=== PATIENT | female | born 1980 | race Caucasian/White ===

== ENCOUNTER 2016-10-14 23:34 | Emergency (ER) | payer MEDICARE, OTHER ==
[2016-10-14 23:53] VITALS: BP 111/69; PULSE 86; RESP 18; TEMP 98.1
[2016-10-15] MEDS ORDERED: SODIUM CHLORIDE 0.9% 500 ML IV ONE (00:21)
[2016-10-15] MEDS ORDERED: diphenhydrAMINE 50 MG/ML 1 ML VIAL IVP STA (00:21)
[2016-10-15] MEDS ORDERED: METOCLOPRAMIDE 5 MG/ML 2 ML VIAL IVP STA (00:21)
[2016-10-15] MEDS ORDERED: KETOROLAC 30 MG/ML 1 ML VIAL IVP STA (00:21)
--- NOTE | 2016-10-15 00:33 | ED ---
Headache HPI - General Chief Complaint: Headache Stated Complaint: Head Pain Hx Brain Surgery Time Seen by Provider: 10/15/16 00:16 Source: patient, RN notes reviewed Mode of arrival: wheelchair Limitations: no limitations - History of Present Illness Initial Comments: 35-year-old female presents emergency Department chief complaint headache. Patient states headache started last night. Patient states that she's tried some Excedrin with no relief. Patient states she's had chronic headaches ever since she had an abscess to her brain from a tooth infection. She states this is 7-8 years ago. She states she's never had a recurrence of her infection. She states this feels like her typical migraine headache which is diffuse in nature and the posterior aspect. Patient denies any visual changes though she does say that she has some photophobia. Patient does admit to some nausea. Patient states she has some chronic weakness the right side from her abscess in which she hadn't to cranial pressure alleviated with bur holes. Patient denies any neck stiffness, fever, chills, chest pain or shortness breath. - Related Data Home Medications Medication Instructions Recorded Confirmed ALPRAZolam [Xanax] 1 mg PO Q12H PRN 10/14/16 10/14/16 FLUoxetine HCL [PROzac] 30 mg PO DAILY 10/14/16 10/14/16 lamoTRIgine [LaMICtal Xr] 100 mg PO BID 10/14/16 10/14/16 Allergies Allergy/AdvReac Type Severity Reaction Status Date / Time No Known Allergies Allergy Verified 10/14/16 23:53 Review of Systems ROS Statement: Those systems with pertinent positive or pertinent negative responses have been documented in the HPI. ROS Other: All systems not noted in ROS Statement are negative. Past Medical History Additional Past Medical History / Comment(s): right sided weakness, Brain cysts History of Any Multi-Drug Resistant Organisms: None Reported Additional Past Surgical History / Comment(s): 3 brain surgeries Past Psychological History: Anxiety, Bipolar, Depression Smoking Status: Current every day smoker Past Alcohol Use History: None Reported Past Drug Use History: Marijuana General Exam Limitations: no limitations General appearance: alert, in no apparent distress Head exam: Present: atraumatic, normocephalic, normal inspection Eye exam: Present: normal appearance, PERRL, EOMI. Absent: scleral icterus, conjunctival injection, periorbital swelling ENT exam: Present: normal exam, normal oropharynx, mucous membranes moist Neck exam: Present: normal inspection, full ROM. Absent: tenderness, meningismus, lymphadenopathy Respiratory exam: Present: normal lung sounds bilaterally. Absent: respiratory distress, wheezes, rales, rhonchi, stridor Cardiovascular Exam: Present: regular rate, normal rhythm, normal heart sounds. Absent: systolic murmur, diastolic murmur, rubs, gallop, clicks Extremities exam: Present: other (Some chronic weakness noted to the right upper extremity patient states this is her normal baseline) Neurological exam: Present: alert, oriented X3, CN II-XII intact, reflexes normal, other (Cerebellar testing within normal limits). Absent: motor sensory deficit Skin exam: Present: warm, dry, intact, normal color. Absent: rash Course Vital Signs 10/14/16 23:50 Temperature 98.1 F Pulse Rate 86 Respiratory 18 Rate Blood Pressure 111/69 O2 Sat by Pulse 98 Oximetry - Reevaluation(s) Reevaluation #1: 10/15/16 01:59 Patient was reevaluated updated on results. Patient is using her cell phone in her room with no difficulty. Patient's in no acute distress. Patient states the headache is getting better. Patient will be discharged Medical Decision Making - Medical Decision Making 35-year-old female presented for headache. Patient's CT shows no acute changes. Patient will be discharged. Patient has no neurological deficits. Disposition Clinical Impression: Migraine Disposition: HOME SELF-CARE Condition: Stable Instructions: Acute Headache (ED) Additional Instructions: Please return to the Emergency Department if symptoms worsen or any other concerns. Time of Disposition: 02:00
[2016-10-15] MEDS ORDERED: ALPRAZolam 0.25 MG TAB PO STA (01:13)
[2016-10-15] MEDS ORDERED: BUTALB/APAP/CAFF 50-325-40MG TAB PO STA (01:33)
--- NOTE | 2016-10-15 01:47 | CT ---
EXAMINATION TYPE: CT brain wo con DATE OF EXAM: 10/15/2016 1:26 AM COMPARISON: 09/14/2015 HISTORY: HARKINS, light and sound sensitive, history of brain surgery x3 CT DLP: 1017.90 mGycm Automated exposure control for dose reduction was used. FINDINGS: Ventricles and sulci appear normal. There is some mild hypodensity in the white matter left posterior frontal lobe. There is no mass effect nor midline shift. There is no sign of intracranial hemorrhage . The calvarium is intact. There is hypodensity also in the insula of the left temporal lobe. IMPRESSION: Hypodensity in the left cerebral hemisphere consistent with mild encephalomalacia that is stable comp ared to last exam. No acute intracranial abnormality.
== END 2016-10-15 02:18 | disposition home or self-care (01) ==
LOC: EC 23:34
DX: G43.909 Migraine, unspecified, not intractable, without status migrainosus (principal); F31.9 Bipolar disorder, unspecified; F41.9 Anxiety disorder, unspecified; F17.200 Nicotine dependence, unspecified, uncomplicated; Z79.899 Other long term (current) drug therapy
CPT/HCPCS: 70450; 99284; 96374; 96375 ×2; J1200; J2765; J1885

== ENCOUNTER 2017-01-12 16:03 | Emergency (ER) | payer MEDICARE, OTHER ==
[2017-01-12 16:07] VITALS: RESP 18
[2017-01-12] MEDS ORDERED: MORPHINE SULFATE 4 MG/ML SYRINGE IVP STA (16:38)
[2017-01-12] MEDS ORDERED: KETOROLAC 30 MG/ML 1 ML VIAL IVP STA (16:38)
[2017-01-12] MEDS ORDERED: diphenhydrAMINE 50 MG/ML 1 ML VIAL IVP STA (16:38)
[2017-01-12] MEDS ORDERED: LORazepam 2 MG/ML SYRINGE IV STA (16:38)
[2017-01-12] MEDS ORDERED: SODIUM CHLORIDE 0.9% 1,000 ML IV STA (16:38)
[2017-01-12] MEDS ORDERED: METOCLOPRAMIDE 5 MG/ML 2 ML VIAL IVP STA (16:38)
--- NOTE | 2017-01-12 16:45 | ED ---
General Adult HPI - General Chief complaint: Headache Stated complaint: Headache Time Seen by Provider: 01/12/17 16:23 Source: patient, RN notes reviewed, old records reviewed Mode of arrival: EMS Limitations: no limitations - History of Present Illness Initial comments: This is a 28-year-old female to the ER for evaluation of headache. Patient doesn't for migraine headaches. Patient denies being the worst headache of her life, headache started earlier this afternoon she did take Imitrex at home for migraine which had no help. Patient denies taking any other medications at home. No recent trauma no fevers. No recent hospital admission for similar issues. Patient denies neurological deficit. No nausea vomiting. Patient feels like she has sharp stabbing pain above her left eye which is similar to her headaches in the past. - Related Data Home Medications Medication Instructions Recorded Confirmed ALPRAZolam [Xanax] 1 mg PO BID 10/14/16 01/12/17 Albuterol Inhaler [Ventolin Hfa 2 puff INHALATION RT-Q4H PRN 01/12/17 01/12/17 Inhaler] Cyclobenzaprine [Flexeril] 10 mg PO HS PRN 01/12/17 01/12/17 FLUoxetine HCL [PROzac] 30 mg PO DAILY 01/12/17 01/12/17 Naproxen 500 mg PO BID PRN 01/12/17 01/12/17 Omeprazole [PriLOSEC] 40 mg PO DAILY 01/12/17 01/12/17 lamoTRIgine [LaMICtal] 100 mg PO BID 01/12/17 01/12/17 Allergies Allergy/AdvReac Type Severity Reaction Status Date / Time No Known Allergies Allergy Verified 01/12/17 16:18 Review of Systems ROS Statement: Those systems with pertinent positive or pertinent negative responses have been documented in the HPI. ROS Other: All systems not noted in ROS Statement are negative. Past Medical History Additional Past Medical History / Comment(s): right sided weakness, Brain cysts History of Any Multi-Drug Resistant Organisms: None Reported Additional Past Surgical History / Comment(s): 3 brain surgeries Past Psychological History: Anxiety, Bipolar, Depression Smoking Status: Current every day smoker Past Alcohol Use History: None Reported Past Drug Use History: Marijuana General Exam Limitations: no limitations General appearance: alert, in no apparent distress Head exam: Present: atraumatic, normocephalic, normal inspection Eye exam: Present: normal appearance, PERRL, EOMI. Absent: scleral icterus, conjunctival injection, periorbital swelling ENT exam: Present: normal exam, mucous membranes moist Neck exam: Present: normal inspection. Absent: tenderness, meningismus, lymphadenopathy Respiratory exam: Present: normal lung sounds bilaterally. Absent: respiratory distress, wheezes, rales, rhonchi, stridor Cardiovascular Exam: Present: regular rate, normal rhythm, normal heart sounds. Absent: systolic murmur, diastolic murmur, rubs, gallop, clicks GI/Abdominal exam: Present: soft, normal bowel sounds. Absent: distended, tenderness, guarding, rebound, rigid Extremities exam: Present: normal inspection, full ROM, normal capillary refill. Absent: tenderness, pedal edema, joint swelling, calf tenderness Back exam: Present: normal inspection Neurological exam: Present: alert, oriented X3, CN II-XII intact Psychiatric exam: Present: normal affect, normal mood Skin exam: Present: warm, dry, intact, normal color. Absent: rash Course Vital Signs 01/12/17 01/12/17 01/12/17 16:04 16:52 17:20 Temperature 99.0 F Pulse Rate 65 76 70 Respiratory 18 18 18 Rate Blood Pressure 119/68 96/59 117/73 O2 Sat by Pulse 99 97 98 Oximetry 01/12/17 17:48 Temperature Pulse Rate 78 Respiratory 18 Rate Blood Pressure 112/75 O2 Sat by Pulse 100 Oximetry - Reevaluation(s) Reevaluation #1: 01/12/17 18:20 Patient's headache continues to improve Reevaluation #2: 01/12/17 18:50 At this point patient's headache appears resolved Reevaluation #3: 01/12/17 18:20 Patient's medical record thoroughly reviewed and cleaned prior MRI and CAT scans of brain Medical Decision Making - Medical Decision Making 36 female here for evaluation of headache. History of chronic headache and migraine, patient given multiple migraine medications in the emergency, headache is improved CT is negative, past results of MRI also show negative, patient will be discharged home - Radiology Data Radiology results: report reviewed (CT brain is negative for acute disease), image reviewed Disposition Clinical Impression: Headache, Migraine Disposition: HOME SELF-CARE Condition: Good Instructions: Acute Headache (ED) Referrals: Jarrell Tello MD [Primary Care Provider] - 1-2 days
[2017-01-12] MEDS ORDERED: HYDROmorphone 2 MG/ML 1 ML SYRINGE IVP STA ×2 (17:43→19:51)
[2017-01-12] MEDS ORDERED: ORPHENADRINE 30 MG/ML 2 ML VIAL IVP STA (18:11)
[2017-01-12] MEDS ORDERED: PROCHLORPERAZINE 5 MG TAB PO STA (18:11)
--- NOTE | 2017-01-12 18:42 | CT ---
EXAMINATION TYPE: CT brain wo con DATE OF EXAM: 01/12/2017 6:37 PM COMPARISON: 10/15/2016 HISTORY: Headache for 5 days with history of migraine CT DLP: 1017.[address] of the brain was performed. The ventricles, basal cisterns and sulci overlying the cerebral convexities demonstrate a normal appe arance. Stable focal area of decreased attenuation within the left external capsule likely reflects an area o f remote encephalomalacia. There is no evidence for intracranial hemorrhage or sulcal effacement. No mass effects are seen. Osseous calvarium is intact. If symptoms persist consider MRI as clinically warranted. IMPRESSION: 1. No acute intracranial process is seen at this time.
[2017-01-12 20:07] VITALS: BP 113/69; PULSE 68; TEMP 98.5
== END 2017-01-12 20:09 | disposition home or self-care (01) ==
LOC: EC 16:03
DX: G43.909 Migraine, unspecified, not intractable, without status migrainosus (principal); H57.12 Ocular pain, left eye; F31.9 Bipolar disorder, unspecified; F41.9 Anxiety disorder, unspecified; F17.200 Nicotine dependence, unspecified, uncomplicated; Z79.899 Other long term (current) drug therapy
CPT/HCPCS: 96375 ×8; 96376 ×2; 96361 ×2; 96365 ×2; 99284 ×2; 70450; S0183; J2060; J2270; J1170; J1200; J2360; J2765; J2930; J1885

== ENCOUNTER 2017-01-14 18:24 | Emergency (ER) | payer MEDICARE, OTHER ==
[2017-01-14 18:35] VITALS: RESP 18
[2017-01-14] MEDS ORDERED: KETOROLAC 30 MG/ML 1 ML VIAL IVP STA (18:47)
[2017-01-14] MEDS ORDERED: diphenhydrAMINE 50 MG/ML 1 ML VIAL IVP STA (18:47)
[2017-01-14] MEDS ORDERED: METOCLOPRAMIDE 5 MG/ML 2 ML VIAL IVP STA (18:47)
[2017-01-14] MEDS ORDERED: DEXAMETHASONE SOD PHOSPHATE 10 MG/ML 1 ML VIAL IV STA (18:47)
[2017-01-14] MEDS ORDERED: SODIUM CHLORIDE 0.9% 1,000 ML IV STA (18:47)
--- NOTE | 2017-01-14 18:49 | ED ---
General Adult HPI - General Chief complaint: Headache Stated complaint: Headache w Tingling Time Seen by Provider: 01/14/17 18:38 Source: EMS, RN notes reviewed Mode of arrival: EMS Limitations: no limitations - History of Present Illness Initial comments: Patient 36-year-old female who presents emergency room today with a chief complaint of a headache. Does admit that headaches ongoing over the last 2 days. Was recently seen here in the emergency room just 2 days ago for this headache. Does admit to chronic migraines. Patient states it's a stabbing type headache located on the left side. She states is consistent with migraines is had in the past. Also does admit to some photosensitivity which she is also had in the past. Patient states that approximately an hour ago began having some numbness and stationed on the left arm. She states this is different. Her previous headaches. She denies any other complaints or associated symptoms. Patient denies any recent fever, chills, shortness of breath, chest pain, back pain, abdominal pain, nausea or vomiting, numbness or tingling, dysuria or hematuria, constipation or diarrhea, headaches or visual changes, or any other complaints. - Related Data Home Medications Medication Instructions Recorded Confirmed ALPRAZolam [Xanax] 1 mg PO BID 10/14/16 01/14/17 Albuterol Inhaler [Ventolin Hfa 2 puff INHALATION RT-Q4H PRN 01/12/17 01/14/17 Inhaler] Cyclobenzaprine [Flexeril] 10 mg PO HS PRN 01/12/17 01/14/17 FLUoxetine HCL [PROzac] 30 mg PO DAILY 01/12/17 01/14/17 Naproxen 500 mg PO BID PRN 01/12/17 01/14/17 Omeprazole [PriLOSEC] 40 mg PO DAILY 01/12/17 01/14/17 lamoTRIgine [LaMICtal] 100 mg PO BID 01/12/17 01/14/17 [id number] 2 tab PO TID PRN 01/14/17 01/14/17 [Excedrin] Allergies Allergy/AdvReac Type Severity Reaction Status Date / Time No Known Allergies Allergy Verified 01/14/17 19:35 Review of Systems ROS Statement: Those systems with pertinent positive or pertinent negative responses have been documented in the HPI. ROS Other: All systems not noted in ROS Statement are negative. Past Medical History Additional Past Medical History / Comment(s): right sided weakness, Brain cysts History of Any Multi-Drug Resistant Organisms: None Reported Additional Past Surgical History / Comment(s): 3 brain surgeries Past Psychological History: Anxiety, Bipolar, Depression Smoking Status: Current every day smoker Past Alcohol Use History: None Reported Past Drug Use History: Marijuana General Exam - General Exam Comments Initial Comments: General: The patient is awake and alert, in no distress, and does not appear acutely ill. Eye: Pupils are equal, round and reactive to light, extra-ocular movements are intact. No nystagmus. There is normal conjunctiva bilaterally. No signs of icterus. Ears, nose, mouth and throat: There are moist mucous membranes and no oral lesions. Neck: The neck is supple, there is no tenderness or JVD. Cardiovascular: There is a regular rate and rhythm. No murmur, rub or gallop is appreciated. Respiratory: Lungs are clear to auscultation, respirations are non-labored, breath sounds are equal. No wheezes, stridor, rales, or rhonchi. Gastrointestinal: Soft, non-distended, non-tender abdomen without masses or organomegaly noted. There is no rebound or guarding present. No CVA tenderness. Bowel sounds are unremarkable. Musculoskeletal: Normal ROM, no tenderness. Strength 5/5. Sensation intact. Pulses equal bilaterally 2+. Neurological: A&O x 3. CN II-XII intact, There are no obvious motor or sensory deficits. Coordination appears grossly intact. Speech is normal. Skin: Skin is warm and dry and no rashes or lesions are noted. Psychiatric: Cooperative, appropriate mood & affect, normal judgment. Limitations: no limitations Course Vital Signs 01/14/17 18:30 Temperature 97.9 F Pulse Rate 74 Respiratory 18 Rate Blood Pressure 104/58 O2 Sat by Pulse 100 Oximetry Medical Decision Making - Medical Decision Making Patient reexamined at this time shows no signs of distress. Resting comfortably in the stretcher. Medications given of Toradol, Benadryl, steroids , Reglan here in the emergency room for headache along with fluids. She states it has been little improvement. Patient does admit to a history of migraines states his symptoms are similar. She said multiple CAT scans most recently just 2 days ago which was negative for any acute abnormalities. Case was discussed with attending physician . Was discussed with patient about migraine headaches and narcotics. Long discussion with the patient about the risks and benefits. Patient in agreement at this time to not take any narcotic medication. Patient be given Ativan discharged home and advised follow-up with her family doctor long with neurologist. Patient advised return if any symptoms increase or worsen or for any other concerns - Lab Data Result diagrams: 01/14/17 19:05 01/14/17 19:05 Lab Results 01/14/17 01/14/17 Range/Units 19:05 19:05 WBC 5.8 (3.8-10.6) k/uL RBC 3.75 L (3.80-5.40) m/uL Hgb 12.1 (11.4-16.0) gm/dL Hct 34.9 (34.0-46.0) % MCV 93.0 (80.0-100.0) fL MCH 32.4 (25.0-35.0) pg MCHC 34.8 (31.0-37.0) g/dL RDW 12.5 (11.5-15.5) % Plt Count 286 (150-450) k/uL Neutrophils % 55 % Lymphocytes % 35 % Monocytes % 7 % Eosinophils % 0 % Basophils % 1 % Neutrophils # 3.2 (1.3-7.7) k/uL Lymphocytes # 2.0 (1.0-4.8) k/uL Monocytes # 0.4 (0-1.0) k/uL Eosinophils # 0.0 (0-0.7) k/uL Basophils # 0.1 (0-0.2) k/uL Sodium 145 (137-145) mmol/L Potassium 4.1 (3.5-5.1) mmol/L Chloride 110 H (98-107) mmol/L Carbon Dioxide 27 (22-30) mmol/L Anion Gap 8 mmol/L BUN 24 H (7-17) mg/dL Creatinine 0.90 (0.52-1.04) mg/dL Est GFR (MDRD) Af Amer >60 (>60 ml/min/1.73 sqM) Est GFR (MDRD) Non-Af >60 (>60 ml/min/1.73 sqM) Glucose 80 (74-99) mg/dL Calcium 9.8 (8.4-10.2) mg/dL Disposition Clinical Impression: Headache Disposition: HOME SELF-CARE Condition: Good Instructions: Acute Headache (ED) Additional Instructions: Please follow-up the family doctor and neurologist as discussed. Please return to emergency room if any symptoms increase worsen or for other concerns. Time of Disposition: 19:56
[2017-01-14 19:19] LABS: Basophils # (A) 0.1 k/uL (0-0.2); Basophils % (A) 1 %; CH 32.4; Eosinophils % (A) 0 %; HCT 34.9 % (34.0-46.0); HDW 2.47; HGB 12.1 gm/dL (11.4-16.0); Luc # (Auto) 0.16; Luc % (Auto) 3; Lymphocytes % (A) 35 %; MCH 32.4 pg (25.0-35.0); MCHC 34.8 g/dL (31.0-37.0); Mean Platelet Volume 7.4; Monocytes # (A) 0.4 k/uL (0-1.0); Monocytes % (A) 7 %; Neutrophils # (A) 3.2 k/uL (1.3-7.7); Neutrophils % (A) 55 %; RBC 3.75 m/uL (3.80-5.40); RDW 12.5 % (11.5-15.5); WBC 5.8 k/uL (3.8-10.6); WBC (Perox) 6.18
[2017-01-14 19:36] LABS: Anion Gap 8 mmol/L; Blood Urea Nitrogen 24 mg/dL (7-17); Calcium 9.8 mg/dL (8.4-10.2); Carbon Dioxide 27 mmol/L (22-30); Chloride 110 mmol/L (98-107); Glucose 80 mg/dL (74-99); Non-African American GFR(MDRD) >60 (>60 ml/min/1.73 sqM); Potassium 4.1 mmol/L (3.5-5.1); Sodium 145 mmol/L (137-145)
[2017-01-14] MEDS ORDERED: LORazepam 2 MG/ML SYRINGE IV STA ×2 (19:53→19:54)
[2017-01-14 20:03] VITALS: BP 103/69; PULSE 65; TEMP 98
== END 2017-01-14 20:28 | disposition home or self-care (01) ==
LOC: EC 18:24
DX: R51 Headache (principal); F32.9 Major depressive disorder, single episode, unspecified; F41.9 Anxiety disorder, unspecified; F31.9 Bipolar disorder, unspecified; F17.200 Nicotine dependence, unspecified, uncomplicated; Z79.899 Other long term (current) drug therapy
CPT/HCPCS: 36415; 80048; 85025; 96374; 96375; 96376; 96361; 99284; J2060; J1200; J1100; J2765; J1885

== ENCOUNTER 2017-01-15 15:42 | Inpatient (IN) | payer MEDICARE, OTHER ==
[2017-01-15] MEDS ORDERED: KETOROLAC 60 MG/2 ML VIAL IVP STA (16:03)
[2017-01-15] MEDS ORDERED: PROMETHAZINE INJ 25 MG in SODIUM CHLORIDE 0.9% 50 ML IVPB STA (16:04)
[2017-01-15] MEDS ORDERED: SODIUM CHLORIDE 0.9% 1,000 ML IV ONE ×2 (16:05→17:30)
[2017-01-15] MEDS ORDERED: diphenhydrAMINE 50 MG/ML 1 ML VIAL IVP STA (16:05)
--- NOTE | 2017-01-15 16:08 | ED ---
General Adult HPI - General Chief complaint: Headache Stated complaint: HEADACHE Time Seen by Provider: 01/15/17 15:45 Source: EMS, RN notes reviewed Mode of arrival: EMS Limitations: no limitations - History of Present Illness Initial comments: This is a 28-year-old female presents to the emergency department with chronic headaches. Patient states she has a history of having had a brain abscess and brain surgery many years ago. Patient states about 4 years ago she started having chronic headaches and she states the last time she is completely headache free was about a year ago. Patient states been emergency department twice before this last week because of headaches. Patient states we give her medication she feels better she is home and the headaches return. Patient has had 2 CAT scans already this year both been negative for any new changes. Patient has not followed up with her neurologist or her primary medical care doctor for these headaches recently. Patient denies any new neurologic deficit. Patient states she does have some residual weakness to the right arm and leg secondary to the surgery she had on her brain abscess. Patient denies any recent fever or chills. Patient denies any blurred vision. Patient denies any injury or trauma. Patient denies any recent cough or any difficulty breathing. Patient denies any nausea or vomiting. - Related Data Home Medications Medication Instructions Recorded Confirmed ALPRAZolam [Xanax] 1 mg PO BID 10/14/16 01/15/17 Albuterol Inhaler [Ventolin Hfa 2 puff INHALATION RT-Q4H PRN 01/12/17 01/15/17 Inhaler] Cyclobenzaprine [Flexeril] 10 mg PO HS PRN 01/12/17 01/15/17 FLUoxetine HCL [PROzac] 30 mg PO DAILY 01/12/17 01/15/17 Naproxen 500 mg PO BID PRN 01/12/17 01/15/17 Omeprazole [PriLOSEC] 40 mg PO DAILY 01/12/17 01/15/17 lamoTRIgine [LaMICtal] 100 mg PO BID 01/12/17 01/15/17 [id number] 2 tab PO TID PRN 01/14/17 01/15/17 [Excedrin] Allergies Allergy/AdvReac Type Severity Reaction Status Date / Time No Known Allergies Allergy Verified 01/15/17 16:18 Review of Systems ROS Statement: Those systems with pertinent positive or pertinent negative responses have been documented in the HPI. ROS Other: All systems not noted in ROS Statement are negative. Past Medical History Additional Past Medical History / Comment(s): right sided weakness, Brain cysts History of Any Multi-Drug Resistant Organisms: None Reported Additional Past Surgical History / Comment(s): 3 brain surgeries Past Psychological History: Anxiety, Bipolar, Depression Smoking Status: Current every day smoker Past Alcohol Use History: None Reported Past Drug Use History: Marijuana General Exam - General Exam Comments Initial Comments: GENERAL: Patient is well-developed and well-nourished. Patient is nontoxic and well- hydrated and is in mild distress. ENT: Neck is soft and supple. No significant lymphadenopathy is noted. Oropharynx is clear. Moist mucous membranes. Neck has full range of motion without eliciting any pain. EYES: The sclera were anicteric and conjunctiva were pink and moist. Extraocular movements were intact and pupils were equal round and reactive to light. Eyelids were unremarkable. PULMONARY: Unlabored respirations. Good breath sounds bilaterally. No audible rales rhonchi or wheezing was noted. CARDIOVASCULAR: There is a regular rate and rhythm without any murmurs gallops or rubs. ABDOMEN: Soft and nontender with normal bowel sounds. No palpable organomegaly was noted. There is no palpable pulsatile mass. SKIN: Skin is clear with no lesions or rashes and otherwise unremarkable. NEUROLOGIC: Patient is alert and oriented x3. Cranial nerves II through XII are grossly intact. 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 Normal speech, volume and content. Symmetrical smile. MUSCULOSKELETAL: Normal extremities with adequate strength and full range of motion. No lower extremity swelling or edema. No calf tenderness. LYMPHATICS: No significant lymphadenopathy is noted PSYCHIATRIC: Normal psychiatric evaluation. Normal interpersonal interactions appears functionally intact in deals appropriately with others. No signs of depression. No signs of anxiety. Limitations: no limitations Course Vital Signs 01/15/17 01/15/17 15:45 17:11 Temperature 97.0 F L 97.5 F L Pulse Rate 81 67 Respiratory 18 18 Rate Blood Pressure 118/67 112/81 O2 Sat by Pulse 97 99 Oximetry Medical Decision Making - Medical Decision Making This is the patient's third visit in a week she's had 2 CTs of her brain this year and the medicine we gave her only mildly improved her symptoms. she states she has an appointment with the [facility] in June patient states she cannot go home with the scheduled just be back tomorrow. I spoke with Dr. Dahl agreed to admit I wrote admitting orders and consult neurology Disposition Clinical Impression: Intractable headache Disposition: ADMITTED IP TO THIS [facility] Time of Disposition: 17:30
[2017-01-15] MEDS ORDERED: LORazepam 2 MG/ML SYRINGE IV STA (17:22)
[2017-01-15] MEDS ORDERED: ASPIRIN-ACET-CAFF 250-250-65MG 1 EACH TAB PO PRN (18:37)
[2017-01-15] MEDS ORDERED: NAPROXEN 250 MG TAB PO PRN (18:37)
[2017-01-15] MEDS ORDERED: ALBUTEROL NEBULIZED 2.5 MG/3 ML INHALATION PRN (18:37)
[2017-01-15] MEDS: lamoTRIgine 100 MG TAB PO SCH (21:08)
[2017-01-15] MEDS: Acetaminophen-Codeine 300-30mg TAB PO PRN (21:08)
[2017-01-15] MEDS: ALPRAZolam 0.5 MG TAB PO SCH (21:13)
[2017-01-16] MEDS: Acetaminophen-Codeine 300-30mg TAB PO PRN ×2 (03:31→08:11)
[2017-01-16] MEDS: lamoTRIgine 100 MG TAB PO SCH ×2 (08:10→20:13)
[2017-01-16] MEDS: PANTOPRAZOLE 40 MG TABLET PO SCH (08:11)
[2017-01-16] MEDS: ALPRAZolam 0.5 MG TAB PO SCH ×2 (08:11→21:31)
[2017-01-16] MEDS: FLUoxetine HCL 10 MG CAP PO SCH (08:11)
--- NOTE | 2017-01-16 11:28 | P.CNNES ---
History of Present Illness Consult date: 01/16/17 Requesting physician: Jaswant Ahumada Reason for Consult: Intractable headache History of Present Illness: Patient is a pleasant 28-year-old female who is being evaluated by the neurology service on 01/16/2017 per the request of Dr. Ahumada for intractable headache. Patient states that she has history of brain abscess and brain surgery approximately 6 years ago done at [facility]. Patient does report having residual right upper extremity weakness ever since the surgery. Patient states headaches began a little over a year ago. Patient reports having seen a neurologist in the past but states no medications have relieved the headaches and she has not followed up. Patient has had multiple emergency room visits in the past week. Patient states when she comes emergency room she was given IV medications to help relieve the headache and headaches returned when she gets in the home setting. CT of the brain from 01/12/2017 showed no acute intracranial process. Vital signs are stable on admission with a pulse 85 , respiratory rate 19, blood pressure 116/66, and O2 saturation of 97% on room air. Patient's home medications include Excedrin migraine which patient states does not help. Patient also takes Lamictal and Prozac for mood and does see [facility] as an outpatient. At the time of my evaluation, patient is sitting up in bed and is tearful complaining of left-sided headache pain. Review of Systems REVIEW OF SYSTEMS: Otherwise unremarkable and noncontributory. Past Medical History Additional Past Medical History / Comment(s): right sided weakness, Brain cysts History of Any Multi-Drug Resistant Organisms: None Reported Additional Past Surgical History / Comment(s): 3 brain surgeries Past Psychological History: Anxiety, Bipolar, Depression Smoking Status: Former smoker Past Alcohol Use History: None Reported Past Drug Use History: Marijuana Additional Drug Use History / Comment(s): Pt states she quit smoking 2 weeks ago Medications and Allergies Home Medications Medication Instructions Recorded Confirmed Type ALPRAZolam [Xanax] 1 mg PO BID 10/14/16 01/15/17 History Albuterol Inhaler [Ventolin Hfa 2 puff INHALATION RT-Q4H PRN 01/12/17 01/15/17 History Inhaler] FLUoxetine HCL [PROzac] 30 mg PO DAILY 01/12/17 01/15/17 History Naproxen 500 mg PO BID PRN 01/12/17 01/15/17 History Omeprazole [PriLOSEC] 40 mg PO DAILY 01/12/17 01/15/17 History lamoTRIgine [LaMICtal] 100 mg PO BID 01/12/17 01/15/17 History Modpwhn-Ssip-Zoov [id number] 2 tab PO TID PRN 01/14/17 01/15/17 History [Excedrin] Allergies Allergy/AdvReac Type Severity Reaction Status Date / Time No Known Allergies Allergy Verified 01/15/17 16:18 Physical Examination - Vital Signs Vital Signs: Vital Signs Temp Pulse Pulse Resp BP BP Pulse Ox 01/16/17 07:00 98.6 F 57 L 16 96/60 97 01/15/17 23:00 98.2 F 97 16 110/62 97 01/15/17 18:27 97.6 F 85 19 116/66 99 01/15/17 18:00 97.9 F 80 18 115/79 97 Intake and Output 01/15/17 01/16/17 01/16/17 22:59 06:59 14:59 Other: # Voids 1 0 PHYSICAL EXAM: GENERAL APPEARANCE: Patient is a well-developed, female who appears to be in no acute distress. HEENT: Normocephalic, atraumatic, no facial asymmetry is seen. Neck is supple with no masses felt. CARDIOVASCULAR: Regular rate and rhythm. ABDOMEN: Nontender, nondistended. EXTREMITIES: Show no edema or clubbing. NEUROLOGICAL EXAM: Patient is awake, alert, and oriented 3. Speech and language are normal. Strength is 5-/5 in right upper extremity and 5/5 in all other extremities. Sensory exam to light touch is normal in all 4 extremities. No facial asymmetry seen on cranial nerve testing. No tremors or seizure- like activity is seen. Assessment and Plan Plan: Impression: 1. Intractable headache/status migrainosus 2. History of migraines 3. 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 Depression/anxiety Recommendations: It does appear patient has status migrainosus. I will order an MRI/MRA of the brain to evaluate for possible contributing causes. As you recall, recent CT of the brain was without any acute process. Patient does have history of depression and anxiety for which she sees counseling at [facility]. Patient is on Prozac per their recommendation, however, Prozac can cause headaches. I suggest a psychiatric consult to evaluate medication regimen and possibly wean patient off of Prozac. I will order IV Solu-Medrol, Reglan, and magnesium to help alleviate the headache. I will order Fioricet with codeine as an abortive therapy. Once headache pain is under control and patient is discharged, we can follow as an outpatient and possibly perform a sphenopalatine block. I will continue to follow with you. Further recommendations to follow. Thank you for allowing me to participate in the care of your patient. Feel free to call with any questions or concerns. I performed an examination of the patient and discussed the management with the CLAM DREDGER. I have reviewed the CLAM DREDGER notes and agree with the findings and plan of care.
[2017-01-16] MEDS ORDERED: MAGNESIUM SULFATE-D5W PMX 1 GM in DEXTROSE/WATER 1 100ML.BAG IVPB ONE (11:29)
[2017-01-16] MEDS: BUTA/APAP/CAF/COD 50-325-40-30 CAP PO PRN ×2 (12:39→20:08)
[2017-01-16] MEDS: METOCLOPRAMIDE 5 MG/ML 2 ML VIAL IVP SCH (15:51)
[2017-01-16] MEDS: ENOXAPARIN 40 MG/0.4 ML SYRINGE SQ SCH (15:52)
[2017-01-16] MEDS ORDERED: NICOTINE 7MG/24HR PATCH TRANSDERM SCH (18:15)
[2017-01-16] MEDS: NICOTINE 7MG/24HR PATCH TRANSDERM SCH (20:13)
[2017-01-16 20:41] LABS: Glucose,Whole Blood 183 mg/dL (75-99)
--- NOTE | 2017-01-16 21:17 | HP ---
DATE OF ADMISSION: 01/15/2017 PRESENTING COMPLAINT: Severe headache. HISTORY OF PRESENTING COMPLAINT: This is a 36-year-old patient who follows with Dr. Tello with rather extensive headache history. Patient states about 6 years ago, she was at [facility] where a brain abscess was drained and it was felt to be communicated from an abscess of the ( ). Patient had headache on and off for quite some time, in fact, looking back in the records, patient had a visit back in September 2015 into the ER where she is complaining of headaches going on for 2 months, severe sharp headache on the top of the head going like a sharp knife going down the neck affecting sometimes a vision in her left eye, subsequently she has had a CT scan in October 2015 followed by an MRI that shows left frontal temporal encephalomalacia. She has had these headaches off and on and has had different mrda-vnn-gzhjoqd medications. Gone to her family doctor. Again she presents with the same symptoms that she is having severe headache like a sharp shooting pain on the left part of the top side of the head. There is no aura. There is no aura with pain. The pain shoots down the left side of the neck. Since the surgery, patient had chronic weakness on the right side of the right arm. Though, patient is right-handed, she uses her left hand to feed herself. Patient is also weak in the right leg she states and also sometimes uses a cane. The pain has been bothering her to the extent that she decided to come into the ER. CT scan again shown from a previous visit to the ER 2 days ago shows the same encephalomalacia. Patient is able to tolerate a diet. No change in vision. No nausea, vomiting. Because of intractable headache she is admitted to the hospital. REVIEW OF SYSTEMS: CONSTITUTIONAL: Tired. HEENT: As above. RESPIRATORY: None. CARDIOVASCULAR: None. GASTROINTESTINAL: None. GENITOURINARY: None. MUSCULOSKELETAL: None. Dermatological: None. HEMATOLOGICAL: None. LYMPHATIC: None. PSYCHIATRY: Some anxiety, depression. NEUROLOGICAL: As above. Past medical history of brain abscess draining from the ( ) with surgical intervention about 6 years ago at [facility] causing residual weakness on the right side, intractable headaches off and on and bipolar disorder. PAST SURGICAL HISTORY: Brain surgery. SOCIAL HISTORY: Patient has been smoking on and off about 4 cigarettes a day. , homemaker. Has had marijuana in the past. FAMILY HISTORY: Reviewed; noncontributory to presentation. HOME MEDICATIONS: 1. Lamictal 100 milligrams p.o. b.i.d. 2. Prilosec 40 mg p.o. daily. 3. Naproxen 500 grams p.o. b.i.d. p.r.n. 4. Prozac 30 mg a day. 5. Excedrin 2 tablets p.o. t.i.d. p.r.n. 6. Ventolin HFA 2 puffs q.4 p.r.n. 7. Xanax 1 mg p.o. b.i.d. ALLERGIES: None. On examination, temperature 97, pulse 80, respirations 18, blood pressure 108/67, pulse ox 97% on room air. GENERAL APPEARANCE: Average build, lying in bed, not in distress, though tired -appearing. EYES: Pupils equal. Conjunctivae normal. HEENT: External appearance of nose and ears normal. Oral cavity normal. NECK: JVD not raised. Mass not palpable. RESPIRATORY: Effort normal. Lungs are clear. CARDIOVASCULAR: First and second sounds normal. No edema. ABDOMEN: Soft, nontender. Liver and spleen not palpable. LYMPHATIC: No lymph nodes palpable in the neck or axillae. PSYCHIATRY: Alert and oriented x3. Mood and affect is anxious appearing. NEUROLOGICAL: Pupils equal. Cranial nerves grossly intact. Power in the right side is 4/5. Sensation grossly preserved. INVESTIGATIONS: CT scan of the brain showed encephalomalacia. ASSESSMENT: 1. This is a patient acute on chronic headache, the nature of which is rather localized to the top of the brain going down the left side of the neck with no other manifestations of really migrainous pain is persistent, appears to be more of a neuropathic pain from prior surgery of the brain. Seems to date back to the same with no relief from outside medications. 2. Bipolar disorder, chronic. 3. Chronic nicotine dependence. Patient is a smoker. PLAN: Neurology is consulted. Home medications are resumed. They put the patient on IV Solu-Medrol, Reglan, we will also had DVT prophylaxis. Patient advised against smoking, will give nicotine patch. Care was discussed with the patient. Due to the intractable nature of the pain, the patient will probably need at least 2 nights in the hospital ( ) the pain is controlled and does not interfere with her life.
[2017-01-16] MEDS ORDERED: INSULIN LISPRO (humaLOG) 300 UNIT/3 ML VIAL SQ ONE (22:26)
[2017-01-16] MEDS: KETOROLAC 30 MG/ML 1 ML VIAL IVP SCH (22:53)
[2017-01-17] MEDS: METOCLOPRAMIDE 5 MG/ML 2 ML VIAL IVP SCH ×4 (00:23→23:02)
[2017-01-17] MEDS: BUTA/APAP/CAF/COD 50-325-40-30 CAP PO PRN ×2 (06:18→14:41)
[2017-01-17 07:27] LABS: Glucose,Whole Blood 133 mg/dL (75-99)
[2017-01-17] MEDS: INSULIN LISPRO (humaLOG) 300 UNIT/3 ML VIAL SQ SCH ×4 (07:29→20:52)
[2017-01-17 08:13] LABS: Anion Gap 10 mmol/L; Blood Urea Nitrogen 24 mg/dL (7-17); Calcium 9.4 mg/dL (8.4-10.2); Carbon Dioxide 22 mmol/L (22-30); Chloride 109 mmol/L (98-107); Glucose 146 mg/dL (74-99); Magnesium 2.1 mg/dL (1.6-2.3); Non-African American GFR(MDRD) >60 (>60 ml/min/1.73 sqM); Potassium 4.1 mmol/L (3.5-5.1); Sodium 141 mmol/L (137-145)
--- NOTE | 2017-01-17 08:27 | MR ---
EXAMINATION TYPE: MR angio head wo con DATE OF EXAM: 01/17/2017 8:21 AM COMPARISON: NONE HISTORY: Status migrainosus Three-dimensional amnp-pe-fzuojp intracranial MRA was performed with multiple intensity projection im ages submitted and source data reviewed at the workstation. The vertebrobasilar system as well as intracranial portions of the internal carotid arteries and thei r major tributaries are patent. I do not see evidence for sizable aneurysm or vascular malformation. IMPRESSION: Normal study.
--- NOTE | 2017-01-17 08:38 | MR ---
PRE AND POSTCONTRAST ENHANCED MRI OF THE BRAIN: CLINICAL HISTORY: Status migrainosus COMPARISON: 03/30/2013 and 10/16/2015 CONTRAST: 15 ML Multihance Multiplanar and multispin-echo imaging of the brain was performed both before and after the administr ation of contrast. The ventricles, basal cisterns and sulci overlying the cerebral convexities are stable. Persistent ar ea of the remote insult involving the left external capsule extending into the left ariza radiata an d centrum semioval bilaterally with associated encephalomalacia. Mild ex vacuo dilatation of the left lateral ventricle. There is no evidence for midline shift or mass effect. Acute intracranial hemorrhage or extra-axial collection is not evident. There are no abnormal areas of increased or decreased signal intensity within the brain parenchyma. Following contrast administration, there is no evidence for pathologic enhancement or enhancing mass. The paranasal sinuses and mastoid air cells are well-aerated. IMPRESSION: Stable pre and postcontrast enhanced MRI of the brain. No acute intracranial process seen. Remote ins ult as discussed.
[2017-01-17] MEDS: KETOROLAC 30 MG/ML 1 ML VIAL IVP SCH ×2 (09:01→15:38)
[2017-01-17] MEDS: ALPRAZolam 0.5 MG TAB PO SCH ×2 (09:02→21:10)
[2017-01-17] MEDS: PANTOPRAZOLE 40 MG TABLET PO SCH (09:02)
[2017-01-17] MEDS: ENOXAPARIN 40 MG/0.4 ML SYRINGE SQ SCH (09:02)
[2017-01-17] MEDS: lamoTRIgine 100 MG TAB PO SCH ×2 (09:02→21:10)
[2017-01-17] MEDS: FLUoxetine HCL 10 MG CAP PO SCH (09:02)
[2017-01-17] MEDS: NICOTINE 7MG/24HR PATCH TRANSDERM SCH (09:09)
[2017-01-17 11:57] LABS: Glucose,Whole Blood 196 mg/dL (75-99)
[2017-01-17] MEDS ORDERED: MAGNESIUM SULFATE-D5W PMX 1 GM in DEXTROSE/WATER 1 100ML.BAG IVPB ONE (12:00)
[2017-01-17] MEDS ORDERED: FLUoxetine HCL 20 MG CAP PO ONE (15:45)
[2017-01-17] MEDS: OLANZapine 5 MG TAB PO SCH ×2 (16:04→21:10)
[2017-01-17 17:18] LABS: Glucose,Whole Blood 146 mg/dL (75-99)
--- NOTE | 2017-01-17 18:01 | P.PN ---
Subjective Principal diagnosis: patient is a pleasant 28-year-old female who is being followed by the neurology service for intractable headache. Patient does have history of brain abscess with brain surgery partially 6 years ago done at [facility]. Patient does have residual right upper extremity weakness and right upper extremity and facial paresthesia. Patient reports having had headaches on and off ever since. Patient is made frequent visits to the emergency rooms for complaints of intractable headache. CT of the brain from 01/12/2017 showed no acute intracranial process.patient had MRI of the brain done with and without contrast which showed no acute intracranial process. MRI does show stable findings from remote insult. MRA was done as well and is normal.patient continues to complain of headache despite initiation of IV Solu-Medrol, IV Reglan, and IV magnesium. Patient states Toradol helps only minimally. It was recommended that Prozac be looked at as possible cause for headache. Reportedly , patient was seen by psychiatry and medications were adjusted. at the time of my evaluation, patient is sitting up in bed and continues to complain of severe headache. Objective - Vital Signs Vital signs: Vital Signs Temp 97.8 F 01/17/17 14:00 Pulse 84 01/17/17 14:00 Resp 14 01/17/17 14:00 BP 106/78 01/17/17 14:00 Pulse Ox 97 01/17/17 14:00 Intake & Output 01/16/17 01/17/17 01/17/17 18:59 06:59 18:59 Intake Total 240 800 Balance 240 800 Intake: Oral 240 800 Other: # Voids 2 2 4 # Bowel Movements 0 - Exam PHYSICAL EXAM: GENERAL APPEARANCE: Patient is a well-developed, female who appears to be in no acute distress. HEENT: Normocephalic, atraumatic, no facial asymmetry is seen. Neck is supple with no masses felt. CARDIOVASCULAR: Regular rate and rhythm. ABDOMEN: Nontender, nondistended. EXTREMITIES: Show no edema or clubbing. NEUROLOGICAL EXAM:Patient is awake, alert, and oriented 3. Speech and language are normal. Right upper extremity strength is 4+/5 and 5/5 in all other extremities. No facial asymmetry is seen on cranial nerve testing. Sensory exam to light touch is normal in all extremities except for right face. Patient states right side of face has chronic paresthesia. No tremors or seizure-like activity is noted. - Labs CBC & Chem 7: 01/17/17 07:38 Labs: Abnormal Lab Results - Last 24 Hours (Table) 01/16/17 01/17/17 01/17/17 Range/Units 20:38 07:25 07:38 Chloride 109 H (98-107) mmol/L BUN 24 H (7-17) mg/dL Glucose 146 H (74-99) mg/dL POC Glucose (mg/dL) 183 H 133 H (75-99) mg/dL 01/17/17 01/17/17 Range/Units 11:51 17:15 Chloride (98-107) mmol/L BUN (7-17) mg/dL Glucose (74-99) mg/dL POC Glucose (mg/dL) 196 H 146 H (75-99) mg/dL Assessment and Plan Plan: Impression: 1. Intractable headache/status migrainosus 2. History of migraines 3. 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 Depression/anxiety Recommendations: It does appear patient has status migrainosus. Patient has not responded to headache regimen. I had a long discussion with patient regarding outpatient procedures that she may benefit from. I will give her a one time IV Dilaudid 2 mg. I will start her on Zonegran 200 mg by mouth daily at bedtime with titration instructions. I recommend Fioricet with codeine as an abortive therapy.I recommend she follow up in the office for a sphenopalatine block as we discussed. Patient is agreeable. MRI/MRA were without any acute process. As you recall, recent CT of the brain was without any acute process. Patient does have history of depression and anxiety for which she sees counseling at [facility]. Patient is on Prozac per their recommendation, however, Prozac can cause headaches. I suggest a psychiatric consult to evaluate medication regimen and possibly wean patient off of Prozac. Patient is stable for discharge from neurology standpoint. I will continue to follow with you on an as-needed basis. Please feel free to call with any questions or concerns. I performed an examination of the patient and discussed the management with the RESTORATION TECHNICIAN. I have reviewed the RESTORATION TECHNICIAN notes and agree with the findings and plan of care.
[2017-01-17] MEDS ORDERED: HYDROmorphone 2 MG/ML 1 ML SYRINGE IVP STA (18:03)
[2017-01-17] MEDS ORDERED: OLANZapine 5 MG TAB PO ONE (19:00)
[2017-01-17] MEDS: ZONISAMIDE 100 MG CAP PO SCH (19:50)
[2017-01-17 20:40] LABS: Glucose,Whole Blood 190 mg/dL (75-99)
--- NOTE | 2017-01-17 22:15 | CONS ---
DATE OF CONSULTATION: 01/17/2017 PURPOSE FOR CONSULTATION: Evaluate for psychotropic medications and mood disorder as it relates to her presenting concern about chronic headaches. HISTORY OF PRESENTING ILLNESS: The patient was admitted due to persistence of severe headaches. History of headaches is noted in the admission note of Dr. Ahumada. Patient reports that currently she has been struggling with headaches over the last 2 weeks, with a history of headaches over 6 years. In addition she has complaints of jaw clenching, which she has been struggling with for the last 2 years. She is followed through [facility] and sees Dr. Villatoro at the [facility]. Prior to that she had been seen through [facility] in [place] and also through [facility]. Currently patient is on Prozac 30 mg a day and Lamictal 100 mg twice a day along with Xanax 1 mg twice a day. She reports that she has been on Prozac for "many years." She had taken Prozac up to 60 mg a day. The dose had been reduced to 40 mg, and on admission it was reduced further to 30 mg. According to what the patient reports, there is some question as to whether or not Prozac could be affecting both headaches and jaw clenching. She notes that previously she had been on Zoloft 50 mg a day. She felt it was not effective for depression. The dose was never titrated up. She developed suicidal thoughts while on a low dose of Zoloft. She did not indicate that she had been on other psychotropic medications. It is noted in the neurologic consultation on 01/16/2017 that there was a question regarding her use of Prozac with a note that Prozac may cause headaches. There was a suggestion to have psychiatric consultation to consider weaning the patient off of Prozac, as per the consultation note of Darren/Dr. Green. Patient has been continued on Lamictal 100 mg twice a day and Xanax 1 mg twice a day. As of neurologic consultation, Fioricet was added as a p.r.n. as abortive therapy. In addition, she was placed on IV Solu-Medrol, Reglan and magnesium to address headaches. Further diagnostic studies have been ordered. Patient reports that she has been struggling with depression for quite some time. Current stress that she identifies is some family difficulties, particularly with her 18-year-old son, whom she describes as "abandoning me." He apparently recently moved out of the home with his girlfriend who had also been living in the family home. At home currently is her 16-year-old daughter, with whom she describes a close relationship. She is and feels her is supportive. He is not the father of the children. Patient was not able to identify clear precipitants to the startup of her headache over the last 2 weeks or what may be exacerbating her condition. Patient notes that she has a marijuana card and smokes marijuana on a regular basis. She was somewhat vague about the specifics of daily dosing. She uses marijuana primarily to help reduce some of the tension and improve function that she experiences in her right arm, which she describes as one of the sequelae of her brain abscess that she suffered 6 years ago. MENTAL STATUS: Patient was in bed lying down. She sat up on the edge of the bed. She gave fairly good eye contact. Psychomotor activity was slow. Speech was monotone. She answered questions with direct responses. Her thoughts were clear. She spoke in a soft monotone voice. She was spontaneous in her response. Her affect was blunted. There were a few times when she had a slight smile. Her mood was depressed. She was moderately distressed. Cognition was clear. ASSESSMENT: This 36-year-old female is diagnosed with major depression, chronic and recurrent. At this point it is less clear in regards to Prozac and headaches. She has not had full treatment for depression with a single antidepressant. As such at this point I will go back up on her Prozac from 30 mg a day to 40 mg a day. I will add Zyprexa 5 mg 3 times a day. The aim of Zyprexa is to help augment her antidepressant. There is a possibility that even in the matter of a few days she may show a positive response to the augmentation strategy. If she fails or if headaches intensify, it would then be reasonable to look at tapering her off of Prozac and considering an alternative antidepressant. While she had failed Zoloft in the past, it was noted that, based on the information she provided, it was an inadequate trial. There may be benefit to looking at switching SSRI medications, which can be done quite quickly with assertive doses of medications, given that she is already initiated with an SSRI. I would have greater concern in regards to her headaches that marijuana may be impacting her condition. She may have withdrawal issues. Obviously marijuana dosing is quite inconsistent. In addition, marijuana likely will contribute to exacerbation of mood disorder. I had an extensive discussion with the patient regarding non-pharmacologic means of stress response which might also help reduce some of her chronic headaches. We discussed a walking program with her taking something in the range of 10-minute walks outdoors every hour. We discussed her use of this and also employing some yoga exercises as part of her walking, which can help alleviate physiologic stress response. This may also help alleviate some of the problems she has in her right shoulder with limitations of movement. I will continue to follow.
[2017-01-17] MEDS ORDERED: HYDROmorphone 2 MG/ML 1 ML SYRINGE IVP PRN (22:27)
[2017-01-17] MEDS ORDERED: KETOROLAC 30 MG/ML 1 ML VIAL IVP SCH (23:00)
[2017-01-18 05:53] VITALS: RESP 16
--- NOTE | 2017-01-18 07:11 | PN ---
DATE OF SERVICE: 01/17/2017 PRESENTING COMPLAINT: Headaches. INTERVAL HISTORY: This patient presented with severe headache with a prior history of cranial surgery. Medications adjusted by Dr. Green. Patient is tolerating her diet. Headache is still present. Also seen by Dr. Lawrence from psychiatry who did adjust medications. Review of systems done for constitutional, cardiovascular, GI, pulmonary; relevant findings as above. Current medications are reviewed that include Fioricet, Xanax, Prozac 40 mg a day, Lamictal, Reglan, Zyprexa, Zonegran. On examination, temperature 97.2, pulse 77, respiratory rate 14, blood pressure 129/73, pulse ox 99% on room air. GENERAL APPEARANCE: Lying in bed, comfortable. EYES: Pupils equal. Conjunctivae normal. NECK: JVD not raised. Mass not palpable. RESPIRATORY: Effort normal. Lungs are clear. CARDIOVASCULAR: First and second sounds normal. No edema. ABDOMEN: Soft, nontender. PSYCHIATRY: Alert and oriented x3. Mood and affect anxious-appearing. INVESTIGATIONS: Potassium 4.1, BUN 24, creatinine 0.77. The patient's head MRA is normal and the brain MRI showing some remote insult. ASSESSMENT: 1. Acute on chronic cephalgia with prior history of brain surgery for ( ) abscess. 2. Bipolar disorder, chronic. 3. Chronic nicotine dependence in active smoker. 4. Major depression, chronic and recurrent. PLAN: Per Dr. Green patient can be discharged home, but patient did not have a ride. Patient's medications are reviewed. Will follow psychiatric recommendations.
[2017-01-18] MEDS: METOCLOPRAMIDE 5 MG/ML 2 ML VIAL IVP SCH (07:18)
[2017-01-18] MEDS: INSULIN LISPRO (humaLOG) 300 UNIT/3 ML VIAL SQ SCH ×2 (07:21→12:26)
[2017-01-18] MEDS: PANTOPRAZOLE 40 MG TABLET PO SCH (07:21)
[2017-01-18 07:45] LABS: Glucose,Whole Blood 150 mg/dL (75-99)
[2017-01-18] MEDS: ZONISAMIDE 100 MG CAP PO SCH (08:24)
[2017-01-18] MEDS: NICOTINE 7MG/24HR PATCH TRANSDERM SCH (08:24)
[2017-01-18] MEDS: ALPRAZolam 0.5 MG TAB PO SCH (08:24)
[2017-01-18] MEDS: ENOXAPARIN 40 MG/0.4 ML SYRINGE SQ SCH (08:24)
[2017-01-18] MEDS: lamoTRIgine 100 MG TAB PO SCH (08:24)
[2017-01-18] MEDS: OLANZapine 5 MG TAB PO SCH (08:24)
[2017-01-18] MEDS ORDERED: FLUoxetine HCL 20 MG CAP PO SCH (09:00)
[2017-01-18 09:55] LABS: Anion Gap 11 mmol/L; Blood Urea Nitrogen 21 mg/dL (7-17); Calcium 9.2 mg/dL (8.4-10.2); Carbon Dioxide 20 mmol/L (22-30); Chloride 111 mmol/L (98-107); Glucose 188 mg/dL (74-99); Non-African American GFR(MDRD) >60 (>60 ml/min/1.73 sqM); Potassium 4.2 mmol/L (3.5-5.1); Sodium 142 mmol/L (137-145)
[2017-01-18 10:46] VITALS: BP 105/57; PULSE 63; TEMP 97
[2017-01-18] MEDS: BUTA/APAP/CAF/COD 50-325-40-30 CAP PO PRN (11:11)
[2017-01-18 12:10] LABS: Glucose,Whole Blood 117 mg/dL (75-99)
--- NOTE | 2017-01-18 17:02 | CONS ---
DATE OF CONSULTATION: 01/18/2017 Purpose for consultation: Evaluate for psychotropic medications and mood disorder as it relates to her presenting concern about chronic headaches. INTERVAL HISTORY: Patient has been where she said she had some struggles with headaches last evening, though medications that Dr. Green prescribed seemed to help. She has not had problems with start of Zyprexa. She notes today that headache is less. She feels she is making some progress. Her mood is somewhat improved. She has a better outlook. She feels she has some plans for managing headaches. She has not had any problems with start of Zyprexa or the increase in Prozac. She so far has not noted sedation with Zyprexa, which sometimes can come into play. When I saw the patient early in the morning she was just waking up from sleep. Saw her just after lunch, and she was awake. She had good eye contact. Her thoughts were clear. She was interactive. She had a quiet manner, though she seemed to show a brighter disposition. She did not appear to be distressed. ASSESSMENT: I discussed longer-term treatment issues relating to the use of Zyprexa as an antidepressant augmentation to her Prozac. At this point, I recommend continuing Prozac 40 mg a day. She currently is on Zyprexa 5 mg 3 times a day. I discussed with the patient that she could gradually shift her medicine to take all at bedtime so that when she gets home. She could consider taking 5 mg in the day and 10 mg at bedtime and then perhaps shifting to 15 mg at bedtime over the next month or 2. If she is doing well, might be reasonable to look at dose reduction to 10 mg a day along with Prozac. It would be reasonable for her to continue Lamictal as well. My understanding is patient will be discharged today. It is noted that the patient is on Reglan, which is a phenothiazine and pay produce acute dystonic reaction as well as other extrapyramidal side effects. She should receive some warnings regarding that and possibly to look at keeping Reglan to a minimum. Zyprexa in fact may provide some similar benefits to Reglan without the risks for EPS.
--- NOTE | 2017-01-19 23:20 | DS ---
DATE OF ADMISSION: 01/18/2017 DATE OF DISCHARGE: 01/18/2017 FINAL DIAGNOSES: 1. Acute on chronic cephalgia with prior history of brain surgery for brain abscess. 2. Bipolar disorder, chronic. 3. Chronic nicotine dependence in an active smoker. 4. Major depression, chronic and recurrent. HOSPITAL COURSE: This patient presented with severe headache, present on and off for some time, following her brain surgery a few years ago. She was seen by Dr. Green from Neurology. Patient did have a brain MRI and MRA that showed some chronic changes. She was also seen by Dr. Lawrence, who increased the dose of Prozac, and Zyprexa was added. Patient is tolerating a diet, up and about, doing better at the time of discharge. Patient is due to see a specialist. On examination, lungs are clear. CARDIOVASCULAR: First and second sounds normal. DISCHARGE MEDICATIONS: 1. Xanax 1 mg p.o. b.i.d. 2. Ventolin HFA 2 puffs q.4. 3. Naproxen 500 mg p.o. b.i.d. p.r.n. 4. Prilosec 40 mg p.o. daily. 5. Lamictal 100 p.o. b.i.d. 6. Fioricet q.8 p.r.n. 7. Prozac 40 mg p.o. daily. 8. Nicotine patch. 9. Zyprexa 5 mg p.o. t.i.d. 10. Zonegran 100 mg p.o. daily. Follow up with [facility] in [place] in one week. Follow up with Dr. Tello in 2 or 3 days. Follow up with Dr. Green on 01/25/17. On exam, lungs are clear. CARDIOVASCULAR: First and second sounds normal.
== END 2017-01-18 14:24 | disposition home or self-care (01) | DRG 103 ==
LOC: EC 15:42 → 4MS4W 17:30 → OBSVTOIN 01-18 07:43
PROVIDERS: ADMIT Hospitalist; ATTEND Hospitalist
DX: R51 Headache (principal); F31.9 Bipolar disorder, unspecified; F17.200 Nicotine dependence, unspecified, uncomplicated; F12.90 Cannabis use, unspecified, uncomplicated; F41.9 Anxiety disorder, unspecified; Z79.899 Other long term (current) drug therapy; Z86.61 Personal history of infections of the central nervous system
CPT/HCPCS: 70544; 70553; 80048; 83735; 96361; 96366; 96367; 96372; 96374; 96375; 96376; 99285

== ENCOUNTER → 2017-02-10 | Outpatient (CLI) | payer MEDICARE, OTHER ==
--- NOTE | 2017-02-10 10:41 | XR ---
EXAM TYPE: LUMBAR SPINE X RAY SERIES COMPARISON: NONE HISTORY: Lower back pain TECHNIQUE: 5 views are submitted including flexion and extension lateral views. FINDINGS: Alignment is anatomic. The pedicles are intact. The transverse processes are intact. There is no spondylolisthesis. Surgical change in the right upper quadrant. Hypertrophic change of the spine not ed. IMPRESSION: 1. No acute process. Mild hypertrophic changes.
== END | disposition home or self-care (01) ==
LOC: RADXRMAIN 10:06
PROVIDERS: ATTEND Psychiatry & Neurology Neurology
DX: M47.816 Spondylosis without myelopathy or radiculopathy, lumbar region (principal)
CPT/HCPCS: 72114

== ENCOUNTER → 2017-02-16 | Outpatient (CLI) | payer MEDICARE, OTHER ==
--- NOTE | 2017-02-16 14:28 | MR ---
EXAMINATION TYPE: MR edin/lspine wo con DATE OF EXAM: 02/16/2017 12:37 PM COMPARISON: Lumbar spine x-ray February 10, 2017. HISTORY: Cervicalgia and lumbago per order. Headache with stabbing neck pain for 6 months causing jacob n or weakness in both arms and fingers per patient. Low back pain into left lower extremity for one y ear per patient. TECHNIQUE: Multiplanar, multisequence imaging of the cervical and lumbar spine are performed without IV contrast. FINDINGS: C-SPINE: FINDINGS: Sagittal images of the cervical spine show the craniocervical junction to appear within nor mal limits. The cervical and upper thoracic spinal cord is normal in course, caliber, and signal. V ertebral alignment is straightened. The vertebral body and intravertebral disk heights are normal. S mall posterior disc herniations are seen on sagittal images from C3-C4 through C6-C7 levels. The bone marrow signal intensity is within normal limits. There is mild to moderate anterior spurring in the mid and more prominent in the lower cervical spine 7 level. Axial images show the C2-C3 level to appear within normal limits. Axial images at C3-C4 level show broad-based posterior disc protrusion effacing anterior thecal sac a nd causing [id number] left greater than right neural foraminal narrowing. Axial images at C4-C5 level show broad-based posterior disc protrusion effacing anterior thecal sac a nd causing mild to moderate right and mild left-sided neural foraminal narrowing. Axial images at C5-C6 level show broad-based posterior disc protrusion effacing anterior thecal sac a nd causing mild left greater than right neural foraminal narrowing. Axial images at C6-C7 level show broad-based posterior disc protrusion with left foraminal component effacing anterior thecal sac and causing asymmetric moderate to severe left-sided neural foraminal na rrowing seen best on axial image 13, there is some marginal spurring seen on sagittal image 4, both c ontribute to this left-sided neural foraminal narrowing. The right-sided neural foramen is patent. Axial images at C7-T1 level are felt within normal limits. Vague T2 hyperintense lesions scattered throughout the visualized thyroid are suggestive of thyroid n odules, consider thyroid ultrasound follow-up or correlation. IMPRESSION: Straightening of cervical spine with multilevel degenerative changes, findings are most p rominent at C6-C7 level where there is moderate to advanced left-sided neural foraminal narrowing not ed. Further details are noted as discussed above. Advise thyroid ultrasound follow-up for possible sm all bilateral thyroid nodules. L-SPINE: Sagittal images of the lumbar spine show vertebral body heights and alignment to appear satisfactory. There is disc desiccation L5-S1 level. There is less prominent disc desiccation with mild disc space narrowing anteriorly L1-L2 level otherwise the intervertebral discs demonstrate normal heights and h ydration. No large posterior disc herniations are seen on sagittal images. The conus medullaris is no rmal in position and signal ending at mid L1 vertebral body level. The bone marrow signal intensity is within normal limits. No significant spurring is seen. Axial images show the T12-L1 level to appear within normal limits. Axial images at L1-L2 level show mild broad disc bulge but spinal canal is preserved and bilateral ne ural foramina are patent. Axial images at L2-L3 and L3-L4 levels are felt within normal limits. Axial images at L4-L5 level show mild to moderate facet degenerative changes bilaterally. No signific ant disc herniation or spinal canal effacement is seen. Bilateral neural foramina are patent. Axial images at L5-S1 level show mild facet degenerative changes bilaterally. There is small central disc protrusion but spinal canal is preserved and bilateral neural foramina are patent. Spinal muscle bulk is maintained. No suspicious retroperitoneal pathology is seen. IMPRESSION: Some multilevel mild degenerative changes in the lumbar spine as detailed above. No signi ficant finding is seen to account for patient's left-sided radiculopathy type symptoms.
== END | disposition home or self-care (01) ==
LOC: RADMRIMAIN 11:44
PROVIDERS: ATTEND Psychiatry & Neurology Pain Medicine
DX: M99.71 Connective tissue and disc stenosis of intervertebral foramina of cervical region (principal); M47.812 Spondylosis without myelopathy or radiculopathy, cervical region; M47.817 Spondylosis without myelopathy or radiculopathy, lumbosacral region
CPT/HCPCS: 72141; 72148

== ENCOUNTER 2017-05-16 23:03 | Emergency (ER) | payer MEDICARE, OTHER ==
[2017-05-17] MEDS ORDERED: diphenhydrAMINE 50 MG/ML 1 ML VIAL IVP STA (00:16)
[2017-05-17] MEDS ORDERED: METOCLOPRAMIDE 5 MG/ML 2 ML VIAL IVP STA (00:16)
[2017-05-17] MEDS ORDERED: SODIUM CHLORIDE 0.9% 1,000 ML IV STA (00:16)
[2017-05-17] MEDS ORDERED: KETOROLAC 30 MG/ML 1 ML VIAL IVP STA (00:16)
[2017-05-17] MEDS ORDERED: ORPHENADRINE 30 MG/ML 2 ML VIAL IVP STA (00:17)
--- NOTE | 2017-05-17 01:09 | ED ---
Headache HPI - General Chief Complaint: Headache Stated Complaint: Headache/Nausea Time Seen by Provider: 05/17/17 00:08 Source: RN notes reviewed, old records reviewed Mode of arrival: EMS Limitations: no limitations - History of Present Illness Initial Comments: This is a 36 year old female with CC of migraine headache for 2 days. She reports she has a history of migraines, and brain surgery. She states that she is chornic weak on her right side. She reports that she has had severe nausea, but no vomiting. She reports her headache starts on the back of her head, and radiates forward. She reports that she has no fever, chills, or new weakness. She denies peripheral paresthesias. She reports that her headache is worse with bright light. Denies neck pain, abdominal pain, chest pain, vision changes, and shortness of breath. - Related Data Home Medications Medication Instructions Recorded Confirmed ALPRAZolam [Xanax] 1 mg PO BID 10/14/16 05/16/17 Albuterol Inhaler [Ventolin Hfa 2 puff INHALATION RT-Q4H PRN 01/12/17 05/16/17 Inhaler] Naproxen 500 mg PO BID PRN 01/12/17 05/16/17 lamoTRIgine [LaMICtal] 100 mg PO BID 01/12/17 05/16/17 ALPRAZolam [Xanax] 1 mg PO HS 05/16/17 05/16/17 FLUoxetine HCL [PROzac] 10 mg PO DAILY 05/16/17 05/16/17 FLUoxetine HCL [PROzac] 20 mg PO DAILY 05/16/17 05/16/17 Fluticasone Nasal [place] [Flonase 2 spr EA NOSTRIL DAILY 05/16/17 05/16/17 Nasal [place]] Nortriptyline [Pamelor] 25 mg PO HS 05/16/17 05/16/17 diphenhydrAMINE [Benadryl] 25 - 50 mg PO HS PRN 05/16/17 05/16/17 Previous Rx's Medication Instructions Recorded Ondansetron Odt [Zofran Odt] 4 mg PO Q8HR PRN #12 tab 05/17/17 Allergies Allergy/AdvReac Type Severity Reaction Status Date / Time No Known Allergies Allergy Verified 05/16/17 23:20 Review of Systems ROS Statement: Those systems with pertinent positive or pertinent negative responses have been documented in the HPI. ROS Other: All systems not noted in ROS Statement are negative. Past Medical History Additional Past Medical History / Comment(s): right sided weakness, Brain cysts History of Any Multi-Drug Resistant Organisms: None Reported Additional Past Surgical History / Comment(s): 3 brain surgeries Past Psychological History: Anxiety, Bipolar, Depression Smoking Status: Former smoker Past Alcohol Use History: None Reported Past Drug Use History: Marijuana General Exam - General Exam Comments Initial Comments: This is a 36 year old woman, patient does not appear in any acute distress. Limitations: no limitations General appearance: alert, in no apparent distress Head exam: Present: atraumatic, normocephalic, normal inspection Eye exam: Present: normal appearance, PERRL, EOMI. Absent: scleral icterus, conjunctival injection, periorbital swelling ENT exam: Present: normal exam, mucous membranes moist Neck exam: Present: normal inspection. Absent: tenderness, meningismus, lymphadenopathy Respiratory exam: Present: normal lung sounds bilaterally. Absent: respiratory distress, wheezes, rales, rhonchi, stridor Cardiovascular Exam: Present: regular rate, normal rhythm, normal heart sounds. Absent: systolic murmur, diastolic murmur, rubs, gallop, clicks GI/Abdominal exam: Present: soft, normal bowel sounds. Absent: distended, tenderness, guarding, rebound, rigid Extremities exam: Present: normal inspection, full ROM, normal capillary refill. Absent: tenderness, pedal edema, joint swelling, calf tenderness Back exam: Present: normal inspection Neurological exam: Present: alert, oriented X3, CN II-XII intact, other ( patient does have diminhsed strength in right upper extremity, but does have full range of motion. She reports there is no change in this. ) Psychiatric exam: Present: normal affect, normal mood Skin exam: Present: warm, dry, intact, normal color. Absent: rash Course Vital Signs 05/16/17 05/17/17 05/17/17 23:06 00:38 01:19 Temperature 98.8 F 97.4 F L Pulse Rate 85 75 70 Respiratory 22 18 16 Rate Blood Pressure 118/72 117/75 122/78 O2 Sat by Pulse 97 97 Oximetry - Reevaluation(s) Reevaluation #1: 05/17/17 01:08 Patient is reevaluated this time. Patient received Toradol Reglan and Benadryl. Patient reports her headache is now 6 out of 10 and she is feeling much better. Patient also be discharged home. Medical Decision Making - Medical Decision Making This is a 36 year old female with CC of migraine headache for 2 days. She reports she has a history of migraines, and brain surgery. She states that she is chornic weak on her right side. She reports that she has had severe nausea, but no vomiting. Patient does exhibit some right arm weakness compared to left , but she states that it is the same as always. She was given IV fluids, benadryl, toradol, norflex, and reglan. Patient reports that she is feeling better and wants to go home to sleep to cure the migraine. She states that her headache is a 6/10. Patient agrees to treatment plan and will comply. Disposition Clinical Impression: Migraine Disposition: HOME SELF-CARE Condition: Good Instructions: Acute Headache (ED) Additional Instructions: is to increase fluids. Take nausea medication as prescribed. Follow-up with her primary care physician and neurologist. Return to the emergency department if any alarming signs or symptoms occur. Prescriptions: Ondansetron Odt [Zofran Odt] 4 mg PO Q8HR PRN #12 tab PRN Reason: Nausea Referrals: Jarrell Tello MD [Primary Care Provider] - 1-2 days Time of Disposition: 01:09
[2017-05-17 01:19] VITALS: BP 122/78; PULSE 70; RESP 16; TEMP 97.4
== END 2017-05-17 01:18 | disposition home or self-care (01) ==
LOC: EC 23:03
DX: G43.909 Migraine, unspecified, not intractable, without status migrainosus (principal); F41.9 Anxiety disorder, unspecified; F31.9 Bipolar disorder, unspecified; R53.1 Weakness; Z87.891 Personal history of nicotine dependence; Z79.51 Long term (current) use of inhaled steroids; Z79.899 Other long term (current) drug therapy; Z98.890 Other specified postprocedural states
CPT/HCPCS: 99284; 96374; 96375 ×3; 96361; J1200; J2360; J2765; J1885

== ENCOUNTER 2018-02-20 18:03 | Emergency (ER) | payer MEDICARE, OTHER ==
[2018-02-20 19:42] VITALS: BP 127/75; PULSE 89; RESP 16; TEMP 98.3
--- NOTE | 2018-02-20 20:13 | XR ---
EXAMINATION TYPE: XR hand complete LT DATE OF EXAM: 02/20/2018 COMPARISON: NONE HISTORY: Left hand pain TECHNIQUE: 3 views FINDINGS: There is a nondisplaced 3 mm chip fracture of the posterior base of the distal phalanx of t he middle finger. There is no dislocation. Joint spaces are normal. IMPRESSION: Nondisplaced fracture of the middle finger as above.
--- NOTE | 2018-02-20 21:34 | ED ---
General Adult HPI - General Chief complaint: Extremity Injury, Upper Stated complaint: LEFT HAND INJURY Time Seen by Provider: 02/20/18 21:21 Source: patient, RN notes reviewed, old records reviewed Mode of arrival: ambulatory Limitations: no limitations - History of Present Illness Initial comments: This is a 37-year-old female to the ER for evaluation of an injury, left middle finger injury. Patient states she shut her left hand in the door of her car tonight. Patient states she does have severe pain in that finger, does have full range of motion - Related Data Home Medications Medication Instructions Recorded Confirmed Naproxen 500 mg PO BID PRN 01/12/17 02/20/18 lamoTRIgine [LaMICtal] 100 mg PO BID 01/12/17 02/20/18 ALPRAZolam [Xanax] 1 mg PO HS 05/16/17 02/20/18 Cyclobenzaprine [Flexeril] 10 mg PO HS 02/20/18 02/20/18 Escitalopram [Lexapro] 30 mg PO DAILY 02/20/18 02/20/18 Previous Rx's Medication Instructions Recorded Naproxen [Naprosyn] 500 mg PO Q12HR PRN #30 tab 02/20/18 Allergies Allergy/AdvReac Type Severity Reaction Status Date / Time No Known Allergies Allergy Verified 02/20/18 21:35 Review of Systems ROS Statement: Those systems with pertinent positive or pertinent negative responses have been documented in the HPI. ROS Other: All systems not noted in ROS Statement are negative. Past Medical History Additional Past Medical History / Comment(s): right sided weakness, Brain cysts History of Any Multi-Drug Resistant Organisms: None Reported Additional Past Surgical History / Comment(s): 3 brain surgeries Past Psychological History: Anxiety, Bipolar, Depression Smoking Status: Former smoker Past Alcohol Use History: None Reported Past Drug Use History: Marijuana General Exam - General Exam Comments Initial Comments: Left Middle index middle finger is significantly swollen with severe pain. 4 range of motion with good capillary refill Limitations: no limitations General appearance: alert, in no apparent distress Head exam: Present: atraumatic, normocephalic, normal inspection Eye exam: Present: normal appearance, PERRL, EOMI. Absent: scleral icterus, conjunctival injection, periorbital swelling ENT exam: Present: normal exam, mucous membranes moist Neck exam: Present: normal inspection. Absent: tenderness, meningismus, lymphadenopathy Respiratory exam: Present: normal lung sounds bilaterally. Absent: respiratory distress, wheezes, rales, rhonchi, stridor Cardiovascular Exam: Present: regular rate, normal rhythm, normal heart sounds. Absent: systolic murmur, diastolic murmur, rubs, gallop, clicks GI/Abdominal exam: Present: soft, normal bowel sounds. Absent: distended, tenderness, guarding, rebound, rigid Extremities exam: Present: normal inspection, full ROM, normal capillary refill. Absent: tenderness, pedal edema, joint swelling, calf tenderness Back exam: Present: normal inspection Neurological exam: Present: alert, oriented X3, CN II-XII intact Psychiatric exam: Present: normal affect, normal mood Skin exam: Present: warm, dry, intact, normal color. Absent: rash Course Vital Signs 02/20/18 19:39 Temperature 98.3 F Pulse Rate 89 Respiratory 16 Rate Blood Pressure 127/75 O2 Sat by Pulse 99 Oximetry Procedures - Orthopedic Splinting/Casting Injury #1 Side: left Upper Extremity Injury Location: finger Upper Extremity Immobilizer: finger (other) (Frog) Medical Decision Making - Medical Decision Making Plan I female the ER for evaluation of showing left-handed car door. Patient was amateur finger distal tuft left middle finger. Patient is splinted and discharged home - Radiology Data Radiology results: report reviewed (X-ray left hand shows left chip fracture of distal tuft), image reviewed Disposition Clinical Impression: Fracture of phalanx of left middle finger Disposition: HOME SELF-CARE Condition: Good Instructions: Finger Fracture (ED) Prescriptions: Naproxen [Naprosyn] 500 mg PO Q12HR PRN #30 tab PRN Reason: Pain Is patient prescribed a controlled substance at d/c from ED?: No Referrals: Jarrell Tello MD [Primary Care Provider] - 1-2 days Brain Moore DO [Doctor of Osteopathic Medicine] - 1-2 days
== END 2018-02-20 21:54 | disposition home or self-care (01) ==
LOC: EC 18:03
DX: S62.633A Displaced fracture of distal phalanx of left middle finger, initial encounter for closed fracture (principal); F41.9 Anxiety disorder, unspecified; F32.9 Major depressive disorder, single episode, unspecified; Z87.891 Personal history of nicotine dependence; Z79.899 Other long term (current) drug therapy; W23.0XXA Caught, crushed, jammed, or pinched between moving objects, initial encounter
CPT/HCPCS: 99284

== ENCOUNTER 2018-05-01 13:33 | Inpatient (IN) | payer MEDICARE, OTHER ==
[2018-05-01] MEDS ORDERED: SODIUM CHLORIDE 0.9% 500 ML IV STA (16:36)
[2018-05-01] MEDS ORDERED: METOCLOPRAMIDE 5 MG/ML 2 ML VIAL IVP STA (16:37)
[2018-05-01] MEDS ORDERED: MORPHINE SULFATE 2 MG/ML SYRINGE IVP STA (16:37)
[2018-05-01] MEDS ORDERED: diphenhydrAMINE 50 MG/ML 1 ML VIAL IVP STA (16:37)
--- NOTE | 2018-05-01 16:41 | ED ---
Headache HPI - General Chief Complaint: Headache Stated Complaint: migraine Time Seen by Provider: 05/01/18 16:30 Mode of arrival: ambulatory Limitations: no limitations - History of Present Illness Initial Comments: 37-year-old female patient presents to emergency department today for evaluation of severe left-sided headache. Patient states that she does have a history of migraine headaches but she has not had one in a long time. Patient states that this particular headache has been present for the last 5 days. Patient states that she has taken Excedrin Migraine without relief of symptoms. Patient states she is she is having some blurred vision, light sensitivity, and sound sensitivity. Patient states that this headache is consistent with her usual migraine pattern except she is expressing a stabbing sensation to the left side of her head which is new. 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 Patient states that when she woke this morning around 10:00 the right arm and leg felt "weird" and she had increased weakness. Patient states that she was tripping when she was walking into the hospital which is unusual for her. She denies any fever, chills, nasal drainage, cough, congestion, chest pain, dizziness, chest pain, shortness of breath, nausea, or vomiting. - Related Data Home Medications Medication Instructions Recorded Confirmed lamoTRIgine [LaMICtal] 100 mg PO BID 01/12/17 05/01/18 ALPRAZolam [Xanax] 1 mg PO HS 05/16/17 05/01/18 Escitalopram [Lexapro] 30 mg PO DAILY 02/20/18 05/01/18 Aspirin/Acetaminophen/Caffeine 1 tab PO DAILY PRN 05/01/18 05/01/18 [Excedrin Migraine Caplet] Allergies Allergy/AdvReac Type Severity Reaction Status Date / Time No Known Allergies Allergy Verified 05/01/18 16:22 Review of Systems ROS Statement: Those systems with pertinent positive or pertinent negative responses have been documented in the HPI. ROS Other: All systems not noted in ROS Statement are negative. Past Medical History Past Medical History: No Reported History Additional Past Medical History / Comment(s): right sided weakness, Brain cysts History of Any Multi-Drug Resistant Organisms: None Reported Additional Past Surgical History / Comment(s): 3 brain surgeries Past Psychological History: Anxiety, Bipolar, Depression Smoking Status: Current every day smoker Past Alcohol Use History: None Reported Past Drug Use History: Marijuana General Exam Limitations: no limitations General appearance: alert, in no apparent distress, other (This is a well- developed, well-nourished adult female patient in no acute distress. Vital signs upon presentation are temperature 98.2F, pulse 56, respirations 18, blood pressure 123/78, pulse ox 100% on room air.) Eye exam: Present: normal appearance, PERRL, EOMI. Absent: scleral icterus, conjunctival injection, nystagmus, periorbital swelling ENT exam: Present: normal exam, normal oropharynx, mucous membranes moist, TM's normal bilaterally, other (Patient does have poor dentition with broken filling in the right upper. ) Neck exam: Present: normal inspection. Absent: tenderness, meningismus, lymphadenopathy Respiratory exam: Present: normal lung sounds bilaterally. Absent: respiratory distress, wheezes, rales, rhonchi, stridor Cardiovascular Exam: Present: regular rate, normal rhythm, normal heart sounds. Absent: systolic murmur, diastolic murmur, rubs, gallop, clicks Neurological exam: Present: alert, oriented X3, CN II-XII intact Expanded Speech: Present: fluid speech Cranial nerves: EOM's Intact: Normal, Tongue Deviation: Normal, Nystagmus: Normal Motor strength exam: RUE: 3 (Does have chronic paralysis), LUE: 5, RLE: 3 (Does have chronic paralysis), LLE: 5 Psychiatric exam: Present: normal affect, normal mood Skin exam: Present: warm, dry, intact, normal color. Absent: rash Course Vital Signs 05/01/18 05/01/18 14:46 17:33 Temperature 98.2 F Pulse Rate 56 L 60 Respiratory 18 17 Rate Blood Pressure 123/78 110/67 O2 Sat by Pulse 100 98 Oximetry Medical Decision Making - Medical Decision Making 37-year-old female patient presented to the emergency department today with complaints of left-sided headache and increased right-sided weakness. As patient 's headache started 5 days ago, and increased weakness was present when she woke this morning around 10:00am she is out of the window for TPA or other acute neurologic intervention. Physical examination did reveal weakness of the right arm and leg. Otherwise patient was neurologically intact. Labs and CT of the brain were obtained and showed no acute abnormalities. Patient's headache is somewhat improved after receiving pain medications here in the emergency department. Given increased weakness with headache patient will be admitted for possible CVA and neurologic evaluation. My attending Dr. Lopez did speak to Dr. Ahumada who accepts patient. - Lab Data Result diagrams: 05/01/18 17:00 05/01/18 17:00 Lab Results 05/01/18 05/01/18 05/01/18 Range/Units 17:00 17:00 17:00 WBC 5.8 (3.8-10.6) k/uL RBC 4.45 (3.80-5.40) m/uL Hgb 13.5 (11.4-16.0) gm/dL Hct 41.1 (34.0-46.0) % MCV 92.4 (80.0-100.0) fL MCH 30.4 (25.0-35.0) pg MCHC 32.9 (31.0-37.0) g/dL RDW 12.6 (11.5-15.5) % Plt Count 331 (150-450) k/uL Neutrophils % 60 % Lymphocytes % 30 % Monocytes % 7 % Eosinophils % 1 % Basophils % 1 % Neutrophils # 3.5 (1.3-7.7) k/uL Lymphocytes # 1.7 (1.0-4.8) k/uL Monocytes # 0.4 (0-1.0) k/uL Eosinophils # 0.1 (0-0.7) k/uL Basophils # 0.0 (0-0.2) k/uL PT (9.0-12.0) sec INR (<1.2) APTT (22.0-30.0) sec Sodium 142 (137-145) mmol/L Potassium 4.1 (3.5-5.1) mmol/L Chloride 108 H (98-107) mmol/L Carbon Dioxide 25 (22-30) mmol/L Anion Gap 9 mmol/L BUN 16 (7-17) mg/dL Creatinine 0.90 (0.52-1.04) mg/dL Est GFR (CKD-EPI)AfAm >90 (>60 ml/min/1.73 sqM) Est GFR (CKD-EPI)NonAf 81 (>60 ml/min/1.73 sqM) Glucose 87 (74-99) mg/dL Calcium 10.6 H (8.4-10.2) mg/dL Total Bilirubin 0.8 (0.2-1.3) mg/dL AST 23 (14-36) U/L ALT 25 (9-52) U/L Alkaline Phosphatase 63 (38-126) U/L Total Creatine Kinase 100 (30-135) U/L CK-MB (CK-2) 0.7 (0.0-2.4) ng/mL CK-MB (CK-2) Rel Index 0.7 Troponin I <0.012 (0.000-0.034) ng/mL Total Protein 8.1 (6.3-8.2) g/dL Albumin 5.1 H (3.5-5.0) g/dL 05/01/18 Range/Units 17:00 WBC (3.8-10.6) k/uL RBC (3.80-5.40) m/uL Hgb (11.4-16.0) gm/dL Hct (34.0-46.0) % MCV (80.0-100.0) fL MCH (25.0-35.0) pg MCHC (31.0-37.0) g/dL RDW (11.5-15.5) % Plt Count (150-450) k/uL Neutrophils % % Lymphocytes % % Monocytes % % Eosinophils % % Basophils % % Neutrophils # (1.3-7.7) k/uL Lymphocytes # (1.0-4.8) k/uL Monocytes # (0-1.0) k/uL Eosinophils # (0-0.7) k/uL Basophils # (0-0.2) k/uL PT 9.8 (9.0-12.0) sec INR 1.0 (<1.2) APTT 27.7 (22.0-30.0) sec Sodium (137-145) mmol/L Potassium (3.5-5.1) mmol/L Chloride (98-107) mmol/L Carbon Dioxide (22-30) mmol/L Anion Gap mmol/L BUN (7-17) mg/dL Creatinine (0.52-1.04) mg/dL Est GFR (CKD-EPI)AfAm (>60 ml/min/1.73 sqM) Est GFR (CKD-EPI)NonAf (>60 ml/min/1.73 sqM) Glucose (74-99) mg/dL Calcium (8.4-10.2) mg/dL Total Bilirubin (0.2-1.3) mg/dL AST (14-36) U/L ALT (9-52) U/L Alkaline Phosphatase (38-126) U/L Total Creatine Kinase (30-135) U/L CK-MB (CK-2) (0.0-2.4) ng/mL CK-MB (CK-2) Rel Index Troponin I (0.000-0.034) ng/mL Total Protein (6.3-8.2) g/dL Albumin (3.5-5.0) g/dL - EKG Data -: EKG Interpreted by Me EKG Comments: EKG obtained at 1716 shows sinus bradycardia with a ventricular rate of 50, MA interval 138, QR catholic 80, QT 456, QTC 4:15. No evidence of ST elevation or depression. - Radiology Data Radiology results: report reviewed, image reviewed Two-view x-ray of the chest is obtained. Lungs are clear. The pleural spaces are negative. The cardiac silhouette is not enlarged. The mediastinal pleural Blandon are unremarkable. The skeletal structures are intact without focal findings. The soft tissues are unremarkable. Impression by Dr. Jair Rangel shows no acute process. CT of the brain without contrast was obtained. The calvarium is intact. There is no intracranial hemorrhage. There is no mass effect or midline shift. There is no definite new attenuation defect. Remainder of the intra-axial and extra-axial compartment examination is negative for acute process. His redemonstration of the remote insult involving the left external capsule extending into the left ariza radiata and centrum semiovale, with associated encephalomalacia and mild eczema vacuo dilation of the left lateral ventricle. The paranasal sinuses, middle ear cavities, and mastoid sinus air cells are clear. The orbits are intact. Impression by Dr. Jair Rangel shows no acute process. Disposition Clinical Impression: CVA (cerebral vascular accident), Headache, Right sided weakness Disposition: ADMITTED IP TO THIS [facility] Condition: Serious Referrals: Jarrell Tello MD [Primary Care Provider] - 1-2 days Decision to Admit Reason: Admit from EC Decision Date: 05/01/18 Decision Time: 18:53
[2018-05-01 17:28] LABS: Basophils % (A) 1 %; Eosinophils # (A) 0.1 k/uL (0-0.7); Eosinophils % (A) 1 %; HCT 41.1 % (34.0-46.0); HGB 13.5 gm/dL (11.4-16.0); Lymphocytes # (A) 1.7 k/uL (1.0-4.8); Lymphocytes % (A) 30 %; MCH 30.4 pg (25.0-35.0); MCHC 32.9 g/dL (31.0-37.0); MCV 92.4 fL (80.0-100.0); Mean Platelet Volume 8.1; Monocytes # (A) 0.4 k/uL (0-1.0); Monocytes % (A) 7 %; Neutrophils # (A) 3.5 k/uL (1.3-7.7); Neutrophils % (A) 60 %; Platelet Count 331 k/uL (150-450); RBC 4.45 m/uL (3.80-5.40); RDW 12.6 % (11.5-15.5); WBC 5.8 k/uL (3.8-10.6)
[2018-05-01 17:39] LABS: Partial Thromboplastin Time 27.7 sec (22.0-30.0); Prothrombin Time 9.8 sec (9.0-12.0)
--- NOTE | 2018-05-01 17:39 | XR ---
EXAMINATION: XR chest 2V DATE AND TIME: 05/01/2018 5:31 PM ORDERING PROVIDER: Angela Hook CLINICAL INDICATION: altered mental status TECHNIQUE: PA and lateral COMPARISON: 01/24/2013 DESCRIPTION: The lungs are clear. The pleural spaces are negative. The cardiac silhouette is not enlarged. The mediastinal and pleural silhouettes are unremarkable. The skeletal structures are intact without focal findings. The soft tissues are unremarkable. IMPRESSION: NO ACUTE PROCESS.
[2018-05-01 17:47] LABS: Albumin 5.1 g/dL (3.5-5.0); Chloride 108 mmol/L (98-107); Glucose 87 mg/dL (74-99); Total Protein 8.1 g/dL (6.3-8.2)
[2018-05-01 17:48] LABS: ALT 25 U/L (9-52); AST 23 U/L (14-36); Alkaline Phosphatase 63 U/L (38-126); Anion Gap 9 mmol/L; Blood Urea Nitrogen 16 mg/dL (7-17); Calcium 10.6 mg/dL (8.4-10.2); Carbon Dioxide 25 mmol/L (22-30); Potassium 4.1 mmol/L (3.5-5.1); Sodium 142 mmol/L (137-145); Total Bilirubin 0.8 mg/dL (0.2-1.3)
[2018-05-01 17:50] LABS: Creatine Kinase 100 U/L (30-135)
[2018-05-01 18:03] LABS: Creatine Kinase MB 0.7 ng/mL (0.0-2.4); Troponin I <0.012 ng/mL (0.000-0.034)
--- NOTE | 2018-05-01 18:12 | CT ---
EXAMINATION: CT brain wo con DATE AND TIME: 05/01/2018 5:50 PM ORDERING PROVIDER: Angela Hook CLINICAL INDICATION: Neuro Deficits; pain for 7 days. TECHNIQUE: Standard departmental protocol. COMPARISON: 01/12/2017, and 01/17/2017 DESCRIPTION: The calvarium is intact. There is no intracranial hemorrhage. There is no mass or mass effect. There is no definite new attenuation defect. Remainder of the intra- axial and extra-axial compartment examination is negative for acute process. Is redemonstration of th e remote insult involving the left external capsule extending into the left ariza radiata and centru m semiovale, with associated encephalomalacia and mild ex vacuo dilation of the left lateral ventricl e. The paranasal sinuses, middle ear cavities, and mastoid sinus air cells are clear. The orbits are int act. IMPRESSION: NO ACUTE PROCESS.
[2018-05-01] MEDS ORDERED: ASPIRIN 81 MG PO STA (18:39)
[2018-05-01] MEDS ORDERED: ACETAMINOPHEN TAB 325 MG TAB PO PRN (18:42)
[2018-05-01] MEDS ORDERED: ONDANSETRON 4 MG/2 ML VIAL IVP PRN (18:42)
[2018-05-01] MEDS ORDERED: NALOXONE 0.4 MG/ML 1 ML VIAL IV PRN (18:42)
[2018-05-01] MEDS ORDERED: SODIUM CHLORIDE 0.9% 1,000 ML IV SCH (18:45)
[2018-05-01] MEDS ORDERED: lamoTRIgine 100 MG TAB PO STA (21:27)
[2018-05-01] MEDS ORDERED: ALPRAZolam 1 MG TAB PO STA (21:28)
[2018-05-01] MEDS: KETOROLAC 30 MG/ML 1 ML VIAL IVP PRN (23:06)
[2018-05-02] MEDS: KETOROLAC 30 MG/ML 1 ML VIAL IVP PRN (08:49)
[2018-05-02] MEDS ORDERED: ASPIRIN 81 MG PO SCH (09:00)
[2018-05-02] MEDS ORDERED: NICOTINE 14MG/24HR PATCH TRANSDERM SCH (11:15)
[2018-05-02] MEDS ORDERED: lamoTRIgine 100 MG TAB PO SCH (12:00)
[2018-05-02] MEDS ORDERED: ESCITALOPRAM 10 MG TAB PO SCH (12:00)
[2018-05-02 13:22] VITALS: BMI 26.4
--- NOTE | 2018-05-02 16:20 | HP ---
HISTORY AND PHYSICAL DATE OF ADMISSION: 05/02/2018 PRESENTING COMPLAINT: Severe headache. HISTORY OF PRESENTING COMPLAINT: This is a very pleasant 37-year-old patient who follows with Dr. Tello. About 7 years ago, the patient was at [facility], where she was diagnosed with brain abscess that was drained and it was felt to be communicating probably from the tooth. Since then, the patient has had headache on and off for quite some time. The patient did follow up at [facility], last appointment being 4 months ago. The patient's headaches are actually better. The patient's headaches come on and off and this time she had the headache for about 5 days, mainly predominantly on the left side, pretty sharp. The patient often gets tingling in the right arm. It is more pronounced this time. Normally patient takes Excedrin migraine that brings relief. There is some associated nausea. There was no neck stiffness. No fever. No chills. No aura. The patient previously has noted to have encephalomalacia. This morning actually feeling better since she has come in. Neurology was consulted. REVIEW OF SYSTEMS: CONSTITUTIONAL: Tired. HEENT: As above. RESPIRATORY: None. CARDIOVASCULAR: None. GASTROINTESTINAL: None. GENITOURINARY: None. MUSCULOSKELETAL: None. DERMATOLOGICAL: None. HEMATOLOGIC: None. LYMPHATIC: None. PSYCHIATRY: Anxiety, depression, controlled. NEUROLOGICAL: As above. No more tingling in the right hand. PAST MEDICAL HISTORY: Brain abscess with surgical intervention at [facility] causing some residual weakness on the right side, chronic headache on and off and bipolar disorder. PAST SURGICAL HISTORY: Brain surgery. SOCIAL HISTORY: The patient is , smokes about 4-5 cigarettes a day, does not work outside the house. FAMILY HISTORY: Reviewed, noncontributory to presentation. HOME MEDICATIONS: 1. Excedrin migraine 1 tablet p.o. daily p.r.n. 2. Xanax 1 mg p.o. q.h.s. 3. Lamictal 100 mg b.i.d. 4. Lexapro 30 mg p.o. daily. ALLERGIES: None. EXAMINATION: VITAL SIGNS: On presentation, temperature 98.2, pulse 56, respirations 18, blood pressure 123/78, pulse ox 100% on room air. GENERAL APPEARANCE: Sitting on bed, not in distress. EYES: Pupils equal. Conjunctivae normal. HEENT: External appearance of nose and ears normal. Oral cavity normal. NECK: JVD not raised. Mass not palpable. RESPIRATORY: Effort normal. Lungs are clear. CARDIOVASCULAR: First and second heart sounds normal. No edema. ABDOMEN: Soft, nontender. Liver and spleen not palpable. LYMPHATIC: No lymph node palpable in neck or axillae. PSYCHIATRY: Alert and oriented x3. Mood and affect slightly anxious. NEUROLOGICAL: Pupils equal. Cranial nerve grossly intact. Power on the right side is 4/5. Sensation grossly preserved. INVESTIGATIONS: CT scan of the brain: No acute process. There is some chronic encephalomalacia as from before. ASSESSMENT: 1. Acute on chronic cephalgia, could be migrainous attack and neuropathic pain from prior surgery of the brain with an acute episode. The patient is actually feeling better. 2. Bipolar disorder, chronic. 3. Chronic nicotine dependence. Patient is a cigarette smoker. PLAN: The patient is already feeling better. The patient did receive Toradol. Home medications were continued. Given a nicotine patch. The patient is very keen to go home. Given that these are acute on chronic, I might let the patient go home later today if she continues to do well. Care was discussed with the patient. Questions were answered. MMODL / IJN: [id number] /
[2018-05-02 17:03] VITALS: BP 115/69; PULSE 65; RESP 16; TEMP 98.2
[2018-05-02] MEDS ORDERED: ALPRAZolam 1 MG TAB PO SCH (21:00)
== END 2018-05-02 16:04 | disposition home or self-care (01) | DRG 103 ==
LOC: EC 13:33 → 6SEL 18:57
PROVIDERS: ADMIT Hospitalist; ATTEND Hospitalist
DX: R51 Headache (principal); F17.210 Nicotine dependence, cigarettes, uncomplicated; F41.9 Anxiety disorder, unspecified; G89.29 Other chronic pain; G93.89 Other specified disorders of brain; F31.9 Bipolar disorder, unspecified; Z79.899 Other long term (current) drug therapy; Z79.82 Long term (current) use of aspirin; Z86.61 Personal history of infections of the central nervous system
CPT/HCPCS: 36415; 70450; 71046; 80053; 80175; 82550; 82553; 84484; 85025; 85610; 85730; 96361; 96374; 96375; 99285

== ENCOUNTER 2018-10-12 09:05 | Emergency (ER) | payer MEDICARE, OTHER ==
[2018-10-12 09:09] VITALS: TEMP 97.9
[2018-10-12] MEDS ORDERED: PANTOPRAZOLE 40 MG/10 ML VIAL IVP STA (09:13)
[2018-10-12] MEDS ORDERED: SODIUM CHLORIDE 0.9% 1,000 ML IV STA (09:13)
[2018-10-12] MEDS ORDERED: MORPHINE SULFATE 4 MG/ML SYRINGE IVP STA (09:18)
[2018-10-12] MEDS ORDERED: ONDANSETRON 4 MG/2 ML VIAL IVP STA (09:18)
--- NOTE | 2018-10-12 09:23 | ED ---
Abdominal Pain HPI - General Chief Complaint: Abdominal Pain Stated Complaint: abdominal pain; spitting up blood Time Seen by Provider: 10/12/18 09:12 Source: patient, RN notes reviewed Mode of arrival: ambulatory Limitations: no limitations - History of Present Illness Initial Comments: 37-year-old female presents emergency Department chief complaint of abdominal pain, cough no blood. Patient states that she was diagnosed with a hiatal hernia and Tuesday by Dr. Lambert. Patient states she woke up today and had upper abdominal pain though she states that she has had some pain like this in his sister reason she had an EGD. She states pain is worse today. Denies any chest pain or shortness of breath. She denies any bleeding of her mouth, nose. Patient states that it's in the more dry blood. Patient does not take any blood thinners. Patient denies fever, chills. - Related Data Home Medications Medication Instructions Recorded Confirmed lamoTRIgine [LaMICtal] 100 mg PO BID 01/12/17 10/12/18 ALPRAZolam [Xanax] 1 mg PO HS 05/16/17 10/12/18 Escitalopram [Lexapro] 30 mg PO DAILY 02/20/18 10/12/18 Aspirin/Acetaminophen/Caffeine 1 tab PO DAILY PRN 05/01/18 10/12/18 [Excedrin Migraine Caplet] Previous Rx's Medication Instructions Recorded Dicyclomine [Bentyl] 20 mg PO TID #30 tablet 10/12/18 Allergies Allergy/AdvReac Type Severity Reaction Status Date / Time No Known Allergies Allergy Verified 10/12/18 09:55 Review of Systems ROS Statement: Those systems with pertinent positive or pertinent negative responses have been documented in the HPI. ROS Other: All systems not noted in ROS Statement are negative. Past Medical History Past Medical History: No Reported History Additional Past Medical History / Comment(s): right sided weakness. Patient states "tooth abscess that led to three brain surgeries". History of Any Multi-Drug Resistant Organisms: None Reported Additional Past Surgical History / Comment(s): 3 brain surgeries Past Anesthesia/Blood Transfusion Reactions: No Reported Reaction Past Psychological History: Anxiety, Bipolar, Depression Smoking Status: Current some day smoker Past Alcohol Use History: None Reported Past Drug Use History: Marijuana - Past Family History Mother Family Medical History: Cancer Additional Family Medical History / Comment(s): Breast/Cervical Cancer General Exam Limitations: no limitations General appearance: alert, in no apparent distress Head exam: Present: atraumatic, normocephalic, normal inspection Eye exam: Present: normal appearance, PERRL, EOMI. Absent: scleral icterus, conjunctival injection, periorbital swelling ENT exam: Present: normal exam, normal oropharynx (No bleeding noted), mucous membranes moist Neck exam: Present: normal inspection, full ROM. Absent: tenderness, meningismus, lymphadenopathy Respiratory exam: Present: normal lung sounds bilaterally. Absent: respiratory distress, wheezes, rales, rhonchi, stridor Cardiovascular Exam: Present: regular rate, normal rhythm, normal heart sounds. Absent: systolic murmur, diastolic murmur, rubs, gallop, clicks GI/Abdominal exam: Present: soft, tenderness (Mild upper), normal bowel sounds. Absent: distended, guarding, rebound, rigid Back exam: Absent: CVA tenderness (R), CVA tenderness (L) Skin exam: Present: warm, dry, intact, normal color. Absent: rash Course Vital Signs 10/12/18 10/12/18 09:07 10:53 Temperature 97.9 F Pulse Rate 57 L 61 Respiratory 20 18 Rate Blood Pressure 109/72 107/71 O2 Sat by Pulse 98 97 Oximetry Medical Decision Making - Medical Decision Making 37-year-old female presented for epigastric pain. Patient no lower abdominal pain. Lab work, CT, chest x-ray obtained. Patient had no acute findings. They did notice an air bubble in her bladder that she has no pain no signs of infection. Patient will follow-up for recheck. Patient does see GI for her diagnosed hiatal hernia on EGD. Patient did have some improvement after GI cocktail. Patient we discharged with pain medication and bentyl - Lab Data Result diagrams: 10/12/18 09:37 10/12/18 09:37 Lab Results 10/12/18 10/12/18 10/12/18 Range/Units 09:28 09:37 09:37 WBC 7.7 (3.8-10.6) k/uL RBC 4.39 (3.80-5.40) m/uL Hgb 14.1 (11.4-16.0) gm/dL Hct 40.7 (34.0-46.0) % MCV 92.7 (80.0-100.0) fL MCH 32.1 (25.0-35.0) pg MCHC 34.7 (31.0-37.0) g/dL RDW 12.3 (11.5-15.5) % Plt Count 306 (150-450) k/uL Neutrophils % 66 % Lymphocytes % 19 % Monocytes % 9 % Eosinophils % 3 % Basophils % 1 % Neutrophils # 5.1 (1.3-7.7) k/uL Lymphocytes # 1.5 (1.0-4.8) k/uL Monocytes # 0.7 (0-1.0) k/uL Eosinophils # 0.2 (0-0.7) k/uL Basophils # 0.1 (0-0.2) k/uL Sodium 142 (137-145) mmol/L Potassium 4.4 (3.5-5.1) mmol/L Chloride 111 H (98-107) mmol/L Carbon Dioxide 26 (22-30) mmol/L Anion Gap 5 mmol/L BUN 23 H (7-17) mg/dL Creatinine 1.07 H (0.52-1.04) mg/dL Est GFR (CKD-EPI)AfAm 76 (>60 ml/min/1.73 sqM) Est GFR (CKD-EPI)NonAf 66 (>60 ml/min/1.73 sqM) Glucose 95 (74-99) mg/dL Calcium 10.1 (8.4-10.2) mg/dL Total Bilirubin 1.5 H (0.2-1.3) mg/dL AST 21 (14-36) U/L ALT 27 (9-52) U/L Alkaline Phosphatase 45 (38-126) U/L Total Protein 7.0 (6.3-8.2) g/dL Albumin 4.4 (3.5-5.0) g/dL Amylase 41 (30-110) U/L Lipase 83 (23-300) U/L Urine Color Light Yellow Urine Appearance Cloudy H (Clear) Urine pH 6.0 (5.0-8.0) Ur Specific Greer 1.008 (1.001-1.035) Urine Protein Negative (Negative) Urine Glucose (UA) Negative (Negative) Urine Ketones Negative (Negative) Urine Blood Negative (Negative) Urine Nitrite Negative (Negative) Urine Bilirubin Negative (Negative) Urine Urobilinogen <2.0 (<2.0) mg/dL Ur Leukocyte Esterase Negative (Negative) Urine RBC 2 (0-5) /hpf Urine WBC 1 (0-5) /hpf Ur Squamous Epith Cells 8 H (0-4) /hpf Urine Bacteria Rare H (None) /hpf Urine Mucus Rare H (None) /hpf Disposition Clinical Impression: Epigastric pain Disposition: HOME SELF-CARE Condition: Stable Instructions: Abdominal Pain (ED) Additional Instructions: Please return to the Emergency Department if symptoms worsen or any other concerns. Prescriptions: Dicyclomine [Bentyl] 20 mg PO TID #30 tablet Is patient prescribed a controlled substance at d/c from ED?: No Referrals: Pako Garcia DO [Primary Care Provider] - 1-2 days Abiodun Rivera MD [STAFF PHYSICIAN] - 1-2 days Time of Disposition: 12:00
[2018-10-12 10:08] LABS: Basophils # (A) 0.1 k/uL (0-0.2); Basophils % (A) 1 %; Eosinophils # (A) 0.2 k/uL (0-0.7); Eosinophils % (A) 3 %; HCT 40.7 % (34.0-46.0); HGB 14.1 gm/dL (11.4-16.0); Lymphocytes # (A) 1.5 k/uL (1.0-4.8); Lymphocytes % (A) 19 %; MCH 32.1 pg (25.0-35.0); MCHC 34.7 g/dL (31.0-37.0); MCV 92.7 fL (80.0-100.0); Mean Platelet Volume 7.5; Monocytes # (A) 0.7 k/uL (0-1.0); Monocytes % (A) 9 %; Neutrophils # (A) 5.1 k/uL (1.3-7.7); Neutrophils % (A) 66 %; Platelet Count 306 k/uL (150-450); RBC 4.39 m/uL (3.80-5.40); RDW 12.3 % (11.5-15.5); WBC 7.7 k/uL (3.8-10.6)
[2018-10-12 10:12] LABS: Appearance,Urine Cloudy (Clear); Bacteria,Urine Rare /hpf; Bilirubin,Urine Negative (Negative); Blood,Urine Negative (Negative); Color,Urine Light Yellow; Glucose,Urine (UA) Negative (Negative); Ketones,Urine Negative (Negative); Leukocyte Esterase,Urine Negative (Negative); Mucus,Urine Rare /hpf; Nitrite,Urine Negative (Negative); Protein,Urine Negative (Negative); RBC,Urine 2 /hpf (0-5); Specific Gravity,Urine 1.008 (1.001-1.035); Squamous Epithelial Cell,Urine 8 /hpf (0-4); Urobilinogen,Urine <2.0 mg/dL (<2.0); WBC,Urine 1 /hpf (0-5)
[2018-10-12 10:23] LABS: Albumin 4.4 g/dL (3.5-5.0); Calcium 10.1 mg/dL (8.4-10.2); Potassium 4.4 mmol/L (3.5-5.1); Total Bilirubin 1.5 mg/dL (0.2-1.3)
[2018-10-12] MEDS ORDERED: MAG HYDROX/AL HYDROX/SIMETH 30 ML, HYOSCYAMINE ELIXIR 10 ML, CIMETIDINE HCL 300 MG, LID... PO STA ×4 (10:45)
[2018-10-12 10:55] VITALS: RESP 18
--- NOTE | 2018-10-12 10:55 | XR ---
EXAMINATION TYPE: XR chest 1V DATE OF EXAM: 10/12/2018 COMPARISON: Prior chest x-ray 05/01/2018 HISTORY: Abdominal pain, cough TECHNIQUE: Single frontal view of the chest is obtained. FINDINGS: There is no focal air space opacity, pleural effusion, or pneumothorax seen. The cardiac silhouette size is within normal limits. The osseous structures are intact. Lung apices not entirel y included in the exam. There is a spinal curvature. IMPRESSION: No acute process.
--- NOTE | 2018-10-12 11:36 | CT ---
EXAMINATION TYPE: CT abdomen pelvis w con DATE OF EXAM: 10/12/2018 HISTORY: Epigastric pain. CT DLP: 679.7mGycm Automated Exposure Control for Dose Reduction was Utilized. CONTRAST: CT scan of the abdomen and pelvis is performed without oral but with IV Contrast, patient injected wi th 100 mL of Isovue 300. COMPARISON: CT abdomen January 26, 2013 FINDINGS: LUNG BASES: No significant abnormality is appreciated. LIVER/GB: Cholecystectomy clips are redemonstrated. PANCREAS: Pancreas is within normal limits in size and significantly changed from prior. No suspiciou s new surrounding inflammatory change or areas of nonenhancement are identified. SPLEEN: No significant abnormality is seen. ADRENALS: No significant abnormality is seen. KIDNEYS: There is single 1 to 2 mm calculus upper pole level left kidney axial image 20. There is sym metric cortical medullary uptake and excretion from both kidneys without hydronephrosis bilaterally. Focus of nondependent air in bladder is noted axial image 68. Correlate clinically for recent cathete rization otherwise other etiologies need to be considered. BOWEL: Normal-appearing appendix is seen from cecum axial image 63. There is no suspicious small or l arge bowel dilatation. Evaluation bowel is slightly suboptimal secondary to lack of enteric contrast. UTERUS/ADNEXA: Anteverted uterus is seen. No suspicious adnexal masses are noted. Occasional left-silvano ed pelvic phlebolith is seen. No free fluid in pelvis is noted LYMPH NODES: No greater than 1cm abdominal or pelvic lymph nodes are appreciated. OSSEOUS STRUCTURES: Mild disc space narrowing L5-S1 level is present. OTHER: Surgical clip anterior pelvis right of midline axial image 62 likely reflects displaced cholec ystectomy clips. IMPRESSION: Attention to bladder as noted above otherwise no suspicious new or acute finding is seen to account for patient's symptoms
[2018-10-12] MEDS ORDERED: ACET/COD 300 MG/30 MG STARTER PACK 6 TAB BTL PO STA (12:00)
[2018-10-12 12:28] VITALS: BP 99/73; PULSE 54
== END 2018-10-12 12:26 | disposition home or self-care (01) ==
LOC: EC 09:05
DX: R10.13 Epigastric pain (principal); K44.9 Diaphragmatic hernia without obstruction or gangrene; R05 Cough; G81.91 Hemiplegia, unspecified affecting right dominant side; F31.9 Bipolar disorder, unspecified; F41.9 Anxiety disorder, unspecified; F17.200 Nicotine dependence, unspecified, uncomplicated; Z79.899 Other long term (current) drug therapy; Z98.890 Other specified postprocedural states
CPT/HCPCS: 36415; 80053; 82150; 83690; 85025; 81001; 71045; 74177; 99284; 96374; 96375 ×2; 96361; J2270; J2405; C9113; Q9967

== ENCOUNTER 2018-10-22 12:02 | Emergency (ER) | payer MEDICARE, OTHER ==
[2018-10-22 12:07] VITALS: RESP 16; TEMP 98.5
[2018-10-22] MEDS ORDERED: DIAZEPAM 5 MG/ML 2 ML INJ IVP STA (12:24)
[2018-10-22] MEDS ORDERED: SODIUM CHLORIDE 0.9% 1,000 ML IV STA ×2 (12:24)
[2018-10-22] MEDS ORDERED: ONDANSETRON 4 MG/2 ML VIAL IVP STA (12:24)
[2018-10-22] MEDS: MORPHINE SULFATE 4 MG/ML SYRINGE IV STA ×2 (12:41→14:09)
--- NOTE | 2018-10-22 12:42 | ED ---
Abdominal Pain HPI - General Chief Complaint: Abdominal Pain Stated Complaint: Abd Pain,Headache Time Seen by Provider: 10/22/18 12:12 Source: patient, RN notes reviewed, old records reviewed Mode of arrival: ambulatory Limitations: no limitations - History of Present Illness Initial Comments: This is a 37-year-old female the ER for evaluation. Patient resents today for evaluation regards to multiple complaints. Patient claims of headache left flank pain flank pain radiating to groin. And left suprapubic pain. Denies fevers. Patient does have complex medical history including history of kidney stones low she states this pain in her flank is different pain in her groin is different. No dysuria no bowel movement problems. 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 Patient denies fever. No trauma. Patient does take Lamictal at home for episodes of depression MD Complaint: abdominal pain, flank pain (() -: days(s) (2) Location: LLQ, L flank Radiation: suprapubic Migration to: suprapubic Severity: mild Severity scale (1-10): 3 Quality: sharp Consistency: constant Improves With: nothing Worsens With: nothing Context: other (Not) Associated Symptoms: nausea, vomiting - Related Data Home Medications Medication Instructions Recorded Confirmed lamoTRIgine [LaMICtal] 100 mg PO BID 01/12/17 10/22/18 ALPRAZolam [Xanax] 1 mg PO HS 05/16/17 10/22/18 Escitalopram [Lexapro] 30 mg PO DAILY 02/20/18 10/22/18 Aspirin/Acetaminophen/Caffeine 1 tab PO DAILY PRN 05/01/18 10/22/18 [Excedrin Migraine Caplet] Allergies Allergy/AdvReac Type Severity Reaction Status Date / Time No Known Allergies Allergy Verified 10/22/18 12:33 Review of Systems ROS Statement: Those systems with pertinent positive or pertinent negative responses have been documented in the HPI. ROS Other: All systems not noted in ROS Statement are negative. Past Medical History Past Medical History: No Reported History Additional Past Medical History / Comment(s): right sided weakness. Patient states "tooth abscess that led to three brain surgeries". History of Any Multi-Drug Resistant Organisms: None Reported Additional Past Surgical History / Comment(s): 3 brain surgeries Past Anesthesia/Blood Transfusion Reactions: No Reported Reaction Past Psychological History: Anxiety, Bipolar, Depression Smoking Status: Current some day smoker Past Alcohol Use History: None Reported Past Drug Use History: Marijuana - Past Family History Mother Family Medical History: Cancer Additional Family Medical History / Comment(s): Breast/Cervical Cancer General Exam - General Exam Comments Initial Comments: NIH of 0, no focal neurological complaints Limitations: no limitations General appearance: alert, in no apparent distress Head exam: Present: atraumatic, normocephalic, normal inspection Eye exam: Present: normal appearance, PERRL, EOMI. Absent: scleral icterus, conjunctival injection, periorbital swelling ENT exam: Present: normal exam, mucous membranes moist Neck exam: Present: normal inspection. Absent: tenderness, meningismus, lymphadenopathy Respiratory exam: Present: normal lung sounds bilaterally. Absent: respiratory distress, wheezes, rales, rhonchi, stridor Cardiovascular Exam: Present: regular rate, normal rhythm, normal heart sounds. Absent: systolic murmur, diastolic murmur, rubs, gallop, clicks GI/Abdominal exam: Present: soft, tenderness (Left Suprapubic tenderness), normal bowel sounds. Absent: distended, guarding, rebound, rigid Extremities exam: Present: normal inspection, full ROM, normal capillary refill. Absent: tenderness, pedal edema, joint swelling, calf tenderness Back exam: Present: normal inspection Neurological exam: Present: alert, oriented X3, CN II-XII intact Psychiatric exam: Present: normal affect, normal mood Skin exam: Present: warm, dry, intact, normal color. Absent: rash Course Vital Signs 10/22/18 10/22/18 10/22/18 12:05 12:54 13:26 Temperature 98.5 F Pulse Rate 73 58 L Respiratory 16 16 16 Rate Blood Pressure 108/76 98/68 93/61 O2 Sat by Pulse 98 97 Oximetry - Reevaluation(s) Reevaluation #1: 10/22/18 14:40 Medical records reviewed Reevaluation #2: 10/22/18 14:40 Headache and abdominal pain or improved Medical Decision Making - Medical Decision Making 37 female the patient presents today for evaluation of bowel pain headache. Headache or bowel pain or improved currently. Labwork CT brain as well as CT abdomen pelvis is negative. Urine is negative patient can be discharged home - Lab Data Result diagrams: 10/22/18 12:45 10/22/18 12:45 Lab Results 10/22/18 10/22/18 10/22/18 Range/Units 12:45 12:45 12:45 WBC 5.7 (3.8-10.6) k/uL RBC 4.32 (3.80-5.40) m/uL Hgb 13.2 (11.4-16.0) gm/dL Hct 39.6 (34.0-46.0) % MCV 91.6 (80.0-100.0) fL MCH 30.5 (25.0-35.0) pg MCHC 33.3 (31.0-37.0) g/dL RDW 12.2 (11.5-15.5) % Plt Count 282 (150-450) k/uL Neutrophils % 60 % Lymphocytes % 28 % Monocytes % 7 % Eosinophils % 2 % Basophils % 1 % Neutrophils # 3.4 (1.3-7.7) k/uL Lymphocytes # 1.6 (1.0-4.8) k/uL Monocytes # 0.4 (0-1.0) k/uL Eosinophils # 0.1 (0-0.7) k/uL Basophils # 0.1 (0-0.2) k/uL Sodium 139 (137-145) mmol/L Potassium 4.2 (3.5-5.1) mmol/L Chloride 107 (98-107) mmol/L Carbon Dioxide 26 (22-30) mmol/L Anion Gap 6 mmol/L BUN 16 (7-17) mg/dL Creatinine 0.91 (0.52-1.04) mg/dL Est GFR (CKD-EPI)AfAm >90 (>60 ml/min/1.73 sqM) Est GFR (CKD-EPI)NonAf 80 (>60 ml/min/1.73 sqM) Glucose 104 H (74-99) mg/dL Plasma Lactic Acid Triston 0.7 (0.7-2.0) mmol/L Calcium 9.9 (8.4-10.2) mg/dL Total Bilirubin 1.2 (0.2-1.3) mg/dL AST 20 (14-36) U/L ALT 21 (9-52) U/L Alkaline Phosphatase 46 (38-126) U/L Total Protein 6.7 (6.3-8.2) g/dL Albumin 4.1 (3.5-5.0) g/dL Amylase 41 (30-110) U/L Lipase 71 (23-300) U/L Urine Color Urine Appearance (Clear) Urine pH (5.0-8.0) Ur Specific Cache (1.001-1.035) Urine Protein (Negative) Urine Glucose (UA) (Negative) Urine Ketones (Negative) Urine Blood (Negative) Urine Nitrite (Negative) Urine Bilirubin (Negative) Urine Urobilinogen (<2.0) mg/dL Ur Leukocyte Esterase (Negative) 10/22/18 Range/Units 12:45 WBC (3.8-10.6) k/uL RBC (3.80-5.40) m/uL Hgb (11.4-16.0) gm/dL Hct (34.0-46.0) % MCV (80.0-100.0) fL MCH (25.0-35.0) pg MCHC (31.0-37.0) g/dL RDW (11.5-15.5) % Plt Count (150-450) k/uL Neutrophils % % Lymphocytes % % Monocytes % % Eosinophils % % Basophils % % Neutrophils # (1.3-7.7) k/uL Lymphocytes # (1.0-4.8) k/uL Monocytes # (0-1.0) k/uL Eosinophils # (0-0.7) k/uL Basophils # (0-0.2) k/uL Sodium (137-145) mmol/L Potassium (3.5-5.1) mmol/L Chloride (98-107) mmol/L Carbon Dioxide (22-30) mmol/L Anion Gap mmol/L BUN (7-17) mg/dL Creatinine (0.52-1.04) mg/dL Est GFR (CKD-EPI)AfAm (>60 ml/min/1.73 sqM) Est GFR (CKD-EPI)NonAf (>60 ml/min/1.73 sqM) Glucose (74-99) mg/dL Plasma Lactic Acid Triston (0.7-2.0) mmol/L Calcium (8.4-10.2) mg/dL Total Bilirubin (0.2-1.3) mg/dL AST (14-36) U/L ALT (9-52) U/L Alkaline Phosphatase (38-126) U/L Total Protein (6.3-8.2) g/dL Albumin (3.5-5.0) g/dL Amylase (30-110) U/L Lipase (23-300) U/L Urine Color Light Yellow Urine Appearance Clear (Clear) Urine pH 6.0 (5.0-8.0) Ur Specific Cache 1.004 (1.001-1.035) Urine Protein Negative (Negative) Urine Glucose (UA) Negative (Negative) Urine Ketones Negative (Negative) Urine Blood Negative (Negative) Urine Nitrite Negative (Negative) Urine Bilirubin Negative (Negative) Urine Urobilinogen <2.0 (<2.0) mg/dL Ur Leukocyte Esterase Negative (Negative) - Radiology Data Radiology results: report reviewed (CT brain CT abdomen pelvis negative for acute disease), image reviewed Disposition Clinical Impression: Headache, Abdominal pain Disposition: HOME SELF-CARE Condition: Good Instructions: Abdominal Pain (ED) Is patient prescribed a controlled substance at d/c from ED?: No Referrals: Pako Garcia DO [Primary Care Provider] - 1-2 days
[2018-10-22 12:59] VITALS: PULSE 58
[2018-10-22 13:05] LABS: Appearance,Urine Clear (Clear); Bilirubin,Urine Negative (Negative); Blood,Urine Negative (Negative); Color,Urine Light Yellow; Glucose,Urine (UA) Negative (Negative); Ketones,Urine Negative (Negative); Leukocyte Esterase,Urine Negative (Negative); Nitrite,Urine Negative (Negative); Protein,Urine Negative (Negative); Specific Gravity,Urine 1.004 (1.001-1.035); Urobilinogen,Urine <2.0 mg/dL (<2.0)
[2018-10-22 13:10] LABS: ALT 21 U/L (9-52); AST 20 U/L (14-36); Albumin 4.1 g/dL (3.5-5.0); Alkaline Phosphatase 46 U/L (38-126); Amylase 41 U/L (30-110); Anion Gap 6 mmol/L; Blood Urea Nitrogen 16 mg/dL (7-17); Calcium 9.9 mg/dL (8.4-10.2); Carbon Dioxide 26 mmol/L (22-30); Chloride 107 mmol/L (98-107); Glucose 104 mg/dL (74-99); Lipase 71 U/L (23-300); Potassium 4.2 mmol/L (3.5-5.1); Sodium 139 mmol/L (137-145); Total Bilirubin 1.2 mg/dL (0.2-1.3); Total Protein 6.7 g/dL (6.3-8.2)
[2018-10-22 13:16] LABS: Basophils # (A) 0.1 k/uL (0-0.2); Basophils % (A) 1 %; Eosinophils # (A) 0.1 k/uL (0-0.7); Eosinophils % (A) 2 %; HCT 39.6 % (34.0-46.0); HGB 13.2 gm/dL (11.4-16.0); Lymphocytes # (A) 1.6 k/uL (1.0-4.8); Lymphocytes % (A) 28 %; MCH 30.5 pg (25.0-35.0); MCHC 33.3 g/dL (31.0-37.0); MCV 91.6 fL (80.0-100.0); Mean Platelet Volume 7.3; Monocytes # (A) 0.4 k/uL (0-1.0); Monocytes % (A) 7 %; Neutrophils # (A) 3.4 k/uL (1.3-7.7); Neutrophils % (A) 60 %; Platelet Count 282 k/uL (150-450); RBC 4.32 m/uL (3.80-5.40); RDW 12.2 % (11.5-15.5); WBC 5.7 k/uL (3.8-10.6)
--- NOTE | 2018-10-22 13:18 | CT ---
EXAMINATION TYPE: CT brain wo con DATE OF EXAM: 10/22/2018 COMPARISON: Previous study dated 05/01/2018. HISTORY: Abdominal pain , headache CT DLP: 1054.4 mGycm Automated exposure control for dose reduction was used. FINDINGS: Central structures are midline. There is no evidence of hydrocephalus. No acute focal lesion, mass ef fect or midline shift is seen. I do not see evidence of intracranial blood. Visualized portions of the paranasal sinuses and mastoids are clear. The bony calvarium is intact. IMPRESSION: NORMAL CT SCAN OF THE BRAIN.
[2018-10-22 13:29] VITALS: BP 93/61
--- NOTE | 2018-10-22 14:06 | CT ---
EXAMINATION TYPE: CT abdomen pelvis wo con DATE OF EXAM: 10/22/2018 COMPARISON: Previous study dated 10/12/2018. HISTORY: Lt flank pain, renal stone history CT DLP: 415.1 mGycm Automated exposure control for dose reduction was used. FINDINGS: There is mild dependent atelectasis within the dependent portions of the lungs. There is no pleural or pericardial fluid. The heart is not enlarged. Within the abdomen, the gallbladder is been removed. Liver and spleen are normal. Both adrenal glands are normal. There is a 2 to 3 mm nonobstructing calculus in the posterior upper pole calyx of the left kidney. Ri ght kidney appears normal. The pancreas is unremarkable. There is no significant retroperitoneal, iliac or inguinal adenopathy. The bladder is unremarkable. The uterus and ovaries are normal. There is no significant diverticular change and there is no radiographic evidence of diverticulitis. The appendix is normal. Small bowel loops are of normal caliber. There is no free fluid and no free air identified. There is degenerative disc disease and facet arthropathy at L5-S1. There is minimal hypertrophic spon dylosis in the lower dorsal spine. IMPRESSION: 1. STABLE NONOBSTRUCTING UPPER POLE LEFT RENAL CALCULUS. 2. MINIMAL DEGENERATIVE CHANGE WITHIN THE SPINE.
[2018-10-22] MEDS ORDERED: ACET/COD 300 MG/30 MG STARTER PACK 6 TAB BTL PO STA (15:00)
== END 2018-10-22 15:15 | disposition home or self-care (01) ==
LOC: EC 12:02
DX: R10.32 Left lower quadrant pain (principal); R51 Headache; R11.2 Nausea with vomiting, unspecified; H53.8 Other visual disturbances; F31.9 Bipolar disorder, unspecified; F41.9 Anxiety disorder, unspecified; F17.200 Nicotine dependence, unspecified, uncomplicated; Z79.899 Other long term (current) drug therapy; Z87.442 Personal history of urinary calculi; Z86.61 Personal history of infections of the central nervous system; Z87.898 Personal history of other specified conditions; Z98.890 Other specified postprocedural states
CPT/HCPCS: 36415; 80053; 82150; 83605; 83690; 85025; 81003; 87086; 70450; 74176; 99284; 96374; 96375 ×2; 96361 ×2; J2270; J3360; J2405

== ENCOUNTER 2018-11-14 07:01 | Day surgery (SDC) | payer MEDICARE, OTHER ==
[~2018-11-14 07:01] MED LIST: LACTATED RINGERS 1,000 ML IV SCH; LIDOCAINE 1% 20 ML VIAL (10MG/ML) FOR IV START INTRADERMA PRN; MIDAZOLAM (PF) 2 MG/2 ML VIAL IV PRN
[2018-11-14 07:54] VITALS: RESP 16; TEMP 97.9
[2018-11-14] MEDS ORDERED: PROPOFOL 10 MG/ML 20 ML VIAL IV ONE (08:44)
[2018-11-14] MEDS ORDERED: MIDAZOLAM 2 MG/2 ML VIAL ONE (08:44)
[2018-11-14] MEDS ORDERED: fentaNYL (PF) 50 MCG/ML 2 ML AMP ONE (08:44)
--- NOTE | 2018-11-14 09:21 | P.PCN ---
Date of Procedure: 11/14/18 Procedure(s) Performed: Procedure: Colonoscopy and biopsy. Preoperative diagnosis: Abdominal pain and change in bowel habits. Postoperative diagnosis: 1. Exam of the colon and terminal ileum within normal limits. 2. Biopsies obtained from the terminal ileum and right colon. Preparation: HalfLytely prep. Sedation: Was provided by anesthesia. Brief clinical history: The patient is a 37-year-old female who I have evaluated in the office last month regarding abdominal pain and change in bowel habits of several months duration. The patient had intermittent diarrhea which is not usual for her. CT of the abdomen did not reveal kidney stones or other causes of her pain. She had prior evaluation for reflux symptoms and an upper endoscopy in the past showed mild gastritis. This evaluation is to assess for inflammatory bowel disease or other pathology. Procedure: With the patient on her left lateral decubitus position and after informed consent and adequate sedation, the perianal area was inspected and it did not show any fissures or fistulas. There were no masses felt on digital rectal examination. The Olympus CFH 190L video colonoscope was then inserted in the rectum in the usual fashion and advanced to the cecum. I intubated the ileocecal valve and examined the terminal ileum. Terminal ileum and colon appeared healthy with no edema, erythema, friability, ulceration, exudation or spontaneous bleeding. No polyps or tumors were seen or any obvious diverticular disease. I retroflexed the endoscope in the rectum before the endoscope was withdrawn. I obtained biopsies from the terminal ileum and right colon. The patient tolerated the procedure well. Plan: The patient was reassured. Will await biopsy results. She will follow- up with you as planned. I will see her in follow-up in the office and make additional recommendations based on her course and biopsy results. I will keep you updated on her progress.
[2018-11-14 09:30] VITALS: BP 94/67; PULSE 57
== END 2018-11-14 09:57 | disposition home or self-care (01) ==
LOC: ORWHC2ENDO 07:01
DX: R10.9 Unspecified abdominal pain (principal); R19.4 Change in bowel habit; F17.210 Nicotine dependence, cigarettes, uncomplicated; F31.9 Bipolar disorder, unspecified; F41.9 Anxiety disorder, unspecified; Z87.442 Personal history of urinary calculi; Z79.899 Other long term (current) drug therapy
CPT/HCPCS: 81025; 88305; 45380; J2250; J3010; J2704

== ENCOUNTER → 2018-12-20 | Outpatient (CLI) | payer MEDICARE, OTHER ==
--- NOTE | 2018-12-20 12:12 | CT ---
EXAMINATION TYPE: CT brain wo con DATE OF EXAM: 12/20/2018 COMPARISON: 10/22/2018 HISTORY: Headache and paresthesia Unenhanced CT of the brain was performed. The ventricles, basal cisterns and sulci overlying the cerebral convexities demonstrate a normal appe arance. There is vague area of decreased attenuation within the left anterior centrum semioval bilaterally un changed from prior study which may reflect a remote insult or area of demyelination. There is no evidence for intracranial hemorrhage or sulcal effacement. No mass effects are seen. Osseous calvarium is intact. If symptoms persist consider MRI as clinically warranted. IMPRESSION: 1. No acute intracranial process is seen at this time.
== END | disposition home or self-care (01) ==
LOC: RADCTMAIN 11:46
PROVIDERS: ATTEND Family Medicine
DX: R51 Headache (principal); R20.2 Paresthesia of skin; R53.1 Weakness
CPT/HCPCS: 70450

== ENCOUNTER → 2019-01-02 | Outpatient (CLI) | payer MEDICARE, OTHER ==
[2019-01-02 17:25] LABS: Basophils # (A) 0.1 k/uL (0-0.2); Basophils % (A) 1 %; Eosinophils % (A) 0 %; HCT 38.9 % (34.0-46.0); HGB 12.5 gm/dL (11.4-16.0); Lymphocytes # (A) 1.5 k/uL (1.0-4.8); Lymphocytes % (A) 16 %; MCHC 32.1 g/dL (31.0-37.0); MCV 93.6 fL (80.0-100.0); Mean Platelet Volume 7.4; Monocytes # (A) 0.6 k/uL (0-1.0); Monocytes % (A) 6 %; Neutrophils # (A) 7.5 k/uL (1.3-7.7); Neutrophils % (A) 76 %; Platelet Count 285 k/uL (150-450); RBC 4.15 m/uL (3.80-5.40); RDW 12.3 % (11.5-15.5)
== END ==
LOC: LABWHC1 16:17
PROVIDERS: ATTEND Surgery
DX: Z01.812 Encounter for preprocedural laboratory examination (principal); K21.0 Gastro-esophageal reflux disease with esophagitis; F64.9 Gender identity disorder, unspecified; F17.200 Nicotine dependence, unspecified, uncomplicated
CPT/HCPCS: 36415; 85025

== ENCOUNTER 2019-01-04 08:17 | Day surgery (SDC) | payer MEDICARE, OTHER ==
[2019-01-03 11:20] VITALS: BMI 26.4
[~2019-01-04 08:17] MED LIST changes: -MIDAZOLAM (PF) 2 MG/2 ML VIAL IV PRN
[2019-01-04 08:43] VITALS: TEMP 98.2
[2019-01-04] MEDS ORDERED: LIDOCAINE 1% 20 ML VIAL (10MG/ML) FOR IV START INTRADERMA ONE (08:52)
[2019-01-04] MEDS ORDERED: PROPOFOL 10 MG/ML 20 ML VIAL IV ONE (09:14)
[2019-01-04] MEDS ORDERED: LIDOCAINE 1% INJ 10MG/ML (20 ML MDV) ONE (09:14)
--- NOTE | 2019-01-04 09:15 | P.GSHP ---
History of Present Illness H&P Date: 01/04/19 Chief Complaint: GERD, hiatal hernia This is a 38-year-old female who presents today for EGD. She's had issues with GERD. She's been refractory to medical management. 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 HX KIDNEY STONES. HIATAL HERNIA. RT SIDE FACE/ARM/CHEST PAIN ON/OFF WITH ONSET UPPER MID ABD PAIN; CV W/U NL. History of Any Multi-Drug Resistant Organisms: None Reported Past Surgical History: Cholecystectomy, Hernia Repair, Tubal Ligation, Uterine Ablation Additional Past Surgical History / Comment(s): 3 brain surgeries. 2 umb hernia. uterine ablation with novasure. EGD, COLONOSCOPY. Past Anesthesia/Blood Transfusion Reactions: No Reported Reaction Smoking Status: Current every day smoker - Past Family History Mother Family Medical History: Cancer Additional Family Medical History / Comment(s): Breast/Cervical Cancer Medications and Allergies Home Medications Medication Instructions Recorded Confirmed Type lamoTRIgine [LaMICtal] 100 mg PO BID 01/12/17 01/04/19 History Escitalopram [Lexapro] 20 mg PO HS 02/20/18 01/03/19 History Albuterol Inhaler [Ventolin Hfa 1 - 2 puff INHALATION RT-Q6H PRN 01/03/19 01/04/19 History Inhaler] Aspirin/Acetaminophen/Caffeine 1 - 2 each PO DIRECTED PRN 01/03/19 01/03/19 History [Excedrin Migraine Caplet] Meloxicam [Mobic] 15 mg PO DAILY 01/03/19 01/03/19 History Multivitamins, Thera [Multivitamin 1 tab PO DAILY 01/03/19 01/03/19 History (formulary)] traZODone HCL 50 mg PO HS 01/03/19 01/03/19 History Allergies Allergy/AdvReac Type Severity Reaction Status Date / Time No Known Allergies Allergy Verified 01/03/19 10:34 Surgical - Exam Vital Signs Temp Pulse Resp BP Pulse Ox 98.2 F 57 L 18 95/57 98 01/04/19 08:42 01/04/19 08:42 01/04/19 08:42 01/04/19 08:42 01/04/19 08:42 - General well developed, well nourished, no distress - Eyes PERRL - ENT normal pinna - Neck no masses - Respiratory normal expansion - Cardiovascular Rhythm: regular - Abdomen Abdomen: soft, non tender Assessment and Plan Assessment: GERD, hiatal hernia. We'll perform EGD.
--- NOTE | 2019-01-04 09:24 | P.OP ---
Date of Procedure: 01/04/19 Preoperative Diagnosis: GERD Postoperative Diagnosis: GERD Sliding hiatal hernia Mild antral gastritis Mild esophagitis Procedure(s) Performed: EGD Anesthesia: MAC Surgeon: Michael Lorenz Pathology: other (Antrum, esophagus) Condition: stable Disposition: PACU Description of Procedure: The patient's placed on the endoscopy table in the lateral position. She received IV sedation. The gastroscope placed oropharynx passed in the esophagus and into the stomach. Scope was placed through the pylorus. The first and second portion of the duodenum appeared normal. Scope was then brought back the antrum and this appeared mildly inflamed. A biopsy was performed. The scope was then retroflexed the remainder of the stomach appeared all. There was a sliding hiatal hernia. The GE junction was at 39 cm. The distal esophagus was minimal inflamed a biopsies performed. The proximal esophagus appeared normal. Scope was withdrawn for patient.
[2019-01-04 09:36] VITALS: RESP 16
[2019-01-04 09:51] VITALS: BP 98/62; PULSE 60
== END 2019-01-04 10:10 | disposition home or self-care (01) ==
LOC: ORWHC2ENDO 08:17
PROVIDERS: ATTEND Surgery
DX: K21.0 Gastro-esophageal reflux disease with esophagitis (principal); K29.50 Unspecified chronic gastritis without bleeding; K44.9 Diaphragmatic hernia without obstruction or gangrene; Z86.73 Personal history of transient ischemic attack (TIA), and cerebral infarction without residual deficits; Z87.442 Personal history of urinary calculi; J45.909 Unspecified asthma, uncomplicated; F17.200 Nicotine dependence, unspecified, uncomplicated; Z90.49 Acquired absence of other specified parts of digestive tract; Z79.899 Other long term (current) drug therapy; Z88.6 Allergy status to analgesic agent; Z79.1 Long term (current) use of non-steroidal anti-inflammatories (NSAID); Z79.82 Long term (current) use of aspirin
CPT/HCPCS: 88305; 43239; J2001; J2704

== ENCOUNTER 2019-01-08 07:47 | Day surgery (SDC) | payer MEDICARE, OTHER ==
[~2019-01-08 07:47] MED LIST changes: +DEXAMETHASONE SOD PHOSPHATE 10 MG/ML 1 ML VIAL IV ONE; +HEPARIN SODIUM,PORCINE 5,000 UNIT/ML 1 ML VIAL SQ ONE; -LIDOCAINE 1% 20 ML VIAL (10MG/ML) FOR IV START INTRADERMA PRN; +MIDAZOLAM 2 MG/2 ML VIAL IV PRN; +ONDANSETRON 4 MG/2 ML VIAL IVP ONE; +SCOPOLAMINE 1.5MG/72HR PATCH TRANSDERM ONE; +ceFAZolin IN SWFI 2 GM/20 ML SYRINGE IVP ONE
--- NOTE | 2019-01-08 08:39 | P.GSHP ---
History of Present Illness H&P Date: 01/08/19 Chief Complaint: GERD This is a 38-year-old female referred from Dr. Snyder. The patient has had long-standing problems with reflux esophagitis. The patient underwent recent EGD is found have evidence of esophagitis. Patient has been well informed on th e procedure of laparoscopic Stephan fundoplication. The patient is aware the risk of the conversion to the open procedure, risk of injury to the stomach, liver and spleen. The patient is also a risk of recurrent GERD and dysphagia symptoms. The patient understands there is a postoperative diet of full liquids for 2 weeks after surgery. 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 HX KIDNEY STONES. HIATAL HERNIA. RT SIDE FACE/ARM/CHEST PAIN ON/OFF WITH ONSET UPPER MID ABD PAIN; CV W/U NL. History of Any Multi-Drug Resistant Organisms: None Reported Past Surgical History: Cholecystectomy, Hernia Repair, Tubal Ligation, Uterine Ablation Additional Past Surgical History / Comment(s): 3 brain surgeries. 2 umb hernia. uterine ablation with novasure. EGD, COLONOSCOPY. Past Anesthesia/Blood Transfusion Reactions: No Reported Reaction Smoking Status: Current every day smoker - Past Family History Mother Family Medical History: Cancer Additional Family Medical History / Comment(s): Breast/Cervical Cancer Medications and Allergies Home Medications Medication Instructions Recorded Confirmed Type lamoTRIgine [LaMICtal] 100 mg PO BID 01/12/17 01/04/19 History Escitalopram [Lexapro] 20 mg PO HS 02/20/18 01/03/19 History Albuterol Inhaler [Ventolin Hfa 1 - 2 puff INHALATION RT-Q6H PRN 01/03/19 01/04/19 History Inhaler] Aspirin/Acetaminophen/Caffeine 1 - 2 each PO DIRECTED PRN 01/03/19 01/03/19 History [Excedrin Migraine Caplet] Meloxicam [Mobic] 15 mg PO DAILY 01/03/19 01/03/19 History Multivitamins, Thera [Multivitamin 1 tab PO DAILY 01/03/19 01/03/19 History (formulary)] traZODone HCL 50 mg PO HS 01/03/19 01/03/19 History Allergies Allergy/AdvReac Type Severity Reaction Status Date / Time No Known Allergies Allergy Verified 01/08/19 08:10 Surgical - Exam Vital Signs Temp Pulse Resp BP Pulse Ox 97.9 F 59 L 16 116/75 99 01/08/19 08:15 01/08/19 08:15 01/08/19 08:15 01/08/19 08:15 01/08/19 08:15 - General well developed, well nourished, no distress - Eyes PERRL - ENT normal pinna - Neck no masses - Respiratory normal expansion - Cardiovascular Rhythm: regular - Abdomen Abdomen: soft, non tender Assessment and Plan Assessment: GERD. We'll perform laparoscopic Stephan fundal plication.
[2019-01-08] MEDS ORDERED: fentaNYL (PF) 50 MCG/ML 2 ML AMP ONE (09:08)
[2019-01-08] MEDS ORDERED: SUCCINYLCHOLINE CHLORIDE 100 MG/5 ML SYR IV ONE (09:08)
[2019-01-08] MEDS ORDERED: GLYCOPYRROLATE 0.2 MG/ML 2 ML VIAL ONE (09:08)
[2019-01-08] MEDS ORDERED: PROPOFOL 10 MG/ML 20 ML VIAL IV ONE (09:08)
[2019-01-08] MEDS ORDERED: LIDOCAINE 1% INJ 10MG/ML (20 ML MDV) ONE (09:08)
[2019-01-08] MEDS ORDERED: MIDAZOLAM 2 MG/2 ML VIAL ONE (09:08)
[2019-01-08] MEDS ORDERED: NEOSTIGMINE 1 MG/ML 10 ML VIAL ONE (09:08)
[2019-01-08] MEDS ORDERED: ROCURONIUM BROMIDE 10 MG/ML 10 ML VIAL IV ONE (09:08)
[2019-01-08] MEDS ORDERED: BUPIVACAIN-EPI 0.5%-1:200,000 30 ML VIAL SQ ONE (09:26)
[2019-01-08] MEDS ORDERED: MEPERIDINE 50 MG/ML SYRINGE IVP ONE ×2 (10:08→10:24)
[2019-01-08] MEDS ORDERED: LACTATED RINGERS 1,000 ML IV ONE (10:17)
[2019-01-08] MEDS: HYDROmorphone 0.5 MG/0.5 ML SYRINGE IVP PRN ×3 (10:45→11:34)
--- NOTE | 2019-01-08 11:36 | P.OP ---
Date of Procedure: 01/08/19 Preoperative Diagnosis: GERD Postoperative Diagnosis: GERD Procedure(s) Performed: Laparoscopic Stephan fundoplication Anesthesia: REBECA Surgeon: Michael Lorenz Estimated Blood Loss (ml): 5 Pathology: none sent Condition: stable Disposition: PACU Description of Procedure: HThe patient was placed on the operating table in the supine position. The patient received general anesthesia. And was placed in dorsal lithotomy position. The patient was prepped and draped in the usual sterile fashion. The skin incision sites were anesthetized with 1% local Xylocaine. The skin was incised in the left periumbilical area and then using a blade less 5 mm trocar under direct visualization panel cavity was entered. After adequate insufflation the laparoscope was then placed into the peritoneal cavity. Next a 5 mm trochars placed in the right epigastric position. Another 5 millimeter trocar the right lateral position. Another 5 millimeter trocar in the left lateral position a 5 mm trocar is placed in the left epigastric position. And then the initial 5 mm trocar was exchanged for a 10 mm trocar. The left lateral lobe liver was retracted. The hernia was seen. The crural defect was then dissected using the Harmonic scissors device. A 360 crural dissection was performed the esophagus stomach was reduced back into the peritoneal Cavity. The crural defect was then closed using 2-0 Ethibond suture. Next the fundus of the stomach was mobilized using the [place] scissors device. and then a 58- [place] bougie dilator was placed oropharynx passed into the esophagus and stomach the fundal plication wrap was then performed by grasping the fundus posteriorly and bringing it around the esophagus and stomach fundoplication was then performed using 2-0 Ethibond suture. Care was taken that the fundal location rested over top of the intra-abdominal esophagus. There was no injury seen to the stomach or esophagus. The dilator was then withdrawn. The abdomen was irrigated there is no bleeding seen. The trochars were then withdrawn and then skin incision sites were closed using 3-0 Monocryl suture Steri-Strips are applied. Patient thought procedure well and sent to recovery room in stable condition.
[2019-01-08] MEDS ORDERED: ALBUTEROL NEBULIZED 2.5 MG/3 ML INHALATION PRN (12:51)
[2019-01-08] MEDS ORDERED: NICOTINE 14MG/24HR PATCH TRANSDERM SCH (13:00)
[2019-01-08] MEDS: HYDROmorphone 1 MG/ML 1 ML SYRINGE IVP PRN ×3 (13:19→21:54)
[2019-01-08 14:12] VITALS: BMI 26.4
[2019-01-08] MEDS: D5-0.45% NACL WITH KCL 20MEQ/L 1,000 ML IV SCH ×2 (14:16→22:00)
[2019-01-08] MEDS: PANTOPRAZOLE 40 MG/10 ML VIAL IVP SCH ×2 (14:18→23:07)
[2019-01-08] MEDS: METOCLOPRAMIDE 5 MG/ML 2 ML VIAL IVP SCH ×2 (14:34→20:07)
--- NOTE | 2019-01-08 14:37 | CONS ---
CONSULTATION There is concern regarding the asthma and multiple other medical problems requested by Dr. Lorenz. HISTORY OF PRESENT ILLNESS: This is a 38-year-old woman with past history of asthma, CVA, TIA, history of GERD, history of right-sided weakness, history of anxiety, bipolar depression, being followed by Dr. Garcia in the outpatient setting, underwent laparoscopic Stephan fundoplication for GERD by Dr. Lorenz. The postoperative blood pressure is well maintained. Patient is complaining of some postoperative pain and some chest discomfort, possibly gas pain also at this time. There is no history of fever, chills or rigors. No history of headache, loss of consciousness, or seizures at this time. PAST MEDICAL HISTORY: History of asthma, CVA, TIA, history of GERD, history of cholecystectomy, history of anxiety, bipolar depression, history of nicotine dependence. MEDICATIONS: Prior to admission include home medications: 1. Albuterol 1-2 puffs q.6 p.r.n. 2. Trazodone 50 mg q.h.s. 4. Multivitamin 1 p.o. daily. 5. Mobic 15 mg p.o. daily. 6. Lexapro 20 mg q.h.s. 7. Excedrin 1-2 p.r.n. ALLERGIES: None. FAMILY HISTORY: History of breast cancer, cervical cancer in the family. SOCIAL HISTORY: History of smoking, history of THC. REVIEW OF SYSTEMS: ENT: No diminished vision or hearing. CARDIOVASCULAR SYSTEM: No angina or palpitations. RESPIRATORY: As mentioned earlier. GI: As mentioned earlier. : No dysuria. NERVOUS SYSTEM: No numbness or weakness. ALLERGY/IMMUNOLOGY: No asthma or hayfever. MUSCULOSKELETAL: As mentioned earlier. HEMATOLOGY: No history of anemia. ENDOCRINE: No history of diabetes or hypothyroidism. CONSTITUTIONAL: As mentioned earlier. DERMATOLOGY: Negative. RHEUMATOLOGY: Negative. PSYCHIATRY: As mentioned earlier. PHYSICAL EXAM: Patient is alert, oriented x3, pulse 54, blood pressure is 140/70, respiration 16, temperature 97.4, pulse ox 100% on room air. HEENT: Conjunctivae normal. Oral mucosa moist. Neck is no jugular venous distention, no carotid bruit, no lymph node enlargement. CARDIOVASCULAR SYSTEM: S1, S2, muffled. RESPIRATORY: Breath sounds diminished at the bases as well as a few scattered rhonchi. No crackles. ABDOMEN: Soft, status post surgery. LEGS: No edema. No swelling. NERVOUS SYSTEM: Higher functions as mentioned earlier. No focal motor deficits. LYMPHATICS: No lymph node enlargement in the neck or axillae. SKIN: No ulcer, rash, or bleeding. JOINT: No active arthropathy. LABS: Which are done preop, hematology is normal. Coags are normal. Glucose is 104, otherwise UA is normal. Lamictal level was 6. ASSESSMENT: 1. Status post laparoscopic Stephan fundoplication for gastroesophageal reflux disease. 2. History of asthma. 3. Postoperative pain. 4. Cerebrovascular accident, transient ischemic attack. 5. Gastroesophageal reflux disease. 6. History of nephrolithiasis. 7. History of cholecystectomy. 8. History of hernia repair. 9. Tubal ligation. 10.Anxiety, bipolar depression. 11.Continued ongoing nicotine dependence, history of THC. RECOMMENDATION AND DISCUSSION: In this 38-year-old woman who presented with multiple complex medical issues, will monitor the patient closely, continue the current medications, symptomatic treatment. Otherwise at this time I recommend resume the home medications and I would recommend smoking cessation, DVT prophylaxis and I would also recommend continue the pain medication and the rest of the medications. Will closely follow with Surgery and further recommendations will follow. The patient will be asked to follow with Dr. Garcia closely after discharge. ESPERANZAL / CLAIREN: [id number] / DIANN
[2019-01-08] MEDS: ALPRAZolam 0.25 MG TAB PO PRN (20:16)
[2019-01-08] MEDS ORDERED: ESCITALOPRAM 20 MG TAB PO SCH (21:00)
[2019-01-08] MEDS ORDERED: traZODone HCL 50 MG TAB PO SCH (21:00)
[2019-01-08] MEDS: lamoTRIgine 100 MG TAB PO SCH (21:55)
[2019-01-09] MEDS: HYDROmorphone 1 MG/ML 1 ML SYRINGE IVP PRN ×3 (01:18→08:39)
[2019-01-09] MEDS: METOCLOPRAMIDE 5 MG/ML 2 ML VIAL IVP SCH ×2 (01:20→05:27)
[2019-01-09] MEDS: D5-0.45% NACL WITH KCL 20MEQ/L 1,000 ML IV SCH (05:26)
[2019-01-09] MEDS: ALPRAZolam 0.25 MG TAB PO PRN (05:33)
[2019-01-09 08:00] VITALS: BP 111/62; RESP 20; TEMP 97.5
[2019-01-09 08:06] VITALS: PULSE 98
--- NOTE | 2019-01-09 08:32 | FL ---
EXAMINATION TYPE: FL esophagus cervic/pharynx DATE OF EXAM: 01/09/2019 HISTORY: Status post Stephan fundoplication yesterday. Postoperative evaluation. COMPARISON: NONE TECHNIQUE: Limited esophagram is performed utilizing oral Isovue. A total of 30 seconds of fluorosco pic time was utilized during procedure. 13 fluoroscopic images were saved. FINDINGS: The patient swallowed contrast without difficulty or delay. Esophageal peristalsis and mo tility are within normal limits. There is good flow of contrast along the diaphragmatic hiatus into t he stomach, there is no evidence of contrast extravasation to suggest leak. No persistent hiatal estrella ia is seen. Patient remains asymptomatic. IMPRESSION: No evidence of leak or significant obstruction status post Nagi fundoplication.
[2019-01-09] MEDS: PANTOPRAZOLE 40 MG/10 ML VIAL IVP SCH (08:37)
[2019-01-09] MEDS ORDERED: ENOXAPARIN 40 MG/0.4 ML SYRINGE SQ SCH (09:00)
[2019-01-09] MEDS: lamoTRIgine 100 MG TAB PO SCH (09:57)
--- NOTE | 2019-01-09 13:47 | P.DS ---
Providers Expected date of discharge: 01/09/19 Attending physician: Michael Lorenz Consults: 01/08/19 11:20 Consult Physician Routine Consulting Provider: Cristian Thorne Consult Reason/Comments: Medical management Do you want consulting provider notified?: Yes Primary care physician: Pako Garcia Hospital Course: 38-year-old female who underwent elective Stephan fundoplication by Dr. Lorenz. Patient is doing well postoperatively without any immediate complications. Vital signs are stable. She is tolerating clear liquid diet. She is stable for discharge home today. Please see EMR for further hospital course details. DISCHARGE DIAGNOSIS: 1. GERD status post Stephan fundoplication Nurse practitioner note has been reviewed by physician. Signing provider agrees with the documented findings, assessment, and plan of care. Patient Condition at Discharge: Good Plan - Discharge Summary Discharge Rx Participant: Yes New Discharge Prescriptions: New HYDROcodone/APAP 5-325MG [[place] 5-325] 1 tab PO Q4HR PRN 3 Days #18 tab PRN Reason: Pain Pantoprazole Sodium [Protonix] 40 mg PO DAILY #30 tablet. No Action lamoTRIgine [LaMICtal] 100 mg PO BID Escitalopram [Lexapro] 20 mg PO HS Aspirin/Acetaminophen/Caffeine [Excedrin Migraine Caplet] 1 - 2 each PO DIRECTED PRN PRN Reason: Migraine Headache Multivitamins, Thera [Multivitamin (formulary)] 1 tab PO DAILY Meloxicam [Mobic] 15 mg PO DAILY traZODone HCL 50 mg PO HS Albuterol Inhaler [Ventolin Hfa Inhaler] 1 - 2 puff INHALATION RT-Q6H PRN PRN Reason: Shortness Of Breath Discharge Medication List lamoTRIgine [LaMICtal] 100 mg PO BID 01/12/17 [History] Escitalopram [Lexapro] 20 mg PO HS 02/20/18 [History] Albuterol Inhaler [Ventolin Hfa Inhaler] 1 - 2 puff INHALATION RT-Q6H PRN 01/03 [History] Aspirin/Acetaminophen/Caffeine [Excedrin Migraine Caplet] 1 - 2 each PO DIRECTED PRN 01/03/19 [History] Meloxicam [Mobic] 15 mg PO DAILY 01/03/19 [History] Multivitamins, Thera [Multivitamin (formulary)] 1 tab PO DAILY 01/03/19 [History] traZODone HCL 50 mg PO HS 01/03/19 [History] HYDROcodone/APAP 5-325MG [[place] 5-325] 1 tab PO Q4HR PRN 3 Days #18 tab 01/09/19 [Rx] Pantoprazole Sodium [Protonix] 40 mg PO DAILY #30 tablet. 01/09/19 [Rx] Follow up Appointment(s)/Referral(s): Michael Lorenz MD [STAFF PHYSICIAN] - 1 Week Activity/Diet/Wound Care/Special Instructions: No driving while taking [place] No lifting over 10 pounds You may shower. No soaking or tub baths Very light activity until you are reevaluated at your follow up appointment with your surgeon Full liquid diet for 2 weeks Discharge Disposition: HOME SELF-CARE
--- NOTE | 2019-01-10 01:07 | PN ---
PROGRESS NOTE DATE OF SERVICE: 01/09/2019 This 38-year-old woman who was admitted after laparoscopic Stephan fundoplication, improved significantly. No chest pain. No palpitations. No fever. EXAM: Vital signs are stable. Cardiovascular: S1, S2 muffled. Respiration: A few scattered rhonchi. Abdomen is soft, nontender. No mass. Legs are no edema. No swelling. LABS: Noted. ASSESSMENT: 1. Status post laparoscopic Stephan fundoplication for gastroesophageal reflux disease. 2. History of asthma. 3. History of postoperative pain improved. 4. Cerebrovascular accident, transient ischemic attack. 5. Gastroesophageal reflux disease. 6. History of nephrolithiasis. 7. History of cholecystectomy. 8. History of neck pain. 9. Tubal ligation. 10.Anxiety bipolar depression. 11.Continued ongoing nicotine dependence. 12.History of THC. RECOMMENDATIONS AND DISCUSSION: Recommend to continue medications, monitoring and symptomatic treatment, current management and smoking cessation. Otherwise, continue the home medications. Incentive spirometry. Closely follow with primary physician in the outpatient setting. The rest of the medications per Surgery. Further recommendations to follow. MMODL / IJN: [id number] /
== END 2019-01-09 12:23 | disposition home or self-care (01) ==
LOC: OR 07:47 → 4FBP 11:26 → OR 01-09 12:23
PROVIDERS: ATTEND Surgery
DX: K21.0 Gastro-esophageal reflux disease with esophagitis (principal); F17.200 Nicotine dependence, unspecified, uncomplicated; F31.30 Bipolar disorder, current episode depressed, mild or moderate severity, unspecified; F41.9 Anxiety disorder, unspecified; Z86.73 Personal history of transient ischemic attack (TIA), and cerebral infarction without residual deficits; J45.909 Unspecified asthma, uncomplicated; K44.9 Diaphragmatic hernia without obstruction or gangrene; R07.89 Other chest pain; Z79.899 Other long term (current) drug therapy; Z87.442 Personal history of urinary calculi; Z90.49 Acquired absence of other specified parts of digestive tract; Z79.1 Long term (current) use of non-steroidal anti-inflammatories (NSAID); Z79.82 Long term (current) use of aspirin; Z80.3 Family history of malignant neoplasm of breast; Z80.49 Family history of malignant neoplasm of other genital organs; Z71.6 Tobacco abuse counseling; G89.18 Other acute postprocedural pain
CPT/HCPCS: 43280; 81025; 74210; S4990; J2250; J1644; J1100; J2710; J2765 ×2; J2175; J2405; J2001; J1650; J3010; J1170 ×3; J0330; J2704; C9113 ×2; J0690; Q9967; 86850; 86900; 86901

== ENCOUNTER 2019-01-10 10:28 | Observation (INO) | payer MEDICARE, OTHER ==
[2019-01-10] MEDS ORDERED: ASPIRIN 81 MG PO STA (10:42)
[2019-01-10] MEDS ORDERED: ONDANSETRON 4 MG/2 ML VIAL IVP STA (10:52)
[2019-01-10] MEDS ORDERED: MORPHINE SULFATE 4 MG/ML SYRINGE IVP STA ×2 (10:52→14:20)
--- NOTE | 2019-01-10 10:55 | ED ---
Chest Pain HPI - General Source: patient, RN notes reviewed Mode of arrival: wheelchair Limitations: no limitations <Pako Feldman - Last Filed: 01/10/19 14:21> <Waqas Hernandez - Last Filed: 01/10/19 15:06> - General Chief Complaint: Chest Pain Stated Complaint: chest/abd pain, 3 days post op Time Seen by Provider: 01/10/19 10:41 - History of Present Illness Initial Comments: This a 38-year-old female presents emergency Department chief complaint abdominal pain and chest pain. Patient states that she had a hiatal hernia repair by Dr. Lorenz on Tuesday. Patient states that she started vomiting last night. She is now developed upper abdominal pain, chest discomfort which is diffuse in nature. Patient denies any prior cardiac disease including high blood pressure, diabetes, hyperlipidemia. Patient states that she contacted office and advised to come emergency department. Patient states she still feels nauseated, she states that she is shaking and trembling she does admit to chills no known fever. (Pako Feldman) - Related Data Home Medications Medication Instructions Recorded Confirmed lamoTRIgine [LaMICtal] 100 mg PO BID 01/12/17 01/10/19 Escitalopram [Lexapro] 20 mg PO HS 02/20/18 01/10/19 Albuterol Inhaler [Ventolin Hfa 1 - 2 puff INHALATION RT-Q6H PRN 01/03/19 01/10/19 Inhaler] Aspirin/Acetaminophen/Caffeine 1 - 2 tab PO DAILY PRN 01/03/19 01/10/19 [Excedrin Migraine Caplet] Meloxicam [Mobic] 15 mg PO DAILY 01/03/19 01/10/19 Multivitamins, Thera [Multivitamin 1 tab PO DAILY 01/03/19 01/10/19 (formulary)] traZODone HCL 50 mg PO HS 01/03/19 01/10/19 Previous Rx's Medication Instructions Recorded HYDROcodone/APAP 5-325MG [Ione 1 tab PO Q4HR PRN 3 Days #18 tab 01/09/19 5-325] Pantoprazole Sodium [Protonix] 40 mg PO DAILY #30 tablet. 01/09/19 Allergies Allergy/AdvReac Type Severity Reaction Status Date / Time No Known Allergies Allergy Verified 01/10/19 11:56 Review of Systems ROS Other: All systems not noted in ROS Statement are negative. <Pako Feldman - Last Filed: 01/10/19 14:21> ROS Other: All systems not noted in ROS Statement are negative. <Waqas Hernandez - Last Filed: 01/10/19 15:06> ROS Statement: Those systems with pertinent positive or pertinent negative responses have been documented in the HPI. 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 HX KIDNEY STONES. HIATAL HERNIA. RT SIDE FACE/ARM/CHEST PAIN ON/OFF WITH ONSET UPPER MID ABD PAIN; CV W/U NL. History of Any Multi-Drug Resistant Organisms: None Reported Past Surgical History: Cholecystectomy, Hernia Repair, Tubal Ligation, Uterine Ablation Additional Past Surgical History / Comment(s): 3 brain surgeries. 2 umb hernia. uterine ablation with novasure. EGD, COLONOSCOPY. Past Anesthesia/Blood Transfusion Reactions: No Reported Reaction Past Psychological History: Anxiety, Bipolar, Depression Smoking Status: Current every day smoker Past Alcohol Use History: None Reported Past Drug Use History: Marijuana - Past Family History Mother Family Medical History: Cancer Additional Family Medical History / Comment(s): Breast/Cervical Cancer <Pako Feldman - Last Filed: 01/10/19 14:21> General Exam Limitations: no limitations General appearance: alert, in no apparent distress, anxious, other (Patient is shaking) Head exam: Present: atraumatic, normocephalic, normal inspection Eye exam: Present: normal appearance, PERRL, EOMI. Absent: scleral icterus, conjunctival injection, periorbital swelling ENT exam: Present: normal exam, normal oropharynx, mucous membranes moist Neck exam: Present: normal inspection, full ROM. Absent: tenderness, meningismus, lymphadenopathy Respiratory exam: Present: normal lung sounds bilaterally. Absent: respiratory distress, wheezes, rales, rhonchi, stridor Cardiovascular Exam: Present: regular rate, normal rhythm, normal heart sounds. Absent: systolic murmur, diastolic murmur, rubs, gallop, clicks GI/Abdominal exam: Present: soft, tenderness (Moderate epigastric tenderness), normal bowel sounds, other (Incisions noted, no erythema no drainage). Absent: distended, guarding, rebound, rigid Neurological exam: Present: alert, oriented X3, CN II-XII intact Skin exam: Present: warm, dry, intact, normal color. Absent: rash <Pako Feldman - Last Filed: 01/10/19 14:21> Course <Waqas Hernandez - Last Filed: 01/10/19 15:06> Vital Signs 01/10/19 01/10/19 01/10/19 10:37 11:30 12:30 Temperature 97.4 F L Pulse Rate 69 60 54 L Respiratory 16 20 20 Rate Blood Pressure 149/83 135/86 129/84 O2 Sat by Pulse 100 100 Oximetry 01/10/19 01/10/19 13:00 13:30 Temperature Pulse Rate 53 L Respiratory 20 Rate Blood Pressure 116/77 O2 Sat by Pulse 99 Oximetry - Reevaluation(s) Reevaluation #1: 01/10/19 15:05 Patient reevaluated by myself, Dr. Hernandez. Patient resting comfortably in bed. Patient does complain of having continued dry heaves and discomfort in the upper epigastric region. Patient updated on results and plan. Dr. Lorenz was notified who is currently in the OR who will admit for observation. (Waqas Hernandez) Chest Pain MDM <Pako Feldman - Last Filed: 01/10/19 14:21> - MDM 38-year-old female presented for abdominal pain, chest pain. Patient is status post Nagi fundoplication 3 days ago. Patient had lab work, EKG, chest x-ray, CT of the chest to rule out PE, CT of abdomen and pelvis was ordered there was canceled as radiologist could see dye in the upper abdomen. Patient will be admitted for observation per Dr. Flores secondary to increase in pain and nausea vomiting. vomiting throughout the night. Patient had increase in pain. Patient had lab work, EKG, chest x-ray, CT the chest (Pako Feldman) Disposition <Pako Feldman - Last Filed: 01/10/19 14:21> <Waqas Hernandez - Last Filed: 01/10/19 15:06> Clinical Impression: Post-operative nausea and vomiting, History of Stephan fundoplication, Chest pain Disposition: ADMITTED IP TO THIS HOSP Condition: Fair Referrals: Pako Garcia DO [Primary Care Provider] - 1-2 days
[2019-01-10 12:10] LABS: ALT 22 U/L (9-52); AST 24 U/L (14-36); Albumin 4.6 g/dL (3.5-5.0); Alkaline Phosphatase 62 U/L (38-126); Anion Gap 11 mmol/L; Blood Urea Nitrogen 13 mg/dL (7-17); Calcium 10.3 mg/dL (8.4-10.2); Carbon Dioxide 25 mmol/L (22-30); Chloride 107 mmol/L (98-107); Glucose 93 mg/dL (74-99); Lipase 156 U/L (23-300); Magnesium 2.1 mg/dL (1.6-2.3); Potassium 3.9 mmol/L (3.5-5.1); Sodium 143 mmol/L (137-145); Total Bilirubin 1.6 mg/dL (0.2-1.3); Total Protein 7.6 g/dL (6.3-8.2)
--- NOTE | 2019-01-10 12:22 | XR ---
EXAMINATION TYPE: XR chest 2V DATE OF EXAM: 01/10/2019 COMPARISON: Chest x-ray October 12, 2018. HISTORY: Chest pain and weakness. TECHNIQUE: Frontal and lateral views of the chest are obtained. FINDINGS: Overlying EKG leads are seen. There is no focal air space opacity, pleural effusion, or pne umothorax seen. The cardiac silhouette size is within normal limits. The osseous structures are in tact. Surgical clips epigastric region are noted. Cholecystectomy clips are present. Contrast from re cent esophagram has passed into colon in the upper abdomen. IMPRESSION: No acute cardiopulmonary process.
[2019-01-10 12:32] LABS: Basophils % (A) 1 %; Eosinophils # (A) 0.1 k/uL (0-0.7); Eosinophils % (A) 1 %; HCT 42.2 % (34.0-46.0); HGB 14.6 gm/dL (11.4-16.0); Lymphocytes # (A) 1.2 k/uL (1.0-4.8); Lymphocytes % (A) 21 %; MCH 31.6 pg (25.0-35.0); MCHC 34.7 g/dL (31.0-37.0); Mean Platelet Volume 8.4; Monocytes # (A) 0.4 k/uL (0-1.0); Monocytes % (A) 7 %; Neutrophils % (A) 69 %; Platelet Count 256 k/uL (150-450); RBC 4.64 m/uL (3.80-5.40); RDW 13.2 % (11.5-15.5); WBC 5.8 k/uL (3.8-10.6)
--- NOTE | 2019-01-10 13:43 | CT ---
EXAMINATION TYPE: CT chest angio for PE DATE OF EXAM: 01/10/2019 COMPARISON: NONE HISTORY: Chest/Abd pain CT DLP: 227.4 mGycm. Automated Exposure Control for Dose Reduction was Utilized. CONTRAST: CTA scan of the thorax is performed with IV Contrast, patient injected with 84 mL of Isovue 300, pulm onary embolism protocol. MIP Images are created on CT scanner and reviewed. FINDINGS: LUNGS: Linear bibasilar subsegmental atelectasis is present. The lungs are grossly clear, there is no concerning parenchymal mass or nodule identified. There is no pleural effusion or pneumothorax see n. The tracheobronchial tree is patent. MEDIASTINUM: Strand-like probable residual thymic tissue seen within the anterior superior mediastinu m without well-defined mass. There is satisfactory enhancement of the pulmonary artery and its branch es, there is no CT evidence for pulmonary embolism. Pulmonary artery and thoracic aorta are within no rmal limits size. In the visualized portions of the thoracic aorta and great vessels there is no evid ence of dissection. There are no greater than 1 cm hilar or mediastinal lymph nodes. No cardiomegal y or pericardial effusion is seen. OTHER: Pneumoperitoneum is seen anteriorly along the upper abdominal wall, surrounding the Stephan fun doplication, tracking into the tete hepatis, and extending into the posterior superior mediastinum. This is also seen along the right hemidiaphragm. Subcutaneous emphysema from the prior laparoscopy po rt site is seen along the right paracentral ventral abdominal soft tissues. Postsurgical change of a recent Stephan fundoplication is noted with oral contrast retained within the colon. Gallbladder surgi mathieu absent. IMPRESSION: 1. No evidence of pulmonary embolism. 2. Pneumoperitoneum status post recent Stephan fundoplication. Air extends along the right lateral eso phagus into the posterior mediastinum. 3. Bibasilar subsegmental atelectasis.
[2019-01-10] MEDS ORDERED: ONDANSETRON 4 MG/2 ML VIAL IVP PRN (14:24)
[2019-01-10] MEDS ORDERED: NALOXONE 0.4 MG/ML 1 ML VIAL IV PRN (14:24)
[2019-01-10] MEDS ORDERED: SODIUM CHLORIDE 0.9% 1,000 ML IV SCH (14:30)
[2019-01-10 14:32] LABS: INR 0.9 (<1.2); Partial Thromboplastin Time 27.4 sec (22.0-30.0); Prothrombin Time 10.2 sec (9.0-12.0)
[2019-01-10] MEDS ORDERED: HYDROcodone/APAP 7.5-325MG 1 EACH TAB PO PRN (17:36)
[2019-01-10] MEDS ORDERED: LACTATED RINGERS 1,000 ML IV ONE ×2 (17:45→17:46)
[2019-01-10] MEDS ORDERED: LACTATED RINGERS 1,000 ML IV SCH (17:45)
[2019-01-10] MEDS: DEXTROSE 5%-0.9% NACL 1,000 ML IV SCH ×2 (17:52→20:01)
[2019-01-10] MEDS: METOCLOPRAMIDE 5 MG/ML 2 ML VIAL IVP SCH ×2 (17:56→23:43)
[2019-01-10] MEDS ORDERED: ALBUTEROL NEBULIZED 2.5 MG/3 ML INHALATION PRN (18:31)
[2019-01-10] MEDS: MORPHINE SULFATE 4 MG/ML SYRINGE IV PRN (18:40)
[2019-01-10] MEDS: traZODone HCL 50 MG TAB PO SCH (20:05)
[2019-01-10] MEDS: ESCITALOPRAM 20 MG TAB PO SCH (20:05)
[2019-01-10] MEDS: lamoTRIgine 100 MG TAB PO SCH (20:05)
[2019-01-10] MEDS: LORazepam 2 MG/ML INJ IV PRN (21:15)
[2019-01-10] MEDS: ONDANSETRON 4 MG/2 ML VIAL IVP PRN (21:28)
[2019-01-11] MEDS ORDERED: ACETAMINOPHEN TAB 500 MG TAB PO PRN (00:35)
[2019-01-11] MEDS: ONDANSETRON 4 MG/2 ML VIAL IVP PRN ×4 (00:54→17:11)
[2019-01-11 01:57] VITALS: RESP 16
[2019-01-11] MEDS: DEXTROSE 5%-0.9% NACL 1,000 ML IV SCH ×3 (02:37→18:54)
[2019-01-11] MEDS: METOCLOPRAMIDE 5 MG/ML 2 ML VIAL IVP SCH ×5 (05:15→23:15)
[2019-01-11] MEDS: MORPHINE SULFATE 4 MG/ML SYRINGE IV PRN ×4 (05:15→20:12)
[2019-01-11 08:19] LABS: Basophils % (A) 1 %; Eosinophils # (A) 0.1 k/uL (0-0.7); Eosinophils % (A) 2 %; HGB 11.7 gm/dL (11.4-16.0); Lymphocytes # (A) 1.3 k/uL (1.0-4.8); Lymphocytes % (A) 21 %; MCHC 32.4 g/dL (31.0-37.0); MCV 95.8 fL (80.0-100.0); Mean Platelet Volume 7.4; Monocytes # (A) 0.4 k/uL (0-1.0); Monocytes % (A) 7 %; Neutrophils # (A) 4.1 k/uL (1.3-7.7); Neutrophils % (A) 66 %; Platelet Count 254 k/uL (150-450); RBC 3.76 m/uL (3.80-5.40); RDW 12.4 % (11.5-15.5); WBC 6.2 k/uL (3.8-10.6)
[2019-01-11 08:38] LABS: Anion Gap 4 mmol/L; Blood Urea Nitrogen 14 mg/dL (7-17); Calcium 8.5 mg/dL (8.4-10.2); Carbon Dioxide 26 mmol/L (22-30); Chloride 111 mmol/L (98-107); Glucose 100 mg/dL (74-99); Potassium 3.7 mmol/L (3.5-5.1); Sodium 141 mmol/L (137-145)
[2019-01-11] MEDS: PANTOPRAZOLE 40 MG TABLET PO SCH (10:27)
[2019-01-11] MEDS: lamoTRIgine 100 MG TAB PO SCH ×2 (10:27→20:11)
--- NOTE | 2019-01-11 10:43 | FL ---
EXAMINATION TYPE: FL UGI w esophagus DATE OF EXAM: 01/11/2019 COMPARISON: 01/09/2019, CTA chest 01/10/2019 HISTORY: Status post Nagi fundoplication, chest pain TECHNIQUE: A single contrast UGI study is performed. Omnipaque 370 was utilized. FINDINGS: On fluoroscopy contrast is evident within the colon from prior examinations. Reevaluation of the dorys roesophageal junction was performed. The esophagus dilates to normal caliber has normal contour to the gastroesophageal junction. The post surgical changes at the Nagi fundoplication are evident. Contrast passes through this region withou t hesitancy. During swallowing patient did experience mid sternal chest pain associated with the swallowing. No ob vious radiographic etiology is identified during this event. Additional upper GI single contrast imaging is performed. Fundus body and antrum of the stomach appea rs unremarkable. Postsurgical changes are noted at the fundus from the Nagi fundoplication. No intr aluminal or extramural defects are evident. Contrast readily empties into the duodenal cap and sweep which appears to be in a normal position. Duodenal fold pattern appears normal. There is some limitat ion with overlying contrast within the colon. Overhead radiographs were obtained. No extravasation is evident. No significant free air is evident. A very tiny residual volume of free air may be present near the posterior right diaphragm on the upri ght abdomen film. IMPRESSIONS: 1. No significant hesitancy passing through the Nagi fundoplication. 2. No evidence of extravasation.
[2019-01-11 13:55] VITALS: BMI 26.7
--- NOTE | 2019-01-11 15:01 | P.GSHP ---
History of Present Illness H&P Date: 01/11/19 Chief Complaint: Nausea, vomiting CHIEF COMPLAINT: Nausea vomiting HISTORY OF PRESENT ILLNESS: 38-year-old female who underwent elective Ozzy fundoplication on 01/08/2019 and discharged home in stable condition on 01/09/2019. Patient presented to the emergency room with a chief complaint of nausea and vomiting. Patient states she was doing well on Tuesday following discharge from the hospital. She states Tuesday night she began having nausea and vomiting that has not stopped. Patient states she is unable to keep any liquids down. She feels like liquids are sitting in her throat and not passing through. PAST MEDICAL HISTORY: See list. PAST SURGICAL HISTORY: See list. SOCIAL HISTORY: No illicit drug use. REVIEW OF SYSTEMS: CONSTITUTIONAL: Denies fever or chills. HEENT: Denies blurred vision, vision changes, or eye pain. Denies hemoptysis CARDIOVASCULAR: Denies chest pain or pressure. RESPIRATORY: No shortness of breath. GASTROINTESTINAL: Refer to HPI for pertinent findings HEMATOLOGIC: Denies bleeding disorders. GENITOURINARY: Denies any blood in urine. SKIN: Denies pruitis. Denies rash. PHYSICAL EXAM: VITAL SIGNS: Reviewed. GENERAL: Well-developed in no acute distress. HEENT: No sclera icterus. Extraocular movements grossly intact. Moist buccal mucosa. Head is atraumatic, normocephalic. ABDOMEN: Soft. Nondistended. Nontender. NEUROLOGIC: Alert and oriented. Cranial nerves II through XII grossly intact. ASSESSMENT: 1. Nausea, vomiting 2 days 2. Dehydration, secondary to above and decreased oral intake 3. Status post Ozzy fundoplication 01/08/2018 PLAN: Repeat esophagram performed this morning is negative for obstruction. Patient will be placed on clear liquid diet. Continue IV fluids. Anticipate patient will be discharged home tomorrow. Nurse practitioner note has been reviewed by physician. Signing provider agrees with the documented findings, assessment, and plan of care. 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 HX KIDNEY STONES. HIATAL HERNIA. RT SIDE FACE/ARM/CHEST PAIN ON/OFF WITH ONSET UPPER MID ABD PAIN; CV W/U NL. History of Any Multi-Drug Resistant Organisms: None Reported Past Surgical History: Cholecystectomy, Hernia Repair, Tubal Ligation, Uterine Ablation Additional Past Surgical History / Comment(s): 3 brain surgeries. 2 umb hernia. uterine ablation with novasure. EGD, COLONOSCOPY. 01/08/19 ozzy Past Anesthesia/Blood Transfusion Reactions: No Reported Reaction Past Psychological History: Anxiety, Bipolar, Depression Smoking Status: Current every day smoker Past Alcohol Use History: None Reported Additional Past Alcohol Use History / Comment(s): SMOKED FOR 5 YEARS, QUIT & RESUMED SINCE 2013, 4 CIG PER DAY EST. Past Drug Use History: Marijuana Additional Drug Use History / Comment(s): DAILY USE - Past Family History Mother Family Medical History: Cancer Additional Family Medical History / Comment(s): Breast/Cervical Cancer Medications and Allergies Home Medications Medication Instructions Recorded Confirmed Type lamoTRIgine [LaMICtal] 100 mg PO BID 01/12/17 01/10/19 History Escitalopram [Lexapro] 20 mg PO HS 02/20/18 01/10/19 History Albuterol Inhaler [Ventolin Hfa 1 - 2 puff INHALATION RT-Q6H PRN 01/03/19 01/10/19 History Inhaler] Aspirin/Acetaminophen/Caffeine 1 - 2 tab PO DAILY PRN 01/03/19 01/10/19 History [Excedrin Migraine Caplet] Meloxicam [Mobic] 15 mg PO DAILY 01/03/19 01/10/19 History Multivitamins, Thera [Multivitamin 1 tab PO DAILY 01/03/19 01/10/19 History (formulary)] traZODone HCL 50 mg PO HS 01/03/19 01/10/19 History HYDROcodone/APAP 5-325MG [[place] 1 tab PO Q4HR PRN 3 Days #18 tab 01/09/19 01/10/19 Rx 5-325] Pantoprazole Sodium [Protonix] 40 mg PO DAILY #30 tablet.dr 01/09/19 01/10/19 Rx ALPRAZolam [Xanax] 1 mg PO BID 01/10/19 01/10/19 History Allergies Allergy/AdvReac Type Severity Reaction Status Date / Time cat dander Allergy Mild Itching Verified 01/10/19 16:09 seasonal Allergy Mild Itching Uncoded 01/10/19 16:08 Surgical - Exam Vital Signs Temp Pulse Resp BP Pulse Ox 97.4 F L 69 16 149/83 100 01/10/19 10:37 01/10/19 10:37 01/10/19 10:37 01/10/19 10:37 01/10/19 10:37 Results - Labs 01/11/19 07:48 01/11/19 07:48 Abnormal Lab Results - Last 24 Hours (Table) 01/11/19 01/11/19 Range/Units 07:48 07:48 RBC 3.76 L (3.80-5.40) m/uL Chloride 111 H (98-107) mmol/L Glucose 100 H (74-99) mg/dL Microbiology - Last 24 Hours (Table) 01/10/19 11:41 Blood Culture - Preliminary Blood No Growth after 24 hours Diabetes panel 01/11/19 Range/Units 07:48 Sodium 141 (137-145) mmol/L Potassium 3.7 (3.5-5.1) mmol/L Chloride 111 H (98-107) mmol/L Carbon Dioxide 26 (22-30) mmol/L BUN 14 (7-17) mg/dL Creatinine 0.77 (0.52-1.04) mg/dL Glucose 100 H (74-99) mg/dL Calcium 8.5 (8.4-10.2) mg/dL Calcium panel 01/11/19 Range/Units 07:48 Calcium 8.5 (8.4-10.2) mg/dL Pituitary panel 01/11/19 Range/Units 07:48 Sodium 141 (137-145) mmol/L Potassium 3.7 (3.5-5.1) mmol/L Chloride 111 H (98-107) mmol/L Carbon Dioxide 26 (22-30) mmol/L BUN 14 (7-17) mg/dL Creatinine 0.77 (0.52-1.04) mg/dL Glucose 100 H (74-99) mg/dL Calcium 8.5 (8.4-10.2) mg/dL Adrenal panel 01/11/19 Range/Units 07:48 Sodium 141 (137-145) mmol/L Potassium 3.7 (3.5-5.1) mmol/L Chloride 111 H (98-107) mmol/L Carbon Dioxide 26 (22-30) mmol/L BUN 14 (7-17) mg/dL Creatinine 0.77 (0.52-1.04) mg/dL Glucose 100 H (74-99) mg/dL Calcium 8.5 (8.4-10.2) mg/dL
[2019-01-11] MEDS: ALBUTEROL NEBULIZED 2.5 MG/3 ML INHALATION SCH (19:31)
[2019-01-11] MEDS: ALPRAZolam 1 MG TAB PO SCH (19:55)
[2019-01-11] MEDS: traZODone HCL 50 MG TAB PO SCH (20:11)
[2019-01-11] MEDS: LORazepam 2 MG/ML INJ IV PRN (20:11)
[2019-01-11] MEDS: ESCITALOPRAM 20 MG TAB PO SCH (20:11)
--- NOTE | 2019-01-11 21:25 | CONS ---
CONSULTATION DATE OF SERVICE: 01/11/2019 REASON FOR CONSULTATION: Advice regarding asthma and other multiple medical issues requested by Dr. Lorenz. HISTORY OF PRESENT ILLNESS: This 38-year-old woman with a past medical history of multiple medical problems such as asthma, history of GERD, nephrolithiasis, cholecystectomy, history of nicotine dependence being followed by Dr. Garcia in the outpatient setting recently had Stephan fundoplication for GERD. The patient improved significantly. Patient went home. Currently patient complains of dysphagia. Patient came to [facility] and was admitted for further evaluation and treatment. There is no history of any fever, rigors. No headache, loss of consciousness or seizures. PAST MEDICAL HISTORY: History of asthma, CVA, TIA, GERD, right sided weakness, history of cholecystectomy, anxiety, bipolar depression. MEDICATIONS: Home medications are: 1. Xanax 1 mg p.o. b.i.d. 2. Trazodone 50 mg q.h.s. 4. Protonix 40 mg daily. 5. Multivitamins 1 p.o. daily. 6. Mobic 50 mg p.o. daily. 7. Simla 5 mg q.4 p.r.n. 8. Lexapro 20 mg q.h.s. Excedrin 1-2 daily p.r.n. 9. Ventolin 1-2 puffs q.6h. ALLERGIES: CAT DANDER AND SEASONAL. FAMILY HISTORY: History of breast and cervical cancer in the family. SOCIAL HISTORY: History of smoking on a daily basis. No history of alcohol intake. REVIEW OF SYSTEMS: ENT: No diminished vision. No diminished hearing. Cardiovascular: No angina or palpitations. Respiratory: As mentioned earlier. GI: No nausea or vomiting. no dysuria. Central nervous system: No numbness or weakness. Allergy/Immunology: No asthma or hayfever. MUSCULOSKELETAL as mentioned earlier. HEMATOLOGY/ONCOLOGY: No history of anemia. ENDOCRINE: No history of diabetes or hypothyroidism. CONSTITUTIONAL: As mentioned earlier. Dermatology: Negative. Rheumatology: Negative. Psychiatry: As mentioned earlier. PHYSICAL EXAMINATION: GENERAL: The patient is alert and oriented times three. VITAL SIGNS: Pulse 59, blood pressure 117/70, respirations 16, temperature 98.2, pulse ox 98% on room air. HEENT: Conjunctivae normal. Oral mucosa moist. NECK is no jugular venous distention. No carotid bruit. No lymph node enlargement. CARDIOVASCULAR: S1, S2 muffled. RESPIRATORY: Breath sounds diminished in the bases. Scattered rhonchi. ABDOMEN: Soft, nontender. Legs are no edema. No swelling. Higher functions as mentioned earlier. Moves all four extremities. No focal deficits. Lymphatics: No lymph nodes palpable in the neck, axillae or groin. SKIN: No ulcer rash or bleeding. JOINTS: No active arthropathy. LABS: At this time shows WBC 3.2, hemoglobin 7.8, sodium 140, potassium 3.7. ASSESSMENT: 1. Status post recent laparoscopic Stephan fundoplication for gastroesophageal reflux disease. 2. History of asthma. 3. History of cerebrovascular accident, transient ischemic attack. 4. Gastroesophageal reflux disease. 5. History of nephrolithiasis. 6. History of cholecystectomy. 7. Neck pain. 8. History of tubal ligation. 9. History of anxiety, bipolar depression. 10.History of nicotine dependence. 11.History of THC. RECOMMENDATIONS AND DISCUSSION: Recommend to continue current medications, management and symptomatic treatment. Otherwise, at this time, I recommend continue with current medications. Continue with symptomatic treatment. Resume the home medications and incentive spirometry, Habitrol. Further recommendations to follow. MMODL / IJN: [id number] / DIANN
[2019-01-12] MEDS: ALBUTEROL NEBULIZED 2.5 MG/3 ML INHALATION SCH ×2 (01:01→09:34)
[2019-01-12] MEDS: MORPHINE SULFATE 4 MG/ML SYRINGE IV PRN ×3 (02:06→10:01)
[2019-01-12] MEDS: ONDANSETRON 4 MG/2 ML VIAL IVP PRN ×2 (02:06→10:03)
[2019-01-12] MEDS: DEXTROSE 5%-0.9% NACL 1,000 ML IV SCH ×2 (03:11→11:11)
[2019-01-12] MEDS: METOCLOPRAMIDE 5 MG/ML 2 ML VIAL IVP SCH ×2 (06:00→12:04)
[2019-01-12] MEDS: PANTOPRAZOLE 40 MG TABLET PO SCH (07:15)
[2019-01-12] MEDS: lamoTRIgine 100 MG TAB PO SCH (07:15)
[2019-01-12] MEDS: ALPRAZolam 1 MG TAB PO SCH (07:16)
[2019-01-12 07:25] VITALS: BP 93/56; PULSE 57; TEMP 98.2
--- NOTE | 2019-01-12 14:34 | P.DS ---
Providers Date of admission: 01/10/19 15:05 Expected date of discharge: 01/12/19 Attending physician: Michael Lorenz Consults: 01/11/19 13:46 Consult Physician Routine Consulting Provider: Cristian Thorne Consult Reason/Comments: medical management Do you want consulting provider notified?: Yes Primary care physician: Pako Proctor Hospital Course: 38-year-old female who underwent elective Stephan fundoplication on 01/08/2019 and discharged home in stable condition on 01/09/2019. Patient presented to the emergency room with a chief complaint of nausea and vomiting. Patient states she was doing well on Tuesday following discharge from the hospital. She states Tuesday night she began having nausea and vomiting that has not stopped. Patient states she is unable to keep any liquids down. She feels like liquids are sitting in her throat and not passing through. patient underwent repeat esophagram which was negative for obstruction. Patient was hydrated with IV fluids. She is feeling well at this time. She is tolerating clear liquid diet. Denies any further episodes of nausea or vomiting. She is stable for discharge home today. Please see EMR for further hospital course details. discharge diagnosis: 1. Nausea, vomiting 2 days 2. Dehydration, secondary to above and decreased oral intake 3. Status post Stephan fundoplication 01/08/2018 Nurse practitioner note has been reviewed by physician. Signing provider agrees with the documented findings, assessment, and plan of care. Patient Condition at Discharge: Stable Plan - Discharge Summary Discharge Rx Participant: Yes New Discharge Prescriptions: New Ondansetron Odt [Zofran Odt] 4 mg PO Q8HR PRN #30 tab PRN Reason: Nausea No Action lamoTRIgine [LaMICtal] 100 mg PO BID Escitalopram [Lexapro] 20 mg PO HS Aspirin/Acetaminophen/Caffeine [Excedrin Migraine Caplet] 1 - 2 tab PO DAILY PRN PRN Reason: Migraine Headache Multivitamins, Thera [Multivitamin (formulary)] 1 tab PO DAILY Meloxicam [Mobic] 15 mg PO DAILY traZODone HCL 50 mg PO HS Albuterol Inhaler [Ventolin Hfa Inhaler] 1 - 2 puff INHALATION RT-Q6H PRN PRN Reason: Shortness Of Breath HYDROcodone/APAP 5-325MG [[place] 5-325] 1 tab PO Q4HR PRN 3 Days #18 tab PRN Reason: Pain Pantoprazole Sodium [Protonix] 40 mg PO DAILY #30 tablet. ALPRAZolam [Xanax] 1 mg PO BID Discharge Medication List lamoTRIgine [LaMICtal] 100 mg PO BID 01/12/17 [History] Escitalopram [Lexapro] 20 mg PO HS 02/20/18 [History] Albuterol Inhaler [Ventolin Hfa Inhaler] 1 - 2 puff INHALATION RT-Q6H PRN 01/03/19 [History] Aspirin/Acetaminophen/Caffeine [Excedrin Migraine Caplet] 1 - 2 tab PO DAILY PRN 01/03/19 [History] Meloxicam [Mobic] 15 mg PO DAILY 01/03/19 [History] Multivitamins, Thera [Multivitamin (formulary)] 1 tab PO DAILY 01/03/19 [History] traZODone HCL 50 mg PO HS 01/03/19 [History] HYDROcodone/APAP 5-325MG [[place] 5-325] 1 tab PO Q4HR PRN 3 Days #18 tab 01/09/19 [Rx] Pantoprazole Sodium [Protonix] 40 mg PO DAILY #30 tablet. 01/09/19 [Rx] ALPRAZolam [Xanax] 1 mg PO BID 01/10/19 [History] Ondansetron Odt [Zofran Odt] 4 mg PO Q8HR PRN #30 tab 01/12/19 [Rx] Follow up Appointment(s)/Referral(s): Pako Garcia DO [Primary Care Provider] - 01/18/19 1:20 pm Michael Lorenz MD [Family Provider] - 01/19/19 2:30 pm Patient Instructions/Handouts: Acute Nausea and Vomiting (DC) Discharge Disposition: HOME SELF-CARE
--- NOTE | 2019-01-12 21:56 | PN ---
PROGRESS NOTE DATE OF SERVICE: 01/12/2019 This 38-year-old woman who was admitted with difficulty in swallowing after laparoscopic Stephan fundoplication is improving significantly. No chest pain. No palpitations. No fever. The patient has a history of asthma, which is rather stable at this time. On exam, alert and oriented x3. Pulse 57, blood pressure 93/50, respiration 16, temperature 98.2, pulse ox 98% on room air HEENT: Conjunctivae normal. NECK: No jugular venous distention. CARDIOVASCULAR SYSTEM: S1, S2 muffled. RESPIRATORY SYSTEM: Breath sounds diminished at the bases. A few scattered rhonchi. No guarding. No rigidity. ABDOMEN: Soft. Minimal tenderness after surgery. NERVOUS SYSTEM: No focal deficit. LABS: CBC, BMP within normal limits. ASSESSMENT: 1. Status post recent laparoscopic Stephan fundoplication for gastroesophageal reflux disease. 2. History of asthma. 3. History of cerebrovascular accident, transient ischemic attack. 4. History of gastroesophageal reflux disease. 5. History of nephrolithiasis. 6. History of cholecystectomy. 7. Neck pain. 8. History of tubal ligation. 9. Anxiety, bipolar depression. 10.History of nicotine dependence. 11.History of tetrahydrocannabinol. RECOMMENDATIONS AND DISCUSSION: I recommend to continue current medications, continue with the monitoring, symptomatic treatment. We will monitor the patient closely. Otherwise, resume the home medications. Incentive spirometry. Closely follow with the primary physician. The rest of the recommendations per Surgery. Further recommendations to follow. MMODL / IJN: [id number] /
== END 2019-01-12 13:28 | disposition home or self-care (01) ==
LOC: EC 10:28 → 6PED 15:05 → 4SSUR 01-11 00:29
PROVIDERS: ADMIT Surgery; ATTEND Surgery
DX: R11.2 Nausea with vomiting, unspecified (principal); R07.89 Other chest pain; R68.83 Chills (without fever); R10.10 Upper abdominal pain, unspecified; R10.13 Epigastric pain; E86.0 Dehydration; R13.10 Dysphagia, unspecified; M54.2 Cervicalgia; Z98.890 Other specified postprocedural states; J45.909 Unspecified asthma, uncomplicated; K21.9 Gastro-esophageal reflux disease without esophagitis; F31.9 Bipolar disorder, unspecified; F41.9 Anxiety disorder, unspecified; F17.210 Nicotine dependence, cigarettes, uncomplicated; Z90.49 Acquired absence of other specified parts of digestive tract; Z87.442 Personal history of urinary calculi; Z86.73 Personal history of transient ischemic attack (TIA), and cerebral infarction without residual deficits; Z91.048 Other nonmedicinal substance allergy status; Z79.899 Other long term (current) drug therapy; Z79.1 Long term (current) use of non-steroidal anti-inflammatories (NSAID); Z80.3 Family history of malignant neoplasm of breast; Z80.49 Family history of malignant neoplasm of other genital organs
CPT/HCPCS: 96376 ×4; 96361 ×2; 96375 ×2; 96374; 99285; 36415; 94640; 94760; 93005; 80053; 80048; 83605; 83690; 83735; 84484; 85025 ×2; 85610; 85730; 87040; 74240; 71046; 71275; G0378 ×3; J2060 ×2; J2270 ×3; J2765 ×3; J2405 ×3; Q9967 ×2

== ENCOUNTER 2019-04-10 14:06 | Observation (INO) | payer MEDICARE, OTHER ==
[2019-04-10] MEDS ORDERED: MORPHINE SULFATE 4 MG/ML SYRINGE IVP STA (14:30)
[2019-04-10] MEDS ORDERED: ONDANSETRON 4 MG/2 ML VIAL IVP STA (14:30)
[2019-04-10] MEDS ORDERED: SODIUM CHLORIDE 0.9% 1,000 ML IV STA (14:30)
[2019-04-10 14:52] LABS: Appearance,Urine Clear (Clear); Bilirubin,Urine Negative (Negative); Blood,Urine Negative (Negative); Color,Urine Yellow; Glucose,Urine (UA) Negative (Negative); Ketones,Urine Negative (Negative); Leukocyte Esterase,Urine Negative (Negative); Nitrite,Urine Negative (Negative); PH, Urine 7.5 (5.0-8.0); Protein,Urine Negative (Negative); Urobilinogen,Urine <2.0 mg/dL (<2.0)
[2019-04-10 14:53] LABS: Basophils # (A) 0.1 k/uL (0-0.2); Basophils % (A) 1 %; Eosinophils # (A) 0.1 k/uL (0-0.7); Eosinophils % (A) 1 %; HCT 40.1 % (34.0-46.0); HGB 13.7 gm/dL (11.4-16.0); Lymphocytes % (A) 21 %; MCH 30.9 pg (25.0-35.0); MCHC 34.1 g/dL (31.0-37.0); MCV 90.6 fL (80.0-100.0); Monocytes # (A) 0.5 k/uL (0-1.0); Monocytes % (A) 5 %; Neutrophils # (A) 6.7 k/uL (1.3-7.7); Neutrophils % (A) 70 %; Platelet Count 379 k/uL (150-450); RBC 4.42 m/uL (3.80-5.40); RDW 12.4 % (11.5-15.5); WBC 9.6 k/uL (3.8-10.6)
--- NOTE | 2019-04-10 14:58 | XR ---
EXAMINATION TYPE: XR KUB DATE OF EXAM: 04/10/2019 2:45 PM CLINICAL HISTORY: Abdominal pain. Hernia surgery in January. TECHNIQUE: Single upright image of the abdomen is obtained. COMPARISON: 01/11/2019. FINDINGS: Scattered gas is seen in nondilated small bowel loops. Gas and fecal material is seen in no ndilated colon. There is no visceromegaly, pneumoperitoneum, or abnormal calcification appreciated. C holecystectomy clips are seen as well as right lower quadrant and midline upper abdominal surgical cl ips. The lung bases are clear and the osseous structures are intact. The liver appears enlarged exten ding past the iliac crests, possible Fidencio's lobe or hepatomegaly IMPRESSION: Nonobstructive bowel gas pattern. Hepatomegaly versus normal variant Fidencio's lobe.
[2019-04-10 15:03] LABS: ALT 18 U/L (9-52); AST 21 U/L (14-36); African American GFR (CKD) >90 (>60 ml/min/1.73 sqM); Albumin 4.7 g/dL (3.5-5.0); Alkaline Phosphatase 69 U/L (38-126); Amylase 50 U/L (30-110); Anion Gap 12 mmol/L; Blood Urea Nitrogen 21 mg/dL (7-17); Calcium 10.6 mg/dL (8.4-10.2); Carbon Dioxide 22 mmol/L (22-30); Chloride 105 mmol/L (98-107); Glucose 95 mg/dL (74-99); Lipase 70 U/L (23-300); Potassium 3.8 mmol/L (3.5-5.1); Sodium 139 mmol/L (137-145); Total Bilirubin 1.4 mg/dL (0.2-1.3); Total Protein 7.5 g/dL (6.3-8.2)
--- NOTE | 2019-04-10 15:21 | ED ---
Abdominal Pain HPI - General Chief Complaint: Abdominal Pain Stated Complaint: Abd pain-post op Time Seen by Provider: 04/10/19 14:13 Source: patient Mode of arrival: wheelchair Limitations: no limitations - History of Present Illness Initial Comments: Patient is a 38-year-old female presents emergency Department with abdominal pain. Patient states states that she had a hiatal hernia surgery in early January without complications. But yesterday she suddenly developed an epigastric pain that she relates to the haital hernia. Patient states that she went to the emergency department if symptoms yesterday where they did a computed tomography scan of pelvis and abdomen which was unremarkable so to discharge her. Patient reports waking up this morning and states the pain has increased in severity. Patient also states that she developed nausea with multiple episodes vomiting. Patient has fever, chest pain, chest tightness, shortness of breath of chest palpitations. Patient denies any back pain, flank pain, urinary or bowel movement symptoms. Patient reports that she contacted her surgeon's office who referred him to the emergency department and asked the emergency room physician to contact a surgeon (Dr. Borges). - Related Data Home Medications Medication Instructions Recorded Confirmed lamoTRIgine [LaMICtal] 100 mg PO BID 01/12/17 04/10/19 Escitalopram [Lexapro] 20 mg PO HS 02/20/18 04/10/19 Albuterol Inhaler [Ventolin Hfa 1 - 2 puff INHALATION RT-Q6H PRN 01/03/19 04/10/19 Inhaler] Meloxicam [Mobic] 15 mg PO DAILY 01/03/19 04/10/19 traZODone HCL 50 mg PO HS 01/03/19 04/10/19 Omeprazole [PriLOSEC] 20 mg PO DAILY 04/10/19 04/10/19 Previous Rx's Medication Instructions Recorded Pantoprazole Sodium [Protonix] 40 mg PO DAILY #30 tablet. 01/09/19 Allergies Allergy/AdvReac Type Severity Reaction Status Date / Time cat dander Allergy Mild Itching Verified 04/10/19 15:14 seasonal Allergy Mild Itching Uncoded 04/10/19 14:11 Review of Systems ROS Statement: Those systems with pertinent positive or pertinent negative responses have been documented in the HPI. ROS Other: All systems not noted in ROS Statement are negative. 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 HX KIDNEY STONES. HIATAL HERNIA. RT SIDE FACE/ARM/CHEST PAIN ON/OFF WITH ONSET UPPER MID ABD PAIN; CV W/U NL. History of Any Multi-Drug Resistant Organisms: None Reported Past Surgical History: Cholecystectomy, Hernia Repair, Tubal Ligation, Uterine Ablation Additional Past Surgical History / Comment(s): 3 brain surgeries. 2 umb hernia. uterine ablation with novasure. EGD, COLONOSCOPY. 01/08/19 ozzy Past Anesthesia/Blood Transfusion Reactions: No Reported Reaction Past Psychological History: Anxiety, Bipolar, Depression Smoking Status: Current every day smoker Past Alcohol Use History: None Reported Past Drug Use History: Marijuana - Past Family History Mother Family Medical History: Cancer Additional Family Medical History / Comment(s): Breast/Cervical Cancer General Exam Limitations: no limitations General appearance: alert, in no apparent distress Head exam: Present: atraumatic, normocephalic, normal inspection Eye exam: Present: normal appearance, PERRL, EOMI Pupils: Present: normal accommodation ENT exam: Present: normal exam, normal oropharynx, mucous membranes moist, TM's normal bilaterally, normal external ear exam Neck exam: Present: normal inspection, full ROM Respiratory exam: Present: normal lung sounds bilaterally Cardiovascular Exam: Present: regular rate, normal rhythm, normal heart sounds GI/Abdominal exam: Present: soft, tenderness (Midepigastric), normal bowel sounds, other (Negative Devlin, and negative McBurney point tenderness, negative Rovsing, negative psoas). Absent: rigid Extremities exam: Present: normal inspection, full ROM Back exam: Present: normal inspection, full ROM. Absent: tenderness, CVA tenderness (R), CVA tenderness (L) Neurological exam: Present: alert, oriented X3 Psychiatric exam: Present: normal affect, normal mood Skin exam: Present: warm, intact, normal color Course Vital Signs 04/10/19 04/10/19 04/10/19 14:08 15:30 17:30 Temperature 97.8 F Pulse Rate 69 67 67 Respiratory 18 20 18 Rate Blood Pressure 103/79 113/81 118/86 O2 Sat by Pulse 100 100 100 Oximetry Medical Decision Making - Medical Decision Making Patient is a 38-year-old male presents emergency Department with abdominal pain. Dr. Lorenz was was consulted who suggested we obtain labs and imaging first CBC, CMP and UA were unremarkable. KUB is unremarkable. CT of abdomen and pelvis showing bilateral adnexal varices noted otherwise unremarkable. was consulted again who suggested the patient to be admitted for further management. He also wanted 150 miles per hour maintenance fluids and Dilaudid every [address] Espana also examined the patient and is in agreement with the treatment plan. - Lab Data Result diagrams: 04/10/19 14:36 04/10/19 14:36 Lab Results 04/10/19 04/10/19 04/10/19 Range/Units 14:36 14:36 14:36 WBC 9.6 (3.8-10.6) k/uL RBC 4.42 (3.80-5.40) m/uL Hgb 13.7 (11.4-16.0) gm/dL Hct 40.1 (34.0-46.0) % MCV 90.6 (80.0-100.0) fL MCH 30.9 (25.0-35.0) pg MCHC 34.1 (31.0-37.0) g/dL RDW 12.4 (11.5-15.5) % Plt Count 379 (150-450) k/uL Neutrophils % 70 % Lymphocytes % 21 % Monocytes % 5 % Eosinophils % 1 % Basophils % 1 % Neutrophils # 6.7 (1.3-7.7) k/uL Lymphocytes # 2.0 (1.0-4.8) k/uL Monocytes # 0.5 (0-1.0) k/uL Eosinophils # 0.1 (0-0.7) k/uL Basophils # 0.1 (0-0.2) k/uL Sodium 139 (137-145) mmol/L Potassium 3.8 (3.5-5.1) mmol/L Chloride 105 (98-107) mmol/L Carbon Dioxide 22 (22-30) mmol/L Anion Gap 12 mmol/L BUN 21 H (7-17) mg/dL Creatinine 0.91 (0.52-1.04) mg/dL Est GFR (CKD-EPI)AfAm >90 (>60 ml/min/1.73 sqM) Est GFR (CKD-EPI)NonAf 79 (>60 ml/min/1.73 sqM) Glucose 95 (74-99) mg/dL Calcium 10.6 H (8.4-10.2) mg/dL Total Bilirubin 1.4 H (0.2-1.3) mg/dL AST 21 (14-36) U/L ALT 18 (9-52) U/L Alkaline Phosphatase 69 (38-126) U/L Total Protein 7.5 (6.3-8.2) g/dL Albumin 4.7 (3.5-5.0) g/dL Amylase 50 (30-110) U/L Lipase 70 (23-300) U/L Urine Color Yellow Urine Appearance Clear (Clear) Urine pH 7.5 (5.0-8.0) Ur Specific [place] 1.010 (1.001-1.035) Urine Protein Negative (Negative) Urine Glucose (UA) Negative (Negative) Urine Ketones Negative (Negative) Urine Blood Negative (Negative) Urine Nitrite Negative (Negative) Urine Bilirubin Negative (Negative) Urine Urobilinogen <2.0 (<2.0) mg/dL Ur Leukocyte Esterase Negative (Negative) Disposition Clinical Impression: Abdominal pain Disposition: ADMITTED IP TO THIS [facility] Condition: Stable Instructions (If sedation given, give patient instructions): Abdominal Pain (ED) Additional Instructions: Patient will be admitted Is patient prescribed a controlled substance at d/c from ED?: No Referrals: Pako Garcia DO [Primary Care Provider] - 1-2 days Time of Disposition: 18:44
[2019-04-10] MEDS ORDERED: HYDROmorphone 0.5 MG/0.5 ML SYRINGE IVP STA ×2 (15:40→17:23)
[2019-04-10] MEDS ORDERED: NALOXONE 0.4 MG/ML 1 ML VIAL IV PRN (17:01)
[2019-04-10] MEDS: HYDROmorphone 0.5 MG/0.5 ML SYRINGE IVP PRN ×2 (17:27→21:16)
--- NOTE | 2019-04-10 18:01 | CT ---
EXAMINATION TYPE: CT abdomen pelvis w IV con and wo oral contrast. DATE OF EXAM: 04/10/2019 COMPARISON: CT without contrast 10/22/2018 HISTORY: Pain, nausea and vomiting since 4--19 when she had hiatal hernia repair. CT DLP: 617.3 mGycm Automated exposure control for dose reduction was used. TECHNIQUE: Helical acquisition of images was performed from the lung bases through the pelvis. CONTRAST: Performed without Oral Contrast and with IV Contrast, patient injected with 100 mL of Isovu e 300. FINDINGS: LUNG BASES: No significant abnormality is appreciated. LIVER/GB: No significant abnormality is appreciated. PANCREAS: No significant abnormality is seen. SPLEEN: No significant abnormality is seen. ADRENALS: No significant abnormality is seen. KIDNEYS: No significant abnormality is seen. FREE AIR: No free air is visualized. RETROPERITONEAL ADENOPATHY: Prominent bilateral adnexal varices are noted, readily visualized on thi s IV contrast CT. REPRODUCTIVE ORGANS: No significant abnormality is seen URINARY BLADDER: No significant abnormality is seen. PELVIC ADENOPATHY: None visualized. OSSEOUS STRUCTURES: No significant abnormality is seen. BOWEL: No significant abnormality is seen. OTHER: No acute vascular abnormalities. IMPRESSION: BILATERAL ADNEXAL VARICES NOTED; NO OTHER FINDINGS.
[2019-04-10] MEDS ORDERED: HYDROmorphone 1 MG/ML 1 ML SYRINGE IVP STA (18:39)
[2019-04-10] MEDS: SODIUM CHLORIDE 0.9% 1,000 ML IV SCH ×2 (18:43→23:10)
[2019-04-10] MEDS ORDERED: ALBUTEROL NEBULIZED 2.5 MG/3 ML INHALATION PRN (21:02)
[2019-04-10] MEDS ORDERED: ONDANSETRON 4 MG/2 ML VIAL IVP PRN (22:09)
[2019-04-10] MEDS ORDERED: METOCLOPRAMIDE 5 MG/ML 2 ML VIAL IVP PRN (22:09)
[2019-04-10] MEDS: PANTOPRAZOLE 40 MG/10 ML VIAL IVP SCH (22:56)
[2019-04-11] MEDS: HYDROmorphone 0.5 MG/0.5 ML SYRINGE IVP PRN ×2 (00:39→04:34)
[2019-04-11] MEDS: SODIUM CHLORIDE 0.9% 1,000 ML IV SCH ×2 (01:34→12:47)
[2019-04-11 02:05] LABS: Glucose,Whole Blood 85 mg/dL (75-99)
[2019-04-11 07:53] LABS: Basophils # (A) 0.1 k/uL (0-0.2); Basophils % (A) 1 %; Eosinophils # (A) 0.2 k/uL (0-0.7); Eosinophils % (A) 4 %; HCT 38.3 % (34.0-46.0); HGB 12.5 gm/dL (11.4-16.0); Lymphocytes # (A) 1.6 k/uL (1.0-4.8); Lymphocytes % (A) 30 %; MCH 30.4 pg (25.0-35.0); MCHC 32.7 g/dL (31.0-37.0); MCV 93.1 fL (80.0-100.0); Mean Platelet Volume 7.4; Monocytes # (A) 0.3 k/uL (0-1.0); Monocytes % (A) 6 %; Neutrophils % (A) 56 %; Platelet Count 327 k/uL (150-450); RBC 4.11 m/uL (3.80-5.40); RDW 12.7 % (11.5-15.5); WBC 5.3 k/uL (3.8-10.6)
[2019-04-11 08:08] LABS: African American GFR (CKD) >90 (>60 ml/min/1.73 sqM); Anion Gap 9 mmol/L; Blood Urea Nitrogen 17 mg/dL (7-17); Carbon Dioxide 24 mmol/L (22-30); Chloride 108 mmol/L (98-107); Glucose 92 mg/dL (74-99); Potassium 3.9 mmol/L (3.5-5.1); Sodium 141 mmol/L (137-145)
[2019-04-11] MEDS ORDERED: lamoTRIgine 100 MG TAB PO SCH (09:00)
--- NOTE | 2019-04-11 09:09 | P.GSHP ---
<Jen Aggarwal A - Last Filed: 04/11/19 09:04> History of Present Illness H&P Date: 04/11/19 Chief Complaint: abdominal pain CHIEF COMPLAINT: Abdominal pain HISTORY OF PRESENT ILLNESS: 38-year-old female with history of Ozzy fundoplication performed on 01/08/2019 who presented to the emergency room with a chief complaint of abdominal pain that began yesterday morning. She reports her pain is mostly in the epigastric region and radiates to the rest of her abdomen. Patient reports nausea. Denies diarrhea or constipation. Vital signs are stable. Patient has been afebrile. Patient denies use of NSAIDs. Denies hematemesis, hematochezia, or melena. PAST MEDICAL HISTORY: See list. PAST SURGICAL HISTORY: See list. SOCIAL HISTORY: No illicit drug use. REVIEW OF SYSTEMS: CONSTITUTIONAL: Denies fever or chills. HEENT: Denies blurred vision, vision changes, or eye pain. Denies hemoptysis CARDIOVASCULAR: Denies chest pain or pressure. RESPIRATORY: No shortness of breath. GASTROINTESTINAL: Refer to [facility] for pertinent findings HEMATOLOGIC: Denies bleeding disorders. GENITOURINARY: Denies any blood in urine. SKIN: Denies pruitis. Denies rash. PHYSICAL EXAM: VITAL SIGNS: Reviewed. GENERAL: Well-developed in no acute distress. HEENT: No sclera icterus. Extraocular movements grossly intact. Moist buccal mucosa. Head is atraumatic, normocephalic. ABDOMEN: Soft. Nondistended. Tenderness upon palpation of epigastric region. NEUROLOGIC: Alert and oriented. Cranial nerves II through XII grossly intact. LABORATORY DATA: Laboratory data on admission reveals white count 9.6. Hemoglobin 13.7. Sodium 139. Potassium 3.9. BUN 21. Creatinine 0.91. Bilirubin 1.4. AST 21. ALT 1 8. IMAGIN. KUB x-ray: Nonobstructive bowel gas pattern. 2. CT abdomen and pelvis bilateral adnexal varices noted. No other findings. ASSESSMENT: 1. Epigastric pain 2. History of Ozzy fundoplication, January 2019 3. History of cholecystectomy PLAN: 1. NPO 2. Continue IV fluids 3. Pain control 4. Patient to undergo EGD today with Dr. Lorenz Nurse practitioner note has been reviewed by physician. Signing provider agrees with the documented findings, assessment, and plan of care. 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 HX KIDNEY STONES. HIATAL HERNIA. RT SIDE FACE/ARM/CHEST PAIN ON/OFF WITH ONSET UPPER MID ABD PAIN; CV W/U NL. History of Any Multi-Drug Resistant Organisms: None Reported Past Surgical History: Cholecystectomy, Hernia Repair, Tubal Ligation, Uterine Ablation Additional Past Surgical History / Comment(s): 3 brain surgeries. 2 umb hernia. uterine ablation with novasure. EGD, COLONOSCOPY. 01/08/19 ozzy Past Anesthesia/Blood Transfusion Reactions: No Reported Reaction Past Psychological History: Anxiety, Bipolar, Depression Smoking Status: Current every day smoker Past Alcohol Use History: None Reported Additional Past Alcohol Use History / Comment(s): SMOKED FOR 5 YEARS, QUIT & RESUMED SINCE 2013, 4 CIG PER DAY EST. Past Drug Use History: Marijuana Additional Drug Use History / Comment(s): DAILY USE - Past Family History Mother Family Medical History: Cancer Additional Family Medical History / Comment(s): Breast/Cervical Cancer Medications and Allergies Home Medications Medication Instructions Recorded Confirmed Type lamoTRIgine [LaMICtal] 100 mg PO BID 01/12/17 04/10/19 History Escitalopram [Lexapro] 20 mg PO HS 02/20/18 04/10/19 History Albuterol Inhaler [Ventolin Hfa 1 - 2 puff INHALATION RT-Q6H PRN 01/03/19 04/10/19 History Inhaler] Meloxicam [Mobic] 15 mg PO DAILY 01/03/19 04/10/19 History traZODone HCL 50 mg PO HS 01/03/19 04/10/19 History Pantoprazole Sodium [Protonix] 40 mg PO DAILY #30 tablet. 01/09/19 04/10/19 Rx Omeprazole [PriLOSEC] 20 mg PO DAILY 04/10/19 04/10/19 History Allergies Allergy/AdvReac Type Severity Reaction Status Date / Time cat dander Allergy Mild Itching Verified 04/10/19 15:14 seasonal Allergy Mild Itching Uncoded 04/10/19 14:11 Surgical - Exam Vital Signs Temp Pulse Resp BP Pulse Ox 97.8 F 69 18 103/79 100 04/10/19 14:08 04/10/19 14:08 04/10/19 14:08 04/10/19 14:08 04/10/19 14:08 Results - Labs 04/11/19 07:36 04/11/19 07:36 Abnormal Lab Results - Last 24 Hours (Table) 04/10/19 04/11/19 Range/Units 14:36 07:36 Chloride 108 H (98-107) mmol/L BUN 21 H (7-17) mg/dL Calcium 10.6 H (8.4-10.2) mg/dL Total Bilirubin 1.4 H (0.2-1.3) mg/dL Diabetes panel 04/10/19 04/11/19 Range/Units 14:36 07:36 Sodium 139 141 (137-145) mmol/L Potassium 3.8 3.9 (3.5-5.1) mmol/L Chloride 105 108 H (98-107) mmol/L Carbon Dioxide 22 24 (22-30) mmol/L BUN 21 H 17 (7-17) mg/dL Creatinine 0.91 0.74 (0.52-1.04) mg/dL Glucose 95 92 (74-99) mg/dL Calcium 10.6 H 9.0 (8.4-10.2) mg/dL AST 21 (14-36) U/L ALT 18 (9-52) U/L Alkaline Phosphatase 69 (38-126) U/L Total Protein 7.5 (6.3-8.2) g/dL Albumin 4.7 (3.5-5.0) g/dL Calcium panel 04/10/19 04/11/19 Range/Units 14:36 07:36 Calcium 10.6 H 9.0 (8.4-10.2) mg/dL Albumin 4.7 (3.5-5.0) g/dL Pituitary panel 04/10/19 04/11/19 Range/Units 14:36 07:36 Sodium 139 141 (137-145) mmol/L Potassium 3.8 3.9 (3.5-5.1) mmol/L Chloride 105 108 H (98-107) mmol/L Carbon Dioxide 22 24 (22-30) mmol/L BUN 21 H 17 (7-17) mg/dL Creatinine 0.91 0.74 (0.52-1.04) mg/dL Glucose 95 92 (74-99) mg/dL Calcium 10.6 H 9.0 (8.4-10.2) mg/dL Adrenal panel 04/10/19 04/11/19 Range/Units 14:36 07:36 Sodium 139 141 (137-145) mmol/L Potassium 3.8 3.9 (3.5-5.1) mmol/L Chloride 105 108 H (98-107) mmol/L Carbon Dioxide 22 24 (22-30) mmol/L BUN 21 H 17 (7-17) mg/dL Creatinine 0.91 0.74 (0.52-1.04) mg/dL Glucose 95 92 (74-99) mg/dL Calcium 10.6 H 9.0 (8.4-10.2) mg/dL Total Bilirubin 1.4 H (0.2-1.3) mg/dL AST 21 (14-36) U/L ALT 18 (9-52) U/L Alkaline Phosphatase 69 (38-126) U/L Total Protein 7.5 (6.3-8.2) g/dL Albumin 4.7 (3.5-5.0) g/dL <Michael Lorenz - Last Filed: 04/11/19 10:16> Surgical - Exam Vital Signs Temp Pulse Resp BP Pulse Ox 97.8 F 69 18 103/79 100 04/10/19 14:08 04/10/19 14:08 04/10/19 14:08 04/10/19 14:08 04/10/19 14:08 Results - Labs 04/11/19 07:36 04/11/19 07:36 Abnormal Lab Results - Last 24 Hours (Table) 04/10/19 04/11/19 Range/Units 14:36 07:36 Chloride 108 H (98-107) mmol/L BUN 21 H (7-17) mg/dL Calcium 10.6 H (8.4-10.2) mg/dL Total Bilirubin 1.4 H (0.2-1.3) mg/dL Diabetes panel 04/10/19 04/11/19 Range/Units 14:36 07:36 Sodium 139 141 (137-145) mmol/L Potassium 3.8 3.9 (3.5-5.1) mmol/L Chloride 105 108 H (98-107) mmol/L Carbon Dioxide 22 24 (22-30) mmol/L BUN 21 H 17 (7-17) mg/dL Creatinine 0.91 0.74 (0.52-1.04) mg/dL Glucose 95 92 (74-99) mg/dL Calcium 10.6 H 9.0 (8.4-10.2) mg/dL AST 21 (14-36) U/L ALT 18 (9-52) U/L Alkaline Phosphatase 69 (38-126) U/L Total Protein 7.5 (6.3-8.2) g/dL Albumin 4.7 (3.5-5.0) g/dL Calcium panel 04/10/19 04/11/19 Range/Units 14:36 07:36 Calcium 10.6 H 9.0 (8.4-10.2) mg/dL Albumin 4.7 (3.5-5.0) g/dL Pituitary panel 04/10/19 04/11/19 Range/Units 14:36 07:36 Sodium 139 141 (137-145) mmol/L Potassium 3.8 3.9 (3.5-5.1) mmol/L Chloride 105 108 H (98-107) mmol/L Carbon Dioxide 22 24 (22-30) mmol/L BUN 21 H 17 (7-17) mg/dL Creatinine 0.91 0.74 (0.52-1.04) mg/dL Glucose 95 92 (74-99) mg/dL Calcium 10.6 H 9.0 (8.4-10.2) mg/dL Adrenal panel 04/10/19 04/11/19 Range/Units 14:36 07:36 Sodium 139 141 (137-145) mmol/L Potassium 3.8 3.9 (3.5-5.1) mmol/L Chloride 105 108 H (98-107) mmol/L Carbon Dioxide 22 24 (22-30) mmol/L BUN 21 H 17 (7-17) mg/dL Creatinine 0.91 0.74 (0.52-1.04) mg/dL Glucose 95 92 (74-99) mg/dL Calcium 10.6 H 9.0 (8.4-10.2) mg/dL Total Bilirubin 1.4 H (0.2-1.3) mg/dL AST 21 (14-36) U/L ALT 18 (9-52) U/L Alkaline Phosphatase 69 (38-126) U/L Total Protein 7.5 (6.3-8.2) g/dL Albumin 4.7 (3.5-5.0) g/dL Assessment and Plan Assessment: Epigastric abdominal pain. Patient's CAT scan is normal. Her blood work is normal. Patient will undergo EGD to evaluate for possible gastritis.
[2019-04-11] MEDS: PANTOPRAZOLE 40 MG/10 ML VIAL IVP SCH (09:13)
[2019-04-11] MEDS ORDERED: PROPOFOL 10 MG/ML 20 ML VIAL IV ONE (09:59)
[2019-04-11] MEDS ORDERED: LACTATED RINGERS 900 ML IV ONE (10:10)
--- NOTE | 2019-04-11 10:15 | P.OP ---
Date of Procedure: 04/11/19 Preoperative Diagnosis: Epigastric dull pain, nausea Postoperative Diagnosis: Mild antral gastritis Procedure(s) Performed: EGD Anesthesia: MAC Surgeon: Michael Lorenz Pathology: other (Antrum) Condition: stable Disposition: PACU Description of Procedure: The patient's placed on the endoscopy table in the lateral position. She received IV sedation. The gastroscope placed oropharynx passed in the esophagus and into the stomach. Scope was then placed through the pylorus. The first and second portion of the duodenum appeared normal. Scope was then brought back and the antrum this was mildly inflamed. A biopsies performed. The scope was then retroflexed the remainder of the stomach appeared normal. There was no significant hiatal hernia. The GE junction was at 40 cm. There is no evidence of any GE junction obstruction. The distal esophagus appeared normal. The proximal esophagus appeared normal. Scope was withdrawn for patient.
[2019-04-11] MEDS ORDERED: HYDROcodone/APAP 5-325MG 1 EACH TAB PO PRN (10:16)
--- NOTE | 2019-04-11 11:52 | P.DS ---
Providers Date of admission: 04/10/19 17:51 Expected date of discharge: 04/11/19 Attending physician: Michael Lorenz Consults: 04/10/19 21:09 Consult Physician Routine Consulting Provider: Crisitan Thorne Consult Reason/Comments: medical managment Do you want consulting provider notified?: Already Contacted [facility] Course: 38-year-old female with history of Stephan fundoplication performed on 01/08/2019 who presented to the emergency room with a chief complaint of abdominal pain that began yesterday morning. She reports her pain is mostly in the epigastric region and radiates to the rest of her abdomen. Patient reports nausea. Denies diarrhea or constipation. Vital signs are stable. Patient has been afebrile. Patient denies use of NSAIDs. Denies hematemesis, hematochezia, or melena. Imaging and lab work were unremarkable. patient underwent EGD revealing mild antral gastritis. She was deemed stable for discharge home today per Dr. Lorenz. Please see EMR for further hospital course details. ASSESSMENT: 1. Epigastric pain 2. History of Stephan fundoplication, January 2019 3. History of cholecystectomy Nurse practitioner note has been reviewed by physician. Signing provider agrees with the documented findings, assessment, and plan of care. Patient Condition at Discharge: Stable Plan - Discharge Summary Discharge Rx Participant: Yes New Discharge Prescriptions: New Hydrocodone/Acetaminophen [[place] 5-325] 1 tab PO Q6HR PRN 3 Days #12 tab PRN Reason: Pain Omeprazole [PriLOSEC] 40 mg PO AC-BRKFST #30 capsule. Discontinued Meloxicam [Mobic] 15 mg PO DAILY Pantoprazole Sodium [Protonix] 40 mg PO DAILY #30 tablet. Omeprazole [PriLOSEC] 20 mg PO DAILY No Action lamoTRIgine [LaMICtal] 100 mg PO BID Escitalopram [Lexapro] 20 mg PO HS traZODone HCL 50 mg PO HS Albuterol Inhaler [Ventolin Hfa Inhaler] 1 - 2 puff INHALATION RT-Q6H PRN PRN Reason: Shortness Of Breath Discharge Medication List lamoTRIgine [LaMICtal] 100 mg PO BID 01/12/17 [History] Escitalopram [Lexapro] 20 mg PO HS 05/21/18 [History] Albuterol Inhaler [Ventolin Hfa Inhaler] 1 - 2 puff INHALATION RT-Q6H PRN 01/03/19 [History] traZODone HCL 50 mg PO HS 01/03/19 [History] Hydrocodone/Acetaminophen [[place] 5-325] 1 tab PO Q6HR PRN 3 Days #12 tab 04/11/19 [Rx] Omeprazole [PriLOSEC] 40 mg PO AC-BRKFST #30 capsule. 04/11/19 [Rx] Follow up Appointment(s)/Referral(s): Pako Garcia DO [Primary Care Provider] - 04/16/19 10:40 am (In [place] with Doreen) Michael Lorenz MD [STAFF PHYSICIAN] - 04/17/19 2:30 pm Patient Instructions/Handouts: Abdominal Pain (ED) Discharge Disposition: HOME SELF-CARE
[2019-04-11 13:05] VITALS: BMI 25.1
--- NOTE | 2019-04-11 13:38 | P.CONS ---
History of Present Illness - Reason for Consult Nausea vomiting epigastric abdominal pain. - History of Present Illness 38-year-old female with history of Ozzy fundoplication in the past came in with complaints of epigastric abdominal pain with the associate nausea vomiting. Patient on upper GI endoscopy showed mild gastritis. Patient will be discharged on Prilosec patient uses nonsteroidal anti-inflammatory is at home the form of Mobic which will be discontinued. Patient's abdomen is soft and exam although she still complaining of abdominal pain lipase is essentially within normal limits. Patient will be started on diet if she is able to tolerate liquid diet patient will be discharged. Review of Systems REVIEW OF SYSTEMS: CONSTITUTIONAL: No fever, no malaise, no fatigue. HEENT: No recent visual problems or hearing problems. Denied any sore throat. CARDIOVASCULAR: No chest pain, orthopnea, PND, no palpitations, no syncope. PULMONARY: No shortness of breath, no cough, no hemoptysis. GASTROINTESTINAL: No diarrhea NEUROLOGICAL: No headaches, no weakness, no numbness. HEMATOLOGICAL: Denies any bleeding or petechiae. GENITOURINARY: Denies any burning micturition, frequency, or urgency. MUSCULOSKELETAL/RHEUMATOLOGICAL: Denies any joint pain, swelling, or any muscle pain. ENDOCRINE: Denies any polyuria or polydipsia. The rest of the 14-point review of systems is negative. 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 HX KIDNEY STONES. HIATAL HERNIA. RT SIDE FACE/ARM/CHEST PAIN ON/OFF WITH ONSET UPPER MID ABD PAIN; CV W/U NL. History of Any Multi-Drug Resistant Organisms: None Reported Past Surgical History: Cholecystectomy, Hernia Repair, Tubal Ligation, Uterine Ablation Additional Past Surgical History / Comment(s): 3 brain surgeries. 2 umb hernia. uterine ablation with novasure. EGD, COLONOSCOPY. 01/08/19 ozzy Past Anesthesia/Blood Transfusion Reactions: No Reported Reaction Past Psychological History: Anxiety, Bipolar, Depression Smoking Status: Current every day smoker Past Alcohol Use History: None Reported Additional Past Alcohol Use History / Comment(s): SMOKED FOR 5 YEARS, QUIT & RESUMED SINCE 2013, 4 CIG PER DAY EST. Past Drug Use History: Marijuana Additional Drug Use History / Comment(s): DAILY USE - Past Family History Mother Family Medical History: Cancer Additional Family Medical History / Comment(s): Breast/Cervical Cancer Medications and Allergies Home Medications Medication Instructions Recorded Confirmed Type lamoTRIgine [LaMICtal] 100 mg PO BID 01/12/17 04/10/19 History Escitalopram [Lexapro] 20 mg PO HS 02/20/18 04/10/19 History Albuterol Inhaler [Ventolin Hfa 1 - 2 puff INHALATION RT-Q6H PRN 01/03/19 04/10/19 History Inhaler] traZODone HCL 50 mg PO HS 01/03/19 04/10/19 History Hydrocodone/Acetaminophen [[place] 1 tab PO Q6HR PRN 3 Days #12 tab 04/11/19 Rx 5-325] Omeprazole [PriLOSEC] 40 mg PO AC-BRKFST #30 capsule. 04/11/19 Rx Allergies Allergy/AdvReac Type Severity Reaction Status Date / Time cat dander Allergy Mild Itching Verified 04/10/19 15:14 seasonal Allergy Mild Itching Uncoded 04/10/19 14:11 Physical Exam Vitals: Vital Signs Temp Pulse Pulse Resp BP BP Pulse Ox 04/11/19 11:00 65 111/70 04/11/19 10:45 59 L 108/72 04/11/19 10:30 98.1 F 71 15 113/69 100 04/11/19 07:00 98.1 F 62 15 110/74 98 04/11/19 03:28 15 04/11/19 01:35 50 L 100/59 04/11/19 01:03 97.6 F 56 L 14 93/58 96 04/10/19 23:05 16 04/10/19 19:32 98.8 F 79 16 127/86 97 04/10/19 19:19 98.0 F 58 L 18 121/82 99 04/10/19 18:46 98.0 F 59 L 18 118/76 100 04/10/19 17:30 67 18 118/86 100 04/10/19 15:30 67 20 113/81 100 04/10/19 14:08 97.8 F 69 18 103/79 100 Intake and Output 04/10/19 04/11/19 04/11/19 22:59 06:59 14:59 Intake Total 1500 400 Balance 1500 400 Intake: IV 400 Intake, IV Titration 1500 Amount Sodium Chloride 0.9% 1, 1500 000 ml @ 150 mls/hr IV . Q6H40M [facility] Rx#:[id number] Other: Voiding Method Toilet Toilet # Voids 1 Weight 64.41 kg PHYSICAL EXAMINATION: GENERAL: The patient is alert and oriented x3, not in any acute distress. Well developed, well nourished. HEENT: Pupils are round and equally reacting to light. EOMI. No scleral icterus. No conjunctival pallor. Normocephalic, atraumatic. No pharyngeal erythema. No thyromegaly. CARDIOVASCULAR: S1 and S2 present. No murmurs, rubs, or gallops. PULMONARY: Chest is clear to auscultation, no wheezing or crackles. ABDOMEN: Soft, nontender, nondistended, normoactive bowel sounds. No palpable organomegaly. MUSCULOSKELETAL: No joint swelling or deformity. EXTREMITIES: No cyanosis, clubbing, or pedal edema. NEUROLOGICAL: Gross neurological examination did not reveal any focal deficits. SKIN: No rashes. Results CBC & Chem 7: 04/11/19 07:36 04/11/19 07:36 Labs: Abnormal Lab Results - Last 24 Hours (Table) 04/10/19 04/11/19 Range/Units 14:36 07:36 Chloride 108 H (98-107) mmol/L BUN 21 H (7-17) mg/dL Calcium 10.6 H (8.4-10.2) mg/dL Total Bilirubin 1.4 H (0.2-1.3) mg/dL Assessment and Plan Plan: -Epigastric abdominal pain possibly secondary to gastritis and patient will be discharged on Prilosec nonsteroidal anti-inflammatory was witnessed patient had history of Ozzy fundoplication in the past --Gastroesophageal reflux disease -Asthma without any acute exacerbation can use to smoke nicotine cessation counseling was provided -Depression -Marijuana use Patient can be discharged from medical perspective
[2019-04-11 14:31] VITALS: BP 125/73; PULSE 67; RESP 17; TEMP 98.4
[2019-04-11] MEDS ORDERED: traZODone HCL 50 MG TAB PO SCH (21:00)
[2019-04-11] MEDS ORDERED: ESCITALOPRAM 20 MG TAB PO SCH (21:00)
== END 2019-04-11 14:37 | disposition home or self-care (01) ==
LOC: EC 14:06 → 4SSUR 17:51
PROVIDERS: ADMIT Surgery; ATTEND Surgery
DX: K29.50 Unspecified chronic gastritis without bleeding (principal); F17.210 Nicotine dependence, cigarettes, uncomplicated; J45.909 Unspecified asthma, uncomplicated; K21.9 Gastro-esophageal reflux disease without esophagitis; F41.9 Anxiety disorder, unspecified; F31.9 Bipolar disorder, unspecified; Z98.890 Other specified postprocedural states; Z98.51 Tubal ligation status; Z87.442 Personal history of urinary calculi; Z79.1 Long term (current) use of non-steroidal anti-inflammatories (NSAID); Z79.899 Other long term (current) drug therapy; Z90.49 Acquired absence of other specified parts of digestive tract; Z91.09 Other allergy status, other than to drugs and biological substances; Z80.3 Family history of malignant neoplasm of breast; Z80.49 Family history of malignant neoplasm of other genital organs
CPT/HCPCS: 96376; 96361; 96374; 96375; 99285; 36415; 88305; 80053; 80048; 82150; 83690; 85025 ×2; 81003; 74018; 74177; 43239; G0378 ×2; J2270; J2765; J2405; J1170 ×3; J2704; C9113 ×2; Q9967

== ENCOUNTER 2019-04-26 13:13 | Emergency (ER) | payer MEDICARE, OTHER ==
[2019-04-26 13:21] VITALS: TEMP 98.9
[2019-04-26] MEDS ORDERED: ONDANSETRON 4 MG/2 ML VIAL IVP STA (13:43)
[2019-04-26] MEDS ORDERED: MORPHINE SULFATE 4 MG/ML SYRINGE IV STA ×2 (13:43→16:37)
[2019-04-26] MEDS ORDERED: SODIUM CHLORIDE 0.9% 1,000 ML IV STA (13:43)
[2019-04-26 14:20] LABS: Basophils % (A) 0 %; Eosinophils # (A) 0.1 k/uL (0-0.7); Eosinophils % (A) 1 %; HCT 38.9 % (34.0-46.0); HGB 13.2 gm/dL (11.4-16.0); Lymphocytes # (A) 0.3 k/uL (1.0-4.8); Lymphocytes % (A) 4 %; MCH 30.9 pg (25.0-35.0); MCHC 33.9 g/dL (31.0-37.0); MCV 91.1 fL (80.0-100.0); Mean Platelet Volume 7.7; Monocytes # (A) 0.3 k/uL (0-1.0); Monocytes % (A) 3 %; Neutrophils # (A) 8.3 k/uL (1.3-7.7); Neutrophils % (A) 91 %; Platelet Count 294 k/uL (150-450); RBC 4.27 m/uL (3.80-5.40); RDW 14.2 % (11.5-15.5); WBC 9.1 k/uL (3.8-10.6)
[2019-04-26 14:30] LABS: ALT 121 U/L (9-52); AST 96 U/L (14-36); African American GFR (CKD) >90 (>60 ml/min/1.73 sqM); Albumin 4.1 g/dL (3.5-5.0); Alkaline Phosphatase 237 U/L (38-126); Anion Gap 11 mmol/L; Blood Urea Nitrogen 21 mg/dL (7-17); Carbon Dioxide 23 mmol/L (22-30); Chloride 108 mmol/L (98-107); Glucose 103 mg/dL (74-99); Potassium 4.2 mmol/L (3.5-5.1); Sodium 142 mmol/L (137-145); Total Bilirubin 2.3 mg/dL (0.2-1.3); Total Protein 7.1 g/dL (6.3-8.2)
--- NOTE | 2019-04-26 14:36 | ED ---
General Adult HPI - General Chief complaint: Abdominal Pain Stated complaint: Kidney infection Time Seen by Provider: 04/26/19 13:28 Source: patient, RN notes reviewed, old records reviewed Mode of arrival: wheelchair Limitations: no limitations - History of Present Illness Initial comments: 38-year-old female patient presents to ED chief complaint of left flank pain. Patient worsens has been ongoing for approximately 2 weeks. Patient reports that she feels as if she has a kidney infection. Patient force that she has had some dysuria. Patient also reports nausea vomiting. Patient states that she has been seen 2 previous times this and was placed on Macrobid. Patient is a she is still expressing pain, also complains of dysuria. Denies any other complaints. Systemic: Pt denies fatigue, fever/chills, rash. Pt denies weakness, night sweats, weight loss. Neuro: Pt denies headache, visual disturbances, syncope or pre-syncope. HEENT: Pt denies ocular discharge or irritation, otalgia, rhinorrhea, pharyngitis or notable lymphadenopathy. Cardiopulmonary: Pt denies chest pain, SOB, heart palpitations, dyspnea on exertion. Abdominal/GI: Pt denies abdominal pain. : Pt denies dysuria, burning w/ urination, frequency/urgency. Denies new onset urinary or bowel incontinence. MSK: Pt denies myalgia, loss of strength or function in extremities. Neuro: Pt denies new onset weakness, paresthesias. - Related Data Home Medications Medication Instructions Recorded Confirmed lamoTRIgine [LaMICtal] 100 mg PO BID 01/12/17 04/10/19 Escitalopram [Lexapro] 20 mg PO HS 02/20/18 04/10/19 Albuterol Inhaler [Ventolin Hfa 1 - 2 puff INHALATION RT-Q6H PRN 01/03/19 04/10/19 Inhaler] traZODone HCL 50 mg PO HS 01/03/19 04/10/19 Previous Rx's Medication Instructions Recorded Hydrocodone/Acetaminophen [[place] 1 tab PO Q6HR PRN 3 Days #12 tab 04/11/19 5-325] Omeprazole [PriLOSEC] 40 mg PO AC-BRKFST #30 capsule. 04/11/19 Allergies Allergy/AdvReac Type Severity Reaction Status Date / Time cat dander Allergy Mild Itching Verified 04/26/19 13:21 seasonal Allergy Mild Itching Uncoded 04/26/19 13:21 Review of Systems ROS Statement: Those systems with pertinent positive or pertinent negative responses have been documented in the HPI. ROS Other: All systems not noted in ROS Statement are negative. 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 HX KIDNEY STONES. HIATAL HERNIA. RT SIDE FACE/ARM/CHEST PAIN ON/OFF WITH ONSET UPPER MID ABD PAIN; CV W/U NL. History of Any Multi-Drug Resistant Organisms: None Reported Past Surgical History: Cholecystectomy, Hernia Repair, Tubal Ligation, Uterine Ablation Additional Past Surgical History / Comment(s): 3 brain surgeries. 2 umb hernia. uterine ablation with novasure. EGD, COLONOSCOPY. 01/08/19 ozzy Past Anesthesia/Blood Transfusion Reactions: No Reported Reaction Past Psychological History: Anxiety, Bipolar, Depression Smoking Status: Current every day smoker Past Alcohol Use History: None Reported Past Drug Use History: Marijuana - Past Family History Mother Family Medical History: Cancer Additional Family Medical History / Comment(s): Breast/Cervical Cancer General Exam - General Exam Comments Initial Comments: Constitutional: NAD, AOX3, Pt has pleasant affect. HEENT: NC/AT, trachea midline, neck supple, no lymphadenopathy. Posterior pharynx non erythematous, without exudates. External ears appear normal, without discharge. Mucous membranes moist. Eyes PERRLA, EOM intact. There is no scleral icterus. No pallor noted. Cardiopulmonary: RRR, no murmurs, rubs or gallops, no JVD noted. Lungs CTAB in anterior and posterior ash. No peripheral edema. Abdominal exam: Abdomen soft and non-distended. Abdomen non-tender to palpation in all 4 quadrants. Left CVA tenderness positive, right CVA tenderness negative. Bowel sounds active in LLQ. No hepatosplenomegaly. No ecchymosis Neuro: CN II-XII grossly intact. No nuchal rigidity. No raccon eyes, no alexandra sign, no hemotympanum. No cervical spinal tenderness. MSK: No posterior calf tenderness bilaterally, homans sign negative bilaterally. Posterior tibialis and radial pulse +2 bilaterally. Sensation intact in upper and lower extremities. Full active ROM in upper and lower extremities, 5/5 stregnth. Limitations: no limitations Course Vital Signs 04/26/19 04/26/19 13:20 15:46 Temperature 98.9 F Pulse Rate 70 63 Respiratory 20 18 Rate Blood Pressure 123/96 111/82 O2 Sat by Pulse 99 100 Oximetry Medical Decision Making - Medical Decision Making 38-year-old female patient presents to ED chief complaint of left flank pain. Patient worsens has been ongoing for approximately 2 weeks. Patient reports that she feels as if she has a kidney infection. Patient force that she has had some dysuria. Patient also reports nausea vomiting. Patient states that she has been seen 2 previous times this and was placed on Macrobid. Patient is a she is still expressing pain, also complains of dysuria. Denies any other complaints. Patient will signs stable, afebrile. Physical exam displayed a mild amount of left CVA tenderness. Investigations revealed mild increase in transaminases. Lipase within normal limits. Lactic acid 1.4. CBC non- impressive. UA nonpresent, hCG negative. Patient is status post cholecystectomy, tubal ligation. CT abdomen and pelvis without contrast displayed a 2 mm noncirculating lists. A small amount of free fluid in the pelvis. Patient will be discharged, will follow up with urologist on outpatient basis in 1-2 days. Case discussed with Dr. Ouwsu. - Lab Data Result diagrams: 04/26/19 14:07 04/26/19 14:07 Lab Results 04/26/19 04/26/19 04/26/19 Range/Units 14:07 14:07 14:07 WBC 9.1 (3.8-10.6) k/uL RBC 4.27 (3.80-5.40) m/uL Hgb 13.2 (11.4-16.0) gm/dL Hct 38.9 (34.0-46.0) % MCV 91.1 (80.0-100.0) fL MCH 30.9 (25.0-35.0) pg MCHC 33.9 (31.0-37.0) g/dL RDW 14.2 (11.5-15.5) % Plt Count 294 (150-450) k/uL Neutrophils % 91 % Lymphocytes % 4 % Monocytes % 3 % Eosinophils % 1 % Basophils % 0 % Neutrophils # 8.3 H (1.3-7.7) k/uL Lymphocytes # 0.3 L (1.0-4.8) k/uL Monocytes # 0.3 (0-1.0) k/uL Eosinophils # 0.1 (0-0.7) k/uL Basophils # 0.0 (0-0.2) k/uL Sodium 142 (137-145) mmol/L Potassium 4.2 (3.5-5.1) mmol/L Chloride 108 H (98-107) mmol/L Carbon Dioxide 23 (22-30) mmol/L Anion Gap 11 mmol/L BUN 21 H (7-17) mg/dL Creatinine 0.67 (0.52-1.04) mg/dL Est GFR (CKD-EPI)AfAm >90 (>60 ml/min/1.73 sqM) Est GFR (CKD-EPI)NonAf >90 (>60 ml/min/1.73 sqM) Glucose 103 H (74-99) mg/dL Plasma Lactic Acid Triston (0.7-2.0) mmol/L Calcium 10.0 (8.4-10.2) mg/dL Total Bilirubin 2.3 H (0.2-1.3) mg/dL AST 96 H (14-36) U/L ALT 121 H (9-52) U/L Alkaline Phosphatase 237 H (38-126) U/L Total Protein 7.1 (6.3-8.2) g/dL Albumin 4.1 (3.5-5.0) g/dL Lipase 88 (23-300) U/L Urine Color Urine Appearance (Clear) Urine pH (5.0-8.0) Ur Specific Eure (1.001-1.035) Urine Protein (Negative) Urine Glucose (UA) (Negative) Urine Ketones (Negative) Urine Blood (Negative) Urine Nitrite (Negative) Urine Bilirubin (Negative) Urine Urobilinogen (<2.0) mg/dL Ur Leukocyte Esterase (Negative) Urine RBC (0-5) /hpf Urine WBC (0-5) /hpf Ur Squamous Epith Cells (0-4) /hpf Urine Mucus (None) /hpf Urine HCG, Qual Not Detected (Not Detectd) 04/26/19 04/26/19 Range/Units 14:07 14:07 WBC (3.8-10.6) k/uL RBC (3.80-5.40) m/uL Hgb (11.4-16.0) gm/dL Hct (34.0-46.0) % MCV (80.0-100.0) fL MCH (25.0-35.0) pg MCHC (31.0-37.0) g/dL RDW (11.5-15.5) % Plt Count (150-450) k/uL Neutrophils % % Lymphocytes % % Monocytes % % Eosinophils % % Basophils % % Neutrophils # (1.3-7.7) k/uL Lymphocytes # (1.0-4.8) k/uL Monocytes # (0-1.0) k/uL Eosinophils # (0-0.7) k/uL Basophils # (0-0.2) k/uL Sodium (137-145) mmol/L Potassium (3.5-5.1) mmol/L Chloride (98-107) mmol/L Carbon Dioxide (22-30) mmol/L Anion Gap mmol/L BUN (7-17) mg/dL Creatinine (0.52-1.04) mg/dL Est GFR (CKD-EPI)AfAm (>60 ml/min/1.73 sqM) Est GFR (CKD-EPI)NonAf (>60 ml/min/1.73 sqM) Glucose (74-99) mg/dL Plasma Lactic Acid Triston 1.4 (0.7-2.0) mmol/L Calcium (8.4-10.2) mg/dL Total Bilirubin (0.2-1.3) mg/dL AST (14-36) U/L ALT (9-52) U/L Alkaline Phosphatase (38-126) U/L Total Protein (6.3-8.2) g/dL Albumin (3.5-5.0) g/dL Lipase (23-300) U/L Urine Color Red Urine Appearance Cloudy H (Clear) Urine pH 7.5 (5.0-8.0) Ur Specific Eure 1.022 (1.001-1.035) Urine Protein Trace H (Negative) Urine Glucose (UA) Negative (Negative) Urine Ketones Negative (Negative) Urine Blood Negative (Negative) Urine Nitrite Negative (Negative) Urine Bilirubin 1+ H (Negative) Urine Urobilinogen 3.0 (<2.0) mg/dL Ur Leukocyte Esterase Negative (Negative) Urine RBC 1 (0-5) /hpf Urine WBC 4 (0-5) /hpf Ur Squamous Epith Cells 4 (0-4) /hpf Urine Mucus Few H (None) /hpf Urine HCG, Qual (Not Detectd) Disposition Clinical Impression: Flank pain Disposition: HOME SELF-CARE Condition: Stable Instructions (If sedation given, give patient instructions): Flank Pain (ED) Additional Instructions: Patient to adhere to previously discussed treatment plan and will take medication(s) as directed. Patient to follow up with PCP in 1-2 days. Patient to return to ED if symptoms do not improve. Follow-up with primary care provider and urologist in 1-2 days. Have labs rechecked by PCP. Return to ER if condition worsens. Is patient prescribed a controlled substance at d/c from ED?: No Referrals: Pako Garcia DO [Primary Care Provider] - 1-2 days Tk Alvarado MD [STAFF PHYSICIAN] - 1-2 days
[2019-04-26 15:37] LABS: Appearance,Urine Cloudy (Clear); Bilirubin,Urine 1+ (Negative); Blood,Urine Negative (Negative); Color,Urine Red; Glucose,Urine (UA) Negative (Negative); Ketones,Urine Negative (Negative); Leukocyte Esterase,Urine Negative (Negative); Mucus,Urine Few /hpf; Nitrite,Urine Negative (Negative); PH, Urine 7.5 (5.0-8.0); Protein,Urine Trace (Negative); RBC,Urine 1 /hpf (0-5); Specific Gravity,Urine 1.022 (1.001-1.035); Squamous Epithelial Cell,Urine 4 /hpf (0-4); WBC,Urine 4 /hpf (0-5)
--- NOTE | 2019-04-26 15:45 | CT ---
EXAMINATION TYPE: CT abdomen pelvis wo con DATE OF EXAM: 04/26/2019 HISTORY: kidney infection, pain CT DLP: 427.9 mGycm. Automated Exposure Control for Dose Reduction was Utilized. TECHNIQUE: CT scan of the abdomen and pelvis is performed without oral or IV contrast. COMPARISON: CT abdomen and pelvis 16 days ago FINDINGS: Within the limitations of a non-contrast study, the following observations are made. LUNG BASES: No significant abnormality is appreciated. LIVER/GB: Cholecystectomy clips are redemonstrated. PANCREAS: No significant abnormality is seen. SPLEEN: No significant abnormality is seen. ADRENALS: No significant abnormality is seen. KIDNEYS: There is 2 mm calculus left kidney axial image 41 operative midpole level. No definitive rig ht-sided renal calculi. No hydronephrosis is evident bilaterally. BOWEL: No significant abnormality is seen. GENITAL ORGANS: Anteverted uterus projects to right of midline. Surgical clip right pelvis is seen ax ial image 115 not clearly seen on prior suspect displaced gallbladder clip. Occasional pelvic phlebol iths. Tiny amount of free fluid right pelvis axial image 112 new from prior. LYMPH NODES: No greater than 1cm abdominal or pelvic lymph nodes are appreciated. OSSEOUS STRUCTURES: Mild multilevel spurring in the spine is redemonstrated OTHER: No significant additional abnormality is seen. IMPRESSION: There is better visualization of 2 mm nonobstructing left renal calculus on this noncontr ast study. New tiny amount of free fluid in pelvis is nonspecific finding.
[2019-04-26 15:47] VITALS: BP 111/82; PULSE 63; RESP 18
== END 2019-04-26 16:53 | disposition home or self-care (01) ==
LOC: EC 13:13
DX: R10.9 Unspecified abdominal pain (principal); R11.2 Nausea with vomiting, unspecified; R30.0 Dysuria; J45.909 Unspecified asthma, uncomplicated; F41.9 Anxiety disorder, unspecified; F31.9 Bipolar disorder, unspecified; F17.200 Nicotine dependence, unspecified, uncomplicated; Z86.73 Personal history of transient ischemic attack (TIA), and cerebral infarction without residual deficits; Z87.442 Personal history of urinary calculi; Z87.19 Personal history of other diseases of the digestive system; Z90.49 Acquired absence of other specified parts of digestive tract; Z98.51 Tubal ligation status; Z98.890 Other specified postprocedural states; Z79.899 Other long term (current) drug therapy; Z91.048 Other nonmedicinal substance allergy status
CPT/HCPCS: 36415; 80053; 83605; 83690; 85025; 81001; 81025; 74176; 99285; 96374; 96375; 96376; 96361 ×2; J2270; J2405

== ENCOUNTER → 2020-02-20 | Outpatient (CLI) | payer MEDICARE, OTHER ==
[2020-02-20 11:55] LABS: Basophils # (A) 0.1 k/uL (0-0.2); Basophils % (A) 1 %; Eosinophils # (A) 0.1 k/uL (0-0.7); Eosinophils % (A) 1 %; HCT 40.7 % (34.0-46.0); HGB 13.4 gm/dL (11.4-16.0); Lymphocytes # (A) 1.7 k/uL (1.0-4.8); Lymphocytes % (A) 23 %; MCH 31.4 pg (25.0-35.0); MCHC 32.8 g/dL (31.0-37.0); MCV 95.7 fL (80.0-100.0); Mean Platelet Volume 8.3; Monocytes # (A) 0.4 k/uL (0-1.0); Monocytes % (A) 5 %; Neutrophils # (A) 4.8 k/uL (1.3-7.7); Neutrophils % (A) 67 %; Platelet Count 245 k/uL (150-450); RBC 4.25 m/uL (3.80-5.40); RDW 12.4 % (11.5-15.5); WBC 7.2 k/uL (3.8-10.6)
== END | disposition home or self-care (01) ==
LOC: LABWHC1 10:33
PROVIDERS: ATTEND Internal Medicine Gastroenterology
DX: K21.0 Gastro-esophageal reflux disease with esophagitis (principal)
CPT/HCPCS: 36415; 85025

== ENCOUNTER → 2020-02-21 | Outpatient (CLI) | payer MEDICARE, OTHER ==
--- NOTE | 2020-02-26 08:04 | MM ---
Reason for exam: additional evaluation requested from prior study. Last mammogram was performed 7 years and 2 months ago. History: Family history of breast cancer in maternal aunt, breast cancer in paternal aunt, breast cancer in mother at age 30, breast cancer in maternal grandmother, and breast cancer in paternal grandmother. Benign left mammotome panel of the left breast, January 22, 2009. Physical Findings: Nurse Summary: 1cm nodule in the left breast at 11-12 o'clock (nurse roma). MG 3D Diag Mammo W/Cad JANETH Bilateral CC and MLO view(s) were taken. Prior study comparison: December 20, 2012, CAD bilateral diagnostic mammogram. The breast tissue is extremely dense which could obscure a lesion on mammography. Left breast biopsy. These results were verbally communicated with the patient and result sheet given to the patient on 02/21/20. ASSESSMENT: Incomplete: need additional imaging evaluation, BI-RAD 0 RECOMMENDATION: Ultrasound of the left breast.
--- NOTE | 2020-02-26 08:05 | USB ---
Reason for exam: additional evaluation requested from abnormal screening. History: Family history of breast cancer in maternal aunt, breast cancer in paternal aunt, breast cancer in mother at age 30, breast cancer in maternal grandmother, and breast cancer in paternal grandmother. Benign left mammotome panel of the left breast, January 22, 2009. US Breast Limited LT Technologist: Destiny Graham Left limited breast ultrasound including focal area of concern, retroareolar and axilla demonstrates no cystic or solid lesion seen. Ducts present. These results were verbally communicated with the patient and result sheet given to the patient on 02/21/20. ASSESSMENT: Negative, BI-RAD 1 RECOMMENDATION: Routine screening mammogram of both breasts in 1 year. Manage patient on a clinical basis.
== END | disposition home or self-care (01) ==
LOC: RADMAMWWP 13:47
PROVIDERS: ATTEND Family Medicine
DX: R92.8 Other abnormal and inconclusive findings on diagnostic imaging of breast (principal); D24.2 Benign neoplasm of left breast; Z80.3 Family history of malignant neoplasm of breast
CPT/HCPCS: 77066; 76642; G0279; 77062

== ENCOUNTER → 2020-06-19 | Outpatient (CLI) | payer MEDICARE, OTHER ==
--- NOTE | 2020-06-19 13:59 | CT ---
EXAMINATION TYPE: CT pelvis w con DATE OF EXAM: 06/19/2020 COMPARISON: 04/26/2019 INDICATION: Lt inguinal hernia and & Lt femoral hernia DLP: 437.5 mGycm, Automated exposure control for dose reduction was used. CONTRAST: 100 mL of Isovue 300. Study performed with Oral Contrast TECHNIQUE: Axial images were obtained from above the diaphragm to the pubic rami in the axial plane a t 5 mm thick sections. Reconstructed images are reviewed on the computer in the coronal plane. FINDINGS: Limited CT sections are obtained through the lower portion of the abdomen. No suspicious abnormalitie s within the [id number]. CT PELVIS: Loops of bowel within the abdomen and pelvis are normal. There are loops of bowel which are incom pletely distended or lack oral contrast limiting their evaluation. No suspicious dilated loops of bow el are evident. Appendix: Normal and contrast filled as visualized. Urinary bladder: Normal. Genitourinary structures: Uterus is normal. Adnexal regions are normal. Osseous structures: No suspicious lytic or sclerotic lesions. No left inguinal and no left femoral hernia is identified. No significant change from the comparison is evident. IMPRESSIONS: 1. No suspicious left inguinal or femoral hernia evident
== END | disposition home or self-care (01) ==
LOC: RADCTMAIN 06:38
PROVIDERS: ATTEND Surgery
DX: K40.30 Unilateral inguinal hernia, with obstruction, without gangrene, not specified as recurrent (principal); K41.90 Unilateral femoral hernia, without obstruction or gangrene, not specified as recurrent
CPT/HCPCS: 72193; Q9967 ×2

== ENCOUNTER → 2020-07-17 | Outpatient (CLI) | payer MEDICARE, OTHER ==
--- NOTE | 2020-07-17 17:08 | XR ---
EXAMINATION TYPE: XR cervical spine comp DATE OF EXAM: 07/17/2020 TECHNIQUE: Frontal, lateral, oblique, and open mouth view of the cervical spine are obtained. HISTORY: [id number] CERVICALGIA, HARKINS COMPARISON: None FINDINGS: The cervical spine is visualized in its entirety from C1 thru the top of T1 level. Normal alignment without evidence of acute fracture or dislocation. Vertebral body heights are normal. The p re-vertebral soft tissue appears within normal limits. There is significant multilevel osteophytic sp urring and disc space narrowing, most severe at C5-C6 and C6-C7. Uncovertebral hypertrophy seen at mu ltiple levels. There is bony encroachment of C3-C4 and C4-C5 on the right. There is suboptimal evalua tion of the left neural foramina, with bony encroachment seen at C3-C4 on the left. Atlantoaxial rela tionship and the base of the dens is within normal limits on the open mouth view. IMPRESSION: 1. No acute fracture or dislocation is seen in the cervical spine. 2. Degenerative changes as above.
== END | disposition home or self-care (01) ==
LOC: RADXRYALE 13:41
PROVIDERS: ATTEND Physician Assistant
DX: M47.892 Other spondylosis, cervical region (principal); M54.2 Cervicalgia; R51.9 Headache, unspecified
CPT/HCPCS: 72050

== ENCOUNTER → 2020-09-05 | Outpatient (CLI) | payer MEDICARE, OTHER ==
--- NOTE | 2020-09-05 11:13 | MR ---
EXAMINATION TYPE: MR cervical spine wo con DATE OF EXAM: 09/05/2020 COMPARISON: Prior cervical MRI 02/16/2017 HISTORY: cervicalgia TECHNIQUE: Multiplanar, multisequence images of the cervical spine were acquired. C2-C3: No evidence for degenerative disc disease. No disc bulge/herniation or protrusion. No Canal stenosis. Foramina are patent bilaterally. C3-C4: Posterior extension endplate disc complex causes anterior mass effect on the thecal sac as on prior, no significant spinal stenosis. There is bilateral foraminal encroachment due to uncovertebral joint hypertrophy and facet arthropathy similar to prior exam. C4-C5: Posterior extension endplate disc complex causes anterior mass effect on the thecal sac, mild to moderate spinal stenosis, there is foraminal encroachment right greater than left similar to prior exam. C5-C6: Left-sided foraminal encroachment is present greater than right. Posterior extension endplate disc complex causes mild anterior mass effect on the thecal sac. No significant spinal stenosis. C6-C7: Posterior extension endplate disc complex causes mild anterior mass effect on the thecal sac, mild spinal stenosis. Foraminal encroachment is present due to uncovertebral joint hypertrophy on the left. No significant spinal stenosis. C7-T1: No evidence for degenerative disc disease. No disc bulge/herniation or protrusion. No Canal stenosis. Foramina are patent bilaterally. Cervical segments are intact. There is normal alignment. Thoracic scoliosis may be present as on lilian or exam. There is multilevel spondylosis. Loss of disc height signal is present at intervertebral lev els, there are endplate discogenic marrow signal changes. Cervical spinal cord is of normal signal. Craniovertebral junction relationships are within normal limits. Multiple T2 bright foci scattered w ithin the thyroid gland. Largest on the right measures approximately 8 mm. IMPRESSION: Essentially stable degenerative disc disease, multilevel foraminal encroachment. Spinal curvature is again seen.
== END | disposition home or self-care (01) ==
LOC: RADMRIMAIN 09:42
PROVIDERS: ATTEND Orthopaedic Surgery Orthopaedic Surgery of the Spine
DX: M50.10 Cervical disc disorder with radiculopathy, unspecified cervical region (principal); M43.8X2 Other specified deforming dorsopathies, cervical region
CPT/HCPCS: 72141

== ENCOUNTER → 2020-11-24 | Outpatient (CLI) | payer MEDICARE, OTHER ==
[2020-11-24 13:58] VITALS: BP 129/80; PULSE 74; RESP 18; TEMP 98.7
--- NOTE | 2020-11-24 14:08 | P.CONS ---
History of Present Illness - Reason for Consult Consult date: 11/24/20 - Chief Complaint Left-sided headache - History of Present Illness This is a 39-year-old lady with history of left sided headach for the last 6 months. 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 She describes her headache now as sharp and throbbing only on the left side of her head. It starts in the occipital area and goes all the way to the front to behind her left eye and causes and blackout of vision in the left eye as she states. This vision problem continues for a few seconds only however the headache is constant day long and it does wake the patient up at night. It fluctuates in intensity and weight is at 5 or below out of 10 in intensity the patient is able to tolerated. She only takes [id number] medications for this headache. The patient was referred to our clinic by her neurologist for a trial of left occipital nerve block. 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 History of Any Multi-Drug Resistant Organisms: None Reported Past Surgical History: Cholecystectomy, Hernia Repair, Tubal Ligation, Uterine Ablation Additional Past Surgical History / Comment(s): 3 brain surgeries at [facility], 2 umb hernia. uterine ablation with novasure. EGD, COLONOSCOPY. 01/08/19 ozzy Past Anesthesia/Blood Transfusion Reactions: No Reported Reaction Past Psychological History: Anxiety, Bipolar, Depression Smoking Status: Current every day smoker Past Alcohol Use History: None Reported Additional Past Alcohol Use History / Comment(s): smokes 3 cigarettes daily, on and off from age 23 Past Drug Use History: Marijuana Additional Drug Use History / Comment(s): DAILY USE - Past Family History Mother Family Medical History: Cancer Additional Family Medical History / Comment(s): Breast/Cervical Cancer Medications and Allergies Home Medications Medication Instructions Recorded Confirmed Type lamoTRIgine [LaMICtal] 100 mg PO BID 01/12/17 11/21/20 History Albuterol Inhaler (Mhu) [Ventolin 1 - 2 puff INHALATION RT-Q6H PRN 01/03/19 11/21/20 History Hfa Inhaler] traZODone HCL 50 mg PO HS 01/03/19 11/21/20 History FLUoxetine HCL [PROzac] 20 mg PO DAILY 11/21/20 11/21/20 History Allergies Allergy/AdvReac Type Severity Reaction Status Date / Time cat dander Allergy Mild Itching Verified 11/21/20 15:28 eyes, runny nose seasonal Allergy Mild Itching Uncoded 11/21/20 15:28 eyes, runny nose Physical Exam Vitals: Vital Signs Temp Pulse Resp BP Pulse Ox 11/24/20 13:54 98.7 F 74 18 129/80 100 - Constitutional General appearance: average body habitus - EENT Eyes: PERRLA - Neurologic Decreased muscle strength to 4 out of 5 in the right arm and right leg in the major muscle groups compared to the left side. Mild tenderness in the cervical paravertebral musculature and also in the left occipital area. Neurologic: CNII-XII intact - Psychiatric Psychiatric: A&O x's 3, appropriate affect, intact judgment & insight Results Results: The cervical spine MRI showed degenerative changes and multilevel neural foraminal stenosis. Assessment and Plan Plan: This is a 39-year-old lady with left-sided headache possibly due to left occipital neuralgia. The patient has history of brain abscess and drainage of the left side which resulted in right hemiparesis. The patient may benefit from getting a left occipital nerve block with IV sedation due to her history of anxiety. The procedure was explained to the patient and her questions were answered. I thank you for the referral
== END | disposition home or self-care (01) ==
LOC: PNWHC3 13:44
PROVIDERS: ATTEND Anesthesiology
DX: M54.81 Occipital neuralgia (principal); K21.9 Gastro-esophageal reflux disease without esophagitis; J45.909 Unspecified asthma, uncomplicated; F31.9 Bipolar disorder, unspecified; F41.9 Anxiety disorder, unspecified; F17.200 Nicotine dependence, unspecified, uncomplicated; Z86.73 Personal history of transient ischemic attack (TIA), and cerebral infarction without residual deficits
CPT/HCPCS: 99211

== ENCOUNTER 2020-12-09 12:05 | Day surgery (SDC) | payer MEDICARE, OTHER ==
[2020-11-28 15:01] VITALS: BMI 26.2
[2020-12-09 12:28] VITALS: TEMP 97.8
[2020-12-09] MEDS ORDERED: LACTATED RINGERS 1,000 ML IV ONE (12:29)
[2020-12-09] MEDS ORDERED: LIDOCAINE 1% (10MG/ML) FOR IV START INTRADERMA ONE (12:29)
[2020-12-09] MEDS ORDERED: fentaNYL (PF) 50 MCG/ML 2 ML AMP ONE (12:55)
[2020-12-09] MEDS ORDERED: ROPIVACAINE 5MG/ML 20ML VIAL ONE (12:55)
[2020-12-09] MEDS ORDERED: MIDAZOLAM 2 MG/2 ML VIAL ONE (12:55)
[2020-12-09] MEDS ORDERED: methylPREDNISolone ACETATE 40 MG/ML 1 ML VIAL ONE (12:55)
--- NOTE | 2020-12-09 13:06 | P.PCN ---
Date of Procedure: 12/09/20 Procedure(s) Performed: Preoperative diagnoses= 1-left Greater occipital neuralgia Postoperative diagnoses= same as preoperative diagnosis. Procedure= left Greater occipital nerve block Anesthesia= moderate sedation with Versed 1 mg and fentanyl 50 micrograms . Estimated blood loss=minimal. Procedure indication= the patient had a history of severe chronic neck pain ,and headache, diagnosed with occipital neuralgia exam was positive for severe tenderness over the occipital nerve bilaterally, she will be a good candidate occipital nerve block, patient failed conservative management Procedure description= the patient was seen and identified in the preoperative holding area, risks and benefits and alternative of the procedure and possible complications discussed with the patient, and he agreed with the preceding, patient signed the consent, an IV was started, and vital signs were monitored a nd were stable throughout the procedure, patient was placed in the sitting position or table and the neck area was prepped and draped with a sterile fashion, vital signs were closely monitored during the procedure, 25-gauge needle advanced 1 inch lateral to the occipital protuberance on the left side, at the location of the left occipital nerve , then after negative aspiration for heme and CSF and there was no paresthesia during the injection, 6 ml of Robivacaine 0.5% and 40 mg of Depo-Medrol injected after negative aspiration, the needle removed. Patient tolerated the procedure well without any complication, The patient returned to supine position after the back was cleaned and a Band- Aid applied, the patient transported to recovery room in stable condition and he was monitored for 30 minutes before he was discharged home and then patient was reexamined before going home and patient was discharged in stable condition and patient will follow up with the pain clinic in a few weeks.
[2020-12-09] MEDS ORDERED: LACTATED RINGERS 1,000 ML IV SCH (13:07)
[2020-12-09] MEDS ORDERED: IV FLUID CONTINUATION 800 ML IV ONE (13:07)
[2020-12-09 13:09] VITALS: RESP 16
[2020-12-09 13:29] VITALS: BP 98/65; PULSE 57
== END 2020-12-09 13:42 | disposition home or self-care (01) ==
LOC: ORPAIN 12:05
PROVIDERS: ATTEND Specialist
DX: M54.81 Occipital neuralgia (principal); Z91.048 Other nonmedicinal substance allergy status
CPT/HCPCS: 81025; 64405; J2250; J1030; J3010; J2795

== ENCOUNTER → 2020-12-26 | Outpatient (CLI) | payer MEDICARE, OTHER ==
--- NOTE | 2020-12-26 11:21 | FL ---
EXAMINATION TYPE: FL barium swallow w video DATE OF EXAM: 12/26/2020 MODIFIED SWALLOW / DEGLUTITION STUDY CLINICAL HISTORY: Dysphagia. TECHNIQUE: Deglutition study is performed utilizing thin liquid barium, honey and nectar thick liqui d barium, barium thick applesauce, and barium coated cracker. COMPARISON: None. FINDINGS: The oral and pharyngeal phases show satisfactory initiation and propagation with all modali ties tested. Normal mastication is seen with solid modalities tested. There is no evidence of penet ration or aspiration with any modality tested. No significant pharyngeal residue was appreciated. IMPRESSION: Normal deglutition study. Please refer to speech therapist notes for further details if necessary.
== END | disposition home or self-care (01) ==
LOC: RADFLMAIN 10:08
PROVIDERS: ATTEND Psychiatry & Neurology Neurology
DX: R13.19 Other dysphagia (principal)
CPT/HCPCS: 74230

== ENCOUNTER 2020-12-30 09:50 | Day surgery (SDC) | payer MEDICARE, OTHER ==
[2020-12-26 14:56] VITALS: BMI 26.2
[~2020-12-30 09:50] MED LIST changes: -DEXAMETHASONE SOD PHOSPHATE 10 MG/ML 1 ML VIAL IV ONE; -HEPARIN SODIUM,PORCINE 5,000 UNIT/ML 1 ML VIAL SQ ONE; -MIDAZOLAM 2 MG/2 ML VIAL IV PRN; -ONDANSETRON 4 MG/2 ML VIAL IVP ONE; -SCOPOLAMINE 1.5MG/72HR PATCH TRANSDERM ONE; -ceFAZolin IN SWFI 2 GM/20 ML SYRINGE IVP ONE
[2020-12-30 10:25] VITALS: RESP 16; TEMP 98
[2020-12-30] MEDS ORDERED: LIDOCAINE 1% (10MG/ML) FOR IV START INTRADERMA ONE (10:27)
[2020-12-30] MEDS ORDERED: ROPIVACAINE 5MG/ML 20ML VIAL ONE (10:32)
[2020-12-30] MEDS ORDERED: MIDAZOLAM 2 MG/2 ML VIAL ONE (10:32)
[2020-12-30] MEDS ORDERED: DEXAMETHASONE SOD PHOSPHATE 10 MG/ML 1 ML VIAL ONE (10:32)
[2020-12-30] MEDS ORDERED: fentaNYL (PF) 50 MCG/ML 2 ML AMP ONE (10:32)
--- NOTE | 2020-12-30 10:40 | P.PCN ---
Date of Procedure: 12/30/20 Surgeon: Tonya Jageer Pathology: none sent Condition: stable Disposition: PACU Description of Procedure: Preoperative diagnoses= 1-left Greater occipital neuralgia Postoperative diagnoses= same as preoperative diagnosis. Procedure= left Greater occipital nerve block Anesthesia= moderate sedation with Versed 1 mg and fentanyl 50 micrograms . Estimated blood loss=minimal. Procedure indication= the patient had a history of severe chronic neck pain ,and headache, diagnosed with occipital neuralgia exam was positive for severe tenderness over the occipital nerve bilaterally, she will be a good candidate occipital nerve block, patient failed conservative management Procedure description= the patient was seen and identified in the preoperative holding area, risks and benefits and alternative of the procedure and possible complications discussed with the patient, and he agreed with the preceding, patient signed the consent, an IV was started, and vital signs were monitored and were stable throughout the procedure, patient was placed in the sitting position or table and the neck area was prepped and draped with a sterile fashion, vital signs were closely monitored during the procedure, 25-gauge needle advanced 1 inch lateral to the occipital protuberance on the left side, at the location of the left occipital nerve , then after negative aspiration for heme and CSF and there was no paresthesia during the injection, 2 ml of Robivacaine 0.5% and 10 mg of dexamethasone injected after negative aspiration, the needle removed. Patient tolerated the procedure well without any complication, The patient returned to supine position after the back was cleaned and a Band- Aid applied, the patient transported to recovery room in stable condition and he was monitored for 30 minutes before he was discharged home and then patient was reexamined before going home and patient was discharged in stable condition and patient will follow up with the pain clinic in a few weeks.
[2020-12-30] MEDS ORDERED: IV FLUID CONTINUATION 1,000 ML IV ONE (10:45)
[2020-12-30 11:05] VITALS: BP 114/74; PULSE 75
== END 2020-12-30 11:10 | disposition home or self-care (01) ==
LOC: ORPAIN 09:50
PROVIDERS: ATTEND Anesthesiology
DX: G89.29 Other chronic pain (principal); M54.81 Occipital neuralgia
CPT/HCPCS: 81025; 64405; J2250; J1100; J3010; J2795

== ENCOUNTER 2021-02-11 16:50 | Emergency (ER) | payer MEDICARE, OTHER ==
[2021-02-11 17:02] VITALS: BP 122/81; PULSE 70; RESP 20; TEMP 98
[2021-02-11] MEDS ORDERED: MORPHINE SULFATE 4 MG/ML SYRINGE IV STA (17:09)
[2021-02-11] MEDS ORDERED: diphenhydrAMINE 50 MG/ML 1 ML VIAL IVP STA (17:09)
[2021-02-11] MEDS ORDERED: SODIUM CHLORIDE 0.9% 1,000 ML IV STA (17:09)
[2021-02-11] MEDS ORDERED: METOCLOPRAMIDE 5 MG/ML 2 ML VIAL IVP STA (17:09)
--- NOTE | 2021-02-11 17:11 | ED ---
Headache HPI - General Chief Complaint: Headache Stated Complaint: migraine Time Seen by Provider: 02/11/21 17:05 Source: patient, family, RN notes reviewed Mode of arrival: ambulatory Limitations: no limitations - History of Present Illness Initial Comments: Patient is a 40-year-old female that presents to emergency department complaining of migraine. She does have a history of migraines which she does follow-up with her neurologist for. She notes that she does have some photophobia as the light and the hallway does hurt her eyes. She noted she is in 10 out of 10 pain. She notes that it started last night she tried taking Motrin and Excedrin Migraine. She noted that nothing is helping the pain better and light and sound make the pain worse. She notes that about a month since she had a migraine. She denied any chest pain shortness of breath nausea vomiting diarrhea constipation fever fatigue chills. - Related Data Home Medications Medication Instructions Recorded Confirmed lamoTRIgine [LaMICtal] 100 mg PO BID 01/12/17 02/11/21 traZODone HCL 50 mg PO HS 01/03/19 02/11/21 FLUoxetine HCL [PROzac] 20 mg PO DAILY 11/21/20 02/11/21 Varenicline Tartrate [Chantix 1 mg PO BID 11/28/20 02/11/21 Continuing Pack] busPIRone HCl [Buspar] 10 mg PO BID 02/11/21 02/11/21 Allergies Allergy/AdvReac Type Severity Reaction Status Date / Time cat dander AdvReac Mild Itching Verified 02/11/21 18:20 eyes, runny nose seasonal AdvReac Mild Itching Uncoded 02/11/21 18:20 eyes, runny nose Review of Systems ROS Statement: Those systems with pertinent positive or pertinent negative responses have been documented in the HPI. ROS Other: All systems not noted in ROS Statement are negative. 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 HX KIDNEY STONES. HIATAL HERNIA. RT SIDED WEAKNESS. MIGRAINE HEADACHES. History of Any Multi-Drug Resistant Organisms: None Reported Past Surgical History: Cholecystectomy, Hernia Repair, Tubal Ligation, Uterine Ablation Additional Past Surgical History / Comment(s): 3 brain surgeries. 2 umb hernia. uterine ablation with novasure. EGD, COLONOSCOPY. 01/08/19 ozzy Past Anesthesia/Blood Transfusion Reactions: No Reported Reaction Past Psychological History: Anxiety, Bipolar, Depression Smoking Status: Current every day smoker Past Alcohol Use History: None Reported Past Drug Use History: None Reported - Past Family History Mother Family Medical History: Cancer Additional Family Medical History / Comment(s): Breast/Cervical Cancer. General Exam Limitations: no limitations General appearance: alert, in no apparent distress Head exam: Present: atraumatic, normocephalic, normal inspection Eye exam: Present: normal appearance, PERRL, EOMI. Absent: scleral icterus, conjunctival injection, periorbital swelling ENT exam: Present: normal exam, mucous membranes moist Neck exam: Present: normal inspection Respiratory exam: Present: normal lung sounds bilaterally. Absent: respiratory distress, wheezes, rales, rhonchi, stridor Cardiovascular Exam: Present: regular rate, normal rhythm, normal heart sounds. Absent: systolic murmur, diastolic murmur, rubs, gallop, clicks GI/Abdominal exam: Present: soft, normal bowel sounds. Absent: distended, tenderness, guarding, rebound, rigid Extremities exam: Present: normal inspection, full ROM, normal capillary refill. Absent: tenderness, pedal edema, joint swelling, calf tenderness Neurological exam: Present: alert, oriented X3, CN II-XII intact Psychiatric exam: Present: normal affect, normal mood Skin exam: Present: warm, dry, intact, normal color. Absent: rash Course Vital Signs 02/11/21 17:00 Temperature 98 F Pulse Rate 70 Respiratory 20 Rate Blood Pressure 122/81 O2 Sat by Pulse 97 Oximetry Medical Decision Making - Medical Decision Making 40-year-old female complaining of migraine for one day. 1 L normal saline, 10 mg of Reglan, 50 mg of Benadryl, 4 mg of morphine ordered. upon re-evaluation pt stated that she feels better and good enough to go home. case discussed with Dr. Paul, pt can discharge home with follow up to Primary Care. Disposition Clinical Impression: Headache, Migraine Disposition: HOME SELF-CARE Condition: Stable Instructions (If sedation given, give patient instructions): Acute Headache (ED ) Additional Instructions: Please return to the Emergency Department if symptoms worsen or any other concerns. follow-up with primary care in 3-5 days. Continue take at home medications as prescribed. Is patient prescribed a controlled substance at d/c from ED?: No Referrals: Pako Garcia DO [Primary Care Provider] - 1-2 days Time of Disposition: 18:24
== END 2021-02-11 18:55 | disposition home or self-care (01) ==
LOC: EC 16:50
DX: G43.909 Migraine, unspecified, not intractable, without status migrainosus (principal); F17.200 Nicotine dependence, unspecified, uncomplicated; J45.909 Unspecified asthma, uncomplicated; M19.90 Unspecified osteoarthritis, unspecified site; F32.9 Major depressive disorder, single episode, unspecified; F41.9 Anxiety disorder, unspecified; Z86.73 Personal history of transient ischemic attack (TIA), and cerebral infarction without residual deficits; Z87.442 Personal history of urinary calculi; Z90.09 Acquired absence of other part of head and neck; Z98.51 Tubal ligation status
CPT/HCPCS: 99283; 96374; 96375 ×2; 96361; J2270; J1200; J2765

== ENCOUNTER → 2021-03-09 | Outpatient (CLI) | payer MEDICARE, OTHER ==
--- NOTE | 2021-03-09 09:55 | P.PN ---
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 and surgical interventions to remove the brain abscesses, which was happening more than 5 years ago, patient reported that she has some neck pain with neck movement, her MRI of the cervical spine showed multilevel cervical degenerative disc disease and multilevel foraminal stenosis Objective - Vital Signs Vital signs: Vital Signs Temp 98.1 F 03/09/21 09:20 Pulse 77 03/09/21 09:20 Resp 18 03/09/21 09:20 BP 123/79 03/09/21 09:20 Pulse Ox 98 03/09/21 09:20 Intake & Output 03/08/21 03/09/21 03/09/21 18:59 06:59 18:59 Weight 68.039 kg - Exam Physical Examinations : -Constitutiona : Cooperative , not in acute distress . -HEENT : nech : supple , no Lymphadenopathy , normal thyroid size . : eyes : no ptosis , no icterus, no photophobia . - neurologic : Cranial nerve II to XII intact , no focal neurological deffecit . -psychatric : alert , oriented X 3 , appropriate affect , intact judgment and insight . -Lymphatic : no Lymphadenopathy . - musculoskeltal : Cervical Spine motor stregnth in the deltoid and biceps, 3-4/5 right side , 5/5 Left side motor stregnth biceps and the wrist extensors 3-4/5 right side ,normal left side . motor stregnth in the triceps muscle . 3-4/5 Right side , normal Left side cervical facet loading test: Positive left side Tenderness over the left occipital nerve Lumber spine moter stegnth lower extremities ,thigh and legs =4/5 Right side , 5/5 Left side Assessment and Plan Plan: Assessment and plan=1-left occipital neuralgia 2-cervicogenic headache. 3-cervical spondylosis. she continued to have severe headache after occipital nerve block Patient will be good candidate to have left side medial branch block at C2, C3 , left third occipital nerve block x2 and possible RFA - PQRS measures = - Patient's medications are documented in the chart. -Tobacco use is positive ,and counseling.Given. -Patient's has not received pneumococcal vaccine. -Advanced care planning discussed, patient not eligible. -Opiate contract not signed. -Pain positive and follow-up visit/procedure is scheduled. -Patient's blood pressure measured [123/79 ] , and documented in the record ,and patient will follow up with the primary care. -Patient's weight was measured and body mass index [ 26,2 ] above the,normal limits and counseling was done. and patient instructed to follow-up with the primary care physician. -Patient was not identified as an unhealthy alcohol user Time with Patient: Less than 30
== END ==
CPT/HCPCS: 99211

== ENCOUNTER 2021-03-24 07:41 | Day surgery (SDC) | payer MEDICARE, OTHER ==
[2021-03-20 15:59] VITALS: BMI 26.2
[2021-03-24 08:06] VITALS: TEMP 97.7
[2021-03-24] MEDS ORDERED: DEXAMETHASONE SOD PHOSPHATE 10 MG/ML 1 ML VIAL ONE (08:19)
[2021-03-24] MEDS ORDERED: ROPIVACAINE 5MG/ML 20ML VIAL ONE (08:19)
[2021-03-24] MEDS ORDERED: MIDAZOLAM 2 MG/2 ML VIAL ONE (08:19)
--- NOTE | 2021-03-24 08:41 | P.PCN ---
Date of Procedure: 03/24/21 Surgeon: Tonya Jaeger Pathology: none sent Condition: stable Disposition: PACU Description of Procedure: Pre and Postoperative diagnoses cervicogenic headache Name of procedure: Cervical medial branch block for C2 and C3 and block of the third occipital nerve left side Surgeon:Tonya Jaeger MD Anesthesia: IV moderate conscious sedation with 2 mg of Versed Description of procedure: The patient was seen and identified in the preoperative area. Risks, benefits, complications, and alternatives were discussed with the patient, the patient agreed to proceed with the procedure and signed the consent. IV was started. Vital signs remained stable throughout the procedure. Patient was taken to the OR and time out was completed. The patient was placed in the supine position on the procedure table. . The cervical area was prepped with chloraprep and draped in the usual sterile fashion. Critical pause was taken. Vital signs were closely monitored during the procedure. Conscious sedation was used during the procedure to decrease patients anxiety. The lateral view of fluoroscopy was used to identify the C2 and C3 trapezoid shaped cervical articular pillars and the target points were the center of the articular pillars . I used 25-gauge 3-1/2 inch Quincke spinal needle to go through the skin after localizing it with lidocaine 1% and to contact the bone at the above-mentioned target point then the AP view of fluoroscopy was used to verify needle position at the waist of the C2 and C3 vertebral bodies laterally. For the 3rd occipital nerve the target point was at the center of the C2-C3 abelino nt line on the left side . after contacting bone at the target points mentioned above I injected 0.5 MLS of a solution made up off 3 ml of preservative-free Bupivacaine 0.5% mixed with Dexamethasone 10 mg and half ml of the mixture was injected at each level after negative aspiration for blood and CSF. [place] were then removed intact the same procedure was repeated on the left side. COMPLICATIONS: No acute complications. COMMENTS: A copy of needle placement was saved to the C-arm at the radiology department DISPOSITION / PLANS: The patient was placed in a supine position and transferred to the recovery area in a stable condition for observation and was discharged from the recovery room after meeting discharge criteria. Home discharge instructions given to the patient by the staff. The patient was reexamined prior to discharge. The patient will be scheduled for a repeat of this injection in 2- 4 weeks.
[2021-03-24] MEDS ORDERED: IV FLUID CONTINUATION 1,000 ML IV ONE (08:46)
[2021-03-24 08:56] VITALS: RESP 16
--- NOTE | 2021-03-24 09:05 | FL ---
Fluoroscopy HISTORY: Pain 11 seconds fluoroscopy time supplied to the referring clinician. 6 intraoperative C-arm images docum ent the procedure. See dictated report from anesthesia.
[2021-03-24 09:30] VITALS: BP 112/75; PULSE 70
== END 2021-03-24 09:45 | disposition home or self-care (01) ==
LOC: ORPAIN 07:41
PROVIDERS: ATTEND Anesthesiology
DX: G44.89 Other headache syndrome (principal)
CPT/HCPCS: 81025; 64490; J2250; J1100; J2795; 64491; 64492; 99152

== ENCOUNTER 2021-03-28 10:25 | Emergency (ER) | payer MEDICARE, OTHER ==
[2021-03-28 10:32] VITALS: RESP 18; TEMP 98.5
[2021-03-28] MEDS ORDERED: KETOROLAC 15 MG/ML 1 ML VIAL IVP STA (11:00)
[2021-03-28] MEDS ORDERED: SODIUM CHLORIDE 0.9% 1,000 ML IV STA (11:00)
[2021-03-28] MEDS ORDERED: diphenhydrAMINE 50 MG/ML 1 ML VIAL IVP STA (11:00)
[2021-03-28] MEDS ORDERED: ONDANSETRON 4 MG/2 ML VIAL IVP STA (11:01)
--- NOTE | 2021-03-28 11:25 | ED ---
Headache HPI - General Chief Complaint: Headache Stated Complaint: Headache Time Seen by Provider: 03/28/21 10:48 Mode of arrival: ambulatory Limitations: no limitations - History of Present Illness Initial Comments: Patient is a 40-year-old female with history of migraines, presenting to the emergency Department with complaints of a migraine for the past 5 days. She states she has been getting neck injections to help improve her migraines from the pain clinic. Her last one was on 03/24/2021. She states ever since then she's had a headache that cannot go away. She tried [id number] medications without improvement. She does admit to some nausea and vomiting, light sensitivity. She denies any fevers or chills. She states this does feel like her regular migraines. She denies any falls or trauma. She has no further complaints at this time. Upon arrival to the ER, her vitals are stable. - Related Data Home Medications Medication Instructions Recorded Confirmed lamoTRIgine [LaMICtal] 100 mg PO BID 01/12/17 03/20/21 traZODone HCL 50 mg PO HS 01/03/19 03/20/21 FLUoxetine HCL [PROzac] 20 mg PO DAILY 11/21/20 03/20/21 busPIRone HCl [Buspar] 10 mg PO BID 02/11/21 03/20/21 Albuterol Inhaler [Ventolin Hfa 2 puff INHALATION RT-QID PRN 03/20/21 03/24/21 Inhaler] Ibuprofen [Motrin Ib] 600 mg PO Q8H PRN 03/20/21 03/24/21 Allergies Allergy/AdvReac Type Severity Reaction Status Date / Time cat dander AdvReac Mild Itching Verified 03/28/21 10:32 eyes, runny nose seasonal AdvReac Mild Itching Uncoded 03/28/21 10:32 eyes, runny nose Review of Systems ROS Statement: Those systems with pertinent positive or pertinent negative responses have been documented in the HPI. ROS Other: All systems not noted in ROS Statement are negative. 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 Hx kidney stones. Hx hiatal hernia repair, has pain, occ food gets stuck. Migraine HARKINS. Cervical DDD, bone spurs; NT Lt arm to fingers. History of Any Multi-Drug Resistant Organisms: None Reported Past Surgical History: Cholecystectomy, Hernia Repair, Tubal Ligation, Uterine Ablation Additional Past Surgical History / Comment(s): 3 brain surgeries. 2 umb hernia. uterine ablation with novasure - in late 20's, no menses since. EGD, COLONOSCOPY. 01/08/19 ozzy. Mult pain proc Past Anesthesia/Blood Transfusion Reactions: No Reported Reaction Past Psychological History: Anxiety, Bipolar, Depression Smoking Status: Current every day smoker Past Alcohol Use History: None Reported Past Drug Use History: Marijuana - Past Family History Mother Family Medical History: Cancer Additional Family Medical History / Comment(s): Breast/Cervical Cancer. General Exam - General Exam Comments Initial Comments: GENERAL: Patient is well-developed and well-nourished. Patient is nontoxic and in mild distress. HEAD: Atraumatic, normocephalic. EYES: Pupils equal round and reactive to light, extraocular movements intact, sclera anicteric, conjunctiva are normal. Eyelids were unremarkable. Light sensitive ENT: TMs normal, nares patent, oropharynx clear without exudates. Moist mucous membranes. NECK: Normal range of motion, supple without lymphadenopathy or JVD. LUNGS: Unlabored respirations. Breath sounds clear to auscultation bilaterally and equal. No wheezes rales or rhonchi. HEART: Regular rate and rhythm without murmurs, rubs or gallops. ABDOMEN: Soft, nontender, normoactive bowel sounds. No guarding, no rebound. No masses appreciated. : Deferred MUSCULOSKELETAL: Normal extremities with adequate strength and normal range of motion, no pitting or edema. No clubbing or cyanosis. NEUROLOGICAL: Patient is alert and oriented x 3. Motor and sensory are also intact. Cranial nerves II through XII grossly intact. Symmetrical smile. Normal speech, normal gait. PSYCH: Normal mood, normal affect. SKIN: Warm, Dry, normal turgor, no rashes or lesions noted. Limitations: no limitations Course Vital Signs 03/28/21 03/28/21 10:29 13:31 Temperature 98.5 F Pulse Rate 61 53 L Respiratory 18 18 Rate Blood Pressure 131/88 116/79 O2 Sat by Pulse 99 98 Oximetry Medical Decision Making - Medical Decision Making Patient is a 40-year-old female with history of migraines, presenting with headache for the past 5 days. She recently had a cervical injection with the pain clinic on 03/24/2021. She's had multiple of these. Her vitals are stable, exam reveals no acute neuro deficits. This migraine does feel similar to her previous migraines. She received fluids, pain medicines, she does report mild improvement in her symptoms. She is stable for discharge, recommended following up with the pain clinic on Tuesday. She is in agreement this plan of care. Return parameters were discussed with her and she verbalized understanding. Case discussed with Dr. Hernandez. Disposition Clinical Impression: Headache Disposition: HOME SELF-CARE Condition: Stable Instructions (If sedation given, give patient instructions): Acute Headache (ED) Additional Instructions: Please return to the Emergency Department if symptoms worsen or any other concerns. Follow-up with pain clinic on Tuesday as discussed. Rest, increase your fluids. Is patient prescribed a controlled substance at d/c from ED?: No Referrals: Pako Garcia DO [Primary Care Provider] - 1-2 days Time of Disposition: 14:00
[2021-03-28] MEDS ORDERED: MORPHINE SULFATE 4 MG/ML SYRINGE IVP STA (12:10)
[2021-03-28] MEDS ORDERED: HYDROmorphone 0.5 MG/0.5 ML SYRINGE IVP STA (12:53)
[2021-03-28] MEDS ORDERED: PANTOPRAZOLE 40 MG/10 ML VIAL IVP STA (12:54)
[2021-03-28 13:32] VITALS: BP 116/79; PULSE 53
== END 2021-03-28 14:26 | disposition home or self-care (01) ==
LOC: EC 10:25
DX: G43.909 Migraine, unspecified, not intractable, without status migrainosus (principal); J45.909 Unspecified asthma, uncomplicated; K21.9 Gastro-esophageal reflux disease without esophagitis; M19.90 Unspecified osteoarthritis, unspecified site; F31.9 Bipolar disorder, unspecified; F41.9 Anxiety disorder, unspecified; F17.200 Nicotine dependence, unspecified, uncomplicated; F12.90 Cannabis use, unspecified, uncomplicated; Z79.1 Long term (current) use of non-steroidal anti-inflammatories (NSAID); Z79.51 Long term (current) use of inhaled steroids; Z79.899 Other long term (current) drug therapy; Z86.73 Personal history of transient ischemic attack (TIA), and cerebral infarction without residual deficits
CPT/HCPCS: 96374; 96375 ×5; 96361 ×2; 99283; J2270; J1200; J2405; J1885; C9113; J1170

== ENCOUNTER 2021-04-07 08:36 | Day surgery (SDC) | payer MEDICARE, OTHER ==
[2021-04-01 16:10] VITALS: BMI 26.2
[2021-04-07 08:54] VITALS: TEMP 97.5
[2021-04-07] MEDS ORDERED: fentaNYL (PF) 50 MCG/ML 2 ML AMP ONE (09:04)
[2021-04-07] MEDS ORDERED: ROPIVACAINE 5MG/ML 20ML VIAL ONE (09:04)
[2021-04-07] MEDS ORDERED: methylPREDNISolone ACETATE 40 MG/ML 1 ML VIAL ONE (09:04)
[2021-04-07] MEDS ORDERED: MIDAZOLAM 2 MG/2 ML VIAL ONE (09:04)
[2021-04-07] MEDS ORDERED: LACTATED RINGERS 600 ML IV ONE (09:24)
[2021-04-07] MEDS ORDERED: IV FLUID CONTINUATION 600 ML IV ONE (09:24)
--- NOTE | 2021-04-07 09:26 | P.PCN ---
Date of Procedure: 04/07/21 Procedure(s) Performed: PREOPERATIVE DIAGNOSIS: 1- Cervical Spondylosis with Facet Arthropathy.without myelopathy. 2-cervicogenic headache. 3-occipital neuralgia POSTOPERATIVE DIAGNOSIS: Same as preop diagnosis. PROCEDURES: Diagnostic , left C2 C3, medial branch blocks, with fluoroscopic guidance (fluoroscopy images available in radiology department ) Left third occipital nerve block under fluoroscopy guidance ANESTHESIA: moderate sedation with Versed 2 mg , and fentanyl 100 micrograms EBL: Minimal PROCEDURE INDICATION: The patient with neck pain secondary to cervical arthropathy unresponsive to more conservative treatments. PROCEDURE DESCRIPTION / TECHNIQUE: The patient was seen and identified in the preoperative area. Risks, benefits, complications, and alternatives were discussed with the patient, the patient agreed to proceed with the procedure and signed the consent. IV was started. Vital signs remained stable throughout the procedure. Patient was taken to the OR and time out was completed. The patient was placed in the prone position on the procedure table. A pillow was placed under the marianne ents chest to increase the cervical interlaminar space. The cervical area was prepped and draped in the usual sterile fashion. Critical pause was taken. Vital signs were closely monitored during the procedure. Conscious sedation was used during the procedure to decrease patients anxiety. Using cross-table lateral fluoroscopy, the centroid of the trapezoid of Left C2 , C3, was identified, marked, and localized with 1% lidocaine 1 ml at each level for skin and Sub Q infiltrations . Subsequently, a 25 G each spinal needle was advanced guided by fluoroscopy to the centroid of the trapezoid of left C2 , C3, . Lorman tip position was confirmed at the centroid of the trapezoids of left C2 , C3 , with anteroposterior fluoroscopy. Subsequently, 1 ml of preservative-free Ropivacaine 0.5% mixed with Depo-Medrol 20 mg and half ml of the mixture was injected after negative aspiration for blood and CSF. And to do the left side third occipital nerve block 25-gauge needle advanced slowly under fluoroscopy and placed at the center of the facet joint between the C2 and C3, needle placement confirmed under fluoroscopy didn't after negative aspiration ropivacaine 0.5% half mL and 20 mg of Depo-Medrol injected negative aspiration patient tolerated the procedure well without any complications. COMPLICATIONS: No acute complications. DISPOSITION / PLANS: The patient was placed in a supine position and transferred to the recovery area in a stable condition for observation and was discharged from the recovery room after meeting discharge criteria. Home discharge instructions given to the patient by the staff. The patient was reexamined prior to discharge. The patient will schedule a follow up in the clinic in 2-4 weeks.
[2021-04-07 09:29] VITALS: RESP 16
[2021-04-07 09:49] VITALS: BP 108/70; PULSE 67
--- NOTE | 2021-04-07 11:28 | FL ---
Fluoroscopy HISTORY: Pain 8 seconds fluoroscopy time supplied to the referring clinician. 1 intraoperative C-arm images docume nt the procedure. See dictated report from anesthesia.
== END 2021-04-07 09:53 | disposition home or self-care (01) ==
LOC: ORPAIN 08:36
PROVIDERS: ATTEND Specialist
DX: M47.812 Spondylosis without myelopathy or radiculopathy, cervical region (principal)
CPT/HCPCS: 81025; 64490; 64491; J2250; J1030; J3010; J2795; 99152

== ENCOUNTER → 2021-04-29 | Outpatient (CLI) | payer MEDICARE, OTHER ==
[2021-04-29 10:54] VITALS: BP 113/76; PULSE 82; RESP 16; TEMP 99
--- NOTE | 2021-04-29 10:57 | P.PN ---
Subjective Progress Note Date: 04/29/21 This is a 40-year-old lady with history of occipital headache and possibly cervicogenic headache. The patient did not respond to occipital nerve block on the left side and she received a diagnostic cervical medial branch block for C2 and C3 and third occipital nerve on the left side which decrease the frequency of her headache from a daily occurrence to about 3 times per week. The patient states that she started feeling numbness in her arm which goes to the fingers on the left side in no specific radiculopathic distribution after her second diagnostic cervical medial branch block. Patient denies new-onset weakness, bowel/bladder incontinence, or any other signs or symptoms of cauda equina syndrome. There are no signs of acute intoxication, and no indications of medication diversion or overuse. In addition to above, 13-point review of systems is also negative for chest pain, shortness of breath, changes in vision, changes in hearing, new onset weakness, abdominal pain, diarrhea, extreme fatigue, malaise, fever, skin changes, homicidal or suicidal ideation, or bowel or bladder incontinence. Vital Signs: Reviewed in EMR Gen: AAOx3, NAD HEENT: PERRLA,hearing grossly normal Pulm: resp unlabored Neck: supple, trachea midline Neuro exam of the upper extremities: Hyperreactive reflexes bilaterally and symmetrically. Normal muscle strength bilaterally and symmetrically. Straight leg raising test: Jaime's test: Range of motion of the lumbar spine: Facet loading test: Tenderness in the paravertebral musculature: Positive in the cervical and occipital area on the left side Neuro: CN II-XII grossly intact, Imaging: Reviewed in EMR/chart Assessment: Cervicogenic headache Cervical spondylosis without myelopathy Left cervical radiculopathy Plan: 1. Explanation: When patients on opioids, opioid and psychological risk scores were reviewed. Diagnoses, prognoses, and multiple treatment options including but not limited to physical therapy, interventional therapies, adjuvant medical therapies, narcotic medication therapies, and surgery were discussed with the patient and all questions were answered to the patient's satisfaction. 2. Opioid agreement:When patients are prescribed opoids through our clinic, opioid agreement is signed with the patient and the patient is warned not to use opioids while driving or before driving and not to combine opioids with benzodiazepines or alcohol. 3. Counseling: When patient is smoking or obese, the patient was counseled extensively on SMOKING CESSATION, BODY MASS INDEX, EXERCISE. Specifically, the patient was instructed regarding the importance of smoking cessation, obesity, and exercise in the context of both chronic pain and overall health. 4. Procedures: None at this point 5. Consultations: The patient is referred by her neurologist to the physician at [facility] neurologic department and we will await his input. She might need to have an EMG on the left upper extremity as a workup for her newly developed numbness in the left hand. This new paresthesia in the left hand might be either to advancement in the the degenerative process in her cervical spine or due to the last medial branch block on the left side however I told the patient that if this is due to the procedure, most likely it will get better over the next few months. 6. Investigations: None 7. Medications: None prescribed 8. Disposition: Return to clinic in a few weeks after her consultation with [facility] in neurologist 9. Maps were reviewed and were appropriate.
== END ==
LOC: PNWHC3 10:21
PROVIDERS: ATTEND Anesthesiology
DX: R51.9 Headache, unspecified (principal); M47.22 Other spondylosis with radiculopathy, cervical region; J30.2 Other seasonal allergic rhinitis; Z91.09 Other allergy status, other than to drugs and biological substances
CPT/HCPCS: 99211

== ENCOUNTER 2021-11-20 15:25 | Emergency (ER) | payer MEDICARE, OTHER, BC ==
[2021-11-20 15:32] VITALS: RESP 18; TEMP 98.2
[2021-11-20] MEDS ORDERED: HYDROmorphone 1 MG/ML 1 ML SYRINGE IVP STA (16:41)
--- NOTE | 2021-11-20 16:44 | ED ---
Fall HPI - General Chief Complaint: Fall Stated Complaint: Fall Time Seen by Provider: 11/20/21 16:20 Source: patient Mode of arrival: EMS - History of Present Illness Initial Comments: 40-year-old female history of cervical fusion in September of this past year who states she slipped and fell on ice around 130s afternoon she states she fell backwards and hit her head she complains some left occipital head pain as well as neck pain. She had no loss of consciousness she denies any blurry vision loss of function to her upper or lower extremities. No nausea no vomiting she did have pain medication in route by paramedics. She also additionally complains some posterior left shoulder pain no obvious deformity was reported. MD Complaint: fall - Related Data Home Medications Medication Instructions Recorded Confirmed lamoTRIgine [LaMICtal] 200 mg PO BID 01/12/17 11/20/21 busPIRone HCl [Buspar] 10 mg PO HS 02/11/21 11/20/21 FLUoxetine HCL [PROzac] 40 mg PO DAILY 11/20/21 11/20/21 Naproxen Sodium [Aleve] 440 mg PO DAILY PRN 11/20/21 11/20/21 Allergies Allergy/AdvReac Type Severity Reaction Status Date / Time cat dander AdvReac Mild Itching Verified 11/20/21 16:49 eyes, runny nose seasonal AdvReac Mild Itching Uncoded 11/20/21 16:49 eyes, runny nose Review of Systems ROS Statement: Those systems with pertinent positive or pertinent negative responses have been documented in the HPI. ROS Other: All systems not noted in ROS Statement are negative. 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 Hx kidney stones. Hx hiatal hernia repair, has pain, occ food gets stuck. Migraine HARKINS. Cervical DDD, bone spurs; NT Lt arm to fingers. History of Any Multi-Drug Resistant Organisms: None Reported Past Surgical History: Cholecystectomy, Hernia Repair, Tubal Ligation, Uterine Ablation Additional Past Surgical History / Comment(s): 3 brain surgeries. 2 umb hernia. uterine ablation with novasure - in late , no menses since. EGD, COLONOSCOPY. 01/08/19 ozzy. Mult pain proc Past Anesthesia/Blood Transfusion Reactions: No Reported Reaction Past Psychological History: Anxiety, Bipolar, Depression Smoking Status: Current every day smoker Past Alcohol Use History: None Reported Past Drug Use History: Marijuana - Past Family History Mother Family Medical History: Cancer Additional Family Medical History / Comment(s): Breast/Cervical Cancer. General Exam - General Exam Comments Initial Comments: This is a well-developed well-nourished awake alert oriented 3 female. She demonstrates a Susana Coma Scale of 15 Limitations: no limitations General appearance: alert, anxious Head exam: Present: other (Tennis palpation over the left occipital scalp with evidence of a scalp hematoma no step-off no crepitation) Eye exam: Present: normal appearance, PERRL, EOMI. Absent: scleral icterus, co njunctival injection, periorbital swelling ENT exam: Present: normal exam, mucous membranes moist Neck exam: Present: normal inspection, other (Cervical collar in place and tenderness palpation of the paraspinous muscles no definitiveTenderness. No anterior tenderness). Absent: tenderness, meningismus, lymphadenopathy Respiratory exam: Present: normal lung sounds bilaterally. Absent: respiratory distress, wheezes, rales, rhonchi, stridor Cardiovascular Exam: Present: regular rate, normal rhythm, normal heart sounds. Absent: systolic murmur, diastolic murmur, rubs, gallop, clicks GI/Abdominal exam: Absent: distended, tenderness, guarding, rebound, rigid Rectal exam: Present: deferred Extremities exam: Present: normal inspection, full ROM, normal capillary refill. Absent: tenderness, pedal edema, joint swelling, calf tenderness Back exam: Present: normal inspection Neurological exam: Present: alert, oriented X3, CN II-XII intact Psychiatric exam: Present: normal affect, normal mood Skin exam: Present: warm, dry, intact, normal color. Absent: rash Course Vital Signs 11/20/21 15:28 Temperature 98.2 F Pulse Rate 75 Respiratory 18 Rate Blood Pressure 141/84 O2 Sat by Pulse 97 Oximetry Medical Decision Making - Medical Decision Making I did discuss the findings with the patient she is feeling improved she'll be discharged she does have pain medication at home we did discuss using ice for 24-48 hours over the bruised areas. - Radiology Data Radiology results: report reviewed (Imaging reviewed CT brain and C-spine negative for fractures or internal injuries postsurgical changes noted no acute findings there left shoulder x-ray within normal limits), image reviewed Disposition Clinical Impression: Fall, Scalp contusion Disposition: HOME SELF-CARE Condition: Good Instructions (If sedation given, give patient instructions): Fall Prevention (ED), Scalp Contusion in Adults (ED) Is patient prescribed a controlled substance at d/c from ED?: No Referrals: Pako Garcia DO [Primary Care Provider] - 1-2 days
--- NOTE | 2021-11-20 17:45 | CT ---
EXAMINATION TYPE: CT brain edin pineda DATE OF EXAM: 11/20/2021 COMPARISON: 12/20/2018 CT brain HISTORY: Cervical fusion of C5, C6 and C7 on 09-08-2021, Fall at home today CT DLP: 1292.9 mGycm Automated exposure control for dose reduction was used. Ventricles and sulci appear normal. There is no mass effect or midline shift. There is a 3 cm poorly marginated area of hypodensity in the white matter left parietal lobe consistent with infarct. There is no midline shift. There is no sign of intracranial hemorrhage. Calvarium is intact. There is marjan l aeration of the mastoid sinuses. Skull base is intact. The cervical vertebra show normal alignment. There is anterior fusion surgery with plate and screws a t C5-6 and C6-7. Facet joints are intact. There is no compression fracture. IMPRESSION: Anterior fusion surgery. Mild spondylotic changes. No fracture seen in the cervical spine. Old left parietal white matter infarcts without much change compared to old exam. No hemorrhage. Old left 2 cm insula infarct without change..
--- NOTE | 2021-11-20 19:07 | XR ---
EXAMINATION TYPE: XR shoulder complete LT DATE OF EXAM: 11/20/2021 COMPARISON: NONE HISTORY: Shoulder pain TECHNIQUE: 3 views FINDINGS: The glenohumeral joint is intact. I see no fracture nor dislocation. Scapula is intact. IMPRESSION: Normal left shoulder.
[2021-11-20] MEDS ORDERED: HYDROcodone/APAP 7.5-325MG 1 EACH TAB PO ONE (19:46)
[2021-11-20 20:01] VITALS: BP 117/79; PULSE 62
== END 2021-11-20 21:30 | disposition home or self-care (01) ==
LOC: EC 15:25
DX: S00.03XA Contusion of scalp, initial encounter (principal); J45.909 Unspecified asthma, uncomplicated; Z86.73 Personal history of transient ischemic attack (TIA), and cerebral infarction without residual deficits; M19.90 Unspecified osteoarthritis, unspecified site; F41.9 Anxiety disorder, unspecified; F31.9 Bipolar disorder, unspecified; F17.200 Nicotine dependence, unspecified, uncomplicated; F12.90 Cannabis use, unspecified, uncomplicated; W00.0XXA Fall on same level due to ice and snow, initial encounter
CPT/HCPCS: 73030; 72125; 70450; 99284; 96374; J1170

== ENCOUNTER 2022-03-05 14:50 | Emergency (ER) | payer BC, MEDICARE, OTHER ==
[2022-03-05 14:56] VITALS: BP 121/79; TEMP 98.8
[2022-03-05] MEDS ORDERED: KETOROLAC 15 MG/ML 1 ML VIAL IM STA (15:08)
--- NOTE | 2022-03-05 15:17 | ED ---
Upper Extremity HPI - General Chief Complaint: Extremity Injury, Upper Stated Complaint: L shoulder Injury Time Seen by Provider: 03/05/22 14:58 Source: patient Mode of arrival: ambulatory Limitations: no limitations - History of Present Illness Initial Comments: Patient is a 41-year-old female who presents with right shoulder pain. Patient states on 03/01 she was reaching for something when she fell her shoulder pop out of place. Patient states within seconds it popped back into place. Patient initially did not have pain until the next day when she began experiencing pain in the front of her shoulder. Patient went to [facility] on 03/03 and states x-rays were negative. Patient states they told her to come to our emergency department for MRI. Patient is concerned due to her pain. She states that she was given Holdrege and Motrin 800 which are barely helping her pain. Patient states Motrin 800 is helping her pain more than the Holdrege. Last dose was Motrin this morning around 9 AM. Denies numbness and tingling. - Related Data Home Medications Medication Instructions Recorded Confirmed lamoTRIgine [LaMICtal] 200 mg PO BID 01/12/17 11/20/21 busPIRone HCl [Buspar] 10 mg PO HS 02/11/21 11/20/21 FLUoxetine HCL [PROzac] 40 mg PO DAILY 11/20/21 11/20/21 Naproxen Sodium [Aleve] 440 mg PO DAILY PRN 11/20/21 11/20/21 Allergies Allergy/AdvReac Type Severity Reaction Status Date / Time cat dander AdvReac Mild Itching Verified 03/05/22 14:56 eyes, runny nose seasonal AdvReac Mild Itching Uncoded 03/05/22 14:56 eyes, runny nose Review of Systems ROS Statement: Those systems with pertinent positive or pertinent negative responses have been documented in the HPI. ROS Other: All systems not noted in ROS Statement are negative. 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 Hx kidney stones. Hx hiatal hernia repair, has pain, occ food gets stuck. Migraine HARKINS. Cervical DDD, bone spurs; NT Lt arm to fingers. History of Any Multi-Drug Resistant Organisms: None Reported Past Surgical History: Cholecystectomy, Hernia Repair, Tubal Ligation, Uterine Ablation Additional Past Surgical History / Comment(s): 3 brain surgeries. 2 umb hernia. uterine ablation with novasure - in late 20's, no menses since. EGD, COLONOSCOPY. 01/08/19 ozzy. Mult pain proc Past Anesthesia/Blood Transfusion Reactions: No Reported Reaction Past Psychological History: Anxiety, Bipolar, Depression Smoking Status: Current every day smoker Past Alcohol Use History: None Reported Past Drug Use History: Marijuana - Past Family History Mother Family Medical History: Cancer Additional Family Medical History / Comment(s): Breast/Cervical Cancer. General Exam Limitations: no limitations General appearance: alert, in distress (Crying due to pain) Head exam: Present: atraumatic, normocephalic, normal inspection Eye exam: Present: normal appearance, PERRL, EOMI. Absent: scleral icterus, conjunctival injection, periorbital swelling Neck exam: Present: normal inspection, full ROM. Absent: tenderness Respiratory exam: Present: normal lung sounds bilaterally. Absent: respiratory distress, wheezes, rales, rhonchi, stridor Cardiovascular Exam: Present: regular rate, normal rhythm, normal heart sounds. Absent: systolic murmur, diastolic murmur, rubs, gallop, clicks Right Shoulder Exam: Present: normal inspection, full ROM, tenderness (Anteriorly), tenderness over AC joint. Absent: swelling, abrasion, laceration, ecchymosis, deformity, crepitus, dislocation, erythema Upper Arm exam: Present: normal inspection, full ROM. Absent: tenderness, swelling, abrasion, laceration, deformity, erythema Vascular: Present: normal capillary refill, radial pulse, brachial pulse, ulnar pulse. Absent: vascular compromise, Pallo Back exam: Present: normal inspection Neurological exam: Present: alert, oriented X3, CN II-XII intact Psychiatric exam: Present: normal affect, anxious. Absent: normal mood Course Vital Signs 03/05/22 14:54 Temperature 98.8 F Pulse Rate 108 H Respiratory 20 Rate Blood Pressure 121/79 O2 Sat by Pulse 95 Oximetry Medical Decision Making - Medical Decision Making This is a 41-year-old female who presents with right shoulder pain. Thorough history and examination were performed. Patient is crying which she states is due to pain. Patient was evaluated at [facility] and states x-rays were negative. She was given Holdrege and Motrin 100 which she states that with help her pain. My physical exam reveals tenderness over the anterior shoulder including the AC joint. There is no erythema, swelling, ecchymosis, deformity, or crepitus. I did inform patient that we are not able to perform MRIs in the emergency department and that instead she would have to be referred to an mechanical integrity specialist. Patient states she already has an appointment with an mechanical integrity specialist in 2 weeks therefore does not need referral. I will treat patient's pain. Since patient states Motrin as working better than Holdrege I will trial toradol. On reevaluation patient is still crying in her room. Patient states the Toradol did not help her pain at all. Small dose of Dilaudid given. On reevaluation patient states pain has improved moderately. Patient will be discharged with instruction to follow up at her mechanical integrity specialist appointment in 2 weeks as scheduled. She is instructed to continue to take her Holdrege and Motrin 800 as needed. She is encouraged to use warm compress for pain. Return parameters discussed. Patient verbalizes understanding and is agreeable to this plan. Dr. Caraballo is my attending. Disposition Clinical Impression: Shoulder pain, right Disposition: HOME SELF-CARE Condition: Good Instructions (If sedation given, give patient instructions): Shoulder Pain (ED) Additional Instructions: Please take your previously prescribed Motrin 800 and Holdrege as directed. Apply warm compress for further pain relief. Follow-up with mechanical integrity specialist appointment in 2 weeks as scheduled. Return to the emergency department if you experience new, concerning, or worsening symptoms. Is patient prescribed a controlled substance at d/c from ED?: No Referrals: Pako Garcia DO [Primary Care Provider] - 1-2 days Time of Disposition: 16:24
[2022-03-05] MEDS ORDERED: HYDROmorphone 0.5 MG/0.5 ML SYRINGE IM STA (15:42)
[2022-03-05 17:05] VITALS: PULSE 95; RESP 16
== END 2022-03-05 17:04 | disposition home or self-care (01) ==
LOC: EC 14:50
DX: M25.511 Pain in right shoulder (principal); F17.200 Nicotine dependence, unspecified, uncomplicated; J45.909 Unspecified asthma, uncomplicated; Z86.73 Personal history of transient ischemic attack (TIA), and cerebral infarction without residual deficits; Z91.09 Other allergy status, other than to drugs and biological substances; X50.9XXA Other and unspecified overexertion or strenuous movements or postures, initial encounter
CPT/HCPCS: 99283; 96372; J1885; J1170

== ENCOUNTER 2022-03-22 19:40 | Emergency (ER) | payer BC, MEDICARE, OTHER ==
[2022-03-22 19:48] VITALS: BP 120/83; PULSE 71; RESP 18; TEMP 98
--- NOTE | 2022-03-22 19:53 | ED ---
Lower Extremity Injury HPI - General Chief Complaint: Extremity Injury, Lower Stated Complaint: Right Ankle Fracture Time Seen by Provider: 03/22/22 19:46 Source: patient, RN notes reviewed, old records reviewed Mode of arrival: EMS Limitations: no limitations - History of Present Illness Initial Comments: 40-year-old female presents to the emergency room via EMS with complaints of missing a step and twisting her right ankle. Patient states she was unable to ambulate after the injury. She did not hit her head or loose consciousness. She denies any other injury. EMS did give her IV morphine and splinted the injury prior to arrival. 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 MD Complaint: ankle injury (right), fall (missed a step) -: minutes(s) (30) Severity scale (1-10): 10 Improves With: other (splint, morphine by EMS) Context: fall - Related Data Home Medications Medication Instructions Recorded Confirmed lamoTRIgine [LaMICtal] 200 mg PO BID 01/12/17 11/20/21 busPIRone HCl [Buspar] 10 mg PO HS 02/11/21 11/20/21 FLUoxetine HCL [PROzac] 40 mg PO DAILY 11/20/21 11/20/21 Naproxen Sodium [Aleve] 440 mg PO DAILY PRN 11/20/21 11/20/21 Previous Rx's Medication Instructions Recorded Ibuprofen [Motrin] 600 mg PO Q8HR PRN #30 tab 03/22/22 Allergies Allergy/AdvReac Type Severity Reaction Status Date / Time cat dander AdvReac Mild Itching Verified 03/05/22 14:56 eyes, runny nose seasonal AdvReac Mild Itching Uncoded 03/05/22 14:56 eyes, runny nose Review of Systems ROS Statement: Those systems with pertinent positive or pertinent negative responses have been documented in the HPI. ROS Other: All systems not noted in ROS Statement are negative. 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 Hx kidney stones. Hx hiatal hernia repair, has pain, occ food gets stuck. Migraine HARKINS. Cervical DDD, bone spurs; NT Lt arm to fingers. History of Any Multi-Drug Resistant Organisms: None Reported Past Surgical History: Cholecystectomy, Hernia Repair, Tubal Ligation, Uterine Ablation Additional Past Surgical History / Comment(s): 3 brain surgeries. 2 umb hernia. uterine ablation with novasure - in late 20's, no menses since. EGD, COLONOSCOPY. 01/08/19 ozzy. Mult pain proc Past Anesthesia/Blood Transfusion Reactions: No Reported Reaction Past Psychological History: Anxiety, Bipolar, Depression Smoking Status: Current every day smoker Past Alcohol Use History: None Reported Past Drug Use History: Marijuana - Past Family History Mother Family Medical History: Cancer Additional Family Medical History / Comment(s): Breast/Cervical Cancer. General Exam Limitations: no limitations General appearance: alert, in no apparent distress Head exam: Present: atraumatic Eye exam: Absent: scleral icterus, conjunctival injection, periorbital swelling Neck exam: Present: full ROM. Absent: tenderness, meningismus Respiratory exam: Absent: respiratory distress, accessory muscle use Cardiovascular Exam: Present: regular rate Extremities exam: Present: normal capillary refill Right Ankle exam: Present: tenderness, swelling, ecchymosis, deformity. Absent: full ROM, laceration, crepitus, dislocation Neurovascular tendon exam: Present: no vascular compromise, motor deficit. Absent: abnormal cap refill, extremity cold to touch, pallor Left Ankle exam: Present: abrasion Neurovascular tendon exam: Absent: abnormal cap refill, extremity cold to touch, pallor Back exam: Absent: tenderness, CVA tenderness (R), CVA tenderness (L) Neurological exam: Present: alert, oriented X3 Psychiatric exam: Present: normal affect, normal mood (tearful) Skin exam: Present: warm, dry, normal color. Absent: cyanosis, diaphoretic, petechiae, pallor Course Vital Signs 03/22/22 19:46 Temperature 98.0 F Pulse Rate 71 Respiratory 18 Rate Blood Pressure 120/83 O2 Sat by Pulse 98 Oximetry Medical Decision Making - Medical Decision Making Patient was assessed and treated in triage waiting room. X-ray of the right ankle and tib-fib show no fracture. There is mild soft tissue swelling over the right lateral malleolus. Palpation to the left ankle. She denies any other injury. No loss of consciousness and did not hit her head. Patient was given morphine via EMS. She was directed to rest, ice, elevate and use Motrin or Aleve in addition to Tylenol for pain. Directed to follow-up with her primary care doctor and orthopedics next week. Wear ankle stirrup for support and use crutches to assist with weightbearing. She was instructed to return to the emergency room with any new or concerning symptoms including increased pain or pallor. Patient and family member agreeable to this plan of care. Case discussed with Dr. Bo. Disposition Clinical Impression: Ankle sprain Disposition: HOME SELF-CARE Condition: Good Instructions (If sedation given, give patient instructions): Ankle Sprain (ED) Additional Instructions: Rest, ice, elevate and wear splint until seen by your primary care doctor or orthopedics next week. Return to the emergency room with any new or concerning symptoms including. Use crutches as prescribed. We recommend Tylenol and or Motrin as needed for pain. Do not take Motrin if you are taking Aleve. Prescriptions: Ibuprofen [Motrin] 600 mg PO Q8HR PRN #30 tab PRN Reason: Pain Is patient prescribed a controlled substance at d/c from ED?: No Referrals: Pako Garcia DO [Primary Care Provider] - 1-2 days Finesse Saleh MD [Medical Doctor] - 1-2 days Time of Disposition: 20:42
--- NOTE | 2022-03-22 20:08 | XR ---
EXAMINATION TYPE: XR tibia fibula RT DATE OF EXAM: 03/22/2022 COMPARISON: NONE HISTORY: Pain TECHNIQUE: 2 views FINDINGS: The tibia and fibula appear intact. I see no fracture nor dislocation. The knee joint and a nkle joint appear intact. There appears to be some mild soft tissue swelling over the lateral malleol us of the ankle. IMPRESSION: Mild soft tissue swelling. No fracture seen.
--- NOTE | 2022-03-22 20:09 | XR ---
EXAMINATION TYPE: XR ankle complete RT DATE OF EXAM: 03/22/2022 COMPARISON: NONE HISTORY: Pain TECHNIQUE: 3 views FINDINGS: There is soft tissue swelling over the lateral malleolus. Ankle mortise is anatomic. No fra cture seen. The subtalar joint is intact. IMPRESSION: Lateral soft tissue swelling. No fracture seen.
== END 2022-03-22 21:47 | disposition home or self-care (01) ==
LOC: EC 19:40
DX: S93.401A Sprain of unspecified ligament of right ankle, initial encounter (principal); F17.200 Nicotine dependence, unspecified, uncomplicated; J45.909 Unspecified asthma, uncomplicated; M19.90 Unspecified osteoarthritis, unspecified site; Z91.09 Other allergy status, other than to drugs and biological substances; X50.1XXA Overexertion from prolonged static or awkward postures, initial encounter
CPT/HCPCS: 73590; 73610; 99283; 29515; L4350

== ENCOUNTER 2022-05-09 16:18 | Emergency (ER) | payer BC, MEDICARE, OTHER ==
[2022-05-09 16:32] VITALS: RESP 16
[2022-05-09] MEDS ORDERED: METOCLOPRAMIDE 5 MG/ML 2 ML VIAL IVP STA (16:38)
[2022-05-09] MEDS ORDERED: SODIUM CHLORIDE 0.9% 1,000 ML IV STA (16:38)
[2022-05-09] MEDS ORDERED: diphenhydrAMINE 50 MG/ML 1 ML VIAL IVP STA (16:38)
[2022-05-09] MEDS ORDERED: KETOROLAC 15 MG/ML 1 ML VIAL IVP STA (16:38)
--- NOTE | 2022-05-09 16:41 | ED ---
Headache HPI - General Chief Complaint: Headache Stated Complaint: headache Time Seen by Provider: 05/09/22 16:35 Source: RN notes reviewed Mode of arrival: wheelchair Limitations: no limitations - History of Present Illness Initial Comments: This is a pleasant 41-year-old female with a history of recurrent headaches. States she's had a migraine headache which starts in the occipital region and radiates overhead. His present for 4 days. Patient states he got worse today. Patient has had come to the ER previously for similar headache. Complaining of some nausea but no vomiting. No vision or hearing disturbance. No numbness or tingling. No vertiginous symptoms. No focal weakness. Patient does have right-sided paresis from a previous septic emboli after a dental infection. no fever or chills, no changes in vision or hearing, no sore throat or difficulty with speech, no neck pain, no chest pain or shortness of breath, no abdominal pain, no nausea or vomiting, no changes in urination or bowel movements, no numbness or tingling, no extremity pain, no skin rashes or lesions. Past medical, surgical, social, and family history reviewed. MD Complaint: headache - Related Data Home Medications Medication Instructions Recorded Confirmed lamoTRIgine [LaMICtal] 200 mg PO BID 01/12/17 11/20/21 busPIRone HCl [Buspar] 10 mg PO HS 02/11/21 11/20/21 FLUoxetine HCL [PROzac] 40 mg PO DAILY 11/20/21 11/20/21 Naproxen Sodium [Aleve] 440 mg PO DAILY PRN 11/20/21 11/20/21 Previous Rx's Medication Instructions Recorded Ibuprofen [Motrin] 600 mg PO Q8HR PRN #30 tab 03/22/22 Allergies Allergy/AdvReac Type Severity Reaction Status Date / Time cat dander AdvReac Mild Itching Verified 05/09/22 16:32 eyes, runny nose seasonal AdvReac Mild Itching Uncoded 05/09/22 16:32 eyes, runny nose Review of Systems ROS Statement: Those systems with pertinent positive or pertinent negative responses have been documented in the HPI. ROS Other: All systems not noted in ROS Statement are negative. 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 Hx kidney stones. Hx hiatal hernia repair, has pain, occ food gets stuck. Migraine HARKINS. Cervical DDD, bone spurs; NT Lt arm to fingers. History of Any Multi-Drug Resistant Organisms: None Reported Past Surgical History: Cholecystectomy, Hernia Repair, Tubal Ligation, Uterine Ablation Additional Past Surgical History / Comment(s): 3 brain surgeries. 2 umb hernia. uterine ablation with novasure - in late 20's, no menses since. EGD, COLONOSCOPY. 01/08/19 ozzy. Mult pain proc Past Anesthesia/Blood Transfusion Reactions: No Reported Reaction Past Psychological History: Anxiety, Bipolar, Depression Smoking Status: Current every day smoker Past Alcohol Use History: None Reported Past Drug Use History: Marijuana - Past Family History Mother Family Medical History: Cancer Additional Family Medical History / Comment(s): Breast/Cervical Cancer. General Exam - General Exam Comments Initial Comments: Appears to be in some distress secondary to headache. However cranial nerves II through XII are intact. No evidence of focal deficits other than the patient's pre-existing symptomology. Does not appear to be ill or toxic. Adequately hydrated. Capillary refill less than 2 seconds. Normal color. Limitations: no limitations General appearance: alert, in distress Head exam: Present: atraumatic, normocephalic, normal inspection Eye exam: Present: normal appearance, PERRL, EOMI. Absent: scleral icterus, conjunctival injection, periorbital swelling ENT exam: Present: normal exam, normal oropharynx, mucous membranes moist, TM's normal bilaterally, normal external ear exam Neck exam: Present: normal inspection, full ROM. Absent: tenderness, meningismus, lymphadenopathy Respiratory exam: Present: normal lung sounds bilaterally. Absent: respiratory distress, wheezes, rales, rhonchi, stridor Cardiovascular Exam: Present: regular rate, normal rhythm, normal heart sounds. Absent: systolic murmur, diastolic murmur, rubs, gallop, clicks GI/Abdominal exam: Present: soft, normal bowel sounds. Absent: distended, tenderness, guarding, rebound, rigid Extremities exam: Present: normal inspection, full ROM, normal capillary refill. Absent: tenderness, pedal edema, joint swelling, calf tenderness Back exam: Present: normal inspection Neurological exam: Present: alert, oriented X3, CN II-XII intact, normal gait, other. Absent: altered, motor sensory deficit, reflexes normal Psychiatric exam: Present: normal affect, normal mood Skin exam: Present: warm, dry, intact, normal color. Absent: rash Course Vital Signs 05/09/22 16:30 Temperature 98.1 F Pulse Rate 79 Respiratory 16 Rate Blood Pressure 110/78 O2 Sat by Pulse 99 Oximetry - Reevaluation(s) Reevaluation #1: 05/09/22 17:25 Medical record is reviewed Symptoms are improved here in the emergency department Patient is informed of results and questions answered Patient in no distress Medical Decision Making - Medical Decision Making She presents with headache consistent with what she has felt in the past. No fever. No red flags. Does not appear to be consistent with a thunderclap headache. Does not appear to be consistent with central headache. We'll treat with the migraine cocktail. Does not appear to be infectious etiology. Negative Brudzinski's and Kernig's. His headache resolved at discharge. Patient neurologically intact. Alert and oriented 4. Patient states she is ready to be discharged. Discussed return follow-up parameters in detail. All questions answered. Patient was told to return to the ER for any signs or symptoms worsen. Told to return immediately if any other problems arise. All questions answered. Jose atment plan discussed. Patient in agreement Every effort has been made to ensure accuracy of this dictation. However, due to the limitations of electronic medical records and dictation devices, errors in charting still occur. Dye Operator Dr. Hernandez Disposition Clinical Impression: Headache Disposition: HOME SELF-CARE Condition: Good Instructions (If sedation given, give patient instructions): Acute Headache (ED) Additional Instructions: Follow-up with your regular physician as directed. Return to the ER immediately if any symptoms worsen, new symptoms arise, or any other problems develop. Is patient prescribed a controlled substance at d/c from ED?: No Referrals: Pako Garcia DO [Primary Care Provider] - 1-2 days Time of Disposition: 17:26
[2022-05-09 17:37] VITALS: BP 112/78; PULSE 58; TEMP 97.4
== END 2022-05-09 17:37 | disposition home or self-care (01) ==
LOC: EC 16:18
DX: R51.9 Headache, unspecified (principal); J45.909 Unspecified asthma, uncomplicated; F17.200 Nicotine dependence, unspecified, uncomplicated; Z86.73 Personal history of transient ischemic attack (TIA), and cerebral infarction without residual deficits; Z91.048 Other nonmedicinal substance allergy status
CPT/HCPCS: 99284; 96374; 96375; 96361; J1200; J2765; J1885

== ENCOUNTER → 2022-12-23 | Outpatient (CLI) | payer MEDICARE, OTHER ==
--- NOTE | 2022-12-23 12:14 | CA ---
Exercise Stress Test Report Name: Xenia Patterson Exam Date: 12/23/2022 11:07 Exam Location: [place] Stress Ht (in): 63 Wt (lb): 150 BSA: 1.71 Ordering Phys: Pako Garcia DO Referring Phys: Doreen Saez Technologist: Shade Serrano Age: 42 Gender: F : 1980 Procedure CPT: Indications: r06.02 ICD-10 Codes: Patient History: CHEST PAIN, DIFFICULTY IN BREATHING, PALPITATIONS, FAMILY HX OF HEART DISEASE Medications: Meds past 24 hrs: Pretest Chest Pain: STRESS TEST Deniz Protocol Exercise Duration (min:sec): 07:[address] Depressions (mm): Angina Score: Mukherjee Score: Resting HR (bpm): 83 Peak HR (bpm): 151 Resting BP (mmHg): 102 / 80 Peak BP (mmHg): 156 / 93 MPHR: 176 Target HR: 150 % MPHR: 86 METS: 7.8 Total Dose: Peak Dose: Atropine: Double Product: 06076 BP Response: Stress Termination: MAX EXERTION/TARGET HR Stress Symptoms: CHEST PAIN,DIZZINESS Stress Summary: ECG ANALYSIS Resting ECG: Stress ECG: CONCLUSIONS Good exercise tolerance Normal EKG in response to exercise Dr. Mynor Gonzales MD (Electronically Signed) Final Date: 23 December 2022 12:13
== END | disposition home or self-care (01) ==
LOC: RADNMMAIN 10:35
PROVIDERS: ATTEND Family Medicine
DX: R06.02 Shortness of breath (principal); R53.83 Other fatigue; R00.2 Palpitations
CPT/HCPCS: 93017

== ENCOUNTER 2023-02-18 07:44 | Day surgery (SDC) | payer MEDICARE, OTHER ==
[2023-02-18] MEDS ORDERED: diazePAM 5 MG TAB PO STA (08:53)
[2023-02-18 09:01] VITALS: TEMP 98
[2023-02-18] MEDS ORDERED: HYDROcodone/APAP 5-325MG 1 EACH TAB PO PRN (10:03)
--- NOTE | 2023-02-18 10:29 | FL ---
EXAMINATION TYPE: FL myelogram lumbosacral DATE OF EXAM: 02/18/2023 COMPARISON: NONE HISTORY: 42-year-old female M54.16, lumbar region radiculopathy Patient's vitals were monitored by nursing personnel who also administered 5 mg by mouth Valium prior to the exam. Total fluoroscopy time: 30 seconds. Total images: 3. DOSE AREA PRODUCT (DAP) UGY*M,MGY*CM: 5 Informed consent was obtained and all the patient's questions were answered. The L3-L4 level was loc alized under fluoroscopy. Standard sterile technique was utilized as well as appropriate local anest hesia 1% Lidocaine. A 5 inch 22-gauge spinal needle was introduced into the thecal sac under fluorosc opic guidance and 12 mL of Isovue M200 was injected. The patient tolerated the procedure well and le ft the department in stable condition. CT myelography is to follow. The needle was removed, hemostasis obtained, and a bandage placed. The patient was given post spinal tap instructions including bedrest for the next 24 hours. IMPRESSION: Successful myelography lumbar spine. CT to follow.
--- NOTE | 2023-02-18 10:37 | CT ---
EXAMINATION TYPE: CT lumbar spine w con DATE OF EXAM: 02/18/2023 COMPARISON: None HISTORY: 42-year-old female Radiculopathy, lumbar region Myelogram TECHNIQUE: CT of the lumbar spine after administration of 12 mL Isovue M200 into the subarachnoid spa ce of the lumbar spine. Please refer to myelogram injection report of the same day for further detail s. Coronal/sagittal reconstructions performed. CT DLP: 891 mGycm Automated exposure control for dose reduction was used. FINDINGS: Cholecystectomy clips. Right posterior generator device with spinal stimulator leads extending up bey ond the wyvli-kd-irit but entering the T12-L1 interlaminar space. Conus medullaris is normal. Vertebral body heights are preserved and alignment is maintained. At L5-S1, there is mild degenerative disc disease characterized by disc space narrowing and some late ral disc osteophyte complex formation, and minimal disc bulging. Changes result in mild overall bilat eral neuroforaminal stenosis at this level. At L1-L2, there is diffuse disc bulge and focal broad-based posterior disc protrusion. This focally i ndents the ventral spinal canal but does not contribute any significant spinal canal stenosis. A small 5 mm air focus within the ventral spinal canal at the L4 level suggestive of iatrogenically i ntroduced air bubble. IMPRESSION: 1. AT L1-L2, THERE IS MILD DEGENERATIVE DISC DISEASE WITH DIFFUSE DISC BULGE AND BROAD-BASED POSTERIO R DISC PROTRUSION FOCALLY INDENTING THE VENTRAL THECAL SAC BUT NOT CONTRIBUTING TO ANY SIGNIFICANT SP INAL CANAL OR NEUROFORAMINAL STENOSIS. 2. ADDITIONAL MILD DEGENERATIVE DISC DISEASE AT L5-S1. THERE IS SOME DISC OSTEOPHYTE COMPLEX FORMATIO N EXTENDING LATERALLY AT THIS LEVEL CONTRIBUTING TO MILD BILATERAL NEUROFORAMINAL STENOSIS.
[2023-02-18 13:33] VITALS: BP 105/60; PULSE 54; RESP 16
== END 2023-02-18 13:33 | disposition home or self-care (01) ==
LOC: RADPROMAIN 07:44
PROVIDERS: ATTEND Radiology Diagnostic Radiology
DX: M51.16 Intervertebral disc disorders with radiculopathy, lumbar region (principal); M48.061 Spinal stenosis, lumbar region without neurogenic claudication; M25.78 Osteophyte, vertebrae
CPT/HCPCS: 62304; 72132; J2001; Q9966

== ENCOUNTER → 2023-07-13 | Outpatient (CLI) | payer MEDICARE, OTHER ==
--- NOTE | 2023-07-13 15:06 | CT ---
EXAMINATION TYPE: CT lumbar spine wo con DATE OF EXAM: 07/13/2023 COMPARISON: 04/22/2023 HISTORY: 42-year-old female M54.50, low back pain, LUMBAR PAIN TECHNIQUE: Contiguous axial scanning of the lumbar spine without IV contrast. Coronal and sagittal re constructions performed. CT DLP: 486.6 mGycm Automated exposure control for dose reduction was used. FINDINGS: Surgical clips below the GE junction. Cholecystectomy clips. Postoperative change of L5-S1 anterior and interbody lumbar fusion. The previous L5-S1 posterior lumb ar fusion has been extended from L4 down through the pelvis with additional screws across the SI join ts. Additional lateral osseous fusion bone graft material noted. Orthopedic hardware appears uncomplicated. Similar mild degenerative disc disease L1-L2 with disc space narrowing and mild disc bulge. Vertebral body heights are preserved and alignment is maintained. By CT, no evident canal compromise. Extensive soft tissue thickening along the posterior midline, likely scar tissue. Leads for spinal stimulator array enter the T12-L1 interlaminar space and extending up beyond the fie ld-of-view. IMPRESSION: 1. REDEMONSTRATED L5-S1 ANTERIOR AND INTERBODY FUSION. THE PREVIOUS POSTERIOR FUSION HAS BEEN EXTENDE D TO INCLUDE L4 THROUGH THE PELVIS. PROMINENT POSTERIOR MIDLINE SCAR TISSUE. ADDITIONAL LATERAL OSSEO US FUSION BONE GRAFT MATERIAL IS PRESENT. 2. MILD DEGENERATIVE DISC DISEASE L1-L2 IS SIMILAR. 3. NO VERTEBRAL COMPRESSION COLLAPSE OR MALALIGNMENT.
--- NOTE | 2023-07-13 15:33 | CT ---
EXAMINATION TYPE: CT pelvis wo con DATE OF EXAM: 07/13/2023 COMPARISON: HISTORY: BILATERAL HIP PAIN CT DLP: 238.9 mGycm Automated exposure control for dose reduction was used. FINDINGS: Limited imaging in the lower lumbar spine demonstrates postsurgical change involving the lower lumbar spine. Disc spacer noted at L5-S1 partially included in the [id number]-gu-tipw. Soft tissue ossification noted posteriorly. Postsurgical changes compatible with fusion with screws seen extending across the SI joints. No abnor mal lucency surrounding the screws to suggest hardware malfunction. There is mild bilateral SI joint arthropathy. Sacrum is intact and there is no acute fracture. No dis location. Hip joint demonstrates no significant joint space narrowing. No erosive changes. Small bone island wi thin the right femoral head. IMPRESSION: 1. Postsurgical changes lower lumbar spine\pelvis. 2. Mild SI joint arthropathy.
== END | disposition home or self-care (01) ==
LOC: RADCTMAIN 11:08
DX: M51.36 Other intervertebral disc degeneration, lumbar region (principal); Z98.1 Arthrodesis status; Z94.6 Bone transplant status
CPT/HCPCS: 72131; 72192

== ENCOUNTER 2023-10-11 12:48 | Emergency (ER) | payer MEDICARE, OTHER ==
[2023-10-11] MEDS ORDERED: HYDROmorphone 1 MG/ML 1 ML SYRINGE IVP STA (13:26)
[2023-10-11] MEDS ORDERED: ONDANSETRON 4 MG/2 ML VIAL IVP STA (13:26)
--- NOTE | 2023-10-11 14:11 | XR ---
EXAMINATION TYPE: XR Hip 2V Bilateral and AP pelvis, XR Lumbar spine 3V DATE OF EXAM: 10/11/2023 COMPARISON: NONE HISTORY: 42-year-old female increased pain FINDINGS: Pelvis: Lumbar fusion hardware. Fusion extends down into the pelvis across the SI joints. Hips appear symmetr ic and intact as is the pubic symphysis. There is a surgical clip projecting at the right side of the pelvis. No acute fracture, subluxation, dislocation seen. Lumbar spine: Generator device projects at the right posterior mid back with stimulator leads ascending in the thor acic spinal canal beyond the [id number]-swfk. Cholecystectomy clips. 5 lumbar type vertebral bodies. Po st surgical change L4-S1 and pelvic posterior fusion changes. Additional anterior lumbar fusion at L5 -S1. Mild degenerative disc disease lower thoracic spine as well as L1-L2. Vertebral body heights are preserved. Alignment is maintained. IMPRESSION (lumbar spine and pelvis): 1. Status post L4 through pelvic posterior fusion changes. Additional anterior fusion L5-S1. No evide nt complication of the orthopedic hardware. 2. Mild degenerative disc disease lower thoracic spine and L1-L2. 3. No vertebral compression collapse or malalignment. 4. The hips appear symmetric and intact.
--- NOTE | 2023-10-11 14:27 | ED ---
Back Pain HPI - General Chief Complaint: Back Pain/Injury Stated Complaint: Back Pain Time Seen by Provider: 10/11/23 13:18 Source: patient, RN notes reviewed - History of Present Illness Initial Comments: Patient is a 42-year-old female presented ER with chief complaint back pain. Patient states that she has had numerous back surgeries due to degenerative disc disease. She states her surgeon is out of [place]. Patient states about a week ago she's been experiencing excruciating back pain with radiation into her hips and down to her knees. She stating of the right hip is worse on the left is pointing to groin pain. Patient states that heart to walk. Patient denies any known injuries, bowel or bladder incontinence, fevers, IV drug use. Patient does have a pain pump. Patient states last she took a prescribed oxycodone without any relief. Patient is worried that there is a problem with her hardware. - Related Data Home Medications Medication Instructions Recorded Confirmed busPIRone HCl [Buspar] 20 mg PO HS 02/11/21 04/22/23 Desvenlafaxine [Pristiq ER] 100 mg PO DAILY 01/24/23 04/22/23 OXcarbazepine 600 mg PO HS 01/24/23 04/22/23 Acetaminophen-Codeine 300-30mg 1 tab PO Q4H PRN 04/22/23 04/22/23 [Tylenol w/codeine #3] Montelukast [Singulair] 10 mg PO DAILY 04/22/23 04/22/23 OXcarbazepine 300 mg PO DAILY 04/22/23 04/22/23 tiZANidine [Zanaflex] 4 mg PO Q8HR PRN 04/22/23 04/22/23 Allergies Allergy/AdvReac Type Severity Reaction Status Date / Time cat dander AdvReac Mild Itching Verified 04/22/23 18:14 eyes, runny nose seasonal AdvReac Mild Itching Uncoded 04/22/23 15:12 eyes, runny nose Review of Systems ROS Statement: Those systems with pertinent positive or pertinent negative responses have been documented in the HPI. ROS Other: All systems not noted in ROS Statement are negative. 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 Hx kidney stones. Hx hiatal hernia repair, has pain, occ food gets stuck. Migraine HARKINS. Cervical DDD, bone spurs; NT Lt arm to fingers. History of Any Multi-Drug Resistant Organisms: None Reported Past Surgical History: Cholecystectomy, Hernia Repair, Tubal Ligation, Uterine Ablation Additional Past Surgical History / Comment(s): 3 brain surgeries. 2 umb hernia. uterine ablation with novasure - in late , no menses since. EGD, COLONOSCOPY. 01/08/19 ozzy. Mult pain proc, cervical fusion 2021, pain stimulator. Past Anesthesia/Blood Transfusion Reactions: Postoperative Nausea & Vomiting (PONV) Past Psychological History: Anxiety, Bipolar, Depression Smoking Status: Former smoker Past Alcohol Use History: None Reported Past Drug Use History: Marijuana - Past Family History Mother Family Medical History: Cancer Additional Family Medical History / Comment(s): Breast/Cervical Cancer. General Exam General appearance: alert, in no apparent distress Respiratory exam: Present: normal lung sounds bilaterally. Absent: respiratory distress, wheezes, rales, rhonchi, stridor Cardiovascular Exam: Present: regular rate, normal rhythm, normal heart sounds. Absent: systolic murmur, diastolic murmur, rubs, gallop, clicks Extremities exam: Present: normal inspection, tenderness (Pelvic girdle. Positive right straight leg raise. Pain with internal and external rotation of right hip. ), normal capillary refill. Absent: pedal edema, joint swelling, calf tenderness Back exam: Present: other (Multiple surgical incisions present. Patient is tender to lumbar spine.) Neurological exam: Present: alert, oriented X3, CN II-XII intact Psychiatric exam: Present: normal affect, normal mood Skin exam: Present: warm, dry, intact, normal color. Absent: rash Course Vital Signs 10/11/23 10/11/23 12:54 15:38 Temperature 98 F 98.1 F Pulse Rate 70 60 Respiratory 16 18 Rate Blood Pressure 116/74 105/72 O2 Sat by Pulse 98 100 Oximetry Medical Decision Making - Medical Decision Making Was pt. sent in by a medical professional or institution (, PA, SILK BRUSHER, urgent care, hospital, or custodial...) When possible be specific @ -No Did you speak to anyone other than the patient for history (EMS, parent, family, police, friend...)? What history was obtained from this source @ -No Did you review nursing and triage notes (agree or disagree)? Why? @ -I reviewed and agree with nursing and triage notes Were old charts reviewed (outside hosp., previous admission, EMS record, old EKG, old radiological studies, urgent care reports/EKG's, custodial records)? Report findings @ -No old charts were reviewed Differential Diagnosis (chest pain, altered mental status, abdominal pain women, abdominal pain men, vaginal bleeding, weakness, fever, dyspnea, syncope, headache, dizziness, GI bleed, back pain, seizure, CVA, palpatations, mental he alth, musculoskeletal)? @ -Differential Back Pain: Strain, zoster, cauda equina syndrome, epidural abscess, vertebral osteomyelitis, discitis, fracture, subluxation, disc herniation, DJD, spinal stenosis, dissection, AAA, pancreatitis, peptic ulcer disease, pyelonephritis, kidney stone, this is not meant to be an all-inclusive list. EKG interpreted by me (3pts min.). @ -None X-rays interpreted by me (1pt min.). @ -Lumbar spine and AP pelvis with bilateral hip xrays interpreted me are negative for acute process. CT interpreted by me (1pt min.). @ -None done U/S interpreted by me (1pt. min.). @ -None done What testing was considered but not performed or refused? (CT, X-rays, U/S, labs)? Why? @ -None What meds were considered but not given or refused? Why? @ -None Did you discuss the management of the patient with other professionals (professionals i.e. , PA, SILK BRUSHER, lab, RT, psych nurse, social psychologist, lawyers, teacher, risk control officer, pillowcase folder)? Give summary @ -No Was smoking cessation discussed for >3mins.? @ -No Was critical care preformed (if so, how long)? @ -No Were there social determinants of health that impacted care today? How? (Homelessness, low income, unemployed, alcoholism, drug addiction, transportation, low edu. Level, literacy, decrease access to med. care, detention, rehab)? @ -No Was there de-escalation of care discussed even if they declined (Discuss DNR or withdrawal of care, Hospice)? DNR status @ -No What co-morbidities impacted this encounter? (DM, HTN, Smoking, COPD, CAD, Cancer, CVA, ARF, Chemo, Hep., AIDS, mental health diagnosis, sleep apnea, morbid obesity)? @ -None Was patient admitted / discharged? Hospital course, mention meds given and route, prescriptions, significant lab abnormalities, going to OR and other pertinent info. @ -Discharge. Patient is a 42-year-old female presented ER with chief complaint of back pain. Vital stable. History of physical exam were completed. No red flag back pain symptoms. Patient received IV Dilaudid and Zofran with improvement of pain. X-ray interpreted by me showed no acute process. I discussed imaging findings with patient. I instructed patient to follow-up with her spine surgeon if symptoms persist. Return parameters were discussed. Patient will be discharged in stable condition with follow-up to PCP/spine surgeon. Patient expressed understanding and agreement with care plan. Undiagnosed new problem with uncertain prognosis? @ -No Drug Therapy requiring intensive monitoring for toxicity (Heparin, Nitro, Insulin, Cardizem)? @ -No Were any procedures done? @ -No Diagnosis/symptom? @ -Back pain Acute, or Chronic, or Acute on Chronic? @ -Chronic Uncomplicated (without systemic symptoms) or Complicated (systemic symptoms)? @ -Uncomplicated Side effects of treatment? @ -No Exacerbation, Progression, or Severe Exacerbation? @ -No Poses a threat to life or bodily function? How? (Chest pain, [place], CA, pneumonia, PE, COPD, DKA, ARF, appy, cholecystitis, CVA, Diverticulitis, Homicidal, Suicidal, threat to staff... and all critical care pts) @ -No - Radiology Data Radiology results: report reviewed, image reviewed Disposition Clinical Impression: Back pain Disposition: HOME SELF-CARE Condition: Stable Additional Instructions: Please follow-up with spine surgeon. Return to ER for any new or worsening symptoms. Is patient prescribed a controlled substance at d/c from ED?: No Referrals: Pako Garcia DO [Primary Care Provider] - 1-2 days Time of Disposition: 15:15
[2023-10-11] MEDS ORDERED: HYDROmorphone 0.5 MG/0.5 ML SYRINGE IVP STA (15:15)
[2023-10-11 15:54] VITALS: BP 105/72; PULSE 60; RESP 18; TEMP 98.1
== END 2023-10-11 15:41 | disposition home or self-care (01) ==
LOC: EC 12:48
DX: M54.9 Dorsalgia, unspecified (principal); J45.909 Unspecified asthma, uncomplicated; M19.90 Unspecified osteoarthritis, unspecified site; F41.9 Anxiety disorder, unspecified; F31.9 Bipolar disorder, unspecified; F12.90 Cannabis use, unspecified, uncomplicated; Z87.891 Personal history of nicotine dependence; Z88.8 Allergy status to other drugs, medicaments and biological substances; Z79.1 Long term (current) use of non-steroidal anti-inflammatories (NSAID); Z79.899 Other long term (current) drug therapy
CPT/HCPCS: 72100; 73521; 99283; 96374; 96375; 96376; J2405; J1170 ×2

== ENCOUNTER 2023-10-12 16:58 | Emergency (ER) | payer MEDICARE ==
--- NOTE | 2023-10-12 17:03 | ED ---
Abdominal Pain HPI - General Chief Complaint: Abdominal Pain Stated Complaint: Pelvic pain Time Seen by Provider: 10/12/23 17:03 Source: patient, EMS, RN notes reviewed Mode of arrival: EMS Limitations: no limitations - History of Present Illness Initial Comments: 42-year-old female presents emergency from chief complaint of back pain, pelvic pain. Patient states she's had prior back surgery at [facility]. Patient states pains and worsening she's been seen in the past for similar complaints last seen yesterday. She denies any bowel, bladder incontinence or retention of saddle anesthesias. - Related Data Home Medications Medication Instructions Recorded Confirmed busPIRone HCl [Buspar] 20 mg PO HS 02/11/21 04/22/23 Desvenlafaxine [Pristiq ER] 100 mg PO DAILY 01/24/23 04/22/23 OXcarbazepine 600 mg PO HS 01/24/23 04/22/23 Acetaminophen-Codeine 300-30mg 1 tab PO Q4H PRN 04/22/23 04/22/23 [Tylenol w/codeine #3] Montelukast [Singulair] 10 mg PO DAILY 04/22/23 04/22/23 OXcarbazepine 300 mg PO DAILY 04/22/23 04/22/23 tiZANidine [Zanaflex] 4 mg PO Q8HR PRN 04/22/23 04/22/23 Allergies Allergy/AdvReac Type Severity Reaction Status Date / Time cat dander AdvReac Mild Itching Verified 10/12/23 17:01 eyes, runny nose seasonal AdvReac Mild Itching Uncoded 04/22/23 15:12 eyes, runny nose Review of Systems ROS Statement: Those systems with pertinent positive or pertinent negative responses have been documented in the HPI. ROS Other: All systems not noted in ROS Statement are negative. 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 Hx kidney stones. Hx hiatal hernia repair, has pain, occ food gets stuck. Migraine HARKINS. Cervical DDD, bone spurs; NT Lt arm to fingers. History of Any Multi-Drug Resistant Organisms: None Reported Past Surgical History: Cholecystectomy, Hernia Repair, Tubal Ligation, Uterine Ablation Additional Past Surgical History / Comment(s): 3 brain surgeries. 2 umb hernia. uterine ablation with novasure - in late 20's, no menses since. EGD, COLONOSCOPY. 01/08/19 ozzy. Mult pain proc, cervical fusion 2021, pain stimulator. Past Anesthesia/Blood Transfusion Reactions: Postoperative Nausea & Vomiting (PONV) Past Psychological History: Anxiety, Bipolar, Depression Smoking Status: Former smoker Past Alcohol Use History: None Reported Past Drug Use History: Marijuana - Past Family History Mother Family Medical History: Cancer Additional Family Medical History / Comment(s): Breast/Cervical Cancer. General Exam - General Exam Comments Initial Comments: Visual Physical Exam Vital signs reviewed General: Well-appearing, nontoxic, no acute distress. Head: Normocephalic, atraumatic Eyes: PERRLA, EOMI ENT: Airway patent Chest: Nonlabored breathing Skin: No visual rash, normal skin tone Neuro: Alert and oriented 3 Musculoskeletal: No gross abnormalities Course Vital Signs 10/12/23 17:00 Temperature 98.9 F Pulse Rate 72 Respiratory 16 Rate Blood Pressure 114/72 O2 Sat by Pulse 100 Oximetry Medical Decision Making - Medical Decision Making I completed the quick note portion of this chart signed Pako Feldman PA-C Patient left AGAINST MEDICAL ADVICE in the waiting room - Lab Data Result diagrams: 10/12/23 17:47 10/12/23 17:47 Lab Results 10/12/23 10/12/23 10/12/23 Range/Units 17:47 17:47 17:47 WBC 5.0 (3.8-10.6) k/uL RBC 4.41 (3.80-5.40) m/uL Hgb 13.9 (11.4-16.0) gm/dL Hct 40.9 (34.0-46.0) % MCV 92.6 (80.0-100.0) fL MCH 31.6 (25.0-35.0) pg MCHC 34.1 (31.0-37.0) g/dL RDW 12.2 (11.5-15.5) % Plt Count 297 (150-450) k/uL MPV 7.8 Neutrophils % 50 % Lymphocytes % 36 % Monocytes % 8 % Eosinophils % 3 % Basophils % 1 % Neutrophils # 2.5 (1.3-7.7) k/uL Lymphocytes # 1.8 (1.0-4.8) k/uL Monocytes # 0.4 (0-1.0) k/uL Eosinophils # 0.2 (0-0.7) k/uL Basophils # 0.1 (0-0.2) k/uL Sodium 139 (137-145) mmol/L Potassium 4.7 (3.5-5.1) mmol/L Chloride 99 (98-107) mmol/L Carbon Dioxide 32 H (22-30) mmol/L Anion Gap 8 mmol/L BUN 15 (7-17) mg/dL Creatinine 0.83 (0.52-1.04) mg/dL Est GFR (CKD-EPI)AfAm >90 (>60 ml/min/1.73 sqM) Est GFR (CKD-EPI)NonAf 87 (>60 ml/min/1.73 sqM) Glucose 83 (74-99) mg/dL Calcium 9.9 (8.4-10.2) mg/dL Total Bilirubin 0.4 (0.2-1.3) mg/dL AST 23 (14-36) U/L ALT 17 (4-34) U/L Alkaline Phosphatase 69 (38-126) U/L Total Protein 7.1 (6.3-8.2) g/dL Albumin 4.4 (3.5-5.0) g/dL Urine Color Light Yellow Urine Appearance Clear (Clear) Urine pH 7.0 (5.0-8.0) Ur Specific [place] 1.014 (1.001-1.035) Urine Protein Negative (Negative) Urine Glucose (UA) Negative (Negative) Urine Ketones Negative (Negative) Urine Blood Negative (Negative) Urine Nitrite Negative (Negative) Urine Bilirubin Negative (Negative) Urine Urobilinogen <2.0 (<2.0) mg/dL Ur Leukocyte Esterase Negative (Negative) Disposition Clinical Impression: Abdominal pain, Back pain Disposition: LEFT AGAINST MEDICAL ADVICE Referrals: Pako Garcia DO [Primary Care Provider] - 1-2 days Time of Disposition: 05:58
[2023-10-12 17:18] VITALS: BP 114/72; PULSE 72; RESP 16; TEMP 98.9
[2023-10-12 19:03] LABS: Basophils # (A) 0.1 k/uL (0-0.2); Basophils % (A) 1 %; Eosinophils # (A) 0.2 k/uL (0-0.7); Eosinophils % (A) 3 %; HCT 40.9 % (34.0-46.0); HGB 13.9 gm/dL (11.4-16.0); Lymphocytes # (A) 1.8 k/uL (1.0-4.8); Lymphocytes % (A) 36 %; MCH 31.6 pg (25.0-35.0); MCHC 34.1 g/dL (31.0-37.0); MCV 92.6 fL (80.0-100.0); Mean Platelet Volume 7.8; Monocytes # (A) 0.4 k/uL (0-1.0); Monocytes % (A) 8 %; Neutrophils # (A) 2.5 k/uL (1.3-7.7); Neutrophils % (A) 50 %; Platelet Count 297 k/uL (150-450); RBC 4.41 m/uL (3.80-5.40); RDW 12.2 % (11.5-15.5)
[2023-10-12 19:06] LABS: Appearance,Urine Clear (Clear); Bilirubin,Urine Negative (Negative); Blood,Urine Negative (Negative); Color,Urine Light Yellow; Glucose,Urine (UA) Negative (Negative); Ketones,Urine Negative (Negative); Leukocyte Esterase,Urine Negative (Negative); Nitrite,Urine Negative (Negative); Protein,Urine Negative (Negative); Specific Gravity,Urine 1.014 (1.001-1.035); Urobilinogen,Urine <2.0 mg/dL (<2.0)
[2023-10-12 19:12] LABS: ALT 17 U/L (4-34); AST 23 U/L (14-36); African American GFR (CKD) >90 (>60 ml/min/1.73 sqM); Albumin 4.4 g/dL (3.5-5.0); Alkaline Phosphatase 69 U/L (38-126); Anion Gap 8 mmol/L; Blood Urea Nitrogen 15 mg/dL (7-17); Calcium 9.9 mg/dL (8.4-10.2); Carbon Dioxide 32 mmol/L (22-30); Chloride 99 mmol/L (98-107); Glucose 83 mg/dL (74-99); Non-African American GFR(CKD) 87 (>60 ml/min/1.73 sqM); Potassium 4.7 mmol/L (3.5-5.1); Sodium 139 mmol/L (137-145); Total Bilirubin 0.4 mg/dL (0.2-1.3); Total Protein 7.1 g/dL (6.3-8.2)
== END 2023-10-12 22:16 | disposition left against medical advice (07) ==
LOC: EC 16:58
DX: R10.9 Unspecified abdominal pain (principal); M54.9 Dorsalgia, unspecified; J45.909 Unspecified asthma, uncomplicated; M19.90 Unspecified osteoarthritis, unspecified site; F41.9 Anxiety disorder, unspecified; F32.A Depression, unspecified; F12.90 Cannabis use, unspecified, uncomplicated; Z87.891 Personal history of nicotine dependence; Z79.899 Other long term (current) drug therapy; Z79.1 Long term (current) use of non-steroidal anti-inflammatories (NSAID); Z88.8 Allergy status to other drugs, medicaments and biological substances; Z53.29 Procedure and treatment not carried out because of patient's decision for other reasons
CPT/HCPCS: 36415; 80053; 81003; 85025; 99284

== ENCOUNTER → 2023-12-08 | Outpatient (CLI) | payer MEDICARE ==
--- NOTE | 2023-12-08 18:10 | XR ---
EXAMINATION TYPE: XR chest 2V DATE OF EXAM: 12/08/2023 COMPARISON: 01/10/2019 HISTORY: 42-year-old female [id number], preoperative evaluation TECHNIQUE: Frontal and lateral views FINDINGS: The cardiomediastinal silhouette, aorta, and pulmonary vasculature are within normal limits. Lungs an d pleural spaces are clear. Spinal stimulator leads extending to the lower cervical and upper thoraci c spine. ACDF hardware. Some surgical clips below the GE junction. IMPRESSION: No acute cardiopulmonary process.
== END | disposition home or self-care (01) ==
LOC: RADXRYALE 10:10
PROVIDERS: ATTEND Physician Assistant
DX: Z01.818 Encounter for other preprocedural examination (principal)
CPT/HCPCS: 71046

== ENCOUNTER 2024-03-23 10:15 | Emergency (ER) | payer MEDICARE ==
--- NOTE | 2024-03-23 10:44 | ED ---
Back Pain HPI - General Chief Complaint: Back Pain/Injury Stated Complaint: Fall-R hip pain Time Seen by Provider: 03/23/24 10:25 Source: patient, RN notes reviewed Limitations: no limitations - History of Present Illness Initial Comments: 43-year-old female presenting with right hip pain and low back pain status post fall yesterday. States her dog got excited and jumped on her and she fell backwards, landing directly onto her buttocks onto the carpet. She has been having increased pain and difficulty ambulating since then. The pain is mostly in the lower back and into the right hip. Denies numbness or tingling. States the pain radiates down her right leg. She has a history of several back surgeries, last was in December of this year. Denies loss of bowel or bladder control. Denies hitting head or losing consciousness. Denies blood thinners. - Related Data Home Medications Medication Instructions Recorded Confirmed busPIRone HCl [Buspar] 20 mg PO HS 02/11/21 04/22/23 Desvenlafaxine [Pristiq ER] 100 mg PO DAILY 01/24/23 04/22/23 OXcarbazepine 600 mg PO HS 01/24/23 04/22/23 Acetaminophen-Codeine 300-30mg 1 tab PO Q4H PRN 04/22/23 04/22/23 [Tylenol w/codeine #3] Montelukast [Singulair] 10 mg PO DAILY 04/22/23 04/22/23 OXcarbazepine 300 mg PO DAILY 04/22/23 04/22/23 tiZANidine [Zanaflex] 4 mg PO Q8HR PRN 04/22/23 04/22/23 Allergies Allergy/AdvReac Type Severity Reaction Status Date / Time cat dander AdvReac Mild Itching Verified 03/23/24 10:21 eyes, runny nose seasonal AdvReac Mild Itching Uncoded 03/23/24 10:21 eyes, runny nose Review of Systems ROS Statement: Those systems with pertinent positive or pertinent negative responses have been documented in the HPI. ROS Other: All systems not noted in ROS Statement are negative. 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 Hx kidney stones. Hx hiatal hernia repair, has pain, occ food gets stuck. Migraine HARKINS. Cervical DDD, bone spurs; NT Lt arm to fingers. History of Any Multi-Drug Resistant Organisms: None Reported Past Surgical History: Cholecystectomy, Hernia Repair, Tubal Ligation, Uterine Ablation Additional Past Surgical History / Comment(s): 3 brain surgeries. 2 umb hernia. uterine ablation with novasure - in late , no menses since. EGD, COLONOSCOPY. 01/08/19 ozzy. Mult pain proc, cervical fusion 2021, pain stimulator. Past Anesthesia/Blood Transfusion Reactions: Postoperative Nausea & Vomiting (PONV) Past Psychological History: Anxiety, Bipolar, Depression Smoking Status: Former smoker Past Alcohol Use History: None Reported Past Drug Use History: Marijuana - Past Family History Mother Family Medical History: Cancer Additional Family Medical History / Comment(s): Breast/Cervical Cancer. General Exam Limitations: no limitations General appearance: alert, in no apparent distress Head exam: Present: atraumatic, normocephalic, normal inspection Respiratory exam: Present: normal lung sounds bilaterally. Absent: respiratory distress, wheezes, rales, rhonchi, stridor Cardiovascular Exam: Present: regular rate, normal rhythm, normal heart sounds. Absent: systolic murmur, diastolic murmur, rubs, gallop, clicks GI/Abdominal exam: Present: soft, normal bowel sounds. Absent: distended, tenderness, guarding, rebound, rigid Extremities exam: Present: other (No saddle anesthesia.) Right Hip exam: Present: normal inspection, full ROM (Full range of motion and strength of bilateral hips.), tenderness (Diffuse tenderness to palpation along hip). Absent: swelling, abrasion, ecchymosis, deformity, shortening Upper Leg exam: Present: normal inspection, full ROM. Absent: tenderness, swelling Knee exam: Present: normal inspection, full ROM. Absent: tenderness, swelling Lower Leg exam: Present: normal inspection, full ROM. Absent: tenderness, swelling Ankle exam: Present: normal inspection, full ROM. Absent: tenderness, swelling Foot/Toe exam: Present: normal inspection, full ROM. Absent: tenderness, swelling Neurovascular tendon exam: Present: no vascular compromise. Absent: pulse deficit, abnormal cap refill, sensory deficit Back exam: Present: normal inspection, full ROM, tenderness (Diffuse tenderness along lumbar spine), paraspinal tenderness (Right-sided paraspinal tenderness along lumbar portion of the spine). Absent: CVA tenderness (R), CVA tenderness (L) Neurological exam: Present: alert, oriented X3, CN II-XII intact Psychiatric exam: Present: normal affect, normal mood Skin exam: Present: warm, dry, intact, normal color. Absent: rash Course Vital Signs 03/23/24 03/23/24 10:19 12:45 Temperature 98.1 F 98 F Pulse Rate 69 59 L Respiratory 20 18 Rate Blood Pressure 140/83 133/82 O2 Sat by Pulse 99 100 Oximetry Medical Decision Making - Medical Decision Making Was pt. sent in by a medical professional or institution (, PA, SAIL CUTTER, urgent care, hospital, or shelter...) When possible be specific @ -No Did you speak to anyone other than the patient for history (EMS, parent, family, police, friend...)? What history was obtained from this source @ -Patient's supplemented history Did you review nursing and triage notes (agree or disagree)? Why? @ -I reviewed and agree with nursing and triage notes Were old charts reviewed (outside hosp., previous admission, EMS record, old EKG, old radiological studies, urgent care reports/EKG's, shelter records)? Report findings @ -No old charts were reviewed Differential Diagnosis (chest pain, altered mental status, abdominal pain women, abdominal pain men, vaginal bleeding, weakness, fever, dyspnea, syncope, headache, dizziness, GI bleed, back pain, seizure, CVA, palpatations, mental health, musculoskeletal)? @ -Differential Musculoskeletal Muscular strain, contusion, ligament sprain, fracture, arthritis, septic arthritis, bursitis, cellulitis, muscle spasm, nerve compression, DVT, arterial occlusion, herpes zoster, electrolyte abnormality, tumor.... This is not meant to be in all inclusive list EKG interpreted by me (3pts min.). @ -None X-rays interpreted by me (1pt min.). @ -X-ray of right hip revealed no fracture or dislocation. Lumbar x-ray revealed no acute fracture, there is mild multilevel disc degeneration, hardware intact. CT interpreted by me (1pt min.). @ -CT revealed no evidence of right hip fracture or dislocation U/S interpreted by me (1pt. min.). @ -None done What testing was considered but not performed or refused? (CT, X-rays, U/S, labs)? Why? @ -None What meds were considered but not given or refused? Why? @ -None Did you discuss the management of the patient with other professionals (professionals i.e. , PA, SAIL CUTTER, lab, RT, psych nurse, social sciences research scientist, internet merchant, teacher, compliance officer, telephonic case manager)? Give summary @ -No Was smoking cessation discussed for >3mins.? @ -No Was critical care preformed (if so, how long)? @ -No Were there social determinants of health that impacted care today? How? (Homelessness, low income, unemployed, alcoholism, drug addiction, transportation, low edu. Level, literacy, decrease access to med. care, half-way, rehab)? @ -No Was there de-escalation of care discussed even if they declined (Discuss DNR or withdrawal of care, Hospice)? DNR status @ -No What co-morbidities impacted this encounter? (DM, HTN, Smoking, COPD, CAD, Cancer, CVA, ARF, Chemo, Hep., AIDS, mental health diagnosis, sleep apnea, morbid obesity)? @ -None Was patient admitted / discharged? Hospital course, mention meds given and route, prescriptions, significant lab abnormalities, going to OR and other pertinent info. @ -Patient was discharged. Patient was seen and evaluated for right hip and low back pain status post mechanical fall yesterday. Patient is neurovascularly intact. No red flag symptoms. Patient is given IM morphine and Norflex for pain. X-ray of low back and right hip revealed no acute fracture or dislocation. Upon reevaluation, patient continues to have significant pain in right hip. CT scan was performed at this time which revealed no evidence of right hip fracture or dislocation. Discussed with patient that this is likely muscle strain and there is no sign of fracture or dislocation on scans. Patient states she has an orthopedic doctor she follows with from [place] and will follow-up within the week. Strict return/alarm symptoms discussed with patient and she shows understanding and agrees with plan. Case discussed with Dr. Espana. Patient discharged in stable condition. Undiagnosed new problem with uncertain prognosis? @ -No Drug Therapy requiring intensive monitoring for toxicity (Heparin, Nitro, Insulin, Cardizem)? @ -No Were any procedures done? @ -No Diagnosis/symptom? @ -Right hip strain Acute, or Chronic, or Acute on Chronic? @ -Acute Uncomplicated (without systemic symptoms) or Complicated (systemic symptoms)? @ -Uncomplicated Side effects of treatment? @ -No Exacerbation, Progression, or Severe Exacerbation? @ -No Poses a threat to life or bodily function? How? (Chest pain, [place], [place], pneumonia, PE, COPD, DKA, ARF, appy, cholecystitis, CVA, Diverticulitis, Homicidal, Suicidal, threat to staff... and all critical care pts) @ -Low likelihood Disposition Clinical Impression: Strain of right hip Disposition: HOME SELF-CARE Condition: Stable Instructions (If sedation given, give patient instructions): Hip Sprain (ED) Additional Instructions: Please follow-up with your orthopedic doctor within the week. Please return to the Emergency Department if symptoms worsen or any other concerns. Is patient prescribed a controlled substance at d/c from ED?: No Referrals: Pako Garcia DO [Primary Care Provider] - 1-2 days Time of Disposition: 13:16
[2024-03-23] MEDS: MORPHINE SULFATE 4 MG/ML SYRINGE IM STA (11:01)
[2024-03-23] MEDS: ORPHENADRINE 30 MG/ML 2 ML VIAL IM STA (11:01)
--- NOTE | 2024-03-23 11:15 | XR ---
EXAMINATION TYPE: XR Hip Complete RT DATE OF EXAM: 03/23/2024 CLINICAL HISTORY: pain TECHNIQUE: AP and frogleg views of the right hip are obtained. COMPARISON: None. FINDINGS: There is no acute fracture/dislocation evident. The joint space appears within normal li mits. The overlying soft tissue appears unremarkable. IMPRESSION: 1. There is no acute fracture or dislocation. ICD 10 NO FRACTURE, INITIAL EVALUATION
--- NOTE | 2024-03-23 11:19 | XR ---
EXAMINATION TYPE: XR lumbar spine 2 or 3V DATE OF EXAM: 03/23/2024 10:59 AM CLINICAL INDICATION:Female, 43 years old with history of low back pain; [facility] COMPARISON: None TECHNIQUE: XR lumbar spine 2 or 3V - Frontal, lateral and coned in L5-S1 lateral views of the spine. FINDINGS: No evidence of any acute osseous pathology. No evidence of loss of vertebral body height i s seen. There is normal alignment of the lumbar vertebral bodies. Post surgical changes to the spine with fixation hardware at L3-4 L5 and S1 with bilateral sacroiliac joint screws. Hardware appears int act. Discectomy at L5-S1. multilevel degeneration changes with joint space narrowing osteophyte forma tion disc and facet joint arthropathy. Quadrant course significance. Nerve stimulator device present. IMPRESSION: 1. No acute fracture. 2. Mild multilevel disc degeneration.
--- NOTE | 2024-03-23 12:34 | CT ---
EXAMINATION TYPE: CT hip RT wo con DATE OF EXAM: 03/23/2024 COMPARISON: None HISTORY: Rt hip pain, dog jumped on her yesterday CT DLP: 409.3 mGycm Automated exposure control for dose reduction was used. Unenhanced CT of the right hip was performed in the axial, coronal and sagittal planes. Bone and soft tissue window settings are submitted. FINDINGS: I do not see evidence for an acute fracture or dislocation. Joint spaces well-preserved. No evidence for soft tissue mass or hematoma. Visualized pelvic structures are felt to be within normal limits as visualized. IMPRESSION: NO EVIDENCE OF RIGHT HIP FRACTURE OR DISLOCATION.
[2024-03-23] MEDS: MORPHINE SULFATE 2 MG/ML SYRINGE IM STA (12:50)
[2024-03-23 12:53] VITALS: RESP 18; TEMP 98
[2024-03-23 13:44] VITALS: BP 135/81; PULSE 62
== END 2024-03-23 13:44 | disposition home or self-care (01) ==
LOC: EC 10:15
DX: S76.011A Strain of muscle, fascia and tendon of right hip, initial encounter (principal); F12.90 Cannabis use, unspecified, uncomplicated; Z88.8 Allergy status to other drugs, medicaments and biological substances; Z87.891 Personal history of nicotine dependence; W18.30XA Fall on same level, unspecified, initial encounter
CPT/HCPCS: 72100; 73502; 73700; 99284; 96372 ×3; J2270 ×2; J2360

== ENCOUNTER 2024-09-27 17:39 | Emergency (ER) | payer MEDICARE ==
[2024-09-27 18:01] VITALS: RESP 18
[2024-09-27] MEDS: KETOROLAC 15 MG/ML 1 ML VIAL IVP STA ×2 (20:10→21:53)
[2024-09-27] MEDS: HYDROmorphone 1 MG/ML 1 ML SYRINGE IVP STA ×2 (20:11→21:53)
[2024-09-27] MEDS: ORPHENADRINE 30 MG/ML 2 ML VIAL IVP STA (20:14)
[2024-09-27] MEDS: DEXAMETHASONE SOD PHOSPHATE 10 MG/ML 1 ML VIAL IVP STA (20:14)
--- NOTE | 2024-09-27 20:21 | ED ---
Back Pain HPI - General Chief Complaint: Back Pain/Injury Stated Complaint: back pain, had surgery x 1 year ago Time Seen by Provider: 09/27/24 19:21 Source: patient, RN notes reviewed Mode of arrival: ambulatory Limitations: no limitations - History of Present Illness Initial Comments: This is a 43-year-old female who presents to the emergency department for back pain. Patient has a history of chronic back pain requiring 5 surgeries. Most recent surgery was in December of this year. States that over the last 3 days she has been busy at work and has started to develop pain in the right lower back rating down the right leg. Denies a history of sciatica or similar symptoms in the past. She is taking [id number] medications without any relief. Denies any new injuries or loss of bowel/bladder control or saddle anesthesia. MD Complaint: back pain - Related Data Home Medications Medication Instructions Recorded Confirmed busPIRone HCl [Buspar] 20 mg PO HS 02/11/21 04/22/23 Desvenlafaxine [Pristiq ER] 100 mg PO DAILY 01/24/23 04/22/23 OXcarbazepine 600 mg PO HS 01/24/23 04/22/23 Acetaminophen-Codeine 300-30mg 1 tab PO Q4H PRN 04/22/23 04/22/23 [Tylenol w/codeine #3] Montelukast [Singulair] 10 mg PO DAILY 04/22/23 04/22/23 OXcarbazepine 300 mg PO DAILY 04/22/23 04/22/23 tiZANidine [Zanaflex] 4 mg PO Q8HR PRN 04/22/23 04/22/23 Previous Rx's Medication Instructions Recorded methocarbamoL [Robaxin-750] 1,500 mg PO TID PRN #30 tab 09/27/24 predniSONE 50 mg PO DAILY 5 Days #5 tab 09/27/24 Allergies Allergy/AdvReac Type Severity Reaction Status Date / Time cat dander AdvReac Mild Itching Verified 09/27/24 17:59 eyes, runny nose seasonal AdvReac Mild Itching Uncoded 09/27/24 17:59 eyes, runny nose Review of Systems ROS Statement: Those systems with pertinent positive or pertinent negative responses have been documented in the HPI. ROS Other: All systems not noted in ROS Statement are negative. 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 Hx kidney stones. Hx hiatal hernia repair, has pain, occ food gets stuck. Migraine HARKINS. Cervical DDD, bone spurs; NT Lt arm to fingers. History of Any Multi-Drug Resistant Organisms: None Reported Past Surgical History: Cholecystectomy, Hernia Repair, Tubal Ligation, Uterine Ablation Additional Past Surgical History / Comment(s): 3 brain surgeries. 2 umb hernia. uterine ablation with novasure - in late , no menses since. EGD, COLONOSCOPY. 01/08/19 ozzy. Mult pain proc, cervical fusion 2021, pain stimulator. Past Anesthesia/Blood Transfusion Reactions: Postoperative Nausea & Vomiting (PONV) Past Psychological History: Anxiety, Bipolar, Depression Smoking Status: Former smoker Past Alcohol Use History: None Reported Past Drug Use History: Marijuana - Past Family History Mother Family Medical History: Cancer Additional Family Medical History / Comment(s): Breast/Cervical Cancer. General Exam Limitations: no limitations General appearance: alert, in no apparent distress Head exam: Present: atraumatic, normocephalic, normal inspection Respiratory exam: Present: normal lung sounds bilaterally. Absent: respiratory distress, wheezes, rales, rhonchi, stridor Cardiovascular Exam: Present: regular rate, normal rhythm, normal heart sounds. Absent: systolic murmur, diastolic murmur, rubs, gallop, clicks Neurological exam: Present: alert, oriented X3, CN II-XII intact Psychiatric exam: Present: normal affect, normal mood Skin exam: Present: warm, dry, intact, normal color. Absent: rash Course Vital Signs 09/27/24 09/27/24 09/27/24 17:59 21:59 22:11 Temperature 98.5 F 97.8 F Pulse Rate 76 52 L Respiratory 18 18 Rate Blood Pressure 116/84 135/88 O2 Sat by Pulse 100 98 Oximetry Medical Decision Making - Medical Decision Making This is a 43-year-old female who presents to the emergency department for back pain. Was pt. sent in by a medical professional or institution? @ -No Did you speak to anyone other than the patient for history? @ -No Did you review nursing and triage notes? @ -Yes, and I agree, it is accurate with regards to the patient's symptoms. Were old charts reviewed? @ -No Differential Diagnosis? @ -Differential Back Pain: Strain, zoster, cauda equina syndrome, epidural abscess, vertebral osteomyelitis, discitis, fracture, subluxation, disc herniation, DJD, spinal stenosis, dissection, AAA, pancreatitis, peptic ulcer disease, pyelonephritis, kidney stone, this is not meant to be an all-inclusive list. EKG interpreted by me (3pts min.)? @ -Not obtained X-rays interpreted by me (1pt min.)? @ -X-ray of the thoracic and lumbar spine obtained. My interpretation identifies no acute fractures. CT interpreted by me (1pt min.)? @ -Not obtained U/S interpreted by me (1pt. min.)? @ -Not obtained What testing was considered but not performed? (CT, X-rays, U/S, labs)? Why? @ -None What meds were considered but not given? Why? @ -None Did you discuss the management of the patient with other professionals? @ -No Did you reconcile home meds? @ -No Was smoking cessation discussed for >3mins.? @ -No Was critical care preformed (if so, how long)? @ -No Were there social determinants of health that impacted care today? How? (Homelessness, low income, unemployed, alcoholism, drug addiction, transportation, low edu. Level, literacy, decrease access to med. care, [facility], rehab)? @ -No Was there de-escalation of care discussed even if they declined? (Discuss DNR or withdrawal of care, Hospice)? @ -No What co-morbidities impacted this encounter? (DM, HTN, Smoking, COPD, CAD, Cancer, CVA, Hep., AIDS, mental health diagnosis, sleep apnea, morbid obesity)? @ -Degenerative disc disease Was patient admitted / discharged? @ -Discharged. X-ray of the thoracic and lumbar spine obtained revealing no acute process. Symptoms likely related to sciatica with the right sided radiculopathy. She had no red flag signs or symptoms such as loss of bowel/heath dder control or saddle anesthesia. Symptoms managed in the emergency department. Prescription for prednisone and Robaxin provided. Advised follow- up with her PCP for reevaluation. Patient discharged home in stable condition. Case discussed with ED attending Dr. Collins. Return precautions reviewed in depth, the patient is instructed to return to the emergency department with any new, worsening, or concerning symptoms. Patient verbalized understanding. Undiagnosed new problem with uncertain prognosis? @ -None Drug Therapy requiring intensive monitoring for toxicity (Heparin, Nitro, Insulin, Cardizem)? @ -None Were any procedures done? @ -None Diagnosis/symptom? @ -Sciatica/lumbar radiculopathy Acute, or Chronic, or Acute on Chronic? @ -Acute Uncomplicated (without systemic symptoms) or Complicated (systemic symptoms)? @ -Uncomplicated Side effects of treatment? @ -None Exacerbation, Progression, or Severe Exacerbation] @ -Not applicable Poses a threat to life or bodily function? @ -No - Radiology Data Radiology results: report reviewed, image reviewed Disposition Clinical Impression: Sciatica, Strain of lumbar region Disposition: HOME SELF-CARE Instructions (If sedation given, give patient instructions): Sciatica (ED), Acute Low Back Pain (ED), Lumbar Radiculopathy (ED) Additional Instructions: Return to the emergency department with any new, worsening, or concerning symptoms. Take the prednisone daily for 5 days. Take the Robaxin as 1 to 2 tablets up to 3-4 times daily. Follow up with your primary care provider in 1-2 days. Prescriptions: predniSONE 50 mg PO DAILY 5 Days #5 tab methocarbamoL [Robaxin-750] 1,500 mg PO TID PRN #30 tab PRN Reason: Pain Is patient prescribed a controlled substance at d/c from ED?: No Referrals: Pako Garcia DO [Primary Care Provider] - 1-2 days Time of Disposition: 21:43
--- NOTE | 2024-09-27 20:50 | XR ---
EXAMINATION TYPE: XR thoracic spine complete DATE OF EXAM: 09/27/2024 8:44 PM CLINICAL INDICATION:Female, 43 years old with history of Pain; [facility] COMPARISON: None TECHNIQUE: 2 views of the thoracic spine in Frontal and lateral projections. FINDINGS: No evidence of acute fracture. There is no evidence of disk space narrowing or loss of vertebral bod y height. There is normal alignment of the thoracic vertebral bodies. Partially visualized cervical fusion hardware. Postsurgical clips are present in the right upper quadrant. IMPRESSION: No acute osseous pathology. [facility], , 09/27/2024 8:47 PM
--- NOTE | 2024-09-27 20:51 | XR ---
EXAMINATION TYPE: XR lumbar spine 2 or 3V DATE OF EXAM: 09/27/2024 8:44 PM CLINICAL INDICATION:Female, 43 years old with history of Pain; [facility] COMPARISON: Lumbar radiographs 03/23/2024. TECHNIQUE: Frontal and lateral radiographs are identified the lumbar spine. FINDINGS: No evidence of any acute osseous pathology. No evidence of loss of vertebral body height i s seen. There is normal alignment of the lumbar vertebral bodies. Degenerative changes of lumbar spin e are identified with osteophytosis and endplate changes. Extensive postsurgical changes with fusion of the lower lumbar spine and sacrum/SI joints. IMPRESSION: 1. No acute fracture. 2. Multilevel degenerative changes. 3. Extensive postsurgical changes of the lower lumbar spine and sacrum. [facility], , 09/27/2024 8:49 PM
[2024-09-27] MEDS ORDERED: ACET/COD 300 MG/30 MG STARTER PACK 6 TAB BTL PO STA (21:43)
[2024-09-27 22:00] VITALS: BP 135/88
[2024-09-27 22:12] VITALS: PULSE 52; TEMP 97.8
== END 2024-09-27 22:21 | disposition home or self-care (01) ==
LOC: EC 17:39
DX: S39.012A Strain of muscle, fascia and tendon of lower back, initial encounter (principal); G89.29 Other chronic pain; M54.41 Lumbago with sciatica, right side; Z87.891 Personal history of nicotine dependence; Z86.73 Personal history of transient ischemic attack (TIA), and cerebral infarction without residual deficits; Z90.49 Acquired absence of other specified parts of digestive tract; Z88.8 Allergy status to other drugs, medicaments and biological substances; X58.XXXA Exposure to other specified factors, initial encounter
CPT/HCPCS: 99283; 96374; 96376; 96375; 72072; 72100; J1100; J2360; J1171; J1885

== ENCOUNTER 2025-03-12 16:19 | Emergency (ER) | payer MEDICARE ==
[2025-03-12 16:35] VITALS: RESP 16
--- NOTE | 2025-03-12 17:04 | ED ---
Back Pain HPI - General Chief Complaint: Back Pain/Injury Stated Complaint: Back injury Time Seen by Provider: 03/12/25 16:46 Source: patient, RN notes reviewed, old records reviewed Limitations: no limitations - History of Present Illness Initial Comments: This is a 44 female to ER for evaluation of severe back pain acute on chronic back pain history of back surgery. No new trauma thinks she was lifting something yesterday and began to have severe pain since then and into today. No loss of bowel or bladder patient was amatory to the ER MD Complaint: back pain -: days(s) Similar Symptoms Previously: Yes Radiation: none Severity: severe Severity scale (1-10): 10 Quality: sharp Consistency: constant, intermittent Improves With: none Worsens With: none Context: while lifting, turning/twisting Associated Symptoms: denies other symptoms - Related Data Home Medications Medication Instructions Recorded Confirmed busPIRone HCl [Buspar] 20 mg PO HS 02/11/21 04/22/23 Desvenlafaxine [Pristiq ER] 100 mg PO DAILY 01/24/23 04/22/23 OXcarbazepine 600 mg PO HS 01/24/23 04/22/23 Acetaminophen-Codeine 300-30mg 1 tab PO Q4H PRN 04/22/23 04/22/23 [Tylenol w/codeine #3] Montelukast [Singulair] 10 mg PO DAILY 04/22/23 04/22/23 OXcarbazepine 300 mg PO DAILY 04/22/23 04/22/23 tiZANidine [Zanaflex] 4 mg PO Q8HR PRN 04/22/23 04/22/23 Previous Rx's Medication Instructions Recorded methocarbamoL [Robaxin-750] 1,500 mg PO TID PRN #30 tab 09/27/24 predniSONE 50 mg PO DAILY 5 Days #5 tab 09/27/24 Allergies Allergy/AdvReac Type Severity Reaction Status Date / Time cat dander AdvReac Mild Itching Verified 03/12/25 16:34 eyes, runny nose seasonal AdvReac Mild Itching Uncoded 03/06/25 03:21 eyes, runny nose Review of Systems ROS Statement: Those systems with pertinent positive or pertinent negative responses have been documented in the HPI. ROS Other: All systems not noted in ROS Statement are negative. 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 Hx kidney stones. Hx hiatal hernia repair, has pain, occ food gets stuck. Migraine HARKINS. Cervical DDD, bone spurs; NT Lt arm to fingers. History of Any Multi-Drug Resistant Organisms: None Reported Past Surgical History: Cholecystectomy, Hernia Repair, Tubal Ligation, Uterine Ablation Additional Past Surgical History / Comment(s): 3 brain surgeries. 2 umb hernia. uterine ablation with novasure - in late s, no menses since. EGD, COLONOSCOPY. 01/08/19 ozzy. Mult pain proc, cervical fusion 2021, pain stimulator. Past Anesthesia/Blood Transfusion Reactions: Postoperative Nausea & Vomiting (PONV) Past Psychological History: Anxiety, Bipolar, Depression Smoking Status: Former smoker Past Alcohol Use History: None Reported Past Drug Use History: Marijuana - Past Family History Mother Family Medical History: Cancer Additional Family Medical History / Comment(s): Breast/Cervical Cancer. General Exam Limitations: no limitations General appearance: alert, in no apparent distress Head exam: Present: atraumatic, normocephalic, normal inspection Eye exam: Present: normal appearance, PERRL, EOMI. Absent: scleral icterus, conjunctival injection, periorbital swelling ENT exam: Present: normal exam, mucous membranes moist Neck exam: Present: normal inspection. Absent: tenderness, meningismus, lymphadenopathy Respiratory exam: Present: normal lung sounds bilaterally. Absent: respiratory distress, wheezes, rales, rhonchi, stridor Cardiovascular Exam: Present: regular rate, normal rhythm, normal heart sounds. Absent: systolic murmur, diastolic murmur, rubs, gallop, clicks GI/Abdominal exam: Present: soft, normal bowel sounds. Absent: distended, tenderness, guarding, rebound, rigid Extremities exam: Present: normal inspection, full ROM, normal capillary refill. Absent: tenderness, pedal edema, joint swelling, calf tenderness Back exam: Present: normal inspection Neurological exam: Present: alert, oriented X3, CN II-XII intact Psychiatric exam: Present: normal affect, normal mood Skin exam: Present: warm, dry, intact, normal color. Absent: rash Course Vital Signs 03/12/25 16:32 Temperature 98.2 F Pulse Rate 75 Respiratory 16 Rate Blood Pressure 137/90 O2 Sat by Pulse 97 Oximetry - Reevaluation(s) Reevaluation #1: 03/12/25 18:06 Medical records reviewed Reevaluation #2: 03/12/25 18:06 Patient's pain is improved Reevaluation #3: 03/12/25 18:06 Patient informed of results and questions answered Reevaluation #4: Was pt. sent in by a medical professional or institution (, [facility], [facility], urgent care, hospital, or skilled nursing...) When possible be specific @ -no Did you speak to anyone other than the patient for history (EMS, parent, family, police, friend...)? What history was obtained from this source @ -no Did you review nursing and triage notes (agree or disagree)? Why? @ -agree Are old charts reviewed (outside hosp., previous admission, EMS record, old EKG, old radiological studies, urgent care reports/EKG's, skilled nursing records)? Report findings @ -yes Differential Diagnosis (chest pain, altered mental status, abdominal pain women, abdominal pain men, vaginal bleeding, weakness, fever, dyspnea, syncope, headache, dizziness, GI bleed, back pain, seizure, CVA, palpatations, mental health, musculoskeletal)? @ -prior EKG interpreted by me (3pts min.). @ -yes X-rays interpreted by me (1pt min.). @ -yes negative for acute disease CT interpreted by me (1pt min.). @ -no U/S interpreted by me (1pt. min.). @ -no What testing was considered but not performed or refused? (CT, X-rays, U/S, labs)? Why? @ -none What meds were considered but not given or refused? Why? @ -none Did you discuss the management of the patient with other professionals (professionals i.e. [facility], [facility], lab, RT, psych nurse, social media job titles, agriculture research director, teacher, program officer, mental health case manager)? Give summary @ -no Was smoking cessation discussed for >3mins.? @ -no Was critical care preformed (if so, how long)? @ -no Were there social determinants of health that impacted care today? How? (Homelessness, low income, unemployed, alcoholism, drug addiction, transportation, low edu. Level, literacy, decrease access to med. care, [facility], rehab)? @ -none Was there de-escalation of care discussed even if they declined (Discuss DNR or withdrawal of care, Hospice)? DNR status @ -no What co-morbidities impacted this encounter? (DM, HTN, Smoking, COPD, CAD, Cancer, CVA, ARF, Chemo, Hep., AIDS, mental health diagnosis, sleep apnea, morbid obesity)? @ -none Was patient admitted / discharged? Hospital course, mention meds given and route, prescriptions, significant lab abnormalities, going to OR and other pertinent info. @ - Undiagnosed new problem with uncertain prognosis? @ -no Drug Therapy requiring intensive monitoring for toxicity (Heparin, Nitro, Insulin, Cardizem)? @ -no Were any procedures done? @ -no Diagnosis/symptom? @ - Acute, or Chronic, or Acute on Chronic? @ -Acute Uncomplicated (without systemic symptoms) or Complicated (systemic symptoms)? @ -Complicated Side effects of treatment? @ -no Exacerbation, Progression, or Severe Exacerbation? @ -exacerbation Poses a threat to life or bodily function? How? (Chest pain, [place], [place], pneumonia, PE, COPD, DKA, ARF, appy, cholecystitis, CVA, Diverticulitis, Homicidal, Suicidal, threat to staff... and all critical care pts) @ -yes Reevaluation #5: Differential Back Pain: Strain, zoster, cauda equina syndrome, epidural abscess, vertebral osteomyelitis, discitis, fracture, subluxation, disc herniation, DJD, spinal stenosis, dissection, AAA, pancreatitis, peptic ulcer disease, pyelonephritis, kidney stone, this is not meant to be an all-inclusive list. Medical Decision Making - Medical Decision Making 44 female to the ER for evaluation of severe back pain acute on chronic back pain pain control patient can be discharged home - Radiology Data Radiology results: report reviewed (X-ray LS spine negative for acute disease), image reviewed Disposition Clinical Impression: Mechanical back pain, Mid back pain, Strain of lumbar region Disposition: HOME SELF-CARE Condition: Fair Instructions (If sedation given, give patient instructions): Acute Low Back Pain (ED) Is patient prescribed a controlled substance at d/c from ED?: No Referrals: Pako Garcia DO [Primary Care Provider] - 1-2 days Time of Disposition: 18:00
[2025-03-12] MEDS: HYDROmorphone 1 MG/ML 1 ML SYRINGE IM STA (17:11)
[2025-03-12] MEDS: LIDOCAINE 4% PATCH TOPICAL ONE (17:11)
--- NOTE | 2025-03-12 17:50 | XR ---
EXAMINATION TYPE: XR lumbar spine 2 or 3V DATE OF EXAM: 03/12/2025 5:38 PM COMPARISON: None. CLINICAL INDICATION: Female, 44 years old with history of pain, pain TECHNIQUE: 3 view(s) obtained. FINDINGS: Pedicle screws and fixation rods are present L4-S1. Disc spaces are present L4-5 and L5-S1. Vertebral body heights appear preserved. Remaining disc heights appear preserved. IMPRESSION: 1. Stable postsurgical changes L4-S1 2. No acute osseous abnormality [facility], , 03/12/2025 5:47 PM
[2025-03-12] MEDS: ONDANSETRON ODT 4 MG TAB PO STA (18:26)
[2025-03-12] MEDS: ACET/COD 300 MG/30 MG STARTER PACK 6 TAB BTL PO STA (18:26)
[2025-03-12] MEDS: ONDANSETRON 4 MG ODT STARTER PACK 2 TAB BTL PO STA (18:26)
[2025-03-12] MEDS: traMADol 50 MG STARTER PACK 3 TAB BTL PO STA (18:27)
[2025-03-12 18:35] VITALS: BP 129/89; PULSE 72; TEMP 98
== END 2025-03-12 18:43 | disposition home or self-care (01) ==
LOC: EC 16:19
DX: S39.012A Strain of muscle, fascia and tendon of lower back, initial encounter (principal); G89.29 Other chronic pain; Z87.891 Personal history of nicotine dependence; Z91.09 Other allergy status, other than to drugs and biological substances; X50.1XXA Overexertion from prolonged static or awkward postures, initial encounter
CPT/HCPCS: 72100; 99283; 96372; J1171; S0119

== ENCOUNTER → 2025-03-27 | Outpatient (CLI) | payer MEDICARE ==
--- NOTE | 2025-03-27 13:34 | XR ---
EXAMINATION TYPE: XR cervical spine w flex/ext DATE OF EXAM: 03/27/2025 12:21 PM COMPARISON: None CLINICAL INDICATION: Female, 44 years old with history of M50.022, T84.498A, M96.0; [facility], pain TECHNIQUE: 4 views FINDINGS: No predental space widening or prevertebral soft tissue swelling. Post surgical change of C5-C7 ACDF. Moderate to severe disc/endplate degenerative change C3-C5 levels. Grade 1 retrolisthesis C4-C5. No dynamic subluxation on flexion-extension views. IMPRESSION: Status post C5-C7 ACDF. Moderate to severe disc/endplate degenerative change C3-C5 levels. Fixed grad e 1 retrolisthesis at C4-C5. No dynamic subluxation on flexion-extension. [facility], , 03/27/2025 1:32 PM
--- NOTE | 2025-03-27 15:28 | XR ---
EXAMINATION TYPE: XR lumbar spine with bend/flex, 5 views DATE OF EXAM: 03/27/2025 12:21 PM COMPARISON: None CLINICAL INDICATION: Female, 44 years old with history of M50.022, T84.498A, M96.0; [facility], pain FINDINGS: Patient with L4-pelvic posterior lumbar fusion. There is left lateral interbody fusion L4-L5 and ante rior fusion L5-S1. Vertebral body heights are preserved. Mild degenerative disc disease L1-L2. On neutral, there is accentuated lumbar lordosis with trace grade 1 retrolisthesis L2-L3 which correc ts with flexion but appears similar on extension. IMPRESSION: 1. Status post L4-pelvic posterior lumbar fusion. Additional left lateral interbody fusion L4-L5 and anterior fusion L5-S1. 2. Accentuated lumbar lordosis. 3. There is trace grade 1 retrolisthesis at L2-L3 which corrects with flexion but appears similar on extension. [facility], , 03/27/2025 3:26 PM
--- NOTE | 2025-03-30 07:57 | CT ---
EXAMINATION TYPE: CT cervical spine wo con DATE OF EXAM: 03/27/2025 12:30 PM COMPARISON: None. CLINICAL INDICATION: Female, 44 years old with history of M50.022, T84.498A, M96.0, Cervical pain, pa in radiating LT arm. Previous surgical hx, pain TECHNIQUE: CT of the cervical spine is performed in the axial plane at 2 mm thick sections. Reconstr ucted images in the coronal, and sagittal plane are reviewed on the computer. Contrast used: mL of , (none if empty) Oral contrast used: (none if empty) CT DLP: 591 mGycm, Automated exposure control for dose reduction was used. FINDINGS: No acute fractures are evident. There is anterior cervical fusion C5-C7. Mild kyphosis centered at C3. There is loss of disc height throughout the cervical spine. Vertebral body heights are preserved. No spinal canal stenosis is evident Uncovertebral joint hypertrophy is contributing to foraminal narrowing bilaterally C3-4 C4-5. Mild fo raminal narrowing is present on the left C5-6 and C6-7. IMPRESSION: 1. Postsurgical changes anterior cervical fusion C5-C7. 2. Degenerative disc changes. 3. Foraminal stenosis greatest in the upper cervical spine C3-4 [facility], , 03/30/2025 7:55 AM
== END | disposition home or self-care (01) ==
LOC: RADCTMAIN 11:42
PROVIDERS: ATTEND Neurological Surgery
DX: M48.02 Spinal stenosis, cervical region (principal); M50.022 Cervical disc disorder at C5-C6 level with myelopathy; T84.498A Other mechanical complication of other internal orthopedic devices, implants and grafts, initial encounter; M47.12 Other spondylosis with myelopathy, cervical region; M43.12 Spondylolisthesis, cervical region; M43.22 Fusion of spine, cervical region; M43.16 Spondylolisthesis, lumbar region; M40.46 Postural lordosis, lumbar region; M43.26 Fusion of spine, lumbar region
CPT/HCPCS: 72052; 72114; 72125

== ENCOUNTER → 2025-03-31 | Outpatient (CLI) | payer MEDICARE ==
--- NOTE | 2025-04-01 01:05 | MR ---
EXAMINATION TYPE: MR cspine/tspine wo con DATE OF EXAM: 03/31/2025 9:44 PM COMPARISON: CT cervical spine 03/27/2025, cervical spine radiographs 03/27/2025, thoracic spine radiogr aph 09/27/2024, CT brain C-spine 11/20/2021, MR cervical spine 09/05/2020 CLINICAL INDICATION: Female, 44 years old with history of M50.022 T84.498A, prev surgery on neck and back and pt fell off porch backwards IV Contrast: None TECHNIQUE: Multiplanar, multisequence imaging of the cervical spine is performed without intravenous contrast. FINDINGS: Alignment: The cervical vertebral bodies have preserved heights. Similar grade 1 anterolisthesis of C 2 on C3 and mild retrolisthesis of C4 on C5. Bones: Postsurgical changes from anterior cervical fusion with hardware involving C5-C7. Intervertebr al disc hardware identified. This creates susceptibility artifact which limits evaluation. Type I Mod ic changes involving the end plates around the C3-C4 disc. Cord: The spinal cord is unremarkable with regards to their signal intensity and morphology. Discs: Multilevel disc desiccation is present. C2-C3: Grade 1 anterolisthesis with uncovering of the disc. No disc herniation. No spinal canal steno sis. No neural foraminal stenosis. C3-C4: Posterior disc osteophyte complex with mild effacement of the anterior thecal sac in close hari roximation to the ventral spinal cord. Resultant mild spinal canal stenosis with the spinal canal tor meter measuring up to 9 mm in AP dimension. Uncovertebral joint atrophy with moderate bilateral neur al foramina stenosis. C4-C5: Broad-based disc bulge with effacement of the anterior thecal sac and abutment of the ventral spinal cord. Results in moderate spinal canal stenosis. There is approximately 8 mm of AP spinal johana l diameter. Uncovertebral joint hypertrophy with moderate right and severe left neural foraminal isabel nosis. C5-C6: Postsurgical changes without spinal canal stenosis. Uncovertebral joint hypertrophy. Mild lef t neural foraminal stenosis. The right neural foramen is patent. C6-C7: Postsurgical changes without spinal canal stenosis. Uncovertebral joint hypertrophy. Mild lef t neural foraminal stenosis. The right neural foramen is patent. C7-T1: No significant disc pathology. The spinal canal is patent. No neural foraminal stenosis. Other: Multinodular right thyroid lobe with T2 hyperintense nodules. Largest measures up to 1.2 cm. IMPRESSION: 1. Postsurgical changes from ACDF C5-C7. 2. Multilevel disc degeneration of the upper cervical spine as described above. Most pronounced at C4 -C5 with moderate spinal canal stenosis secondary to disc bulge. TECHNIQUE: Multi planar, multi sequence imaging was performed of the thoracic spine without intraveno us contrast. FINDINGS: The thoracic vertebral bodies have preserved heights. No spondylolisthesis. Minimal S-shaped scolioti c curvature of the thoracolumbar spine. Couple of T2/T1 hyperintense foci within the vertebral bodies consistent with vertebral hemangiomas involving the T6 and T8 vertebral bodies. The remaining osseou s structures have normal signal intensity. No abnormal STIR signal. Multilevel disc desiccation. Thoracic spinal cord appears unremarkable. Small disc bulge at T6-T7 without significant effacement of the anterior thecal sac. No spinal canal stenosis. Broad-based disc bulge with annular fissure at T8-T9 with mild effacement of the anterior thecal sac. Results in minimal spinal canal stenosis. Minimal disc bulge at T10-T11 without spinal canal stenosis. Left paracentral tiny disc protrusion with annular fissure at T12-L1 without spinal canal stenosis. No neural foraminal stenosis at any thoracic level. IMPRESSION: Mild multilevel degenerative disc disease without significant spinal canal stenosis as described [facility], , 04/01/2025 1:03 AM
== END | disposition home or self-care (01) ==
LOC: RADMRIMAIN 20:20
PROVIDERS: ATTEND Neurological Surgery
DX: M50.022 Cervical disc disorder at C5-C6 level with myelopathy (principal); M96.0 Pseudarthrosis after fusion or arthrodesis; T84.498A Other mechanical complication of other internal orthopedic devices, implants and grafts, initial encounter; M48.02 Spinal stenosis, cervical region; M43.12 Spondylolisthesis, cervical region
CPT/HCPCS: 72141; 72146

== ENCOUNTER 2025-04-05 15:09 | Emergency (ER) | payer MEDICARE ==
[2025-04-05 15:17] VITALS: TEMP 98.4
[2025-04-05] MEDS: LIDOCAINE 4% PATCH TOPICAL ONE (16:05)
[2025-04-05] MEDS: DEXAMETHASONE SOD PHOSPHATE 10 MG/ML 1 ML VIAL IM STA (16:07)
[2025-04-05] MEDS: ORPHENADRINE 30 MG/ML 2 ML VIAL IM STA (16:09)
[2025-04-05] MEDS: KETOROLAC 15 MG/ML 1 ML VIAL IM STA (16:11)
[2025-04-05] MEDS: HYDROmorphone 1 MG/ML 1 ML SYRINGE IM STA (16:59)
[2025-04-05 17:40] VITALS: BP 145/91; PULSE 52; RESP 16
--- NOTE | 2025-04-05 17:49 | ED ---
Fall HPI - General Chief Complaint: Fall Stated Complaint: Fall-Back pain Time Seen by Provider: 04/05/25 15:25 Source: patient Mode of arrival: wheelchair - History of Present Illness Initial Comments: 44-year-old female presenting with chief complaint of lower back pain. Patient reports that she was going down the stairs yesterday and started to fall but caught herself, however she also twisted her back in a strange fashion. She is now having continued lower back pain. She does have radiation down both legs. She has history of lower back pain as well. No loss of bowel or bladder control or saddle paresthesia. No fever, chills, nausea, vomiting, abdominal pain, urinary symptoms. - Related Data Home Medications Medication Instructions Recorded Confirmed busPIRone HCl [Buspar] 20 mg PO HS 02/11/21 04/22/23 Desvenlafaxine [Pristiq ER] 100 mg PO DAILY 01/24/23 04/22/23 OXcarbazepine 600 mg PO HS 01/24/23 04/22/23 Acetaminophen-Codeine 300-30mg 1 tab PO Q4H PRN 04/22/23 04/22/23 [Tylenol w/codeine #3] Montelukast [Singulair] 10 mg PO DAILY 04/22/23 04/22/23 OXcarbazepine 300 mg PO DAILY 04/22/23 04/22/23 tiZANidine [Zanaflex] 4 mg PO Q8HR PRN 04/22/23 04/22/23 Previous Rx's Medication Instructions Recorded methocarbamoL [Robaxin-750] 1,500 mg PO TID PRN #30 tab 09/27/24 predniSONE 50 mg PO DAILY 5 Days #5 tab 09/27/24 Allergies Allergy/AdvReac Type Severity Reaction Status Date / Time cat dander AdvReac Mild Itching Verified 04/05/25 15:17 eyes, runny nose seasonal AdvReac Mild Itching Uncoded 04/05/25 15:17 eyes, runny nose Review of Systems ROS Statement: Those systems with pertinent positive or pertinent negative responses have been documented in the HPI. ROS Other: All systems not noted in ROS Statement are negative. 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 Hx kidney stones. Hx hiatal hernia repair, has pain, occ food gets stuck. Migraine HARKINS. Cervical DDD, bone spurs; NT Lt arm to fingers. History of Any Multi-Drug Resistant Organisms: None Reported Past Surgical History: Cholecystectomy, Hernia Repair, Tubal Ligation, Uterine Ablation Additional Past Surgical History / Comment(s): 3 brain surgeries. 2 umb hernia. uterine ablation with novasure - in late , no menses since. EGD, COLONOSCOPY. 01/08/19 ozzy. Mult pain proc, cervical fusion 2021, pain stimulator. Past Anesthesia/Blood Transfusion Reactions: Postoperative Nausea & Vomiting (PONV) Past Psychological History: Anxiety, Bipolar, Depression Smoking Status: Former smoker Past Alcohol Use History: None Reported Past Drug Use History: Marijuana - Past Family History Mother Family Medical History: Cancer Additional Family Medical History / Comment(s): Breast/Cervical Cancer. General Exam Limitations: no limitations General appearance: alert, in no apparent distress Head exam: Present: atraumatic, normocephalic, normal inspection Eye exam: Present: normal appearance, EOMI Neck exam: Present: normal inspection. Absent: meningismus Respiratory exam: Absent: respiratory distress Cardiovascular Exam: Present: regular rate Back exam: Present: normal inspection, tenderness Neurological exam: Present: alert, oriented X3 Psychiatric exam: Present: normal affect, normal mood Skin exam: Present: warm, dry, normal color Course Vital Signs 04/05/25 04/05/25 15:10 17:38 Temperature 98.4 F Pulse Rate 81 52 L Respiratory 18 16 Rate Blood Pressure 119/82 145/91 O2 Sat by Pulse 100 100 Oximetry Medical Decision Making - Medical Decision Making Was pt. sent in by a medical professional or institution (, PA, MEDICAL CLAIMS PROCESSOR, urgent care, hospital, or senior care...) When possible be specific @ -No Did you speak to anyone other than the patient for history (EMS, parent, family, police, friend...)? What history was obtained from this source @ -No Did you review nursing and triage notes (agree or disagree)? Why? @ -I reviewed and agree with nursing and triage notes Were old charts reviewed (outside hosp., previous admission, EMS record, old EKG, old radiological studies, urgent care reports/EKG's, senior care records)? Report findings @ -No old charts were reviewed Differential Diagnosis (chest pain, altered mental status, abdominal pain women, abdominal pain men, vaginal bleeding, weakness, fever, dyspnea, syncope, headache, dizziness, GI bleed, back pain, seizure, CVA, palpatations, mental health, musculoskeletal)? @ - MDM Differential Back Pain: Strain, zoster, cauda equina syndrome, epidural abscess, vertebral osteomyelitis, discitis, fracture, subluxation, disc herniation, DJD, spinal isabel nosis, dissection, AAA, pancreatitis, peptic ulcer disease, pyelonephritis, kidney stone… this is not meant to be an all-inclusive list. EKG interpreted by me (3pts min.). @ -As above X-rays interpreted by me (1pt min.). @ -None done CT interpreted by me (1pt min.). @ -None done U/S interpreted by me (1pt. min.). @ -None done What testing was considered but not performed or refused? (CT, X-rays, U/S, labs)? Why? @ -None What meds were considered but not given or refused? Why? @ -None Did you discuss the management of the patient with other professionals (professionals i.e. , PA, MEDICAL CLAIMS PROCESSOR, lab, RT, psych nurse, social organization professor, environmental engineering aide, teacher, airfield services officer, case packer and sealer)? Give summary @ -No Was smoking cessation discussed for >3mins.? @ -No Was critical care preformed (if so, how long)? @ -No Were there social determinants of health that impacted care today? How? (Homelessness, low income, unemployed, alcoholism, drug addiction, transportation, low edu. Level, literacy, decrease access to med. care, [facility], rehab)? @ -No Was there de-escalation of care discussed even if they declined (Discuss DNR or withdrawal of care, Hospice)? DNR status @ -No What co-morbidities impacted this encounter? (DM, HTN, Smoking, COPD, CAD, Cancer, CVA, ARF, Chemo, Hep., AIDS, mental health diagnosis, sleep apnea, morbid obesity)? @ -None Was patient admitted / discharged? Hospital course, mention meds given and route, prescriptions, significant lab abnormalities, going to OR and other pertinent info. @ -44-year-old female presenting with chief complaint of back pain. History of chronic back pain. Started yesterday when she started to fall but caught herself but in the process twisted her back awkwardly. No red flag symptoms. Reports improvement after pain medication. Follow-up with PCP. Report back to ER with any new or worsening symptoms. Discussed return parameters and answered all questions. Patient conveyed verbal understanding and agreed to the plan. I discussed this case in detail with my attending Dr. Caraballo Undiagnosed new problem with uncertain prognosis? @ -No Drug Therapy requiring intensive monitoring for toxicity (Heparin, Nitro, Insulin, Cardizem)? @ -No Were any procedures done? @ -No Diagnosis/symptom? @ -Lumbar strain Acute, or Chronic, or Acute on Chronic? @ -Acute Uncomplicated (without systemic symptoms) or Complicated (systemic symptoms)? @ -Uncomplicated Side effects of treatment? @ -No Exacerbation, Progression, or Severe Exacerbation? @ -No Poses a threat to life or bodily function? How? (Chest pain, USA, DC, pneumonia, PE, COPD, DKA, ARF, appy, cholecystitis, CVA, Diverticulitis, Homicidal, Suicidal, threat to staff... and all critical care pts) @ -Unlikely Disposition Clinical Impression: Lumbar strain Disposition: HOME SELF-CARE Condition: Good Instructions (If sedation given, give patient instructions): Low Back Strain (ED) Additional Instructions: Follow-up with PCP. Report back to ER with any new or worsening symptoms. Is patient prescribed a controlled substance at d/c from ED?: No Referrals: Pako Garcia DO [Primary Care Provider] - 1-2 days Time of Disposition: 17:48
== END 2025-04-05 17:57 | disposition home or self-care (01) ==
LOC: EC 15:09
DX: S39.012A Strain of muscle, fascia and tendon of lower back, initial encounter (principal); Z91.09 Other allergy status, other than to drugs and biological substances; Z87.891 Personal history of nicotine dependence; W10.9XXA Fall (on) (from) unspecified stairs and steps, initial encounter
CPT/HCPCS: 99283; 96372; J1100; J2360; J1171; J1885